=== PATIENT | female | born 1935 | race Caucasian/White ===

== ENCOUNTER 2019-11-26 18:01 | Inpatient (IN) | payer MEDICARE, SELFPAY ==
--- NOTE | ~2019-11-26 | XR_ITS ---
EXAMINATION: XR hip LT 2V w AP pelvis INDICATION: Left hip pain, initial encounter TECHNIQUE: AP view the pelvis and two views of the left hip are obtained. COMPARISON: None available FINDINGS: There is an acute, traumatic, closed, subcapital fracture of the left femoral neck. The fem oral heads are well-seated in their acetabula. No additional acute osseous findings are evident. Ther e is moderate to severe lumbar spondylosis. Phleboliths are noted in the pelvis. A subtle area of scl erosis in the intertrochanteric region of the right femur may reflect an enchondroma or bone infarct. IMPRESSION: 1. Acute subcapital fracture of the left femoral neck. Reviewed, dictated and finalized at location A.
--- NOTE | ~2019-11-26 | XR_ITS ---
EXAMINATION: XR hip LT min 2V DATE: 11/27/2019 15:22 INDICATION: Left hip arthroplasty TECHNIQUE: 2 views left hip FINDINGS: There is a left bipolar hip arthroplasty in expected position. Subcutaneous gas with soft tissue swelling are consistent with recent surgery. IMPRESSION: 1. Recent left bipolar hip arthroplasty. Reviewed, dictated and finalized at location A.
--- NOTE | ~2019-11-26 | XR_ITS ---
EXAMINATION: XR surgery orthopedic DATE: 11/27/2019 14:22 INDICATION: Intraoperative evaluation during left hip arthroplasty TECHNIQUE: Frontal view of the left hip was obtained. COMPARISON: 11/26/2019 FINDINGS: Intraoperative image during resection of the recently fractured left femoral head and neck and placem ent of a left hip arthroplasty, reportedly planned bipolar type. A femoral broach is in place with th e proximal tip centered over the acetabular component. Portions of the cephalad pelvis are excluded f rom the [id number]. No fractures in the visualized bones. Right hip joint space appears normal. He mostat projects over the proximal left thigh. IMPRESSION: 1. Expected appearance during left hip arthroplasty. Reviewed, dictated and finalized at location A.
--- NOTE | ~2019-11-26 | XR_ITS ---
EXAMINATION: XR chest 1V INDICATION: Pain after fall TECHNIQUE: Frontal view of the chest is obtained. COMPARISON: None available FINDINGS: There is a small left pleural effusion. No pneumothorax is identified. There are minimal le ft basilar airspace opacities. The cardiomediastinal silhouette is normal. Surgical clips are noted i n the right upper quadrant. IMPRESSION: 1. Small left pleural effusion. 2. Minimal left basilar airspace opacities, likely atelectasis. Reviewed, dictated and finalized at location A.
--- NOTE | ~2019-11-26 | XR_ITS ---
EXAMINATION: XR hip RT 1V DATE: 11/27/2019 12:50 INDICATION: Planned left hip surgery. Right hip radiograph obtained for comparison. TECHNIQUE: Anteroposterior view of the right hip were obtained. COMPARISON: 11/26/2019 FINDINGS: Alignment is normal. No fracture. Right hip joint space appears relatively preserved. Again seen is a stippled pattern of calcification at the intertrochanteric right femur. Severe lumbar spondylosis. IMPRESSION: 1. Sclerotic lesion with stippled pattern of calcification at the intertrochanteric right femur. Diff erential would include enchondroma, bone infarct or labral sclerosing myxofibrous tumor. Otherwise un remarkable right hip. Reviewed, dictated and finalized at location A. IMPRESSION: 1. Sclerotic lesion with stippled pattern of calcification at the intertrochant gaurang right femur. Differential would include enchondroma, bone infarct or ruth l sclerosing myxofibrous tumor. Otherwise unremarkable right hip.
[2019-11-26 18:00] VITALS: BP 136/81; PULSE 82; RESP 22; TEMP 36.7; O2SAT 91
--- NOTE | 2019-11-26 18:29 | PC.NURSE ---
Pt to XRAY via stretcher.
--- NOTE | 2019-11-26 18:31 | ED.FALL ---
HPI - Fall General Chief Complaint: Fall Stated Complaint: FALL/L HIP PAIN History of Present Illness HPI Narrative: Patient is an 84-year-old female who presents ER with left hip pain. Patient got up off her couch and was walking around it to get to her walker when she just lost her balance and fell to the ground. She did not strike her head or lose consciousness. She cannot get up due to pain in her hip. No numbness or tingling in that lower extremity. She takes Plavix but has never had any cardiac stenting. Pain in the hip is worse with movement and better with rest. Related Data Home Medications Medication Instructions Recorded Confirmed aspirin [Aspir-81] 11/26/19 clopidogrel 75 mg PO DAILY 11/26/19 duloxetine 30 mg PO TID 11/26/19 isosorbide mononitrate 120 mg PO DAILY 11/26/19 loratadine [Claritin] 10 mg PO DAILY 11/26/19 losartan 100 mg PO DAILY 11/26/19 metoprolol tartrate 11/26/19 pantoprazole 40 mg PO QAM 11/26/19 zolpidem mg 11/26/19 Allergies Allergy/AdvReac Type Severity Reaction Status Date / Time No Known Allergies Allergy Verified 11/26/19 18:11 Review of Systems Review of Systems: All systems reviewed & are unremarkable except as noted in HPI and below Constitutional: Constitutional: Denies fatigue, Denies fever(s) and Denies weakness ENT: Denies nasal congestion and Denies sore throat Musculoskeletal: Musculoskeletal: Reports arthralgias and Denies muscle cramps Neurologic: Denies dizziness, Denies headache(s), Denies focal weakness and Denies numbness PMFSH Past Medical History Medical History (Updated 11/26/19 @ 18:59 by Loyd Orellana MD) Hyperlipidemia Myocardial infarction Surgical History Surgical History (Updated 11/26/19 @ 18:33 by Loyd Orellana MD) History of bilateral knee replacement History of cholecystectomy History of hysterectomy Social History Social History (Updated 11/26/19 @ 18:33 by Loyd Orellana MD) Smoking status: Never smoker Exam Narrative: Exam Narrative: GENERAL: Well-appearing, well-nourished, and in no acute distress. HEAD: Normocephalic, atraumatic. ENT: Mucous membranes moist. CHEST: Clear to auscultation. No respiratory distress. HEART: Regular rate and rhythm. Normal peripheral pulses. EXTREMITIES: Tender to palpation over the left hip and patient unable to raise the leg due to pain. Normal range of motion right lower extremity with good strength. SKIN: Warm, dry, no rash. NEURO: No focal deficits. Alert and oriented x3. PSYCH: Normal mood and affect. Course Course Emergency Course: Patient informed of results. Admit to hospitalist service. Dr. Bojorquez consulted. Request that cardiology be consulted as well. Vital Signs Vital signs: Vital Signs Temperature 98.0 F 11/26/19 18:00 Pulse Rate 82 11/26/19 18:00 Respiratory Rate 22 H 11/26/19 18:00 Blood Pressure 136/81 11/26/19 18:00 Pulse Oximetry 91 11/26/19 18:00 Temperature 98.0 F 11/26/19 18:00 Pulse Rate 82 11/26/19 18:00 Respiratory Rate 22 H 11/26/19 18:00 Blood Pressure 136/81 11/26/19 18:00 Pulse Oximetry 91 11/26/19 18:00 MDM - Fall Lab Data Result diagrams: 11/26/19 18:25 11/26/19 18:25 Labs: Lab Results 11/26/19 11/26/19 11/26/19 Range/Units 18:25 18:25 18:25 WBC 10.5 H (4.5-10.0) K/mm3 RBC 4.50 (4.2-5.4) M/mm3 Hgb 15.4 H (12.0-15.0) g/dL Hct 45.8 (37.0-47.0) % MCV 101.8 H (80-100) fl MCH 34.2 H (26-34) pg MCHC 33.6 (32-36) g/dl RDW 13.1 (11.5-14.5) % Plt Count 229 (150-375) k/mm3 MPV 8.9 (7.4-10.4) fl Immature Gran % (Auto) 0.7 H (0-0.5) % Neut % (Auto) 78.2 H (45.5-73.1) % Lymph % (Auto) 16.2 L (18.3-44.2) % [place] % (Auto) 4.1 (2.6-8.5) % Eos % (Auto) 0.5 (0-4.4) % Baso % (Auto) 0.3 (0.2-1.2) % Lymph # (Auto) 1.70 (0.9-3.2) K/mm3 [place] # (Auto) 0.4 (0.1-0.6) K/mm3 Eos
[2019-11-26 18:32] LABS: Basophils Percent Auto 0.3 % (0.2-1.2); Eosinophils Absolute Auto 0.1 K/mm3 (0-0.3); Eosinophils Percent Auto 0.5 % (0-4.4); Hematocrit 45.8 % (37.0-47.0); Hemoglobin 15.4 g/dL (12.0-15.0); Immature Granulocyte Absolute 0.07 K/mm3 (0.00-0.031); Immature Granulocyte Percent A 0.7 % (0-0.5); Lymphocytes Percent Auto 16.2 % (18.3-44.2); Mean Corpuscular HGB Conc 33.6 g/dl (32-36); Mean Corpuscular Hemoglobin 34.2 pg (26-34); Mean Corpuscular Volume 101.8 fl (80-100); Mean Platelet Volume 8.9 fl (7.4-10.4); Monocytes Absolute Auto 0.4 K/mm3 (0.1-0.6); Monocytes Percent Auto 4.1 % (2.6-8.5); Neutrophils Absolute Auto 8.2 K/mm3 (1.3-6.7); Neutrophils Percent Auto 78.2 % (45.5-73.1); Platelet Count Result 229 k/mm3 (150-375); Red Cell Distribution Width 13.1 % (11.5-14.5); White Blood Count 10.5 K/mm3 (4.5-10.0)
[2019-11-26] MEDS: MORPHINE SULFATE 2 MG/ML INJ IV PUSH (18:37)
[2019-11-26 18:41] LABS: Prothrombin Time 12.8 Seconds (11.1-14.7)
[2019-11-26 18:42] LABS: Partial Thromboplastin Time 23.7 SECONDS (22.3-36.8)
--- NOTE | 2019-11-26 18:45 | ECG_ITS ---
Measurements Intervals Nora Rate: 82 P: 9 RI: 155 QRS: -20 QRSD: 92 T: 82 QT: 359 QTc: 421 Interpretive Statements SINUS RHYTHM VOLTAGE CRITERIA FOR LVH RSR' IN V1 OR V2, CONSIDER RIGHT VENTRICULAR HYPERTROPHY OR RIGHT VCD INFERIOR INFARCT, AGE INDETERMINATE BORDERLINE ST-T WAVE ABNORMALITY- HIGH LATERAL LEADS ABNORMAL ECG Electronically Signed On 11-26-2019 20:09:47 CDT by Jason Cleveland D.O.
[2019-11-26 19:00] LABS: Blood Urea Nitrogen 20 mg/dL (7-17); Calcium 9.1 mg/dL (8.4-10.2); Carbon Dioxide 24 mmol/L (22-30); Chloride 104 mmol/L (98-107); Estimated Glomerular Filt Rate 53; Glucose 143 mg/dL (65-105); Potassium 4.4 mmol/L (3.4-5.0); Sodium 135 mmol/L (137-145)
[2019-11-26 19:31] LABS: Add Urine Microscopic? NO; Appearance Urine Clear (Clear); Bilirubin Urine Negative (Negative); Blood Urine Negative (Negative); Color Urine Yellow (Yellow); Glucose Urine UA Negative (Negative); Ketones Urine Negative (Negative); Leukocyte Esterase Ur Negative LEU/UL (Negative); Nitrate Urine Negative (Negative); Protein Urine Negative (Negative); Specific Grav Ur 1.016 (1.001-1.035); Urobilinogen Urine Negative mg/dL (<2.0)
[2019-11-26 19:45] VITALS: BP 127/82; PULSE 82; RESP 20; TEMP 36.7; O2SAT 94
[2019-11-26 19:48] VITALS: BP 140/67; PULSE 84; RESP 18; TEMP 36.5; O2SAT 91; BMI 35.2
[2019-11-26] MEDS: MORPHINE SULFATE 4 MG/ML INJ 2 MG IV PUSH ×2 (20:47→22:58)
--- NOTE | 2019-11-26 22:43 | PM.IMHP ---
H&P: HPI History of Present Illness Chief complaint: Left hip pain after falling Narrative: Date and time of patient contact: 11/26/2019 at 11:00 p.m. Mary Rose is a 84 year old female of hypertension, recent CVA, and coronary artery disease who presented to the ER via EMS after ground level fall with left hip pain. Source of information is ER records, patient report and family report over the phone. The patient's daughter Karina, had just left the patient's home about an hour prior to the patient falling. The patient reports that she had gotten up and was walking into the kitchen when she fell. The patient thinks that she may have been dizzy prior to her fall. But she cannot remember if the room was spinning or if she felt lightheaded. Her daughter reports that the area where she fell is where the floor transitions from carpeting to tile. Patient thinks that she was using her walker to ambulate. When she fell she developed left groin pain and was unable to get up. She is unsure if she hit her head but has no evidence of head trauma. The patient's other daughter then stop by the house and found her down. She reports that the pain in her groin is a 10/10 in intensity without movement and is unbearable with movement. The patient seems to have fairly good recall of her distant medical history but has some difficulty with recall of recent events. Her daughter has noticed that the patient seems to be having more difficulty with recall since her stroke in August. The patient was evidently taken to [facility] that time due to generalized weakness and confusion. It was thought at that time that she had a urinary tract infection. However, when the patient's cognition did not improve an MRI was performed which demonstrated a small stroke. Per her daughter's report, the patient has no localizing deficits from her event. Patient was recently diagnosed with a urinary tract infection diagnosed due to dysuria (no urine culture performed) and has been taking Bactrim since the . She always has urinary frequency and is on Myrbetriq. She has frequent his urinary leakage at baseline. She is on day 5 of 7 of antibiotics. She denies any nausea or vomiting. She does have a history of coronary artery disease but denies any recent chest pain or shortness of breath. She evidently had a non STEMI and 2016. She needed a left total knee arthroplasty in [address] Bojorquez felt the patient would benefit from having the procedure done at higher level of care due to the patient's increased cardiac risk. The family is concerned about whether not the patient should have orthopedic surgery at our facility. They would like to speak to the boiler washer and the orthopedic surgeon. Review of Systems Review of Systems: Narrative: 12 systems were reviewed with pertinent positives and negatives per HPI. Except as documented in the HPI, all other systems were reviewed and are negative. [facility] Past Medical History Medical History (Updated 11/27/19 @ 01:13 by Sally Stern DO) CVA (cerebral vascular accident) August 2019 Essential hypertension GERD (gastroesophageal reflux disease) Hyperlipidemia Insomnia Myocardial infarction 2015 with cardiac catheterization at [facility] Urinary incontinence, mixed Surgical History Surgical History (Updated 11/27/19 @ 01:02 by Sally Stern DO) History of bilateral knee replacement Right knee greater than 10 years ago, left knee 2017 History of cardiac catheterization Without stent placement History of cholecystectomy History of hysterectomy Family History Family History Son Malignant neoplasm of prostate Social History Social History (Updated 11/27/19 @ 01:09 by Sally Stern DO) Social History: Primary care physician: Dr. Bolanos Code status: Full code Smoking status: Never smoker Alcohol intake: cu
--- NOTE | 2019-11-26 23:43 | ADMGEN ---
This patient, Mary Rose, was admitted to 3 Med Surg Room 316-01. Patient/family oriented to hospital policies and general routines including ID bracelet, bed and alarms, visiting hours, pain management, procedures, bathroom and other care routines, personal items, smoking policy, room service/diet, and visiting hours. Valuables list has been completed. Information on how to activate the Rapid Response Team has been discussed. Patient/Family are encouraged to report perceived risks to care and to ask questions if they do not understand what they are told or what they should do.
[2019-11-27] VITALS (17 sets, daily range): BP systolic 124–159; BP diastolic 46–101; PULSE 78–120; RESP 14–20; TEMP 36.1–36.9; O2SAT 87–100
[2019-11-27] MEDS: MORPHINE SULFATE 4 MG/ML INJ IV PUSH (00:23)
[2019-11-27] MEDS: MIRABEGRON 25 MG ER TABLET 50 MG PO ×2 (02:20→21:15)
[2019-11-27] MEDS: METOPROLOL TARTRATE 50 MG TAB PO ×3 (02:20→19:56)
[2019-11-27 06:33] LABS: Blood Urea Nitrogen 27 mg/dL (7-17); Calcium 8.8 mg/dL (8.4-10.2); Carbon Dioxide 24 mmol/L (22-30); Chloride 105 mmol/L (98-107); Estimated CRCL calculation 36 ml/min; Estimated Glomerular Filt Rate 43; Glucose 143 mg/dL (65-105); Potassium 4.8 mmol/L (3.4-5.0); Sodium 136 mmol/L (137-145)
--- NOTE | 2019-11-27 07:37 | PM.CNOR ---
Assessment and Plan Additional Plan This patient is a 84-year-old female who was admitted through the emergency room last evening with a displaced subcapital left femoral neck fracture. She fell at her home yesterday from ground height causing injury and she denies any other symptoms except for pain in left hip. She lives alone at home. She uses a walker chronically for stability she states. She has undergone bilateral knee replacements on 1 side with by her many years ago and about 3 years ago she had her other knee replaced at [facility]. She states she was advised to go to a tertiary care facility because of being at increased risk of cardiac complications due to heart attack and stent 1 year prior. Her past medical history is also significant for a cerebrovascular accident in August of 2019 according to the hospitalist note. Her medications include isosorbide Plavix aspirin Rachelle 10 losartan and metoprolol pantoprazole zolpidem and myrbetriq. She has no known drug allergies. On examination today she is alert and oriented she is a pleasant female in no acute distress at this time. Her pain appears to be well controlled. We will change the p.r.n. order of Tylenol 2 scheduled Tylenol and she has p.r.n. morphine ordered. Her left leg is shortened and externally rotated. There are no abnormalities in the skin she has a knee replacement incision there is no swelling or tenderness at the knee there is no ecchymosis at the hip. She has 2+ dorsalis pedis and posterior tibial artery pulses palpable. She has intact sensation wiggles her toes without difficulty. I have discussed with her that with her past medical history she has had increased risk for severe medical complications such as heart attack stroke and she is at increased risk for mortality compared to an 84-year-old with a hip fracture like this that does not have a recent history of CVA and a prior history of [place] and stent placement. For DVT prophylaxis I would recommend Lovenox 40 mg daily for a more gentle approach since with her recent stroke it will be important to to resume her Plavix quickly as the baby aspirins probably inadequate to prevent further strokes. She will have a greater degree of blood loss than the average patient and may need transfusion this was discussed. Risk of surgical complications such as infection leg length discrepancy fracture centrum discussed. She is currently finishing a 1 week course of Bactrim for urinary tract infection. She states that she has no urinary symptoms now. Her urinalysis showed a negative leukocyte esterase yesterday and was clear. She is at higher risk for wound infection and higher likelihood of being colonized with MRSA or Bactrim resistant organisms. We will plan to use vancomycin in addition to Ancef for perioperative antibiotic prophylaxis. Her son doctor Terrence Stack is a physician in [place] and I will be calling him this morning to discuss this with him. We have Cardiology consult and for a cardiac risk assessment and they have been notified again this morning and I have maintained the plans to proceed with the bipolar hemiarthroplasty of her left hip at 1:00 a.m. this afternoon. I think that avoidance of use of cement in her case would be preferable and we will therefore utilized the Actis this stem which has a collar and his most suitable for her anatomy. History of Present Illness HPI Consult date: 11/27/19 Chief complaint: Left hip pain after falling PMFSH Past Medical History Medical History (Updated 11/27/19 @ 01:13 by Sally Stern DO) CVA (cerebral vascular accident) August 2019 Essential hypertension GERD (gastroesophageal reflux disease) Hyperlipidemia Insomnia Myocardial infarction 2015 with cardiac catheterization at [facility] Urinary incontinence, mixed Surgical History Surgical History (Updated 11/27/19 @ 01:02 by Sally Stern DO) History of bilateral knee replacement Right knee greater than 10
[2019-11-27 08:37] LABS: Hemoglobin 15.4 g/dL (12.0-15.0); Mean Corpuscular HGB Conc 32.8 g/dl (32-36); Mean Corpuscular Hemoglobin 34.1 pg (26-34); Mean Platelet Volume 8.8 fl (7.4-10.4); Platelet Count Result 177 k/mm3 (150-375); Red Blood Count 4.52 M/mm3 (4.2-5.4); Red Cell Distribution Width 13.2 % (11.5-14.5); White Blood Count 12.2 K/mm3 (4.5-10.0)
[2019-11-27 08:53] LABS: Alanine Aminotransferase 25 U/L (4-35); Albumin Level 3.9 g/dL (3.5-5.1); Alkaline Phosphatase 75 U/L (38-126); Aspartate Amino Transferase 29 U/L (14-36); Bilirubin,Total 0.9 mg/dL (0.2-1.3); Blood Urea Nitrogen 28 mg/dL (7-17); Calcium 8.9 mg/dL (8.4-10.2); Carbon Dioxide 25 mmol/L (22-30); Chloride 103 mmol/L (98-107); Estimated CRCL calculation 31 ml/min; Estimated Glomerular Filt Rate 36; Glucose 152 mg/dL (65-105); Sodium 135 mmol/L (137-145)
--- NOTE | 2019-11-27 08:59 | P.PNIM_ITS ---
Progress Note: A&P Assessment and Plan (1) Fracture of femoral neck, left, closed: Code(s): S72.002A - Fracture of unspecified part of neck of left femur, initial encounter for closed fracture Status: Acute Assessment and Plan: After sustaining a ground level fall at home. Both Orthopedic surgery and Cardiology have been consulted; appreciate recommendations. Ortho has planned for surgery this afternoon pending Cardiology input in risk assessment. Pain appears to be more controlled this morning * Continue morphine to 4 mg q.2 hours., consider tapering if tolerable * IV tylenol ordered per Dr. Bojorquez * Will await further input from Ortho and Cardiology * Monitor (2) Poor short-term memory: Code(s): R41.3 - Other amnesia Status: Acute Assessment and Plan: Patient may have mild cognitive impairment/dementia. Anticipate patient becoming more confused with pain medication administration and hospitalization. * Use narcotics cautiously, consider tapering morphine if tolerable * Monitor closely (3) Coronary artery disease: Code(s): I25.10 - Atherosclerotic heart disease of [place] coronary artery without angina pectoris Status: Acute Assessment and Plan: She denies any active cardiac symptoms. * Will hold her home aspirin and Plavix. Agree with resuming as soon as possible post op * Will continue home Imdur, metoprolol and losartan. * Await cardiac risk stratification from Cardiology. (4) UTI (urinary tract infection): Code(s): N39.0 - Urinary tract infection, site not specified Status: Acute Assessment and Plan: Reported UTI in the outpatient setting. UA unremarkable likely given to current abx treatment * Will continue the patient's last 2 days of Bactrim * Vanc and Ancef have been added perioperatively per Dr. Bojorquez * Monitor for symptoms (5) CVA (cerebral vascular accident): Code(s): I63.9 - Cerebral infarction, unspecified Status: Acute Assessment and Plan: Reported CVA in 08/2019. ASA and Plavix held at this time. No obvious focal deficits on exam * Defer to Ortho/Cardiology on timing of resumption of these medications * Monitor (6) Essential hypertension: Code(s): I10 - Essential (primary) hypertension Status: Acute Assessment and Plan: BP is well controlled. BP 120s sys * Continue home medications at this time * Monitor (7) GERD (gastroesophageal reflux disease): Code(s): K21.9 - Gastro-esophageal reflux disease without esophagitis Status: Acute Assessment and Plan: No acute issues at this time * Continue Pantoprazole * Monitor Subjective Date/time seen: 11/27/19 08:59 Interval history: Patient is a 84 yo F with history of hypertension, recent CVA, and coronary artery disease ([place] in 2016) who is here for evaluation/treatment of acute subcapital fracture of the left femoral neck after sustaining a ground level fall at home. Patient has little complaints for me today. She notes her left hip pain is better this morning. She states her sensation is intact in her left leg. She confirms that she slipped on her floor at home as the cause for her fall. Denied dysuria prior to Virk placement. No other complaints for me today. Denies f/c/s, cp/palpitations, sob/cough, n/v/d/c, abd pain, changes in
--- NOTE | 2019-11-27 08:59 | PM.IMPN ---
Progress Note: A&P Assessment and Plan (1) Fracture of femoral neck, left, closed: Code(s): S72.002A - Fracture of unspecified part of neck of left femur, initial encounter for closed fracture Status: Acute Assessment and Plan: After sustaining a ground level fall at home. Both Orthopedic surgery and Cardiology have been consulted; appreciate recommendations. Ortho has planned for surgery this afternoon pending Cardiology input in risk assessment. Pain appears to be more controlled this morning Continue morphine to 4 mg q.2 hours., consider tapering if tolerable IV tylenol ordered per Dr. Bojorquez Will await further input from Ortho and Cardiology Monitor (2) Poor short-term memory: Code(s): R41.3 - Other amnesia Status: Acute Assessment and Plan: Patient may have mild cognitive impairment/dementia. Anticipate patient becoming more confused with pain medication administration and hospitalization. Use narcotics cautiously, consider tapering morphine if tolerable Monitor closely (3) Coronary artery disease: Code(s): I25.10 - Atherosclerotic heart disease of [place] coronary artery without angina pectoris Status: Acute Assessment and Plan: She denies any active cardiac symptoms. Will hold her home aspirin and Plavix. Agree with resuming as soon as possible post op Will continue home Imdur, metoprolol and losartan. Await cardiac risk stratification from Cardiology. (4) UTI (urinary tract infection): Code(s): N39.0 - Urinary tract infection, site not specified Status: Acute Assessment and Plan: Reported UTI in the outpatient setting. UA unremarkable likely given to current abx treatment Will continue the patient's last 2 days of Bactrim Vanc and Ancef have been added perioperatively per Dr. Bojorquez Monitor for symptoms (5) CVA (cerebral vascular accident): Code(s): I63.9 - Cerebral infarction, unspecified Status: Acute Assessment and Plan: Reported CVA in 08/2019. ASA and Plavix held at this time. No obvious focal deficits on exam Defer to Ortho/Cardiology on timing of resumption of these medications Monitor (6) Essential hypertension: Code(s): I10 - Essential (primary) hypertension Status: Acute Assessment and Plan: BP is well controlled. BP 120s sys Continue home medications at this time Monitor (7) GERD (gastroesophageal reflux disease): Code(s): K21.9 - Gastro-esophageal reflux disease without esophagitis Status: Acute Assessment and Plan: No acute issues at this time Continue Pantoprazole Monitor Subjective Date/time seen: 11/27/19 08:59 Interval history: Patient is a 84 yo F with history of hypertension, recent CVA, and coronary artery disease ([place] in 2016) who is here for evaluation/treatment of acute subcapital fracture of the left femoral neck after sustaining a ground level fall at home. Patient has little complaints for me today. She notes her left hip pain is better this morning. She states her sensation is intact in her left leg. She confirms that she slipped on her floor at home as the cause for her fall. Denied dysuria prior to Virk placement. No other complaints for me today. Denies f/c/s, cp/palpitations, sob/cough, n/v/d/c, abd pain, changes in BMs, dysuria, calf pain/swelling. Review of Systems Review of Systems: All systems reviewed & are unremarkable except as noted in HPI and below Exam Narrative: Exam Narrative: Patient lying supine in bed a time of visit Const: General: cooperative, comfortable, no acute distress, well developed, alert and awake Nutritional Appearance: well nourished and ove
[2019-11-27] MEDS: LOSARTAN POTASSIUM 100 MG TABLET PO (09:25)
--- NOTE | 2019-11-27 10:16 | PM.CNCAR ---
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 Patient denies any history of coronary stents. She denies chest pain, shortness of breath. May proceed for the planned surgery for the left hip today. Recommend to resume aspirin and Plavix as soon as safe from surgical standpoint. Recommend gentle IV hydration given acute rise in creatinine. Recommend telemetry to identify whether or not there was any arrhythmia or heart blocks that caused the falling down (2) CVA (cerebral vascular accident): Code(s): I63.9 - Cerebral infarction, unspecified Status: Acute (3) Coronary artery disease: Code(s): I25.10 - Atherosclerotic heart disease of [place] coronary artery without angina pectoris Status: Acute History of Present Illness History of Present Illness Consult date/time: Date of service: 11/27/19 10:16 Mary Rose is a 84 year old female of hypertension, recent CVA, and coronary artery disease (patient states that she does not have coronary stents. She follows up with land resource specialist at [place].) Who presented to the ER via EMS after ground level fall with left hip pain. Apparently was walking and then fell down. Patient is not sure if she was dizzy. Patient is not sure if she passed out. She is also not sure if she tripped on something. Denies chest pain, shortness of breath, lower limb edema, orthopnea,, fever, chills. Serum creatinine on admission was 1, today 1.4, white cell count today 14 K, chest x-ray reveals myself shows possible small left pleural effusion. EKG interpreted myself shows sinus rhythm, LVH, old inferior VA, inversions in lead 1 and aVL. Requesting physician: Loyd Orellana MD Consult reason: Other (Preoperative cardiovascular exam) Reason For Visit: Left hip pain after falling Review of Systems Constitutional: Constitutional: Denies chills, Denies fever(s) and Denies poor appetite Eyes: Eyes: Denies eye discharge, Denies loss of vision, Denies eye pain and Denies photophobia ENT: Denies dizziness, Denies epistaxis, Denies nasal congestion and Denies sore throat Cardiovascular: Cardiovascular: Denies chest pain, Denies syncope, Denies pedal edema, Denies leg edema, Denies palpitations, Denies dyspnea, Denies dyspnea on exertion and Denies orthopnea Respiratory: Respiratory: Denies cough, Denies dyspnea, Denies dyspnea on exertion and Denies wheezing Gastrointestinal: Gastrointestinal: Denies abdominal pain, Denies diarrhea, Denies nausea and Denies vomiting Genitourinary: Genitourinary: Denies hematuria, Denies genital lesions and Denies dysuria Musculoskeletal: Musculoskeletal: Reports abnormal gait, Reports arthralgias, Reports joint swelling and Denies numbness Integumentary/Breasts: Skin/Breast: Denies pruritus and Denies rash Neurologic: Reports lack of coordination, Denies loss of vision, Denies numbness and Reports other (Memory loss.) Psychiatric: Psychiatric: Denies anxiety and Denies depression Endocrine: Endocrine: Denies cold intolerance, Denies heat intolerance and Denies palpitations Hematologic/Lymphatic: Hematologic/Lymphatic: Denies easy bleeding and Denies easy bruising Allergic/Immunologic: Allergic/Immunologic: Denies urticaria and Denies wheezing PMFSH Past Medical History Medical History CVA (cerebral vascular accident) August 2019 Essential hypertension GERD (gastroesophageal reflux disease) Hyperlipidemia Insomnia Myocardial infarction 2016 with cardiac catheterization at Urinary incontinence, mixed Surgical History Surgical History History of bilate
--- NOTE | 2019-11-27 11:41 | PC.NURSE ---
To OR per bed.
[2019-11-27] MEDS: LACTATED RINGERS 1,000 ML 30 ML IV CONT ×3 (11:50→15:39)
--- NOTE | 2019-11-27 12:03 | WPDANESEPPF ---
Anes - Initial Pre Proc Eval Procedure: Operation Date: 11/27/19 13:00 Proposed Procedures p Left Bipolar Hip Replacement - Abel Bojorquez MD Date/Time: 11/27/19 12:03 Surgeon: Fabiano Carbajal PA-C Pre Op Diagnosis: Left hip pain after falling Patient Data Age: 84 Gender: F Height: 5 ft 5 in Weight: 96 kg Last Vital Signs Temp 36.9 C 11/27/19 06:00 Pulse 100 11/27/19 09:26 Resp 16 11/27/19 06:00 BP 129/65 11/27/19 06:00 Pulse Ox 90 11/27/19 06:00 Allergies Allergy/AdvReac Type Severity Reaction Status Date / Time No Known Allergies Allergy Verified 11/26/19 18:11 Home Medications Medication Instructions Recorded Confirmed Type aspirin [Aspir-81] 81 mg PO DAILY 11/26/19 11/26/19 History clopidogrel 75 mg PO 4XW 11/26/19 11/26/19 History duloxetine 90 mg PO DAILY 11/26/19 11/26/19 History isosorbide mononitrate 120 mg PO DAILY 11/26/19 11/26/19 History loratadine [Claritin] 10 mg PO DAILY 11/26/19 11/26/19 History losartan 100 mg PO DAILY 11/26/19 11/26/19 History metoprolol tartrate [Lopressor] 50 mg PO BID 11/26/19 11/26/19 History mirabegron [Myrbetriq] 50 mg PO HS 11/26/19 11/26/19 History pantoprazole 40 mg PO QAM 11/26/19 11/26/19 History zolpidem 10 mg PO HS 11/26/19 11/26/19 History Laboratory Tests 11/26/19 11/26/19 11/26/19 18:25 18:25 18:44 WBC 10.5 K/mm3 H K/mm3 (4.5-10.0) RBC 4.50 M/mm3 M/mm3 (4.2-5.4) Hgb 15.4 g/dL H g/dL (12.0-15.0) Hct 45.8 % % (37.0-47.0) MCV 101.8 fl H fl (80-100) MCH 34.2 pg H pg (26-34) MCHC 33.6 g/dl g/dl (32-36) RDW 13.1 % % (11.5-14.5) Plt Count 229 k/mm3 k/mm3 (150-375) MPV 8.9 fl fl (7.4-10.4) Immature Gran % (Auto) 0.7 % H % (0-0.5) Neut % (Auto) 78.2 % H % (45.5-73.1) Lymph % (Auto) 16.2 % L % (18.3-44.2) Bailey % (Auto) 4.1 % % (2.6-8.5) Eos % (Auto) 0.5 % % (0-4.4) Baso % (Auto) 0.3 % % (0.2-1.2) Lymph # (Auto) 1.70 K/mm3 K/mm3 (0.9-3.2) Bailey # (Auto) 0.4 K/mm3 K/mm3 (0.1-0.6) Eos # (Auto) 0.1 K/mm3 K/mm3 (0-0.3) Baso # (Auto) 0.0 K/mm3 K/mm3 (0.0-0.1) Abs Immat Gran (auto) 0.07 K/mm3 H K/mm3 (0.00-0.031) Absolute Neuts (auto) 8.2 K/mm3 H K/mm3 (1.3-6.7) Absolute Nucleated RBC 0.0 K/mm3 K/mm3 (0.0-0.012) Nucleated RBC % 0.0 % % (0.0-0.2) PT 12.8 Seconds Seconds (11.1-14.7) INR 1.0 APTT 23.7 SECONDS SECONDS (22.3-36.8) Sodium 135 mmol/L L mmol/L (137-145) Potassium 4.4 mmol/L mmol/L (3.4-5.0) Chloride 104 mmol/L mmol/L (98-107) Carbon Dioxide 24 mmol/L mmol/L (22-30) BUN 20 mg/dL H mg/dL (7-17) Creatinine 1.00 mg/dL mg/dL (0.7-1.0) Estim Creat Clear Calc Not Reportable Estimated GFR 53 L (59 - ) Glucose 143 mg/dL H mg/dL (65-105) Calcium 9.1 mg/dL mg/dL (8.4-10.2) Total Bilirubin AST ALT Alkaline Phosphatase Total Protein Albumin Urine Color Urine Appearance Urine pH Ur Specific [place] Urine Protein Urine Glucose (UA) Urine Ketones Ur Blood (Man) Urine Nitrate Urine Bilirubin Urine Urobilinogen Leukocyte Esterase Rfl Blood Type Antibody Screen 11/26/19 11/27/19 11/27/19 19:20 05:43 08:13 WBC 12.2 K/mm3 H K/mm3 (4.5-10.0) RBC 4.52 M/mm3 M/mm3 (4.2-5.4) Hgb 15.4 g/dL H g/dL (12.0-15.0) Hct 47.0 % % (37.0-47.0) MCV 104.0 fl H fl (80-100) MCH 34.1 pg H pg (26-34) MCHC 32.8 g/
--- NOTE | 2019-11-27 12:54 | PM.PNORT ---
Progress Note: A&P Additional Plan I spoke with Dr. Melecio Stack from [facility], patient's son, about plan of bipolar hip replacement. He advised me of the fact that her mini stroke left no known neurologic deficit fortunately. He understands that she is at increased risk for cardiac complications especially [place] and congestive heart failure, cerebrovascular accident and higher risk of mortality. I reviewed the records from [facility]. She had a CT angiogram of the chest on 10/16 that showed no pulmonary embolism. She had carotid ultrasounds on 10/17/2019 which showed no obvious significant lesion. She had a CT of the head on the same date which showed no acute abnormality. Recent echocardiogram showed ejection fraction estimated at 45% and mild systolic dysfunction of the left ventricle no high-grade valvular disease. When she had her heart attack in 2015 the catheterization showed small-vessel disease and at that time she had a small area of reversible ischemia. I note that her creatinine is up to 1.4 at 8:30 a.m.. I was not aware that they had checked a creatinine in the interim but it was 1.0 last night 1.2 at 5:00 a.m. 1.4 at 8:00 a.m. so it is rising likely associated with dehydration and we will try to avoid medications it might have adverse effects on the kidneys with the 1 exception of using 1 dose of vancomycin as a loading dose. As per the cream buyer's recommendation we will plan to have her on the intermediate care unit postoperatively for close monitoring. I did discuss with patient and son that I will be leaving town this evening and Dr. Aguilar see the patient in my absence. I will be returning Sunday. Subjective Subjective Date/Time Seen: 11/27/19 12:54 Objective Data Vital Signs Vital Signs: Vital Signs - 24 hr 11/26/19 18:00 11/26/19 19:45 11/26/19 19:48 Temperature 36.7 C 36.7 C 36.5 C Pulse Rate 82 82 84 Respiratory Rate 22 H 20 18 Blood Pressure 136/81 127/82 140/67 Pulse Oximetry 91 94 91 11/27/19 02:20 11/27/19 06:00 11/27/19 09:26 Temperature 36.9 C Pulse Rate 84 81 100 Respiratory Rate 16 Blood Pressure 129/65 Pulse Oximetry 90 11/27/19 11:45 Temperature 36.1 C L Pulse Rate 120 H Respiratory Rate 20 Blood Pressure 130/46 L Pulse Oximetry 87 L Intake/Output Intake/Output: Intake & Output 11/24/19 11/25/19 11/26/19 11/27/19 23:59 23:59 23:59 23:59 Intake Total 220 Output Total 100 200 Balance -100 20 Meds/Results Medications: Active Medications Generic Name Dose Route Start Last Admin Trade Name Freq PRN Reason Stop Dose Admin Duloxetine HCl 90 mg 11/27/19 09:00 Cymbalta PO DAILY MURRAY Fentanyl Citrate 25 mcg 11/27/19 12:10 Sublimaze IV PUSH Q2M PRN Pain Acetaminophen 1,000 mg in 100 mls @ 400 mls/hr 11/27/19 08:00 11/27/19 09:40 Ofirmev 1,000 Mg Ivpb IVPB 11/28/19 08:01 Infused Q6H MURRAY Infusion Vancomycin HCl 1,500 mg in 500 mls @ 333.333 mls/hr 11/27/19 12:00 11/27/19 12:06 Vancomycin 1,500 Mg/D5w 500 Ml IVPB 11/27/19 13:29 333.3 mls/hr ONCE ONE Administration Lactated Ringer's 1,000 mls @ 30 mls/hr 11/27/19 08:45 11/27/19 11:50 Lr - Lactated Ringers Iv IV CONT 30 mls/hr .Q24H MURRAY Administration Lactated Ringer's 1,000 mls @ 30 mls/hr 11/27/19 12:10 Lr - Lactated Ringers Iv IV CONT .Q24H MURRAY Isosorbide Mononitrate 120 mg 11/27/19 09:00 Imdur PO DAILY MURRAY Loratadine 10 mg 11/27/19 09:00 Claritin PO DAILY MURRAY Losartan Potassium 100 mg 11/27/19 09:00 11/27/19 09:25 Cozaar PO 100 mg DAILY MURRAY Administration Metoprolol Tartrate 50 mg 11/27/19 01:10 11/27/19 09:26 Lopressor PO 50 mg BID MURRAY Administration Mirabegron 50 mg 11/27/19 01:10 11/27/19 02:20 Myrbetriq PO 50 mg HS MURRAY Administration Morphine Sulfate 4 mg 11/26/19 23:56 11/27/19 00:23 Morphine Sulfate Inj IV PUSH 4 mg Q2H OH
[2019-11-27] MEDS: ceFAZolin 2 GM/D5W 50 ML 2 GM/50 ML BAG IVPB (13:20)
[2019-11-27] MEDS: TRANEXAMIC ACID 1,000 MG/10 ML AMPUL 1000 MG IV PUSH (13:23)
[2019-11-27] MEDS: ceFAZolin SODIUM 1 GM VIAL 3 GM IRRIGATION (13:42)
[2019-11-27] MEDS: ceFAZolin SODIUM 1 GM VIAL IV PUSH (14:35)
--- NOTE | 2019-11-27 14:59 | PM.PROC ---
Procedure Note - Detailed Date of procedure: 11/27/19 Pre-op diagnosis: Left hip pain after falling Displaced subcapital left femoral neck fracture Post-op diagnosis: same Procedure performed: Press-Fit bipolar hemiarthroplasty left hip with Actis collared stem. Description of procedure: Patient was brought to the operating room and general anesthesia was administered. She was placed in the lateral decubitus position in the left hip area scrubbed with chlorhexidine cloths. Hip rests were applied left hip prepped draped usual fashion. She received 2 g of Ancef weight based vancomycin and 1 g of tranexamic acid preoperatively. A 6 in longitudinal incision was made over the lateral aspect of the hip curving posteriorly proximally. Dissection was carried down to the fascia and the fascia incised in line with the incision. The anterior 40% of the gluteus medius and gluteus minimus were elevated off the greater trochanter. 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 Capsule was incised and femoral neck osteotomy performed according to preoperative templating. Femoral head was removed and measured 48.8 mm diameter and the 49 trial fit well about a mm proud the 50 was too big 6 mm proud. The femur was broached up to a size 5 and we trialed and took an intraoperative x-ray that showed we had appropriate leg lengths and the appropriate height of the broach. The femoral neck was calcar planed and the 5 was still loose and we broached up to a size 7 and with trialing with the +1 we found appropriate soft tissue tension and stability in all positions. We chose the size 7 Actis standard offset stem. This was impacted without difficulty until full seating was achieved and the stem had excellent stability as well. On trialing the 1.5 neck was still appropriate. We assembled the 1.5 mm neck head 28 mm diameter to the 49 bipolar head on the back table after changing gloves and impacted this onto the cleaned and dried trunnion the hip was reduced range of motion and stability reconfirmed. Capsule was reapproximated with 2. Ethibond. The abductors were reattached to greater trochanter with 5. Ethibond and 2. Ethibond on the split. Local anesthetic cocktail without the Toradol and without epinephrine was utilized the fascia was closed with interrupted 2. Vicryl Zeffren 1. You directional maria elena strata fix running suture. Drain placed deep in the subcutaneous layer skin closed with 2 subcutaneous Vicryl and skin glue. EBL was I 100 cc during the procedure. Wound was quite dry at time of from closures well. 1/3 g of Ancef was given at time wound closure. No known complications. She did have rather markedly osteoporosis in the canal and we will keep her at 50% weight-bearing for the 1st 4 weeks. Anesthesia: [facility] Surgeon: Abel Bojorquez MD Fuel Dock Attendant: Jae Renee Estimated blood loss (mL): 100 IV fluids (mL): 1,700 Urine output (mL): 75 Drains: Yes Packing: No Pathology: yes Complications: No immediate complications Condition: stable Disposition: PACU
--- NOTE | 2019-11-27 16:44 | PC.NURSE ---
Patient received from PACU via bed on 11/27/2019 at 1644. Report received from ANA MARÍA Kaplan.
[2019-11-27] MEDS: SODIUM CHLORIDE 0.9% IV 1,000 ML 125 ML IV CONT (17:07)
[2019-11-27] MEDS: DOCUSATE SODIUM 100 MG CAPSULE PO (21:16)
[2019-11-27] MEDS: ONDANSETRON INJ 4 MG/2 ML VIAL IV PUSH (23:20)
[2019-11-28] VITALS (13 sets, daily range): BP systolic 97–144; BP diastolic 47–92; PULSE 74–99; RESP 16–18; TEMP 35.5–37.1; O2SAT 92–98
[2019-11-28] MEDS: SODIUM CHLORIDE 0.9% IV 1,000 ML 125 ML IV CONT (01:56)
[2019-11-28 04:55] LABS: Basophils Absolute Auto 0.1 K/mm3 (0.0-0.1); Basophils Percent Auto 0.5 % (0.2-1.2); Eosinophils Absolute Auto 0.1 K/mm3 (0-0.3); Eosinophils Percent Auto 1.2 % (0-4.4); Hematocrit 36.3 % (37.0-47.0); Hemoglobin 11.9 g/dL (12.0-15.0); Immature Granulocyte Absolute 0.05 K/mm3 (0.00-0.031); Immature Granulocyte Percent A 0.5 % (0-0.5); Lymphocytes Absolute Auto 1.07 K/mm3 (0.9-3.2); Lymphocytes Percent Auto 10.9 % (18.3-44.2); Mean Corpuscular HGB Conc 32.8 g/dl (32-36); Mean Corpuscular Volume 103.7 fl (80-100); Mean Platelet Volume 8.5 fl (7.4-10.4); Monocytes Absolute Auto 0.6 K/mm3 (0.1-0.6); Monocytes Percent Auto 6.3 % (2.6-8.5); Neutrophils Absolute Auto 7.9 K/mm3 (1.3-6.7); Neutrophils Percent Auto 80.6 % (45.5-73.1); Platelet Count Result 119 k/mm3 (150-375); Red Cell Distribution Width 12.9 % (11.5-14.5); White Blood Count 9.9 K/mm3 (4.5-10.0)
[2019-11-28 05:04] LABS: Blood Urea Nitrogen 27 mg/dL (7-17); Calcium 7.8 mg/dL (8.4-10.2); Carbon Dioxide 26 mmol/L (22-30); Chloride 104 mmol/L (98-107); Estimated CRCL calculation 42 ml/min; Estimated Glomerular Filt Rate 53; Glucose 111 mg/dL (65-105); Magnesium 1.9 mg/dL (1.6-2.3); Potassium 4.5 mmol/L (3.4-5.0); Sodium 134 mmol/L (137-145)
[2019-11-28] MEDS: ONDANSETRON INJ 4 MG/2 ML VIAL IV PUSH ×2 (05:27→13:09)
[2019-11-28 05:34] LABS: Vitamin D 25 Hydroxy 24.8 ng/mL
--- NOTE | 2019-11-28 07:03 | PC.NURSE ---
hourly rounding done and pt found to have pulled out IV access, pulled off rayo catheter strap and disconnected hemovac tubing. Dressing applied to Rt hand, rayo cath strap reapplied and hemovac tubing reattached. Pt reoriented and re-educated on importance of medical devices. Multiple IV attempts x10 by this RN, Sally Rajput, and bathhouse keeper without success. paged with no return call at this time.
[2019-11-28] MEDS: CLOPIDOGREL BISULFATE 75 MG TABLET PO (09:50)
[2019-11-28] MEDS: ENOXAPARIN 40 MG/0.4 ML SYRINGE SUB-Q (09:50)
[2019-11-28] MEDS: DOCUSATE SODIUM 100 MG CAPSULE PO (09:50)
[2019-11-28] MEDS: METOPROLOL TARTRATE 50 MG TAB PO ×2 (09:51→16:32)
[2019-11-28] MEDS: ISOSORBIDE MONONITRATE 60 MG TAB.ER.24H 120 MG PO (09:51)
[2019-11-28] MEDS: DULoxetine HCL 30 MG CAPSULE.DR 90 MG PO (09:51)
[2019-11-28] MEDS: PANTOPRAZOLE 40 MG TABLET PO (09:51)
[2019-11-28] MEDS: ASPIRIN 81 MG ENTERIC TABLET PO (09:52)
[2019-11-28] MEDS: LORATADINE 10 MG TABLET PO (09:52)
[2019-11-28] MEDS: LOSARTAN POTASSIUM 100 MG TABLET PO (09:52)
--- NOTE | 2019-11-28 11:29 | PM.PNCARD ---
Progress Note: A&P Assessment and Plan (1) Preoperative cardiovascular examination: Code(s): Z01.810 - Encounter for preprocedural cardiovascular examination Status: Acute Assessment and Plan: Doing well postoperatively. No bradyarrhythmias or ischemic symptoms. Continue current medical therapy. Follow up with her take away worker Dr. Polanco as outpatient in 2-4 weeks for any further workup. Will sign off at this time. Please do not hesitate to contact us with any additional questions or concerns. (2) CVA (cerebral vascular accident): Code(s): I63.9 - Cerebral infarction, unspecified Status: Acute Assessment and Plan: Continue antiplatelet therapy as previously set forth as outpatient. (3) Coronary artery disease: Code(s): I25.10 - Atherosclerotic heart disease of [place] coronary artery without angina pectoris Status: Acute Assessment and Plan: No anginal symptoms. Stable, continue aggressive medical therapy. Follow up with take away worker as outpatient. Subjective Date/time seen: Date of service: 11/28/19 11:29 Follow-up CAD, fall Interval history: No new complaints. Denies chest pain or shortness of breath. Notes edema in lower extremities. Pain controlled. No issues on telemetry overnight. No Jeronimo/tachy arrhythmias. Occasional isolated PVCs. Review of Systems Constitutional: Constitutional: Denies chills, Denies fever(s) and Denies poor appetite Eyes: Eyes: Denies eye discharge, Denies loss of vision, Denies eye pain and Denies photophobia ENT: Denies epistaxis, Denies nasal congestion and Denies sore throat Cardiovascular: Cardiovascular: Denies chest pain, Denies pedal edema, Denies leg edema, Denies palpitations, Denies dyspnea, Denies dyspnea on exertion and Denies orthopnea Respiratory: Respiratory: Denies cough, Denies dyspnea, Denies dyspnea on exertion and Denies wheezing Gastrointestinal: Gastrointestinal: Denies abdominal pain, Denies diarrhea, Denies nausea and Denies vomiting Genitourinary: Genitourinary: Denies hematuria, Denies genital lesions and Denies dysuria Musculoskeletal: Musculoskeletal: Reports abnormal gait, Reports arthralgias, Reports joint swelling and Denies numbness Integumentary/Breasts: Skin/Breast: Denies pruritus and Denies rash Neurologic: Reports abnormal gait, Reports lack of coordination, Denies loss of vision, Denies numbness and Reports other (Memory loss.) Psychiatric: Psychiatric: Denies anxiety and Denies depression Endocrine: Endocrine: Denies cold intolerance, Denies heat intolerance and Denies palpitations Hematologic/Lymphatic: Hematologic/Lymphatic: Denies easy bleeding and Denies easy bruising Allergic/Immunologic: Allergic/Immunologic: Denies urticaria and Denies wheezing Exam Const: General: cooperative, comfortable, no acute distress, alert and awake Nutritional Appearance: well nourished Orientation/consciousness: patient oriented x3 HENMT: Head: normal to inspection, normocephalic and atraumatic Ears: hearing grossly normal bilaterally General nose exam: Normal external nose present, Normal nares present and no nasal discharge noted Face and sinus: normal facial exam and no erythema Mouth: No drooling and No restricted motion Throat: uvula midline Eyes: General: appearance normal, both eyes and all related structures Alignment and Position: position normal Conjunctivae: conjunctivae normal Sclera: sclerae normal Direct Ophthalmoscopy: No photophobia Neck: Neck: normal visual inspection and no JVD Thyroid: thyroid normal Carotids: no bruits Lymphatic: lymphedema not noted Chest: Chest palpation & inspection: normal inspection of the chest and no tenderness Resp: Effort & Inspection: normal respiratory effort and no nasal flaring Auscultation: clear to auscultation bilaterally, no crackles, no rales and no wheezes Cardio: Jugular venous distension: no JVD Rate: regular rate Rhythm: regul
--- NOTE | 2019-11-28 12:23 | PM.PNORT ---
Progress Note: A&P Additional Plan Comforable dressing c/d/i dnvi OOB w PT today Subjective Subjective Date/Time Seen: 11/28/19 12:23 Objective Data Vital Signs Vital Signs: Vital Signs - 24 hr 11/27/19 15:23 11/27/19 15:35 11/27/19 15:50 Temperature 36.4 C Pulse Rate 88 88 87 Respiratory Rate 14 16 16 Blood Pressure 142/101 H 124/66 133/58 L Pulse Oximetry 94 97 96 11/27/19 16:05 11/27/19 16:20 11/27/19 16:35 Temperature 36.7 C Pulse Rate 84 85 85 Respiratory Rate 16 14 14 Blood Pressure 145/75 H 132/63 141/61 H Pulse Oximetry 95 95 94 11/27/19 16:45 11/27/19 17:00 11/27/19 17:30 Temperature 36.3 C L 36.3 C L 36.3 C L Pulse Rate 83 80 80 Respiratory Rate 18 18 18 Blood Pressure 139/53 L 129/63 129/63 Pulse Oximetry 100 97 97 11/27/19 18:00 11/27/19 19:56 11/27/19 20:00 Temperature 36.4 C 36.6 C Pulse Rate 80 83 85 Respiratory Rate 16 20 Blood Pressure 140/84 159/99 H Pulse Oximetry 99 99 11/27/19 22:00 11/28/19 00:00 11/28/19 02:00 Temperature 37.1 C Pulse Rate 88 84 74 Respiratory Rate 16 Blood Pressure 136/88 Pulse Oximetry 98 11/28/19 04:00 11/28/19 05:48 11/28/19 08:00 Temperature 36.6 C 36.1 C L Pulse Rate 80 87 99 Respiratory Rate 18 16 Blood Pressure 144/47 H 133/75 Pulse Oximetry 96 93 11/28/19 08:32 11/28/19 09:51 Temperature Pulse Rate 96 Respiratory Rate Blood Pressure Pulse Oximetry 95 Intake/Output Intake/Output: Intake & Output 11/25/19 11/26/19 11/27/19 11/28/19 23:59 23:59 23:59 23:59 Intake Total 1940 2495 Output Total 100 485 900 Balance -100 1455 1595 Meds/Results Medications: Active Medications Generic Name Dose Route Start Last Admin Trade Name Freq PRN Reason Stop Dose Admin Acetaminophen 1,000 mg 11/28/19 18:00 Tylenol Tablet PO Q6HR MURRAY Aspirin 81 mg 11/28/19 09:00 11/28/19 09:52 Aspirin Ec PO 81 mg DAILY MURRAY Administration Clopidogrel Bisulfate 75 mg 11/28/19 08:00 11/28/19 09:50 Plavix PO 75 mg MoWeFrSa MURRAY Administration Docusate Sodium 100 mg 11/27/19 21:00 11/28/19 09:50 Colace Capsule PO 100 mg Q12HR MURRAY Administration Duloxetine HCl 90 mg 11/27/19 09:00 11/28/19 09:51 Cymbalta PO 90 mg DAILY MURRAY Administration Enoxaparin Sodium 40 mg 11/28/19 09:00 11/28/19 09:50 Lovenox SUB-Q 01/01/20 09:01 40 mg DAILY MURRAY Administration Cefazolin Sodium 1 gm in 50 mls @ 100 mls/hr 11/27/19 22:00 11/28/19 07:31 Ancef 1 Gm/D5w 50 Ml Pm IVPB 11/28/19 14:29 100 mls/hr Q8H MURRAY Infusion Vancomycin HCl 1,000 mg in 250 mls @ 250 mls/hr 11/28/19 11:25 Vancomycin 1,000 Mg/D5w 250 Ml IVPB 11/28/19 12:24 ONCE ONE Isosorbide Mononitrate 120 mg 11/27/19 09:00 11/28/19 09:51 Imdur PO 120 mg DAILY MURRAY Administration Loratadine 10 mg 11/27/19 09:00 11/28/19 09:52 Claritin PO 10 mg DAILY MURRAY Administration Losartan Potassium 100 mg 11/27/19 09:00 11/28/19 09:52 Cozaar PO 100 mg DAILY MURRAY Administration Magnesium Hydroxide 30 ml 11/27/19 16:37 Milk Of Magnesia PO BID PRN Constipation Metoprolol Tartrate 50 mg 11/27/19 01:10 11/28/19 09:51 Lopressor PO 50 mg BID MURRAY Administration Mirabegron 50 mg 11/27/19 01:10 11/27/19 21:15 Myrbetriq PO 50 mg HS MURRAY Administration Naloxone HCl 0.1 mg 11/27/19 16:37 Narcan IV PUSH Q2M PRN Opiate Reversal Ondansetron HCl 4 mg 11/27/19 23:13 11/28/19 05:27 Zofran Inj IV PUSH 4 mg Q4H PRN Administration Nausea And Vomiting Oxycodone HCl 2.5 mg 11/28/19 11:21 Roxicodone Ir Tablet PO Q4H PRN Pain Rated 7-10 Pantoprazole Sodium 40 mg 11/27/19 09:00 11/28/19 09:51 Protonix PO 40 mg QAM UMRRAY Administration Trimethoprim/Sulfamethoxazole 1 tab 11/27/19 09:00 11/28/19 09:52 Septra Ds PO 11/28/19 21:00 1 tab Q12HR MURRAY Administration Radiolog
--- NOTE | 2019-11-28 13:11 | P.PNIM_ITS ---
Progress Note: A&P Assessment and Plan (1) Fracture of femoral neck, left, closed: Code(s): S72.002A - Fracture of unspecified part of neck of left femur, initial encounter for closed fracture Status: Acute Assessment and Plan: After sustaining a ground level fall at home. Both Orthopedic surgery and Cardiology have been consulted; appreciate recommendations. POD1 bipolar hemiarthroplasty left hip per Dr. Bojorquez. Pain appears to be more controlled this morning. * Post op care, pain management, PT/OT, DVT ppx per Ortho * Okay to move onto med/surg floor w/o tele per other services * SNF placement pending; CC following * Await until patient okay for discharge from Ortho standpoint * Monitor (2) Poor short-term memory: Code(s): R41.3 - Other amnesia Status: Acute Assessment and Plan: Patient may have mild cognitive impairment/dementia. Patient confused overnight per Nursing and sitter in room * Rec using narcotics cautiously * Monitor closely (3) Coronary artery disease: Code(s): I25.10 - Atherosclerotic heart disease of [place] coronary artery without angina pectoris Status: Acute Assessment and Plan: She denies any active cardiac symptoms. * Home aspirin and Plavix resumed per Dr. Bojorquez. * Will continue home Imdur, metoprolol and losartan. (4) UTI (urinary tract infection): Code(s): N39.0 - Urinary tract infection, site not specified Status: Acute Assessment and Plan: Reported UTI in the outpatient setting. UA unremarkable likely given to current abx treatment * Will continue the patient's last 2 days of Bactrim; ending tonight * Vanc and Ancef have been added perioperatively per Dr. Bojorquez * Monitor for symptoms (5) CVA (cerebral vascular accident): Code(s): I63.9 - Cerebral infarction, unspecified Status: Acute Assessment and Plan: Reported CVA in 08/2019. ASA and Plavix resumed per Ortho. No obvious focal deficits on exam * ASA and plavix resumed * Monitor (6) Essential hypertension: Code(s): I10 - Essential (primary) hypertension Status: Acute Assessment and Plan: BP is well controlled. BP resonable today, although a bit soft this afternoon; * Continue home medications at this time * Monitor closely; consider holding med if continues to run soft (7) GERD (gastroesophageal reflux disease): Code(s): K21.9 - Gastro-esophageal reflux disease without esophagitis Status: Acute Assessment and Plan: No acute issues at this time * Continue Pantoprazole * Monitor Subjective Date/time seen: 11/28/19 13:11 Interval history: Patient is a 84 yo F with history of hypertension, recent CVA, and coronary artery disease ([place] in 2016) who is here for evaluation/treatment of acute subcapital fracture of the left femoral neck after sustaining a ground level fall at home. Patient has little complaints for me today. In some pain, but is tolerable. Had a mild nonproductive cough yesterday that has resolved. No other complaints for me today. Denies f/c/s, cp/palpitations, sob/ current cough, n/v/d/c, abd pain, calf pain/swelling. Review of Systems Review of Systems: All systems reviewed & are unremarkable except as noted in HPI and below Exam Narrative:
--- NOTE | 2019-11-28 13:11 | PM.IMPN ---
Progress Note: A&P Assessment and Plan (1) Fracture of femoral neck, left, closed: Code(s): S72.002A - Fracture of unspecified part of neck of left femur, initial encounter for closed fracture Status: Acute Assessment and Plan: After sustaining a ground level fall at home. Both Orthopedic surgery and Cardiology have been consulted; appreciate recommendations. POD1 bipolar hemiarthroplasty left hip per Dr. Bojorquez. Pain appears to be more controlled this morning. Post op care, pain management, PT/OT, DVT ppx per Ortho Okay to move onto med/surg floor w/o tele per other services SNF placement pending; CC following Await until patient okay for discharge from Ortho standpoint Monitor (2) Poor short-term memory: Code(s): R41.3 - Other amnesia Status: Acute Assessment and Plan: Patient may have mild cognitive impairment/dementia. Patient confused overnight per Nursing and sitter in room Rec using narcotics cautiously Monitor closely (3) Coronary artery disease: Code(s): I25.10 - Atherosclerotic heart disease of [place] coronary artery without angina pectoris Status: Acute Assessment and Plan: She denies any active cardiac symptoms. Home aspirin and Plavix resumed per Dr. Bojorquez. Will continue home Imdur, metoprolol and losartan. (4) UTI (urinary tract infection): Code(s): N39.0 - Urinary tract infection, site not specified Status: Acute Assessment and Plan: Reported UTI in the outpatient setting. UA unremarkable likely given to current abx treatment Will continue the patient's last 2 days of Bactrim; ending tonight Vanc and Ancef have been added perioperatively per Dr. Bojorquez Monitor for symptoms (5) CVA (cerebral vascular accident): Code(s): I63.9 - Cerebral infarction, unspecified Status: Acute Assessment and Plan: Reported CVA in 08/2019. ASA and Plavix resumed per Ortho. No obvious focal deficits on exam ASA and plavix resumed Monitor (6) Essential hypertension: Code(s): I10 - Essential (primary) hypertension Status: Acute Assessment and Plan: BP is well controlled. BP resonable today, although a bit soft this afternoon; Continue home medications at this time Monitor closely; consider holding med if continues to run soft (7) GERD (gastroesophageal reflux disease): Code(s): K21.9 - Gastro-esophageal reflux disease without esophagitis Status: Acute Assessment and Plan: No acute issues at this time Continue Pantoprazole Monitor Subjective Date/time seen: 11/28/19 13:11 Interval history: Patient is a 84 yo F with history of hypertension, recent CVA, and coronary artery disease ([place] in 2016) who is here for evaluation/treatment of acute subcapital fracture of the left femoral neck after sustaining a ground level fall at home. Patient has little complaints for me today. In some pain, but is tolerable. Had a mild nonproductive cough yesterday that has resolved. No other complaints for me today. Denies f/c/s, cp/palpitations, sob/ current cough, n/v/d/c, abd pain, calf pain/swelling. Review of Systems Review of Systems: All systems reviewed & are unremarkable except as noted in HPI and below Exam Narrative: Exam Narrative: Patient sitting upright in chair at time of visit. Daughter in room visiting; sitter also in room Const: General: cooperative, comfortable, no acute distress, well developed, alert and awake Nutritional Appearance: well nourished and overweight Orientation/consciousness: patient oriented x3 HENMT: Head: normocephalic and atraumatic General nose exam: Normal nares present Face and sinus: face sy
[2019-11-28] MEDS: ACETAMINOPHEN 500 MG TABLET 1000 MG PO (17:07)
[2019-11-28] MEDS: MIRABEGRON 25 MG ER TABLET 50 MG PO (20:20)
[2019-11-29] VITALS (7 sets, daily range): BP systolic 111–144; BP diastolic 53–80; PULSE 80–91; RESP 18–22; TEMP 35.7–36.6; O2SAT 92–97
[2019-11-29] MEDS: ACETAMINOPHEN 500 MG TABLET 1000 MG PO ×4 (00:16→20:19)
[2019-11-29] MEDS: ONDANSETRON INJ 4 MG/2 ML VIAL IV PUSH ×2 (04:16→12:29)
[2019-11-29 05:15] LABS: Basophils Percent Auto 0.4 % (0.2-1.2); Eosinophils Absolute Auto 0.4 K/mm3 (0-0.3); Eosinophils Percent Auto 4.4 % (0-4.4); Hematocrit 32.8 % (37.0-47.0); Immature Granulocyte Absolute 0.06 K/mm3 (0.00-0.031); Immature Granulocyte Percent A 0.7 % (0-0.5); Lymphocytes Absolute Auto 1.85 K/mm3 (0.9-3.2); Lymphocytes Percent Auto 20.2 % (18.3-44.2); Mean Corpuscular HGB Conc 33.5 g/dl (32-36); Mean Corpuscular Hemoglobin 34.2 pg (26-34); Mean Corpuscular Volume 101.9 fl (80-100); Mean Platelet Volume 9.2 fl (7.4-10.4); Monocytes Absolute Auto 0.7 K/mm3 (0.1-0.6); Monocytes Percent Auto 8.1 % (2.6-8.5); Neutrophils Absolute Auto 6.1 K/mm3 (1.3-6.7); Neutrophils Percent Auto 66.2 % (45.5-73.1); Platelet Count Result 121 k/mm3 (150-375); Red Blood Count 3.22 M/mm3 (4.2-5.4); Red Cell Distribution Width 13.1 % (11.5-14.5); White Blood Count 9.2 K/mm3 (4.5-10.0)
[2019-11-29 05:27] LABS: Blood Urea Nitrogen 20 mg/dL (7-17); Carbon Dioxide 26 mmol/L (22-30); Chloride 105 mmol/L (98-107); Estimated CRCL calculation 52 ml/min; Estimated Glomerular Filt Rate > 60; Glucose 105 mg/dL (65-105); Potassium 4.2 mmol/L (3.4-5.0); Sodium 135 mmol/L (137-145)
[2019-11-29] MEDS: DULoxetine HCL 30 MG CAPSULE.DR 90 MG PO (08:26)
[2019-11-29] MEDS: LOSARTAN POTASSIUM 100 MG TABLET PO (08:27)
[2019-11-29] MEDS: ENOXAPARIN 40 MG/0.4 ML SYRINGE SUB-Q (08:27)
[2019-11-29] MEDS: ASPIRIN 81 MG ENTERIC TABLET PO (08:28)
[2019-11-29] MEDS: METOPROLOL TARTRATE 50 MG TAB PO (08:28)
[2019-11-29] MEDS: PANTOPRAZOLE 40 MG TABLET PO (08:29)
[2019-11-29] MEDS: ISOSORBIDE MONONITRATE 60 MG TAB.ER.24H 120 MG PO (08:29)
[2019-11-29] MEDS: LORATADINE 10 MG TABLET PO (08:29)
--- NOTE | 2019-11-29 13:16 | PM.PNORT ---
Subjective Subjective Date/Time Seen: 11/29/19 13:16 Comfortable Dressing c/d/i DNVI Cont PT Objective Data Vital Signs Vital Signs: Vital Signs - 24 hr 11/28/19 16:00 11/28/19 16:32 11/28/19 20:00 Temperature 36.1 C L 36.9 C Pulse Rate 77 77 87 Respiratory Rate 16 18 Blood Pressure 104/69 115/92 H Pulse Oximetry 97 92 11/28/19 21:13 11/29/19 00:00 11/29/19 04:00 Temperature 36.5 C 36.6 C Pulse Rate 89 80 Respiratory Rate 18 20 Blood Pressure 124/53 L 133/54 L Pulse Oximetry 93 92 95 11/29/19 07:54 11/29/19 08:00 11/29/19 08:28 Temperature 35.7 C L Pulse Rate 89 82 Respiratory Rate 20 Blood Pressure 127/80 Pulse Oximetry 93 97 Intake/Output Intake/Output: Intake & Output 11/26/19 11/27/19 11/28/19 11/29/19 23:59 23:59 23:59 23:59 Intake Total 1940 3390 530 Output Total 572 622 8967 400 Balance -100 1455 290 130 Meds/Results Medications: Active Medications Generic Name Dose Route Start Last Admin Trade Name Freq PRN Reason Stop Dose Admin Acetaminophen 1,000 mg 11/28/19 18:00 11/29/19 12:28 Tylenol Tablet PO 1,000 mg Q6HR MURRAY Administration Aspirin 81 mg 11/28/19 09:00 11/29/19 08:28 Aspirin Ec PO 81 mg DAILY MURRAY Administration Clopidogrel Bisulfate 75 mg 11/28/19 08:00 11/29/19 08:29 Plavix PO Not Given MoWeFrSa MURRAY Docusate Sodium 100 mg 11/27/19 21:00 11/29/19 08:27 Colace Capsule PO Not Given Q12HR MURRAY Duloxetine HCl 90 mg 11/27/19 09:00 11/29/19 08:26 Cymbalta PO 90 mg DAILY MURRAY Administration Enoxaparin Sodium 40 mg 11/28/19 09:00 11/29/19 08:27 Lovenox SUB-Q 01/01/20 09:01 40 mg DAILY MURRAY Administration Isosorbide Mononitrate 120 mg 11/27/19 09:00 11/29/19 08:29 Imdur PO 120 mg DAILY MURRAY Administration Loratadine 10 mg 11/27/19 09:00 11/29/19 08:29 Claritin PO 10 mg DAILY MURRAY Administration Losartan Potassium 100 mg 11/27/19 09:00 11/29/19 08:27 Cozaar PO 100 mg DAILY MURRAY Administration Magnesium Hydroxide 30 ml 11/27/19 16:37 Milk Of Magnesia PO BID PRN Constipation Metoprolol Tartrate 50 mg 11/27/19 01:10 11/29/19 08:28 Lopressor PO 50 mg BID MURRAY Administration Mirabegron 50 mg 11/27/19 01:10 11/28/19 20:20 Myrbetriq PO 50 mg HS MURRAY Administration Naloxone HCl 0.1 mg 11/27/19 16:37 Narcan IV PUSH Q2M PRN Opiate Reversal Ondansetron HCl 4 mg 11/27/19 23:13 11/29/19 12:29 Zofran Inj IV PUSH 4 mg Q4H PRN Administration Nausea And Vomiting Oxycodone HCl 2.5 mg 11/28/19 11:21 11/29/19 12:29 Roxicodone Ir Tablet PO 2.5 mg Q4H PRN Administration Pain Rated 7-10 Pantoprazole Sodium 40 mg 11/27/19 09:00 11/29/19 08:29 Protonix PO 40 mg QAM MURRAY Administration Radiology Results: ITS Impressions Chest X-Ray 11/26/19 18:43 IMPRESSION: 1. Small left pleural effusion. 2. Minimal left basilar airspace opacities, likely atelectasis. Hip/Pelvis X-Ray 11/26/19 18:44 IMPRESSION: 1. Acute subcapital fracture of the left femoral neck. Hip X-Ray 11/27/19 15:33 IMPRESSION: 1. Recent left bipolar hip arthroplasty. Intraoperative X-Ray 11/27/19 15:43 IMPRESSION: 1. Expected appearance during left hip arthroplasty. Labs Labs: Laboratory Results - last 24 hr 11/29/19 11/29/19 04:55 04:56 WBC 9.2 RBC 3.22 L Hgb 11.0 L Hct 32.8 L MCV 101.9 H MCH 34.2 H MCHC 33.5 RDW 13.1 Plt Count 121 L MPV 9.2 Immature Gran % (Auto) 0.7 H Neut % (Auto) 66.2 Lymph % (Auto) 20.2 [place] % (Auto) 8.1 Eos % (Auto) 4.4 Baso % (Auto) 0.4 Lymph # (Auto) 1.85 [place] # (Auto) 0.7 H Eos # (Auto) 0.4 H Baso # (Auto) 0.0 Abs Immat Gran (auto) 0.06 H Absolute Neuts (auto) 6.1 Absolute Nucleated RBC 0.0 Nucleated RBC % 0.0 Sodium 135 L Potassium 4.2 Chloride 105 Carbon Diox
--- NOTE | 2019-11-29 14:28 | PC.NURSE ---
This patient, Mary Rose, was transferred to [facility] on 11/29/19 at 1426. Personal belongings sent with patient. Report given to Reid. Appropriate documentation sent with patient.
--- NOTE | 2019-11-29 15:30 | PC.NURSE ---
This patient, Mary Rose, was received from IMU on 11/29/19 at 1430. Personal belongings list checked and signed. Patient/family oriented to unit policies and routines.
--- NOTE | 2019-11-29 15:49 | PM.IMPN ---
Progress Note: A&P Assessment and Plan (1) Fracture of femoral neck, left, closed: Code(s): S72.002A - Fracture of unspecified part of neck of left femur, initial encounter for closed fracture Status: Acute Assessment and Plan: After sustaining a ground level fall at home. Both Orthopedic surgery and Cardiology have been consulted; appreciate recommendations. POD 2 bipolar hemiarthroplasty left hip per Dr. Bojorquez. Pain appears to be more controlled this morning. Post op care, pain management, PT/OT, DVT ppx per Ortho Okay to move onto med/surg floor w/o tele per other services SNF placement pending; CC following Await until patient okay for discharge from Ortho standpoint Monitor (2) Poor short-term memory: Code(s): R41.3 - Other amnesia Status: Acute Assessment and Plan: Patient may have mild cognitive impairment/dementia. Patient has improved in her mental status today Rec using narcotics cautiously Monitor closely (3) Coronary artery disease: Code(s): I25.10 - Atherosclerotic heart disease of [place] coronary artery without angina pectoris Status: Acute Assessment and Plan: She denies any active cardiac symptoms. Home aspirin and Plavix resumed per Dr. Bojorquez. Will continue home Imdur, metoprolol and losartan. (4) UTI (urinary tract infection): Code(s): N39.0 - Urinary tract infection, site not specified Status: Acute Assessment and Plan: Reported UTI in the outpatient setting. UA unremarkable likely given to current abx treatment. Bactrim has been completed Monitor for symptoms (5) CVA (cerebral vascular accident): Code(s): I63.9 - Cerebral infarction, unspecified Status: Acute Assessment and Plan: Reported CVA in 08/2019. ASA and Plavix resumed per Ortho. No obvious focal deficits on exam ASA and plavix resumed Monitor (6) Essential hypertension: Code(s): I10 - Essential (primary) hypertension Status: Acute Assessment and Plan: BP is well controlled. BP 120s sys; more reasonable today Continue home medications at this time Monitor closely; consider holding med if continues to run soft (7) GERD (gastroesophageal reflux disease): Code(s): K21.9 - Gastro-esophageal reflux disease without esophagitis Status: Acute Assessment and Plan: No acute issues at this time Continue Pantoprazole Monitor Subjective Date/time seen: 11/29/19 15:49 Interval history: Patient is a 84 yo F with history of hypertension, recent CVA, and coronary artery disease ([place] in 2016) who is here for evaluation/treatment of acute subcapital fracture of the left femoral neck after sustaining a ground level fall at home. Patient is POD2 bipolar hemiarthroplasty left hip per Dr. Bojorquez. Patient has little complaints for me today. In some pain, but is tolerable. Main complaint today is needing to use the restroom; nursing notified. No other complaints for me today. No BM yet, but passing gas. Denies f/c/s, cp/palpitations, sob/ current cough, n/v/d/c, abd pain, dysuria, hematuria, calf pain/swelling. Review of Systems Review of Systems: All systems reviewed & are unremarkable except as noted in HPI and below Exam Narrative: Exam Narrative: Patient sitting upright in bed at time of visit Const: General: cooperative, comfortable, no acute distress, well developed, alert and awake Nutritional Appearance: well nourished and overweight Orientation/consciousness: patient oriented x3 HENMT: Head: normocephalic and atraumatic General nose exam: Normal nares present Face and sinus: face symmetric Mouth: Yes tongue normal Throat: posterior oropharynx
[2019-11-29] MEDS: MIRABEGRON 25 MG ER TABLET 50 MG PO (20:18)
[2019-11-29] MEDS: DOCUSATE SODIUM 100 MG CAPSULE PO (20:20)
[2019-11-30] VITALS (7 sets, daily range): BP systolic 98–126; BP diastolic 54–79; PULSE 78–126; RESP 16–20; TEMP 36.4–37.1; O2SAT 95–97
[2019-11-30] MEDS: ONDANSETRON INJ 4 MG/2 ML VIAL IV PUSH ×3 (01:07→18:41)
[2019-11-30] MEDS: traMADol HCL 50 MG TABLET PO (01:07)
[2019-11-30 04:47] LABS: Hematocrit 33.7 % (37.0-47.0); Hemoglobin 11.2 g/dL (12.0-15.0); Mean Corpuscular HGB Conc 33.2 g/dl (32-36); Mean Corpuscular Hemoglobin 34.4 pg (26-34); Mean Corpuscular Volume 103.4 fl (80-100); Platelet Count Result 134 k/mm3 (150-375); Red Blood Count 3.26 M/mm3 (4.2-5.4); Red Cell Distribution Width 13.2 % (11.5-14.5); White Blood Count 8.1 K/mm3 (4.5-10.0)
[2019-11-30] MEDS: ACETAMINOPHEN 500 MG TABLET 1000 MG PO ×3 (04:50→17:04)
[2019-11-30 04:58] LABS: Blood Urea Nitrogen 17 mg/dL (7-17); Calcium 8.1 mg/dL (8.4-10.2); Carbon Dioxide 26 mmol/L (22-30); Chloride 105 mmol/L (98-107); Estimated CRCL calculation 52 ml/min; Estimated Glomerular Filt Rate > 60; Glucose 112 mg/dL (65-105); Magnesium 1.9 mg/dL (1.6-2.3); Potassium 4.1 mmol/L (3.4-5.0); Sodium 136 mmol/L (137-145)
[2019-11-30] MEDS: ENOXAPARIN 40 MG/0.4 ML SYRINGE SUB-Q (08:19)
[2019-11-30] MEDS: DULoxetine HCL 30 MG CAPSULE.DR 90 MG PO (08:20)
[2019-11-30] MEDS: ISOSORBIDE MONONITRATE 60 MG TAB.ER.24H 120 MG PO (08:20)
[2019-11-30] MEDS: LORATADINE 10 MG TABLET PO (08:20)
[2019-11-30] MEDS: ASPIRIN 81 MG ENTERIC TABLET PO (08:20)
[2019-11-30] MEDS: PANTOPRAZOLE 40 MG TABLET PO (08:21)
[2019-11-30] MEDS: METOPROLOL TARTRATE 50 MG TAB PO ×2 (08:21→17:04)
[2019-11-30] MEDS: LOSARTAN POTASSIUM 100 MG TABLET PO (08:22)
--- NOTE | 2019-11-30 08:34 | ECG_ITS ---
Measurements Intervals [place] Rate: 136 P: 44 MI: 146 QRS: -18 QRSD: 93 T: 69 QT: 284 QTc: 429 Interpretive Statements SINUS TACHYCARDIA ATRIAL PREMATURE COMPLEXES LEFT VENTRICULAR HYPERTROPHY AND ST-T CHANGE BORDERLINE R WAVE PROGRESSION, ANTERIOR LEADS INFERIOR INFARCT, AGE INDETERMINATE BORDERLINE ST-T WAVE ABNORMALITY- HIGH LATERAL LEADS BASELINE WANDER- I, III, AVL, AVF ABNORMAL ECG Electronically Signed On 11-30-2019 12:55:13 CDT by Jason Cleveland D.O.
--- NOTE | 2019-11-30 13:52 | PM.IMPN ---
Progress Note: A&P Assessment and Plan (1) Fracture of femoral neck, left, closed: Code(s): S72.002A - Fracture of unspecified part of neck of left femur, initial encounter for closed fracture Status: Acute Assessment and Plan: After sustaining a ground level fall at home. Both Orthopedic surgery and Cardiology have been consulted; appreciate recommendations. POD 3 bipolar hemiarthroplasty left hip per Dr. Bojorquez. Pain appears to controlled. Slow progress with PT/OT Post op care, pain management, PT/OT, DVT ppx per Ortho SNF placement pending; CC following Await until patient okay for discharge from Ortho standpoint and awaiting placement. Monitor (2) Poor short-term memory: Code(s): R41.3 - Other amnesia Status: Acute Assessment and Plan: Patient may have mild cognitive impairment/dementia. Patient has improved in her mental status today Rec using narcotics cautiously Monitor closely (3) Coronary artery disease: Code(s): I25.10 - Atherosclerotic heart disease of [place] coronary artery without angina pectoris Status: Acute Assessment and Plan: She denies any active cardiac symptoms. Home aspirin and Plavix resumed per Dr. Bojorquez. Will continue home Imdur, metoprolol and losartan. (4) UTI (urinary tract infection): Code(s): N39.0 - Urinary tract infection, site not specified Status: Acute Assessment and Plan: Reported UTI in the outpatient setting. UA on arrival unremarkable likely given to current abx treatment. Bactrim has been completed Monitor for symptoms (5) CVA (cerebral vascular accident): Code(s): I63.9 - Cerebral infarction, unspecified Status: Acute Assessment and Plan: Reported CVA in 08/2019. ASA and Plavix resumed per Ortho. No obvious focal deficits on exam ASA and plavix resumed Monitor (6) Essential hypertension: Code(s): I10 - Essential (primary) hypertension Status: Acute Assessment and Plan: BP is well controlled. BP 110s sys this morning Continue home medications at this time Monitor closely; consider holding med if BP soft (7) GERD (gastroesophageal reflux disease): Code(s): K21.9 - Gastro-esophageal reflux disease without esophagitis Status: Acute Assessment and Plan: No acute issues at this time Continue Pantoprazole Monitor Subjective Date/time seen: 11/30/19 13:52 Interval history: Patient is a 84 yo F with history of hypertension, recent CVA, and coronary artery disease ([place] in 2016) who is here for evaluation/treatment of acute subcapital fracture of the left femoral neck after sustaining a ground level fall at home. Patient is POD 3 bipolar hemiarthroplasty left hip per Dr. Bojorquez. Patient has some pain today, but tolerable and asked nursing for an ice pack. No other complaints for me today. BMs yesterday and today. Tolerating diet. She and her daughter think she has some slow progress with PT/OT. She also thinks patient has been occasionally confused. Denies f/c/s, cp/palpitations, sob/current cough, n/v/d/c, abd pain, dysuria, hematuria, calf pain/swelling. Review of Systems Review of Systems: All systems reviewed & are unremarkable except as noted in HPI and below Exam Narrative: Exam Narrative: Patient sitting upright in bed at time of visit Const: General: cooperative, comfortable, no acute distress, well developed, alert and awake Nutritional Appearance: well nourished and overweight Orientation/consciousness: patient oriented x3 HENMT: Head: normocephalic and atraumatic General nose exam: Normal nares present Face and sinus: face symmetric Mouth: Yes tongue normal Throat:
[2019-12-01] MEDS: ACETAMINOPHEN 500 MG TABLET 1000 MG PO ×4 (01:18→17:04)
[2019-12-01] MEDS: MIRABEGRON 25 MG ER TABLET 50 MG PO (01:18)
[2019-12-01 05:37] LABS: Hematocrit 31.9 % (37.0-47.0); Hemoglobin 10.4 g/dL (12.0-15.0); Mean Corpuscular HGB Conc 32.6 g/dl (32-36); Mean Corpuscular Hemoglobin 33.9 pg (26-34); Mean Corpuscular Volume 103.9 fl (80-100); Mean Platelet Volume 9.4 fl (7.4-10.4); Platelet Count Result 152 k/mm3 (150-375); Red Blood Count 3.07 M/mm3 (4.2-5.4); Red Cell Distribution Width 13.5 % (11.5-14.5); White Blood Count 7.8 K/mm3 (4.5-10.0)
[2019-12-01 05:44] LABS: Blood Urea Nitrogen 21 mg/dL (7-17); Carbon Dioxide 27 mmol/L (22-30); Chloride 103 mmol/L (98-107); Estimated CRCL calculation 52 ml/min; Estimated Glomerular Filt Rate > 60; Glucose 110 mg/dL (65-105); Magnesium 1.9 mg/dL (1.6-2.3); Sodium 135 mmol/L (137-145)
[2019-12-01 06:00] VITALS: BP 148/70; PULSE 88; RESP 12; TEMP 36.5; O2SAT 96
[2019-12-01] MEDS: ENOXAPARIN 40 MG/0.4 ML SYRINGE SUB-Q (09:13)
[2019-12-01] MEDS: DULoxetine HCL 30 MG CAPSULE.DR 90 MG PO (09:13)
[2019-12-01] MEDS: CLOPIDOGREL BISULFATE 75 MG TABLET PO (09:14)
[2019-12-01] MEDS: METOPROLOL TARTRATE 50 MG TAB PO ×2 (09:14→17:04)
[2019-12-01] MEDS: ASPIRIN 81 MG ENTERIC TABLET PO (09:15)
[2019-12-01] MEDS: PANTOPRAZOLE 40 MG TABLET PO (09:15)
[2019-12-01] MEDS: LOSARTAN POTASSIUM 100 MG TABLET PO (09:15)
[2019-12-01] MEDS: ERGOCALCIFEROL 50,000 UNIT CAPSULE 50000 UNITS PO (09:15)
[2019-12-01] MEDS: ISOSORBIDE MONONITRATE 60 MG TAB.ER.24H 120 MG PO (09:15)
[2019-12-01] MEDS: LORATADINE 10 MG TABLET PO (09:15)
--- NOTE | 2019-12-01 10:08 | PM.PNORT ---
Progress Note: A&P Additional Plan Patient is now postop day 4 after Press-Fit bipolar hemiarthroplasty left hip. She is in good spirits this morning. She communicates very appropriately. She did not remember why she was here and thought she was in rehab but reoriented very quickly. She denies any pain at the left hip or elsewhere at this time. She has a lot of ecchymosis in the lateral aspect of the hip but only mild swelling. The wound is dry there is no bleeding on the Mepilex. She wiggles her toes denies numbness. Her hemoglobin today is 10.4 down from 11.1 yesterday. Associated with this her heart rate is now in the 80s compared to the 101 tends yesterday and her blood pressure is 140 systolic compared to 90 and 100 yesterday so I think she is euvolemic at this time. Her creatinine was 0.8 yesterday and today is stable. It would appear that her increasing creatinine to 1.4 prior to surgery was due to dehydration alone as it went back down to 1 the morning immediately after surgery. Her pain seems to be well-controlled with schedule p.o. Tylenol. We are planning to have her transferred to the nursing and rehab today we will continue with 50% weight-bearing continue with scheduled Tylenol and only use the small dose of oxycodone 2.5 mg p.r.n. for severe pain if needed. She had a mini-stroke 2 months ago and for this reason we are continuing the Plavix and baby aspirin but that will be inadequate for DVT prophylaxis so we are also using the lower recommended dose of Lovenox 40 mg Q 24 hours. Her platelets have been stable at 152,000 hundred and fifty two thousand. Her white count is normal at 7.8 today. Her 25 hydroxy vitamin-D level was low at 24.8 and we have ordered ergoCalciferol 37448 units weekly for 6 weeks and have started her on calcium plus vitamin D 1 tablet twice daily which she should stay on indefinitely. Our plan is to advance her to weight-bearing as tolerated at 4 weeks postoperatively. Because of her obesity and osteoporosis I felt it would be best to keep her at 50% weight-bearing for the 1st 4 weeks. We will ask for another CBC in 2 days the drawn and another CBC in 7 days. Subjective Subjective Date/Time Seen: 12/01/19 10:08 Objective Data Vital Signs Vital Signs: Vital Signs - 24 hr 11/30/19 12:00 11/30/19 14:00 11/30/19 17:00 Temperature 36.8 C 36.6 C Pulse Rate 100 111 H Respiratory Rate 18 18 Blood Pressure 98/54 L 109/58 L Pulse Oximetry 97 97 11/30/19 18:00 11/30/19 22:00 12/01/19 06:00 Temperature 36.4 C 37.1 C 36.5 C Pulse Rate 106 H 78 88 Respiratory Rate 18 16 12 Blood Pressure 119/65 125/70 148/70 H Pulse Oximetry 97 95 96 Intake/Output Intake/Output: Intake & Output 11/28/19 11/29/19 11/30/19 12/01/19 23:59 23:59 23:59 23:59 Intake Total 3390 650 1960 590 Output Total 3100 500 Balance 270 722 9537 590 Meds/Results Medications: Active Medications Generic Name Dose Route Start Last Admin Trade Name Freq PRN Reason Stop Dose Admin Acetaminophen 1,000 mg 11/28/19 18:00 12/01/19 06:36 Tylenol Tablet PO 1,000 mg Q6HR MURRAY Administration Aspirin 81 mg 11/28/19 09:00 12/01/19 09:15 Aspirin Ec PO 81 mg DAILY MURRAY Administration Calcium Citrate 1 tablet 12/01/19 09:00 12/01/19 09:15 Calcitrate + Vit D Caplet PO 1 tablet BID MURRAY Administration Clopidogrel Bisulfate 75 mg 11/28/19 08:00 12/01/19 09:14 Plavix PO 75 mg MoWeFrSa MURRAY Administration Docusate Sodium 100 mg 11/27/19 21:00 12/01/19 09:14 Colace Capsule PO Not Given Q12HR MURRAY Duloxetine HCl 90 mg 11/27/19 09:00 12/01/19 09:13 Cymbalta PO 90 mg DAILY MURRAY Administration Enoxaparin Sodium 40 mg 11/28/19 09:00 12/01/19 09:13 Lovenox SUB-Q 01/01/20 09:01 40 mg DAILY MURRAY Administration Ergocalciferol 50,000 unit 12/01/19 09:00 12/01/19 09:15 Drisdol PO 01/05/20 09:01 50,000 unit WEEKLY MURRAY Administration Isosorbide Mononitr
--- NOTE | 2019-12-01 12:51 | PM.IMPN ---
Progress Note: A&P Assessment and Plan (1) Fracture of femoral neck, left, closed: Code(s): S72.002A - Fracture of unspecified part of neck of left femur, initial encounter for closed fracture Status: Acute Assessment and Plan: After sustaining a ground level fall at home. Both Orthopedic surgery and Cardiology have been consulted; appreciate recommendations. POD 4 bipolar hemiarthroplasty left hip per Dr. Bojorquez. Pain appears to controlled. Slow progress with PT/OT; improved today tho Post op care, pain management, PT/OT, DVT ppx per Ortho SNF placement pending; CC following Okay for discharge from Ortho standpoint and awaiting COVID testing; pending test, should be able to be discharged today to [facility] for SNF Monitor (2) Poor short-term memory: Code(s): R41.3 - Other amnesia Status: Acute Assessment and Plan: Patient may have mild cognitive impairment/dementia. Patient has been stable in her mental status Rec using narcotics cautiously Monitor closely (3) Coronary artery disease: Code(s): I25.10 - Atherosclerotic heart disease of [place] coronary artery without angina pectoris Status: Acute Assessment and Plan: She denies any active cardiac symptoms. Home aspirin and Plavix resumed per Dr. Bojorquez. Will continue home Imdur, metoprolol and losartan. (4) UTI (urinary tract infection): Code(s): N39.0 - Urinary tract infection, site not specified Status: Acute Assessment and Plan: Reported UTI in the outpatient setting. UA on arrival unremarkable likely given to current abx treatment. Bactrim has been completed Monitor for symptoms (5) CVA (cerebral vascular accident): Code(s): I63.9 - Cerebral infarction, unspecified Status: Acute Assessment and Plan: Reported CVA in 08/2019. ASA and Plavix resumed per Ortho. No obvious focal deficits on exam ASA and plavix resumed Monitor (6) Essential hypertension: Code(s): I10 - Essential (primary) hypertension Status: Acute Assessment and Plan: BP is well controlled. BP 140s sys this morning Continue home medications at this time Monitor closely; consider holding med if BP soft (7) GERD (gastroesophageal reflux disease): Code(s): K21.9 - Gastro-esophageal reflux disease without esophagitis Status: Acute Assessment and Plan: No acute issues at this time Continue Pantoprazole Monitor Subjective Date/time seen: 12/01/19 12:51 Interval history: Patient is a 84 yo F with history of hypertension, recent CVA, and coronary artery disease ([place] in 2016) who is here for evaluation/treatment of acute subcapital fracture of the left femoral neck after sustaining a ground level fall at home. Patient is POD 4 bipolar hemiarthroplasty left hip per Dr. Bojorquez. Patient has some pain today, mainly in her lower back. No other complaints for me today. Having BMs. Tolerating diet. She states she made big improvements with therapy today. Denies f/c/s, cp/palpitations, sob/current cough, n/v/d/c, abd pain, dysuria, hematuria, calf pain/swelling. Review of Systems Review of Systems: All systems reviewed & are unremarkable except as noted in HPI and below Exam Narrative: Exam Narrative: Patient sitting upright in chair at time of visit; daughter is in room visiting Const: General: cooperative, comfortable, no acute distress, well developed, alert and awake Nutritional Appearance: well nourished and overweight Orientation/consciousness: patient oriented x3 HENMT: Head: normocephalic and atraumatic General nose exam: Normal nares present Face and sinus: face symmetric Mouth: Yes tongue n
[2019-12-01 14:00] VITALS: BP 118/48; PULSE 85; RESP 20; TEMP 36.8; O2SAT 94
--- NOTE | 2019-12-01 16:10 | PM.DS ---
DS: Admitting Diagnosis Admitting Diagnosis Admitting Diagnosis: Fracture of unspecified part of neck of left femur, initial encounter for closed fracture DS: Discharge Diagnosis Discharge Diagnosis (1) Fracture of femoral neck, left, closed: Code(s): S72.002A - Fracture of unspecified part of neck of left femur, initial encounter for closed fracture Status: Acute Assessment and Plan: After sustaining a ground level fall at home. Both Orthopedic surgery and Cardiology have been consulted; appreciate recommendations. POD 4 bipolar hemiarthroplasty left hip per Dr. Bojorquez. Pain appears to controlled. Slow progress with PT/OT; improved today tho Post op care, pain management, PT/OT, DVT ppx per Ortho SNF placement pending; CC following Okay for discharge from Ortho standpoint and awaiting COVID testing; pending test, should be able to be discharged today to [facility] for SNF Monitor (2) Poor short-term memory: Code(s): R41.3 - Other amnesia Status: Acute Assessment and Plan: Patient may have mild cognitive impairment/dementia. Patient has been stable in her mental status Rec using narcotics cautiously Monitor closely (3) Coronary artery disease: Code(s): I25.10 - Atherosclerotic heart disease of [place] coronary artery without angina pectoris Status: Acute Assessment and Plan: She denies any active cardiac symptoms. Home aspirin and Plavix resumed per Dr. Bojorquez. Will continue home Imdur, metoprolol and losartan. (4) UTI (urinary tract infection): Code(s): N39.0 - Urinary tract infection, site not specified Status: Acute Assessment and Plan: Reported UTI in the outpatient setting. UA on arrival unremarkable likely given to current abx treatment. Bactrim has been completed Monitor for symptoms (5) CVA (cerebral vascular accident): Code(s): I63.9 - Cerebral infarction, unspecified Status: Acute Assessment and Plan: Reported CVA in 08/2019. ASA and Plavix resumed per Ortho. No obvious focal deficits on exam ASA and plavix resumed Monitor (6) Essential hypertension: Code(s): I10 - Essential (primary) hypertension Status: Acute Assessment and Plan: BP is well controlled. BP 140s sys this morning Continue home medications at this time Monitor closely; consider holding med if BP soft (7) GERD (gastroesophageal reflux disease): Code(s): K21.9 - Gastro-esophageal reflux disease without esophagitis Status: Acute Assessment and Plan: No acute issues at this time Continue Pantoprazole Monitor DS: Summary Time Spent with Patient Time attestation: Total time spent providing and/or coordinating discharge services: Exam Narrative: Exam Narrative: Patient sitting upright in chair at time of visit; daughter is in room visiting Const: General: cooperative, comfortable, no acute distress, well developed, alert and awake Nutritional Appearance: well nourished and overweight Orientation/consciousness: patient oriented x3 HENMT: Head: normocephalic and atraumatic General nose exam: Normal nares present Face and sinus: face symmetric Mouth: Yes tongue normal Throat: posterior oropharynx normal and uvula midline Eyes: General: appearance normal, both eyes and all related structures EOM: EOMs intact bilaterally Neck: Neck: trachea midline and supple Resp: Effort & Inspection: normal respiratory effort Auscultation: clear to auscultation bilaterally Cardio: Rate: regular rate Rhythm: regular rhythm Heart sounds: no murmurs GI: Inspection: non-distended and obesity Auscultation: normal bowel sounds Urinary Catheter
[2019-12-01 17:02] VITALS: BP 147/93; PULSE 101
[2019-12-01 20:02] LABS: SARS-CoV-2 RNA PCR Negative
[2019-12-01] MEDS: DOCUSATE SODIUM 100 MG CAPSULE PO (20:32)
[2019-12-01] MEDS: MIRABEGRON 50 MG ER TABLET PO (20:32)
[2019-12-01 22:00] VITALS: BP 106/65; PULSE 78; RESP 18; TEMP 36.8; O2SAT 96
[2019-12-02] MEDS: ACETAMINOPHEN 500 MG TABLET 1000 MG PO ×3 (00:15→13:20)
[2019-12-02 05:53] LABS: Hematocrit 30.6 % (37.0-47.0); Hemoglobin 10.3 g/dL (12.0-15.0); Mean Corpuscular HGB Conc 33.7 g/dl (32-36); Mean Corpuscular Hemoglobin 34.3 pg (26-34); Mean Platelet Volume 9.1 fl (7.4-10.4); Platelet Count Result 171 k/mm3 (150-375); Red Cell Distribution Width 13.2 % (11.5-14.5); White Blood Count 7.2 K/mm3 (4.5-10.0)
[2019-12-02 06:00] VITALS: BP 140/67; PULSE 86; RESP 20; TEMP 36.7; O2SAT 98
[2019-12-02 06:05] LABS: Blood Urea Nitrogen 18 mg/dL (7-17); Calcium 8.1 mg/dL (8.4-10.2); Carbon Dioxide 27 mmol/L (22-30); Chloride 105 mmol/L (98-107); Estimated CRCL calculation 59 ml/min; Estimated Glomerular Filt Rate > 60; Glucose 104 mg/dL (65-105); Magnesium 1.8 mg/dL (1.6-2.3); Potassium 3.8 mmol/L (3.4-5.0); Sodium 135 mmol/L (137-145)
[2019-12-02 08:43] VITALS: PULSE 86
[2019-12-02] MEDS: LOSARTAN POTASSIUM 100 MG TABLET PO (08:43)
[2019-12-02] MEDS: LORATADINE 10 MG TABLET PO (08:43)
[2019-12-02] MEDS: METOPROLOL TARTRATE 50 MG TAB PO (08:43)
[2019-12-02] MEDS: ISOSORBIDE MONONITRATE 60 MG TAB.ER.24H 120 MG PO (08:43)
[2019-12-02] MEDS: PANTOPRAZOLE 40 MG TABLET PO (08:43)
[2019-12-02] MEDS: DULoxetine HCL 30 MG CAPSULE.DR 90 MG PO (08:43)
[2019-12-02] MEDS: ENOXAPARIN 40 MG/0.4 ML SYRINGE SUB-Q (08:43)
[2019-12-02] MEDS: ASPIRIN 81 MG ENTERIC TABLET PO (08:44)
--- NOTE | 2019-12-02 13:53 | PM.DS ---
DS: Admitting Diagnosis Admitting Diagnosis Admitting Diagnosis: Fracture of unspecified part of neck of left femur, initial encounter for closed fracture DS: Discharge Diagnosis Discharge Diagnosis (1) Fracture of femoral neck, left, closed: Code(s): S72.002A - Fracture of unspecified part of neck of left femur, initial encounter for closed fracture Status: Acute Assessment and Plan: Patient suffered a left femoral neck fracture following a ground level fall at home. She underwent bipolar hemiarthroplasty of left hip by Dr. Bojorquez on 11/27/2019, following clearance per cardiology. She tolerated the procedure well and her pain was well controlled. She worked with PT/OT and demonstrated slow progress. She will continue therapy at [facility] for SNF. She will follow-up with Dr. Bojorquez as an outpatient. (2) Poor short-term memory: Code(s): R41.3 - Other amnesia Status: Acute Assessment and Plan: She was noted to have poor short-term memory and is suspected that she has mild cognitive impairment/dementia. Her mental status remained stable and she was alert and oriented x4 during my encounter. Recommended cautious use with continued narcotics. She will be monitored by nursing staff and should follow-up with her PCP as appropriate. (3) Coronary artery disease: Code(s): I25.10 - Atherosclerotic heart disease of [place] coronary artery without angina pectoris Status: Acute Assessment and Plan: She has established with a hot header operator. She was seen in consultation by cardiology here for cardiac clearance prior to surgery. She did not have any active cardiac symptoms during her stay. Aspirin and Plavix were held prior to surgery but were resumed. She will continue aspirin, Plavix, Imdur, metoprolol, and losartan. She should follow-up with her hot header operator as scheduled. (4) UTI (urinary tract infection): Code(s): N39.0 - Urinary tract infection, site not specified Status: Acute Assessment and Plan: Prior to arrival at this facility, she had been diagnosed and treated for a UTI as an outpatient. She started a course of Bactrim on 11/22/2019. Her urinalysis was unremarkable on arrival to this facility, likely secondary to improvement from current antibiotic treatment. She completed her course of Bactrim on 11/28/2019 and did not have any urinary symptoms during her stay. (5) CVA (cerebral vascular accident): Code(s): I63.9 - Cerebral infarction, unspecified Status: Acute Assessment and Plan: Reported CVA in 08/2019. ASA and Plavix initially held but or resumed per Ortho. She had no neurological deficits noted on exam. (6) Essential hypertension: Code(s): I10 - Essential (primary) hypertension Status: Acute Assessment and Plan: Her blood pressure remained well controlled during her stay. She will continue her antihypertensives as an outpatient. (7) GERD (gastroesophageal reflux disease): Code(s): K21.9 - Gastro-esophageal reflux disease without esophagitis Status: Acute Assessment and Plan: Continue pantoprazole. DS: Summary Hospital Course Reason for hospitalization: Fall/hip pain Hospital Course: Date of admission: 11/26/2019 Date of discharge: 12/02/2019 Mary Rose is an 84-year-old female with a past medical history significant for hypertension, recent CVA and CAD who presented to the emergency department on 11/26/2019 with complaints of hip pain following a ground level fall at home where she lives alone. She typically ambulates with a walker and states that she was using the walker at the time of her fall, however her daughter noted that the fall occurred at a transition point on the floor from carpet to tile. At presentation, her vitals were stable, WBC 10.5, H&H 15.4 and 45.8, and hip/pelvis x-ray showed acute subcapital fracture of the left femoral neck. S
[2019-12-02 14:00] VITALS: BP 110/48; PULSE 89; RESP 18; TEMP 36.6; O2SAT 93
--- NOTE | 2019-12-02 14:47 | PCCCNOTE ---
On 12/02/19, the student, Kirsten Ornelas, provided care and completed [facility] documentation on this patient. I have reviewed the student's documentation and agree with the findings.
--- NOTE | 2019-12-02 15:09 | PCPTNOTE ---
Patient preparing to discharge, declined therapy this afternoon.
== END 2019-12-02 16:55 | DRG 470 ==
LOC: ANHED 19:05 → ANH3MEDSUR 19:21 → ANHIMU 11-28 14:18 → ANH2MED 11-29 19:23 → ANH3MEDSUR 12-04 15:43 → ANHIMU 12-04 15:43
PROVIDERS: Internal Medicine; Orthopaedic Surgery; Physician Assistant; Admitting Provider Internal Medicine; Emergency Provider Emergency Medicine; PCP Internal Medicine; Visit Provider Physician Assistant
PROC: 0SRS01A Replacement of Left Hip Joint, Femoral Surface with Metal Synthetic Substitute, Uncemented, Open Approach (ICD-10-PCS; CPT 27125; principal; 2019-11-27 13:00)
DX: S72.002A Fracture of unspecified part of neck of left femur, initial encounter for closed fracture (principal); N39.0 Urinary tract infection, site not specified; Z11.59 Encounter for screening for other viral diseases; R41.3 Other amnesia; I25.10 Atherosclerotic heart disease of native coronary artery without angina pectoris; K21.9 Gastro-esophageal reflux disease without esophagitis; I10 Essential (primary) hypertension; N39.46 Mixed incontinence; E78.5 Hyperlipidemia, unspecified; W18.39XA Other fall on same level, initial encounter; Z96.653 Presence of artificial knee joint, bilateral; Z86.73 Personal history of transient ischemic attack (TIA), and cerebral infarction without residual deficits; I25.2 Old myocardial infarction; Z90.49 Acquired absence of other specified parts of digestive tract; Z90.710 Acquired absence of both cervix and uterus; Z79.02 Long term (current) use of antithrombotics/antiplatelets; Z79.82 Long term (current) use of aspirin; E66.9 Obesity, unspecified; Z68.35 Body mass index [BMI] 35.0-35.9, adult
CPT/HCPCS: 36415; 51701; 71045; 73501; 73502; 80048; 80053; 81003; 82306; 83735; 85025; 85027; 85610; 85730; 86850; 86900; 86901; 87635; 88307; 88311; 93005; 96374; 96376; 97110; 97116; 97161; 97165; 97530; 97535; 99285; A9270; C9803; G0378; J0131; J0330; J0690; J1100; J1650; J2270; J2370; J2405; J2704; J2795; J3010; J3370; J7030; J7120; U0003

== ENCOUNTER 2021-10-25 13:08 | Outpatient (CLI) | payer MEDICARE, SELFPAY ==
--- NOTE | ~2021-10-25 | XR_ITS ---
EXAMINATION: XR ribs RT 2V DATE: 10/25/2021 13:49 INDICATION: Right rib pain post recent falls TECHNIQUE: 3 views of the right ribs were obtained. COMPARISON: Chest radiograph dated 11/26/2019 FINDINGS: Nondisplaced anterior right sixth and seventh and minimally displaced right eighth rib fractures. Vis ualized portion of the lungs are clear with no focal airspace opacities, or pulmonary edema, pleural effusion or pneumothorax. 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 Mild S-shaped thorac olumbar scoliosis with severe lumbar and lower thoracic spondylosis. Cholecystectomy clips in right u pper quadrant. IMPRESSION: 1. Fractures of the anterior right sixth-eighth ribs. Reviewed, dictated and finalized at location B.
--- NOTE | ~2021-10-25 | XR_ITS ---
EXAMINATION: XR elbow LT min 3V DATE: 10/25/2021 13:49 INDICATION: Left elbow pain. TECHNIQUE: 4 views of left elbow were obtained. COMPARISON: None. FINDINGS: Bone alignment is normal. No fracture. Joint spaces are well maintained. There is an enthes ophyte at lateral humeral epicondyle. There is no elbow joint effusion. IMPRESSION: 1. No fracture. Reviewed, dictated and finalized at location A. IMPRESSION: 1. No fracture.
== END 2021-10-25 13:09 | disposition home or self-care (01) ==
PROVIDERS: PCP Internal Medicine
DX: M25.562 Pain in left knee (principal); R07.81 Pleurodynia; S22.41XA Multiple fractures of ribs, right side, initial encounter for closed fracture; X58.XXXA Exposure to other specified factors, initial encounter
CPT/HCPCS: 71100; 73080

== ENCOUNTER 2022-06-30 10:46 | Outpatient (CLI) | payer MEDICARE, SELFPAY ==
--- NOTE | ~2022-06-30 | CT_ITS ---
Noncontrast CT scan of the left shoulder CLINICAL HISTORY: Pain TECHNIQUE: Axial noncontrast imaging of the left shoulder was performed. Sagittal oblique and coronal oblique reformatted images were constructed. Dose reduction technique was used on this scan by Thuuzpatrice haskins automated exposure control and iterative reconstruction technique. FINDINGS: No fracture or dislocation is identified. The AC joint demonstrate minimal degenerative licha nge. There is severe osteoarthritis of the glenohumeral joint, with joint space narrowing, reactive s clerosis, and large osteophyte at the inferomedial humeral head. There are multiple intra-articular l oose bodies in the axillary pouch of the joint, largest measuring up to 2.2 cm in diameter. Probable small to moderate glenohumeral joint effusion. Visualized musculature is grossly unremarkable. Visualized lungs are clear. IMPRESSION: Severe osteoarthritis of the glenohumeral joint with intra-articular loose bodies, as detailed above. Mild AC joint degenerative change. No fracture or dislocation seen. Reviewed, dictated and finalized at location . AGE MIXER IMPRESSION: Severe osteoarthritis of the glenohumeral joint with intra-articular loose bodi es, as detailed above. Mild AC joint degenerative change. No fracture or dislocation seen.
--- NOTE | ~2022-06-30 | CT_ITS ---
CT Pelvis with contrast. History: Pelvic pain. Spiral CT of the pelvis was performed after the administration of intravenous contrast. 100 cc of Omn ipaque 350 was administered intravenously without complication. Dose reduction technique was used on this scan by utilizing automated exposure control and iterative reconstruction technique. The dose-le ngth product (DLP) was 857.78 mGy-cm. Findings: Questionable mild diffuse urinary bladder wall thickening. Patient is status post hysterect melia. No pelvic/adnexal mass seen. No ascites. There is sigmoid diverticulosis. No bowel wall thickeni ng or obstruction identified. There is left hip arthroplasty with associated streak artifact. No hardware complication identified. No acute fracture seen. Impression: Questionable mild urinary bladder wall thickening. Correlate for cystitis. Left hip arthroplasty. Reviewed, dictated and finalized at [facility]. R TOBACCO REHANDLER Impression: Questionable mild urinary bladder wall thickening. Correlate for cystitis. Left hip arthroplasty.
[2022-06-30 11:29] LABS: Estimated Glomerular Filt Rate 42
== END 2022-06-30 10:47 | disposition home or self-care (01) ==
PROVIDERS: PCP Internal Medicine; Visit Provider Internal Medicine
DX: R10.2 Pelvic and perineal pain (principal); Z96.642 Presence of left artificial hip joint; M25.512 Pain in left shoulder; M19.012 Primary osteoarthritis, left shoulder; M24.012 Loose body in left shoulder
CPT/HCPCS: 72193; 73200; Q9967

== ENCOUNTER 2022-07-26 12:44 | Outpatient (CLI) | payer MEDICARE, SELFPAY ==
--- NOTE | ~2022-07-26 | US_ITS ---
US retroperitoneal comp 07/26/2022 13:27 Procedure: Realtime transabdominal ultrasound of the kidneys and bladder. Indication: Chronic UTI. Comparison: CT pelvis dated 06/30/2022 Findings: Renal echotexture is normal bilaterally without hydronephrosis, contour deforming mass or r enal calculus. The right kidney measures 10.1 cm and left kidney measures 11.1 cm. Bladder within no rmal limits. Impression: 1: Unremarkable renal ultrasound. No stones, masses or hydronephrosis. Reviewed, dictated and finalized at location B. TURE WINDER REPAIR HELPER Impression: 1: Unremarkable renal ultrasound. No stones, masses or hydronephrosis.
== END 2022-07-26 12:45 | disposition home or self-care (01) ==
PROVIDERS: Visit Provider Nurse Practitioner Adult Health
DX: N39.0 Urinary tract infection, site not specified (principal)
CPT/HCPCS: 76770

== ENCOUNTER 2022-08-10 09:16 | Outpatient (CLI) | payer MEDICARE, SELFPAY ==
--- NOTE | ~2022-08-10 | XR_ITS ---
Clinical Indication: Pleural effusion PA and lateral views of the chest: Comparison: 10/25/2021 Findings: There is blunting of the left costophrenic angle. Right lung clear. Cardiomediastinal silh ouette is within normal limits. Bones and soft tissues are unremarkable. Impression: Probable chronic scarring or other blunting of the left costophrenic angle versus small left pleural effusion. Appearance is essentially stable since 11/26/2019. Reviewed, dictated and finalized at location M. Impression: Probable chronic scarring or other blunting of the left costophrenic angle vers us small left pleural effusion. Appearance is essentially stable since 11/26/2019 .
== END 2022-08-10 09:17 | disposition home or self-care (01) ==
PROVIDERS: PCP Internal Medicine; Visit Provider Internal Medicine
DX: J90 Pleural effusion, not elsewhere classified (principal)
CPT/HCPCS: 71046

== ENCOUNTER 2023-02-22 17:45 | Emergency (ER) | payer MEDICARE, SELFPAY ==
[2023-02-22 18:02] VITALS: BP 116/74; PULSE 83; RESP 16; TEMP 36.1; O2SAT 97
--- NOTE | 2023-02-22 18:26 | ED.SKABFB ---
HPI - Skin/Abscess/Foreign Bdy General Chief complaint: Skin/Abscess/Foreign Body Stated complaint: FALL/L ARM LACERATION Source: patient Mode of arrival: ambulatory Limitations: no limitations History of Present Illness HPI narrative: 88-year-old female with hx CVA, CAD presented with daughter for complaint of lacerations to the left arm after fall in her apartment today. Reports laceration to left upper arm and elbow. Patient states she lives in a assisted living facility, and the workers applied a bordered foam dressings. Patient has short term memory difficulty. She does not know why/how she fell or if she hit her head. Denies headache, dizziness, neck pain or increase in pain from baseline. Denies numbness, tingling or weakness to the left arm. Patient takes ASA and Plavix. Related Data Home Medications Medication Instructions Recorded Confirmed aspirin 81 mg tablet,delayed 81 mg PO DAILY 11/26/19 02/22/23 release (Aspir-) clopidogrel 75 mg tablet 75 mg PO 4XW 11/26/19 02/22/23 duloxetine 30 mg capsule,delayed 90 mg PO DAILY 11/26/19 02/22/23 release sprinkle isosorbide mononitrate 120 mg 120 mg PO DAILY 11/26/19 02/22/23 tablet,extended release 24 hr loratadine 10 mg tablet (Claritin) 10 mg PO DAILY 11/26/19 02/22/23 losartan 100 mg tablet 100 mg PO DAILY 11/26/19 02/22/23 metoprolol tartrate 50 mg tablet 50 mg PO BID 11/26/19 02/22/23 (Lopressor) mirabegron 50 mg tablet,extended 50 mg PO HS 11/26/19 02/22/23 release 24 hr (Myrbetriq) pantoprazole 40 mg tablet,delayed 40 mg PO QAM 11/26/19 02/22/23 release zolpidem 10 mg tablet 10 mg PO HS 11/26/19 02/22/23 Allergies Allergy/AdvReac Type Severity Reaction Status Date / Time No Known Allergies Allergy Verified 02/22/23 17:56 Review of Systems Review of Systems: CONSTITUTIONAL: Denies body aches, fever, chills, or sweats. EYES: Denies visual changes, redness, or discharge. ENT: Denies rhinorrhea, congestion CARDIOVASCULAR: Denies chest pain, palpitations, or edema. RESPIRATORY: Denies cough or dyspnea. GASTROINTESTINAL: Denies abdominal pain, nausea, vomiting, or diarrhea. SKIN: Reports left arm lacerations MUSCULOSKELETAL: Denies back pain, joint pain, or myalgia. NEUROLOGIC: Denies headache, numbness, tingling, or weakness. [facility] Past Medical History Medical History (Updated 02/22/23 @ 21:05 by Aster Muhammad APRN) CVA (cerebral vascular accident) August 2019 Essential hypertension GERD (gastroesophageal reflux disease) Hyperlipidemia Insomnia Myocardial infarction 2016 with cardiac catheterization at [facility] Urinary incontinence, mixed Surgical History Surgical History History of bilateral knee replacement Right knee greater than 10 years ago, left knee 2017 History of cardiac catheterization Without stent placement History of cholecystectomy History of hysterectomy Family History Family History Son Malignant neoplasm of prostate Social History Social History Social History: Primary care physician: Dr. Bolanos Code status: Full code Smoking status: Never smoker Alcohol intake: current Alcohol use details: She rarely drinks alcohol and only in moderation. Substance use: never Living arrangements: alone Additional living arrangements comments: She has been for 8 years. She lives alone and ambulates with a walker. 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 Three of her children in [place] a her son who is a physician lives in [place], [place] Gender identity (if verbalized by the patient): Female Spiritual care concerns: No Comments At time of signature, I have reviewed and agree with nursing past medical, surgical, social and family history unless otherwi
== END 2023-02-22 19:36 | disposition home or self-care (01) ==
PROVIDERS: Emergency Provider Nurse Practitioner Family
DX: S41.112A Laceration without foreign body of left upper arm, initial encounter (principal); I25.10 Atherosclerotic heart disease of native coronary artery without angina pectoris; I10 Essential (primary) hypertension; E78.5 Hyperlipidemia, unspecified; I25.2 Old myocardial infarction; Z86.73 Personal history of transient ischemic attack (TIA), and cerebral infarction without residual deficits; Z79.82 Long term (current) use of aspirin; Z79.899 Other long term (current) drug therapy; W19.XXXA Unspecified fall, initial encounter; Y92.099 Unspecified place in other non-institutional residence as the place of occurrence of the external cause
CPT/HCPCS: 12002; 99213; G0463

== ENCOUNTER 2023-03-17 12:56 | Emergency (ER) | payer MEDICARE, SELFPAY ==
[2023-03-17 13:33] VITALS: BP 134/82; PULSE 82; RESP 16; TEMP 36.4; O2SAT 96
--- NOTE | 2023-03-17 14:12 | ED.GENADULT ---
HPI - General Adult General Chief complaint: Abdominal Pain Stated complaint: Abdominal Pain Source: patient and family Mode of arrival: wheelchair Limitations: other (poor historian) History of Present Illness HPI narrative: Patient presents for patient presents for evaluation of right-sided chest wall/ abdominal pain. Both patient and her daughter are fairly poor historians. Patient lives at a nursing facility and was seen here on 02/22/23 following a a fall. She is unable to tell me the manner in which she fell. She sustained some wounds during that fall, and had sutures placed to LUE when evaluated here. Her daughter states she has been complaining of right sided pain following her visit here. Both patient and her daughter give me varying accounts of where her pain is located, stating pain is localized to right chest wall, abdomen and posterior ribs. She rates her pain 9/10 severity. She denies any nausea, vomiting, change in bowel pattern, or shortness of breath. At baseline she mobilizes with a walker and there has been no change in her mobility status following her visit here. Related Data Home Medications Medication Instructions Recorded Confirmed aspirin 81 mg tablet,delayed 81 mg PO DAILY 11/26/19 03/17/23 release (Aspir-) clopidogrel 75 mg tablet 75 mg PO 4XW 11/26/19 03/17/23 duloxetine 30 mg capsule,delayed 90 mg PO DAILY 11/26/19 03/17/23 release sprinkle isosorbide mononitrate 120 mg 120 mg PO DAILY 11/26/19 03/17/23 tablet,extended release 24 hr loratadine 10 mg tablet (Claritin) 10 mg PO DAILY 11/26/19 03/17/23 losartan 100 mg tablet 100 mg PO DAILY 11/26/19 03/17/23 metoprolol tartrate 50 mg tablet 50 mg PO BID 11/26/19 03/17/23 (Lopressor) pantoprazole 40 mg tablet,delayed 40 mg PO QAM 11/26/19 03/17/23 release zolpidem 10 mg tablet 10 mg PO HS 11/26/19 03/17/23 docusate sodium 100 mg capsule 100 mg PO DAILY PRN Constipation 03/17/23 03/17/23 ibuprofen 200 mg tablet 400 mg PO DAILY PRN discomfort 03/17/23 03/17/23 loperamide 2 mg capsule 2 mg PO DAILY PRN Diarrhea 03/17/23 03/17/23 prochlorperazine maleate 10 mg 10 mg PO DAILY PRN Nausea 03/17/23 03/17/23 tablet tolterodine 2 mg capsule,extended 2 mg PO DAILY 03/17/23 03/17/23 release 24 hr tramadol 50 mg tablet 50 mg PO TID 03/17/23 03/17/23 Allergies Allergy/AdvReac Type Severity Reaction Status Date / Time erythromycin base Allergy Unknown Verified 03/17/23 13:33 Review of Systems Review of Systems: CONSTITUTIONAL: Denies fever, chills, or sweats. EYES: Denies visual changes, redness, or discharge. ENT: Denies rhinorrhea, congestion, sore throat, or otalgia. CARDIOVASCULAR: Denies chest pain, palpitations, or edema. RESPIRATORY: Denies cough or dyspnea. GASTROINTESTINAL: Reports abdominal pain. Denies nausea, vomiting, or diarrhea. GENITOURINARY: Denies dysuria or hematuria. SKIN: Denies rash or itching. MUSCULOSKELETAL: Reports right chest wall pain and right posterior rib pain. Denies joint pain, or myalgia. NEUROLOGIC: Denies headache, numbness, dizziness, or weakness. PSYCHIATRIC: Denies anxiety or depression. [facility] Past Medical History Medical History (Updated 03/17/23 @ 14:12 by PATRICA Sumner, BC) CVA (cerebral vascular accident) August 2019 Essential hypertension GERD (gastroesophageal reflux disease) Hyperlipidemia Insomnia Myocardial infarction 2016 with cardiac catheterization at [facility] Urinary incontinence, mixed Surgical History Surgical History History of bilateral knee replacement Right knee greater than 10 years ago, left knee 2017 History of cardiac catheterization Without stent placement History of cholecystectomy History of hysterectomy Family History Family History Son Malignant neoplasm of prostate Social History Social History (Reviewe
== END 2023-03-17 14:15 | disposition short-term general hospital (02) ==
PROVIDERS: Emergency Provider Nurse Practitioner; PCP Internal Medicine
DX: R07.89 Other chest pain (principal); R10.9 Unspecified abdominal pain; W19.XXXA Unspecified fall, initial encounter; I10 Essential (primary) hypertension; K21.9 Gastro-esophageal reflux disease without esophagitis; E78.5 Hyperlipidemia, unspecified; I25.2 Old myocardial infarction; Z86.73 Personal history of transient ischemic attack (TIA), and cerebral infarction without residual deficits; Z96.653 Presence of artificial knee joint, bilateral
CPT/HCPCS: 99212; G0463

== ENCOUNTER 2023-03-17 14:40 | Emergency (ER) | payer MEDICARE, SELFPAY ==
--- NOTE | ~2023-03-17 | CT_ITS ---
EXAMINATION: CT abdomen pelvis w con DATE: 03/17/2023 16:27 INDICATION: RLQ pain TECHNIQUE: Computed tomography (CT) of the abdomen and pelvis was performed with 100 mL Omnipaque-350 intravenous contrast. Automated exposure control and iterative reconstruction technique were employe d. The dose-length product was 1362.60 mGy-cm. COMPARISON: 06/30/2022. FINDINGS: Lower thorax: Senescent change. Bibasilar scar/atelectasis. Coronary artery calcification. Liver: Normal. Biliary/Gallbladder: Gallbladder is absent. No bile duct dilation. Pancreas: No mass or duct dilation. Spleen: Normal. Adrenals:No mass. Kidneys: No suspicious mass, obstructing stone, or hydronephrosis. Bilateral cortical thinning and at rophy. GI tract: No small or large bowel dilation. Appendix not visualized Mesentery/Peritoneum: No ascites, mass, or free air. Retroperitoneum: No mass. Pelvis: Streak artifact. Urinary bladder wall thickening. Absent uterus. Soft Tissues: Soft tissues and body wall unremarkable. Bones: No acute osseous finding. Uncomplicated appearing but incompletely visualized left hip arthro plasty. IMPRESSION: Possible cystitis. Otherwise, no acute abdominopelvic process detected. Reviewed, dictated and finalized at location K.
[2023-03-17 14:50] VITALS: BP 152/105; PULSE 84; RESP 16; TEMP 36.3; O2SAT 99
[2023-03-17 15:33] LABS: Basophils Absolute Auto 0.1 K/mm3 (0.0-0.1); Basophils Percent Auto 0.7 % (0.2-1.2); Eosinophils Absolute Auto 0.2 K/mm3 (0-0.3); Eosinophils Percent Auto 2.2 % (0-4.4); Hematocrit 40.1 % (37.0-47.0); Immature Granulocyte Absolute 0.03 K/mm3 (0.00-0.031); Immature Granulocyte Percent A 0.3 % (0-0.5); Lymphocytes Absolute Auto 2.95 K/mm3 (0.9-3.2); Mean Corpuscular HGB Conc 32.4 g/dl (32-36); Mean Platelet Volume 8.9 fl (7.4-10.4); Monocytes Absolute Auto 0.8 K/mm3 (0.1-0.6); Neutrophils Absolute Auto 5.1 K/mm3 (1.3-6.7); Neutrophils Percent Auto 55.8 % (45.5-73.1); Platelet Count Result 251 k/mm3 (150-375); Red Blood Count 3.82 M/mm3 (4.2-5.4); Red Cell Distribution Width 12.6 % (11.5-14.5); White Blood Count 9.2 K/mm3 (4.5-10.0)
[2023-03-17 15:40] LABS: Alanine Aminotransferase 12 U/L (6-35); Albumin Level 3.9 g/dL (3.5-5.1); Alkaline Phosphatase 71 U/L (38-126); Anion Gap 6 mmol/L (8-16); Aspartate Amino Transferase 23 U/L (14-36); Bilirubin,Total 0.7 mg/dL (0.2-1.3); Blood Urea Nitrogen 22 mg/dL (7-17); Calcium 8.6 mg/dL (8.4-10.2); Carbon Dioxide 29 mmol/L (22-30); Chloride 103 mmol/L (98-107); Estimated CRCL calculation 34 ml/min; Estimated Glomerular Filt Rate 47; Glucose 110 mg/dL (65-110); Potassium 4.5 mmol/L (3.4-5.0); Sodium 138 mmol/L (137-145)
--- NOTE | 2023-03-17 16:08 | ED.ABDPAIN ---
HPI - Abdominal Pain General Chief Complaint: Abdominal Pain Stated Complaint: abdominal pain Time Seen by Provider: 03/17/23 14:57 History of Present Illness HPI narrative: Patient is an 88-year-old female who presents ER with right-sided abdominal pain. Patient had a fall from standing on 02/22/2023. She fell down with her arm under her. She has had abdominal wall pain with physical movements since then. She did not strike her head or lose consciousness. No bruising to her abdomen. No pain to her hip or pelvis. She is ambulatory without history of she was seen in urgent care and sent here for further imaging. Related Data Home Medications Medication Instructions Recorded Confirmed aspirin 81 mg tablet,delayed 81 mg PO DAILY 11/26/19 03/17/23 release (Aspir-) clopidogrel 75 mg tablet 75 mg PO 4XW 11/26/19 03/17/23 duloxetine 30 mg capsule,delayed 90 mg PO DAILY 11/26/19 03/17/23 release sprinkle isosorbide mononitrate 120 mg 120 mg PO DAILY 11/26/19 03/17/23 tablet,extended release 24 hr loratadine 10 mg tablet (Claritin) 10 mg PO DAILY 11/26/19 03/17/23 losartan 100 mg tablet 100 mg PO DAILY 11/26/19 03/17/23 metoprolol tartrate 50 mg tablet 50 mg PO BID 11/26/19 03/17/23 (Lopressor) pantoprazole 40 mg tablet,delayed 40 mg PO QAM 11/26/19 03/17/23 release zolpidem 10 mg tablet 10 mg PO HS 11/26/19 03/17/23 docusate sodium 100 mg capsule 100 mg PO DAILY PRN Constipation 03/17/23 03/17/23 ibuprofen 200 mg tablet 400 mg PO DAILY PRN discomfort 03/17/23 03/17/23 loperamide 2 mg capsule 2 mg PO DAILY PRN Diarrhea 03/17/23 03/17/23 prochlorperazine maleate 10 mg 10 mg PO DAILY PRN Nausea 03/17/23 03/17/23 tablet tolterodine 2 mg capsule,extended 2 mg PO DAILY 03/17/23 03/17/23 release 24 hr tramadol 50 mg tablet 50 mg PO TID 03/17/23 03/17/23 Allergies Allergy/AdvReac Type Severity Reaction Status Date / Time erythromycin base Allergy Unknown Verified 03/17/23 13:33 Review of Systems Review of Systems: All systems reviewed & are unremarkable except as noted in HPI and below Constitutional: Constitutional: Denies chills, Denies fatigue and Denies fever(s) ENT: Denies nasal congestion and Denies sore throat Cardiovascular: Cardiovascular: Denies chest pain, Denies rapid heart rate and Denies radiating jaw, neck or arm pain Respiratory: Respiratory: Denies cough and Denies dyspnea Gastrointestinal: Gastrointestinal: Reports abdominal pain, Denies diarrhea, Denies nausea and Denies vomiting Musculoskeletal: Musculoskeletal: Denies arthralgias and Denies joint swelling [facility] Past Medical History Medical History (Updated 03/17/23 @ 18:04 by Loyd Orellana MD) CVA (cerebral vascular accident) August 2019 Essential hypertension GERD (gastroesophageal reflux disease) Hyperlipidemia Insomnia Myocardial infarction 2016 with cardiac catheterization at [facility] Urinary incontinence, mixed Surgical History Surgical History History of bilateral knee replacement Right knee greater than 10 years ago, left knee 2017 History of cardiac catheterization Without stent placement History of cholecystectomy History of hysterectomy Family History Family History Son Malignant neoplasm of prostate Social History Social History Social History: Primary care physician: Dr. Bolanos Code status: Full code Smoking status: Never smoker Alcohol intake: current Alcohol use details: She rarely drinks alcohol and only in moderation. Substance use: never Living arrangements: alone Additional living arrangements comments: She has been for 8 years. She lives alone and ambulates with a walker. 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 Three of her chi
[2023-03-17 16:44] VITALS: BP 159/95; PULSE 78; RESP 20; O2SAT 98
[2023-03-17 17:30] LABS: Appearance Urine Clear (Clear); Bacteria Urine 1+ /hpf; Bilirubin Urine Negative (Negative); Blood Urine Negative (Negative); Color Urine Yellow (Yellow); Glucose Urine UA Negative (Negative); Ketones Urine Negative (Negative); Leukocyte Esterase Ur 1+ LEU/UL (Negative); Nitrate Urine Negative (Negative); Non Pathogenic Casts 0-2; Protein Urine Negative (Negative); RBC Urine 0-2 /hpf (0-2); Squamous Epithelial Cell Urine Few /hpf (Few); Urobilinogen Urine 0.2 mg/dL (<2.0); WBC Urine 21-50 /hpf; pH Urine 6.5 (5.0-9.0)
[2023-03-17 17:53] LABS: Add Urine Microscopic? YES
[2023-03-17] MEDS: CEPHALEXIN 500 MG CAPSULE PO (18:12)
[2023-03-17 18:18] VITALS: BP 165/90; PULSE 74; RESP 20; O2SAT 98
== END 2023-03-17 18:19 | disposition home or self-care (01) ==
PROVIDERS: Emergency Provider Emergency Medicine; PCP Internal Medicine
DX: N39.0 Urinary tract infection, site not specified (principal); I10 Essential (primary) hypertension; I25.2 Old myocardial infarction; E78.5 Hyperlipidemia, unspecified; N39.46 Mixed incontinence; K21.9 Gastro-esophageal reflux disease without esophagitis; Z86.73 Personal history of transient ischemic attack (TIA), and cerebral infarction without residual deficits; Z96.653 Presence of artificial knee joint, bilateral; Z90.49 Acquired absence of other specified parts of digestive tract; Z90.710 Acquired absence of both cervix and uterus; Z79.82 Long term (current) use of aspirin
CPT/HCPCS: 36415; 74177; 80053; 81001; 85025; 87077; 87086; 87186; 99212; 99284; A9270; G0463; Q9967

== ENCOUNTER 2023-04-06 15:01 | Emergency (ER) | payer MEDICARE, SELFPAY ==
[2023-04-06] VITALS (8 sets, daily range): BP systolic 86–116; BP diastolic 47–85; PULSE 75–87; RESP 12–22; TEMP 36.4; O2SAT 95–98
--- NOTE | ~2023-04-06 | CT_ITS ---
EXAMINATION: CTA brain carotid DATE: 04/06/2023 18:52 INDICATION: Altered mental status. TECHNIQUE: Computed tomographic angiography (CTA) of the head was performed with 100 mL Omnipaque-350 intravenous contrast. CTA of the neck was performed with intravenous contrast. Automated exposure co ntrol and iterative reconstruction technique were employed. The dose-length product was 1139.03 mGy-c m. Maximum intensity projection and volume rendered 3D-reconstructions were created by the [employer] on a separate workstation. COMPARISON: Head CT 04/06/2023 FINDINGS: HEAD CTA: There are scattered areas of low attenuation in the cerebral white matter. There is an old infarct in the left basal ganglia. There is no intracranial hemorrhage, acute infarction, or abnormal intracranial mass lesion. The ventricles are normal in size. There are likely changes of ocular lens replacement surgeries. There is a small left mastoid effusion. There is mucosal thickening in the pa ranasal sinuses. Left vertebral artery is dominant. There is no significant stenosis of basilar arter y or the posterior cerebral arteries. There is no significant stenosis of the intracranial internal c arotid arteries or anterior or middle cerebral arteries. Anterior communicating artery is normal. The posterior communicating arteries are normal. There is no aneurysm. NECK CTA: There are no pathologically enlarged lymph nodes. There is no significant stenosis of the v ertebral arteries. There is mild plaque in the proximal internal carotid arteries. There is 0% stenos is of the proximal right internal carotid artery relative to normal distal artery lumen diameter (JENNA CET criteria). There is 0% stenosis of the proximal left internal carotid artery relative to normal d istal artery lumen diameter. There is moderate cervical spondylosis. IMPRESSION: 1. 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 2. Moderate nonspecific cerebral white matter disease, which likely represents chronic small vessel i schemic disease. 3. No aneurysm or significant intracranial arterial stenosis. 4. 0% stenosis of the proximal internal carotid arteries relative to normal distal artery lumen diame ters (NASCET criteria). Reviewed, dictated and finalized at location E. S OR MIRROR INSPECTOR IMPRESSION: 1. 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 2. Moderate nonspecific cerebral white matter disease, which likely represents chronic small vessel ischemic disease. 3. No aneurysm or significant intracranial arterial stenosis. 4. 0% stenosis of the proximal internal carotid arteries relative to normal dis cam artery lumen diameters (NASCET criteria).
--- NOTE | ~2023-04-06 | CT_ITS ---
EXAMINATION: CT brain wo con DATE: 04/06/2023 17:07 INDICATION: Altered mental status. TECHNIQUE: Computed tomography (CT) of the head was performed without intravenous contrast. The mA wa s adjusted according to patient size. Iterative reconstruction technique was employed. The dose-lengt h product was 605.33 mGy-cm. COMPARISON: None FINDINGS: There is an old infarct in the left basal ganglia. There are scattered areas of low attenua tion in the cerebral white matter. There is no intracranial hemorrhage, acute infarction, or abnormal intracranial mass lesion. The ventricles are normal in size. There are likely changes of ocular lens replacement surgeries. There is mild mucosal thickening in the paranasal sinuses. The mastoid air ce lls are normal. IMPRESSION: 1. 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 2. Moderate nonspecific cerebral white matter disease, which likely represents chronic small vessel i schemic disease. Reviewed, dictated and finalized at location E. NDAR CONTROL CLERK BLOOD BANK IMPRESSION: 1. 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 2. Moderate nonspecific cerebral white matter disease, which likely represents chronic small vessel ischemic disease.
--- NOTE | 2023-04-06 15:45 | ECG_ITS ---
Measurements Intervals [place] Rate: 80 P: 35 NV: 161 QRS: -16 QRSD: 93 T: 68 QT: 365 QTc: 421 Interpretive Statements SINUS RHYTHM DELAYED PRECORDIAL R/S TRANSITION CONSIDER INFERIOR INFARCT, AGE INDETERMINATE BORDERLINE ST-T WAVE ABNORMALITY- HIGH LATERAL LEADS BASELINE ARTIFACT- I, III, AVR, AVL, V6 ABNORMAL ECG COMPARED TO ECG 11/30/2019 09:07:29 SINUS RHYTHM NOW PRESENT Electronically Signed On 04-06-2023 16:23:26 BAIL ATTACHER by Jason Cleveland D.O.
[2023-04-06 16:09] LABS: Glucose Point of Care 114 mg/dl (65-105)
[2023-04-06 16:13] LABS: Basophils Absolute Auto 0.1 K/mm3 (0.0-0.1); Basophils Percent Auto 0.9 % (0.2-1.2); Eosinophils Absolute Auto 0.1 K/mm3 (0-0.3); Eosinophils Percent Auto 1.7 % (0-4.4); Hematocrit 39.4 % (37.0-47.0); Hemoglobin 12.6 g/dL (12.0-15.0); Immature Granulocyte Absolute 0.04 K/mm3 (0.00-0.031); Immature Granulocyte Percent A 0.5 % (0-0.5); Lymphocytes Absolute Auto 2.34 K/mm3 (0.9-3.2); Lymphocytes Percent Auto 28.5 % (18.3-44.2); Mean Corpuscular Volume 106.2 fl (80-100); Mean Platelet Volume 8.5 fl (7.4-10.4); Neutrophils Absolute Auto 4.6 K/mm3 (1.3-6.7); Neutrophils Percent Auto 56.4 % (45.5-73.1); Platelet Count Result 203 k/mm3 (150-375); Red Blood Count 3.71 M/mm3 (4.2-5.4); White Blood Count 8.2 K/mm3 (4.5-10.0)
[2023-04-06 16:30] LABS: Anion Gap 12 mmol/L (8-16); Blood Urea Nitrogen 23 mg/dL (7-17); Calcium 8.5 mg/dL (8.4-10.2); Carbon Dioxide 23 mmol/L (22-30); Chloride 105 mmol/L (98-107); Estimated CRCL calculation 32 ml/min; Estimated Glomerular Filt Rate 42; Glucose 102 mg/dL (65-110); Potassium 4.3 mmol/L (3.4-5.0); Sodium 140 mmol/L (137-145)
[2023-04-06 16:41] LABS: Troponin I < 0.012 ng/mL (0.000-0.034)
[2023-04-06] MEDS: LACTATED RINGERS 1,000 ML 999 ML IV CONT ×2 (17:32→18:58)
--- NOTE | 2023-04-06 18:22 | ED.GENADULT ---
HPI - General Adult General Chief complaint: Unspecified Stated complaint: AMS Time Seen by Provider: 04/06/23 15:45 History of Present Illness HPI narrative: Patient with history of hypertension, TIA, presents here after an episode of altered mental status that lasted about 10 minutes, she had just gotten her COVID-vaccine about 30 minutes prior to onset of the symptoms, per daughter at bedside she had seemed confused, did not talk as much as usual, could not [id number] birthday or Social Security, and seemed very slow. After about 5 to 10 minutes she started talking more normally, but still seemed tired, and at this time is still more tired than her usual baseline Related Data Home Medications Medication Instructions Recorded Confirmed aspirin 81 mg tablet,delayed 81 mg PO DAILY 11/26/19 03/17/23 release (Aspir-) clopidogrel 75 mg tablet 75 mg PO 4XW 11/26/19 03/17/23 duloxetine 30 mg capsule,delayed 90 mg PO DAILY 11/26/19 03/17/23 release sprinkle isosorbide mononitrate 120 mg 120 mg PO DAILY 11/26/19 03/17/23 tablet,extended release 24 hr loratadine 10 mg tablet (Claritin) 10 mg PO DAILY 11/26/19 03/17/23 losartan 100 mg tablet 100 mg PO DAILY 11/26/19 03/17/23 metoprolol tartrate 50 mg tablet 50 mg PO BID 11/26/19 03/17/23 (Lopressor) pantoprazole 40 mg tablet,delayed 40 mg PO QAM 11/26/19 03/17/23 release zolpidem 10 mg tablet 10 mg PO HS 11/26/19 03/17/23 docusate sodium 100 mg capsule 100 mg PO DAILY PRN Constipation 03/17/23 03/17/23 ibuprofen 200 mg tablet 400 mg PO DAILY PRN discomfort 03/17/23 03/17/23 loperamide 2 mg capsule 2 mg PO DAILY PRN Diarrhea 03/17/23 03/17/23 prochlorperazine maleate 10 mg 10 mg PO DAILY PRN Nausea 03/17/23 03/17/23 tablet tolterodine 2 mg capsule,extended 2 mg PO DAILY 03/17/23 03/17/23 release 24 hr tramadol 50 mg tablet 50 mg PO TID 03/17/23 03/17/23 Allergies Allergy/AdvReac Type Severity Reaction Status Date / Time erythromycin base Allergy Unknown Verified 04/06/23 19:22 Review of Systems Review of Systems: CONST: No fever. HEENT: No sore throat C/V: No chest pain RESP: No cough GI: No abdominal pain : No dysuria. M/S: No joint pain. SKIN: No rash. NEURO: Altered mental status now resolved PSYCH: [No depression] [facility] Past Medical History Medical History (Updated 04/07/23 @ 00:00 by Background Daemon) CVA (cerebral vascular accident) August 2019 Essential hypertension GERD (gastroesophageal reflux disease) Hyperlipidemia Insomnia Myocardial infarction 2015 with cardiac catheterization at [facility] Urinary incontinence, mixed Surgical History Surgical History History of bilateral knee replacement Right knee greater than 10 years ago, left knee 2017 History of cardiac catheterization Without stent placement History of cholecystectomy History of hysterectomy Family History Family History Son Malignant neoplasm of prostate Social History Social History Social History: Primary care physician: Dr. Bolanos Code status: Full code Smoking status: Never smoker Alcohol intake: current Alcohol use details: She rarely drinks alcohol and only in moderation. Substance use: never Living arrangements: alone Additional living arrangements comments: She has been for 8 years. She lives alone and ambulates with a walker. 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
== END 2023-04-06 21:02 ==
PROVIDERS: Emergency Medicine; Emergency Provider Emergency Medicine; PCP Internal Medicine
DX: R41.82 Altered mental status, unspecified (principal); I95.9 Hypotension, unspecified; I25.10 Atherosclerotic heart disease of native coronary artery without angina pectoris; I10 Essential (primary) hypertension; E78.5 Hyperlipidemia, unspecified; I25.2 Old myocardial infarction; Z86.73 Personal history of transient ischemic attack (TIA), and cerebral infarction without residual deficits
CPT/HCPCS: 36415; 70450; 70496; 70498; 80048; 82948; 84484; 85025; 93005; 96360; 96361; 99284; J7120; Q9967

== ENCOUNTER 2023-04-29 20:14 | Inpatient (IN) | payer MEDICARE, SELFPAY ==
--- NOTE | ~2023-04-29 | XR_ITS ---
EXAMINATION: XR hip RT 1V DATE: 05/01/2023 16:45 INDICATION: Right bipolar hemiarthroplasty TECHNIQUE: AP view of the right hip FINDINGS: There is a right bipolar hip arthroplasty in expected position. Subcutaneous gas with soft tissue swelling are consistent with recent surgery. IMPRESSION: 1. Recent right bipolar hip arthroplasty. Reviewed, dictated and finalized at location L. R TECHNICIAN
--- NOTE | ~2023-04-29 | CT_ITS ---
Clinical Indication: Hypoxia CT Scan of the Chest with Contrast: Technique: Contiguous sections were acquired throughout the chest after intravenous administration of 75 cc of Omnipaque 350. Dose reduction technique was used on this scan by utilizing automated exposu re control and iterative reconstruction technique. The dose-length product (DLP) was 617.75 mGy-cm. Findings: There is no evidence of any significant mediastinal, hilar or axillary lymphadenopathy. There is no f illing defect in the pulmonary arterial tree to suggest pulmonary embolus. There is no evidence of ao rtic dissection or aneurysm. There is no evidence of pleural or pericardial effusion. The lungs are clear. No pulmonary nodules or infiltrates are noted. Images through the upper abdomen reveal no abnormalities. Impression: No evidence of pulmonary embolus, aortic dissection, or aortic aneurysm. Clear lungs. Reviewed, dictated and finalized at [facility]. SION HUMAN RESOURCES MANAGER Impression: No evidence of pulmonary embolus, aortic dissection, or aortic aneurysm. Clear lungs.
--- NOTE | ~2023-04-29 | XR_ITS ---
XR chest 1V portable 05/04/2023 12:36 Indication: Fever Procedure: AP portable chest Comparison: Comparison to multiple prior studies sequentially, with oldest reviewed study dated 05/2019. Findings: Small left pleural effusion. Left basilar atelectasis. No focal pneumonia, edema, or pneumo thorax. There is atherosclerosis. There is dextroscoliosis of the thoracic spine, possibly positional . 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 Impression: 1: Small left pleural effusion. 2: Left basilar atelectasis. Reviewed, dictated and finalized at location B. TRAPPER Impression: 1: Small left pleural effusion. 2: Left basilar atelectasis.
--- NOTE | ~2023-04-29 | XR_ITS ---
XR chest 1V 04/29/2023 20:43 Indication: Hypoxic Procedure: AP view of the chest Comparison: 08/10/2022 Findings: Bibasilar airspace disease. Small left pleural effusion. No edema or pneumothorax. There is moderate osteoarthritis of the shoulders. No acute osseous abnormality. Impression: 1: Bibasilar airspace disease may represent pneumonia and/or atelectasis. 2: Small left pleural effusion. Reviewed, dictated and finalized at location A. END ARCHITECT Impression: 1: Bibasilar airspace disease may represent pneumonia and/or atelectasis. 2: Small left pleural effusion.
--- NOTE | ~2023-04-29 | XR_ITS ---
XR hip RT 2V w AP pelvis 04/29/2023 20:43 Indication: Right hip pain Procedure: 3 views right hip Comparison: 11/27/2019 Findings: Displaced right femoral neck fracture with varus angulation. There is a left femoral bipola r hemiarthroplasty. Impression: 1: Displaced right femoral neck fracture. Reviewed, dictated and finalized at location A. EL SHADER Impression: 1: Displaced right femoral neck fracture.
--- NOTE | ~2023-04-29 | XR_ITS ---
EXAMINATION: XR elbow RT 2V DATE: 04/30/2023 14:46 INDICATION: Right elbow pain. TECHNIQUE: 2 views of right elbow were obtained. COMPARISON: None. FINDINGS: Bone alignment is normal. No fracture. Joint spaces are normal. No elbow joint effusion. IMPRESSION: 1. No fracture. Reviewed, dictated and finalized at location E. KER OFF IMPRESSION: 1. No fracture.
[2023-04-29 20:15] VITALS: BP 164/87; PULSE 84; RESP 20; TEMP 36.7; O2SAT 88
[2023-04-29 20:23] VITALS: BP 164/87; PULSE 82; RESP 21; O2SAT 99
[2023-04-29 20:28] VITALS: O2SAT 91
--- NOTE | 2023-04-29 20:28 | ED.GENADULT ---
HPI - General Adult General Chief complaint: Extremity Injury, Lower Stated complaint: R HIP PAIN S/P FALL Source: patient Mode of arrival: ambulatory Limitations: no limitations History of Present Illness HPI narrative: This is an 80-year-old female with PMH of MS, CVA, GERD who presents to the ED via EMS from a [facility] with chief complaint of a fall. She states that she was walking across the room when she lost her footing.. She reports she normally uses walker for ambulation but was not using her walker this evening. Reports pain only to the right hip. Denies numbness, weakness, or any further sites of pain or injury. Of note patient was seen to dip down into the upper 80s on room air so she was placed on 2 L nasal cannula. She denies any chest pain, shortness of breath, recent illness or cough. Denies fevers, chills, nausea, vomiting. Family arrives and says she has been on antibiotics for recent UTI. Triage note mentions history of COPD but family and patient deny this. Related Data Home Medications Medication Instructions Recorded Confirmed aspirin 81 mg tablet,delayed 81 mg PO DAILY 11/26/19 03/17/23 release (Aspir-) clopidogrel 75 mg tablet 75 mg PO 4XW 11/26/19 03/17/23 duloxetine 30 mg capsule,delayed 90 mg PO DAILY 11/26/19 03/17/23 release sprinkle isosorbide mononitrate 120 mg 120 mg PO DAILY 11/26/19 03/17/23 tablet,extended release 24 hr loratadine 10 mg tablet (Claritin) 10 mg PO DAILY 11/26/19 03/17/23 losartan 100 mg tablet 100 mg PO DAILY 11/26/19 03/17/23 metoprolol tartrate 50 mg tablet 50 mg PO BID 11/26/19 03/17/23 (Lopressor) pantoprazole 40 mg tablet,delayed 40 mg PO QAM 11/26/19 03/17/23 release zolpidem 10 mg tablet 10 mg PO HS 11/26/19 03/17/23 docusate sodium 100 mg capsule 100 mg PO DAILY PRN Constipation 03/17/23 03/17/23 ibuprofen 200 mg tablet 400 mg PO DAILY PRN discomfort 03/17/23 03/17/23 loperamide 2 mg capsule 2 mg PO DAILY PRN Diarrhea 03/17/23 03/17/23 prochlorperazine maleate 10 mg 10 mg PO DAILY PRN Nausea 03/17/23 03/17/23 tablet tolterodine 2 mg capsule,extended 2 mg PO DAILY 03/17/23 03/17/23 release 24 hr tramadol 50 mg tablet 50 mg PO TID 03/17/23 03/17/23 Allergies Allergy/AdvReac Type Severity Reaction Status Date / Time erythromycin base Allergy Unknown Verified 04/06/23 19:22 Review of Systems Review of Systems: All systems as dictated in [facility] Past Medical History Medical History (Updated 04/30/23 @ 00:07 by Miguel Joel PA-C) CVA (cerebral vascular accident) August 2019 Essential hypertension GERD (gastroesophageal reflux disease) Hyperlipidemia Insomnia Myocardial infarction 2016 with cardiac catheterization at [facility] Urinary incontinence, mixed Surgical History Surgical History History of bilateral knee replacement Right knee greater than 10 years ago, left knee 2017 History of cardiac catheterization Without stent placement History of cholecystectomy History of hysterectomy Family History Family History Son Malignant neoplasm of prostate Social History Social History Social History: Primary care physician: Dr. Bolanos Code status: Full code Smoking status: Never smoker Alcohol intake: current Alcohol use details: She rarely drinks alcohol and only in moderation. Substance use: never Lack of Transportation: No Lack of Food: Never True Current Housing: I Have Housing Concerned About Future Housing: No Difficulty Paying Gas/Electric Bills: No Difficulty Paying for Meds: No Currently Unemployed: No Education: Grade School Difficulty w/ Childcare or Family Care: No Living arrangements: alone Additional living arrangements comments: She has been for 8 years. She
[2023-04-29 20:30] VITALS: BP 157/83; PULSE 80; RESP 21; O2SAT 99
--- NOTE | 2023-04-29 20:34 | ECG_ITS ---
Measurements Intervals [place] Rate: 78 P: 60 WI: 173 QRS: -11 QRSD: 95 T: 58 QT: 361 QTc: 413 Interpretive Statements SINUS RHYTHM PREVIOUS INFERIOR WALL CA ABNORMAL ECG COMPARED TO ECG 04/06/2023 16:02:37 NO SIGNIFICANT CHANGES Electronically Signed On 04-30-2023 15:03:48 SALES SERVICE EXECUTIVE by Melecio Coyle M.D.
[2023-04-29 20:57] LABS: Basophils Percent Auto 0.3 % (0.2-1.2); Eosinophils Absolute Auto 0.1 K/mm3 (0-0.3); Eosinophils Percent Auto 1.5 % (0-4.4); Hematocrit 41.1 % (37.0-47.0); Hemoglobin 13.3 g/dL (12.0-15.0); Immature Granulocyte Absolute 0.04 K/mm3 (0.00-0.031); Immature Granulocyte Percent A 0.5 % (0-0.5); Lymphocytes Absolute Auto 1.86 K/mm3 (0.9-3.2); Lymphocytes Percent Auto 24.8 % (18.3-44.2); Mean Corpuscular HGB Conc 32.4 g/dl (32-36); Mean Corpuscular Hemoglobin 33.7 pg (26-34); Mean Corpuscular Volume 104.1 fl (80-100); Mean Platelet Volume 8.4 fl (7.4-10.4); Monocytes Absolute Auto 0.7 K/mm3 (0.1-0.6); Monocytes Percent Auto 9.1 % (2.6-8.5); Neutrophils Absolute Auto 4.8 K/mm3 (1.3-6.7); Neutrophils Percent Auto 63.8 % (45.5-73.1); Platelet Count Result 221 k/mm3 (150-375); Red Blood Count 3.95 M/mm3 (4.2-5.4); Red Cell Distribution Width 12.7 % (11.5-14.5); White Blood Count 7.5 K/mm3 (4.5-10.0)
[2023-04-29 21:08] LABS: Alanine Aminotransferase 14 U/L (6-35); Albumin Level 3.9 g/dL (3.5-5.1); Alkaline Phosphatase 86 U/L (38-126); Anion Gap 11 mmol/L (8-16); Aspartate Amino Transferase 27 U/L (14-36); Bilirubin,Total 0.4 mg/dL (0.2-1.3); Blood Urea Nitrogen 23 mg/dL (7-17); Calcium 8.8 mg/dL (8.4-10.2); Carbon Dioxide 22 mmol/L (22-30); Chloride 103 mmol/L (98-107); Estimated CRCL calculation 38 ml/min; Estimated Glomerular Filt Rate 52; Glucose 106 mg/dL (65-110); Potassium 4.7 mmol/L (3.4-5.0); Prothrombin Time 13.7 Seconds (11.1-14.7); Sodium 136 mmol/L (137-145)
[2023-04-29 21:09] LABS: Partial Thromboplastin Time 27.5 SECONDS (22.3-36.8)
--- NOTE | 2023-04-29 21:35 | PC.NURSE ---
pt family member states that pt is currently being treated for UTI and is taking cipro.
[2023-04-29 21:38] LABS: Appearance Urine Clear (Clear); Bilirubin Urine Negative (Negative); Blood Urine Negative (Negative); Color Urine Yellow (Yellow); Glucose Urine UA Negative (Negative); Ketones Urine Negative (Negative); Leukocyte Esterase Ur Negative LEU/UL (Negative); Nitrate Urine Negative (Negative); Protein Urine Negative (Negative); Specific Grav Ur 1.011 (1.001-1.035); Urobilinogen Urine 0.2 mg/dL (<2.0); pH Urine 5.5 (5.0-9.0)
[2023-04-29 21:43] LABS: NT Pro B Type Natriuretic Pept 246 pg/mL (19.9-100)
[2023-04-29 21:43] LABS: Add Urine Microscopic? NO
[2023-04-29 22:19] VITALS: O2SAT 88
[2023-04-29 22:20] VITALS: O2SAT 92
[2023-04-29] MEDS: MORPHINE SULFATE (*CRX) 2 MG/ML INJ IV PUSH ×2 (22:21→23:13)
[2023-04-30] VITALS (11 sets, daily range): BP systolic 131–163; BP diastolic 70–90; PULSE 78–105; RESP 16–22; TEMP 36.6–36.8; O2SAT 92–97; BMI 33.5
[2023-04-30] MEDS: fentaNYL CITRATE INJ (*CRX) 100 MCG/2 ML VIAL 50 MCG IV PUSH (00:18)
--- NOTE | 2023-04-30 00:38 | PC.NURSE ---
This RN contacted Karina, pt daughter per request to notify her of pt room assignment.
[2023-04-30] MEDS: SODIUM CHLORIDE 0.9% IV 1,000 ML 125 ML IV CONT ×3 (00:58→16:37)
--- NOTE | 2023-04-30 01:04 | ADMGEN ---
This patient, Mary Rose, was admitted to 3 Med Surg Room 317-02 at 0050. Patient/family oriented to hospital policies and general routines including ID bracelet, bed and alarms, visiting hours, pain management, procedures, bathroom and other care routines, personal items, smoking policy, room service/diet, and visiting hours. Information on how to activate the Rapid Response Team has been discussed. Patient/Family are encouraged to report perceived risks to care and to ask questions if they do not understand what they are told or what they should do.
[2023-04-30] MEDS: HYDROmorphone HCL INJ (*CRX) 1 MG/ML SYR 0.5 MG IV PUSH ×2 (07:36→20:04)
--- NOTE | 2023-04-30 09:32 | PM.IMHP ---
H&P: HPI History of Present Illness Date/Time: 04/30/23 09:32 Chief Complaint: Right hip pain/fracture Narrative: This is an 88-year-old female patient resides at [facility] who is admitted to the hospital for a fall with a displaced right femoral neck fracture. Patient has history of frequent UTIs, CVA, hypertension, an IA 5 years ago, osteoarthritis in the back and left arm, hyperlipidemia, and GERD. Patient has a surgical history left bipolar hemiarthroplasty, hysterectomy, cholecystectomy, bladder repair and bilateral knee replacements. Patient is a nonsmoker very rare EtOH use and no drug use. Patient received IV pain medication prior to my examination and this limited the HPI and ROS. Chart review and conversation with daughter were the main sources of information. Daughter reports the patient started on ciprofloxacin on 04/27 for Klebsiella in the urine. X-ray of the pelvis and right hip shows displaced femoral neck fracture on the right and prior bipolar hip arthroplasty on the left. Labs in the ER showed normal white blood cell normal H&H platelets mildly decreased sodium 36 BUN 23 creatinine 1 with AE estimated GFR 50 an estimated creatinine clearance 38. Urinalysis appears clear anxious likely due to to Cipro. Review of Systems Review of Systems: ROS unobtainable: Yes unobtainable due to mental status (Status post IV narcotics) [facility] Past Medical History Medical History (Updated 04/30/23 @ 13:39 by Jae Corcoran APRN) CVA (cerebral vascular accident) August 2019 Essential hypertension GERD (gastroesophageal reflux disease) Hyperlipidemia Insomnia Myocardial infarction 2016 with cardiac catheterization at [facility] Urinary incontinence, mixed Surgical History Surgical History History of bilateral knee replacement Right knee greater than 10 years ago, left knee 2017 History of cardiac catheterization Without stent placement History of cholecystectomy History of hysterectomy Family History Family History Son Malignant neoplasm of prostate Social History Social History Social History: Primary care physician: Dr. Bolanos Code status: Full code Smoking status: Never smoker Alcohol intake: current Alcohol use details: She rarely drinks alcohol and only in moderation. Substance use: never Lack of Transportation: No Lack of Food: Never True Current Housing: I Have Housing Concerned About Future Housing: No Difficulty Paying Gas/Electric Bills: No Difficulty Paying for Meds: No Currently Unemployed: No Education: Grade School Difficulty w/ Childcare or Family Care: No Living arrangements: alone Additional living arrangements comments: She has been for 8 years. She lives alone and ambulates with a walker. 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 Three of her children in [place] a her son who is a physician lives in [place], [place] Gender identity (if verbalized by the patient): Female Spiritual care concerns: No Meds Home Medications and Allergies Home Medications Medication Instructions Recorded Confirmed Type aspirin 81 mg tablet,delayed 81 mg PO DIRECTED 11/26/19 04/30/23 History release (Aspir-) clopidogrel 75 mg tablet 75 mg PO 4XW 11/26/19 04/30/23 History duloxetine 30 mg capsule,delayed 90 mg PO DAILY 11/26/19 04/30/23 History release sprinkle isosorbide mononitrate 120 mg 120 mg PO DAILY 11/26/19 04/30/23 History tablet,extended release 24 hr loratadine 10 mg tablet (Claritin) 10 mg PO DAILY 11/26/19 04/30/23 History losartan 100 mg tablet 100 mg PO DAILY 11/26/19 04/30/23 History metoprolol tartrate 50 mg tablet 50 mg PO BID 11/26/19 04/30/23 History (Lopressor) pantopr
[2023-04-30] MEDS: LOSARTAN POTASSIUM 100 MG TABLET PO (11:55)
[2023-04-30] MEDS: ISOSORBIDE MONONITRATE 60 MG TAB.ER.24H 120 MG PO (11:55)
[2023-04-30] MEDS: METOPROLOL TARTRATE 50 MG TAB PO ×2 (11:56→20:06)
[2023-04-30] MEDS: traMADol HCL (*CRX) 50 MG TABLET PO ×2 (11:56→16:37)
[2023-04-30] MEDS: PANTOPRAZOLE 40 MG TABLET PO (11:56)
[2023-04-30] MEDS: DULoxetine HCL 30 MG CAPSULE.DR 90 MG PO (11:57)
--- NOTE | 2023-04-30 12:37 | PHAR ---
Home med verified: Cipro 500mg tablets take 1 tablet PO BID
--- NOTE | 2023-04-30 13:15 | PM.CNOR ---
Assessment and Plan Assessment and plan (1) Fracture of femoral neck, right, closed: Qualifiers: Encounter type: initial encounter Qualified Code(s): S72.001A - Fracture of unspecified part of neck of right femur, initial encounter for closed fracture Code(s): S72.001A - Fracture of unspecified part of neck of right femur, initial encounter for closed fracture Status: Acute Assessment and Plan: History, exam and radiographs reviewed with the patient. Radiographs of the right hip in the ED reveal a displaced right femoral neck fracture. The fracture type and injury the patient and family. Operative and nonoperative treatment options reviewed. The patient/POA elects for operative treatment. Risk of nonunion, malunion or late displacement discussed. Stiffness, pain and possible dysfunction of the joint discussed. Risks of surgery including but not limited to neurovascular damage, wound complications, blood clot, pulmonary embolus, stroke, myocardial infarction, anesthetic risks up to and including were reviewed. Continued pain and possible dysfunction were explained. No guarantees were offered. The patient/POA understands and wishes to proceed. Plan: Right Hip Bipolar by Dr. Chowdary NPO at midnight Obtain Consent SCDs. Incentive spirometry HOLD anticoagulation Pain control Bedrest Dispo: Patient will likely require d/c to SNF vs. [facility]. Care coordination consult recommended to begin discharge planning. Plan Reviewed history, exam, radiographs and surgical planning with attending physician, Dr. Chowdary who agrees with current plan as indicated above. No further recommendations at this time. History of Present Illness HPI Consult date: 04/30/23 Chief complaint: R hip fracture Narrative: 88-year-old female admitted from her assisted living facility after a fall. Patient is somewhat confused at the bedside today. Majority of her history was obtained from the daughter who is at the bedside. Radiographs of the right hip in the emergency room reveal a displaced right femoral neck fracture. Patient was admitted for further orthopedic evaluation. [facility] Past Medical History Medical History (Updated 04/30/23 @ 15:45 by PATRICA Parrish) CVA (cerebral vascular accident) August 2019 Essential hypertension GERD (gastroesophageal reflux disease) History of partial replacement of left hip joint using bipolar prosthesis Hyperlipidemia Insomnia Myocardial infarction 2016 with cardiac catheterization at [facility] Urinary incontinence, mixed Surgical History Surgical History History of bilateral knee replacement Right knee greater than 10 years ago, left knee 2017 History of cardiac catheterization Without stent placement History of cholecystectomy History of hysterectomy Family History Family History Son Malignant neoplasm of prostate Social History Social History Social History: Primary care physician: Dr. Bolanos Code status: Full code Smoking status: Never smoker Alcohol intake: current Alcohol use details: She rarely drinks alcohol and only in moderation. Substance use: never Lack of Transportation: No Lack of Food: Never True Current Housing: I Have Housing Concerned About Future Housing: No Difficulty Paying Gas/Electric Bills: No Difficulty Paying for Meds: No Currently Unemployed: No Education: Grade School Difficulty w/ Childcare or Family Care: No Living arrangements: alone Additional living arrangements comments: She has been for 8 years. She lives alone and ambulates with a walker. 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 Three of her children in [place] a her son who is a physician lives in [facility]
[2023-04-30] MEDS: ACETAMINOPHEN 500 MG TABLET 1000 MG PO (20:05)
[2023-05-01] VITALS (13 sets, daily range): BP systolic 112–165; BP diastolic 49–91; PULSE 82–108; RESP 15–22; TEMP 36.3–37.6; O2SAT 92–100
[2023-05-01] MEDS: SODIUM CHLORIDE 0.9% IV 1,000 ML 125 ML IV CONT ×3 (00:51→17:50)
[2023-05-01 06:57] LABS: Basophils Absolute Auto 0.1 K/mm3 (0.0-0.1); Basophils Percent Auto 0.5 % (0.2-1.2); Eosinophils Absolute Auto 0.4 K/mm3 (0-0.3); Eosinophils Percent Auto 3.3 % (0-4.4); Hematocrit 40.8 % (37.0-47.0); Hemoglobin 12.7 g/dL (12.0-15.0); Immature Granulocyte Absolute 0.05 K/mm3 (0.00-0.031); Immature Granulocyte Percent A 0.5 % (0-0.5); Lymphocytes Absolute Auto 1.29 K/mm3 (0.9-3.2); Mean Corpuscular HGB Conc 31.1 g/dl (32-36); Mean Corpuscular Hemoglobin 33.8 pg (26-34); Mean Corpuscular Volume 108.5 fl (80-100); Mean Platelet Volume 8.9 fl (7.4-10.4); Monocytes Absolute Auto 0.7 K/mm3 (0.1-0.6); Monocytes Percent Auto 6.8 % (2.6-8.5); Neutrophils Absolute Auto 8.3 K/mm3 (1.3-6.7); Neutrophils Percent Auto 76.9 % (45.5-73.1); Platelet Count Result 147 k/mm3 (150-375); Red Blood Count 3.76 M/mm3 (4.2-5.4); Red Cell Distribution Width 12.8 % (11.5-14.5); White Blood Count 10.8 K/mm3 (4.5-10.0)
[2023-05-01 07:17] LABS: Alanine Aminotransferase 15 U/L (6-35); Albumin Level 3.4 g/dL (3.5-5.1); Alkaline Phosphatase 71 U/L (38-126); Anion Gap 9 mmol/L (8-16); Aspartate Amino Transferase 38 U/L (14-36); Bilirubin,Total 1.1 mg/dL (0.2-1.3); Blood Urea Nitrogen 16 mg/dL (7-17); Carbon Dioxide 21 mmol/L (22-30); Chloride 104 mmol/L (98-107); Estimated CRCL calculation 53 ml/min; Estimated Glomerular Filt Rate > 60; Glucose 115 mg/dL (65-110); Magnesium 1.9 mg/dL (1.6-2.3); Potassium 4.1 mmol/L (3.4-5.0); Sodium 134 mmol/L (137-145)
--- NOTE | 2023-05-01 09:37 | WPDHPUPDATE1 ---
History and Physical Update Update Date/Time: 05/01/23 09:37 History and Physical has been reviewed, including an updated exam of the patient. There are NO changes in the patient's condition. Risks, benefits, and alternatives have been discussed and questions answered. Patient agrees to proceed with procedure.
[2023-05-01] MEDS: PANTOPRAZOLE 40 MG TABLET PO (10:31)
[2023-05-01] MEDS: METOPROLOL TARTRATE 50 MG TAB PO (10:31)
[2023-05-01] MEDS: traMADol HCL (*CRX) 50 MG TABLET PO (10:31)
[2023-05-01] MEDS: DULoxetine HCL 30 MG CAPSULE.DR 90 MG PO (10:32)
[2023-05-01] MEDS: LOSARTAN POTASSIUM 100 MG TABLET PO (10:32)
--- NOTE | 2023-05-01 10:51 | PM.IMPN ---
Progress Note: A&P Assessment and Plan (1) Fracture of femoral neck, right, closed: Qualifiers: Encounter type: initial encounter Qualified Code(s): S72.001A - Fracture of unspecified part of neck of right femur, initial encounter for closed fracture Code(s): S72.001A - Fracture of unspecified part of neck of right femur, initial encounter for closed fracture Status: Acute Assessment and Plan: Fall with right hip fracture, patient to go to OR on 05/01. Pain control. (2) Hypoxia: Code(s): R09.02 - Hypoxemia Status: Acute Assessment and Plan: 88% on room air in ER, CXR showed concern for pleural effusion and atelectasis vs pneumonia, CT Chest negative for such or PE. Clear lungs on CT. (3) Essential hypertension: Code(s): I10 - Essential (primary) hypertension Status: Acute Assessment and Plan: Continue home medications, blood pressure reviewed on 05/01, mildly elevated but no acute intervention needed. (4) UTI (urinary tract infection): Code(s): N39.0 - Urinary tract infection, site not specified Status: Acute Assessment and Plan: Frequent history UTI. Started on Cipro 500 mg BID on 04/27 by PCP for Klebsiella in urine. Continue this medication and dose. Virk in place due to hip fracture, plan to go to OR on 05/01. (5) Poor short-term memory: Code(s): R41.3 - Other amnesia Status: Acute Assessment and Plan: Patient resides at assisted living facility for memory care, no formal dementia diagnosis. Plan Admit to Med/Surg Pain control Resume home medications except aspirin/Plavix/ibuprofen due to bleeding risks and Ambien due to risk of altered LOC at night. Diet: Regular then NPO at [place] for procedure on 05/01. Resume regular diet postop VTE prophylaxis: SCDs GI prophylaxis: n/a Code status: DNR (except during surgery and immediate post op) Disposition: anticipate acute rehab vs SNF Time Spent With Patient Time with patient: 25 - 35 minutes Subjective Date/time seen: 05/01/23 10:51 Interval history: 04/30: This is an 88-year-old female patient resides at [facility] who is admitted to the hospital for a fall with a displaced right femoral neck fracture.? Patient has history of frequent UTIs, CVA, hypertension, an PR 5 years ago, osteoarthritis in the back and left arm, hyperlipidemia, and GERD.? Patient has a surgical history left bipolar hemiarthroplasty, hysterectomy, cholecystectomy, bladder repair and bilateral knee replacements.? Patient is a nonsmoker very rare EtOH use and no drug use.? Patient received IV pain medication prior to my examination and this limited the HPI and ROS.? Chart review and conversation with daughter were the main sources of information.? Daughter reports the patient started on ciprofloxacin on 04/27 for Klebsiella in the urine. X-ray of the pelvis and right hip shows displaced femoral neck fracture on the right and prior bipolar hip arthroplasty on the left.? Labs in the ER showed normal white blood cell normal H&H platelets mildly decreased sodium 36 BUN 23 creatinine 1 with AE estimated GFR 50 an estimated creatinine clearance 38.? Urinalysis appears clear anxious likely due to to Cipro. 05/01: Patient seen this morning before surgery. Virk catheter in place. Patient remains on supplemental oxygenation 1-2 liters/minute. Patient denies any difficulty breathing chest pain nausea vomiting abdominal discomfort. She does state right hip pain which is the location of her known displaced femoral neck fracture. Patient appears withdrawn, somewhat confused and gruff. Review of Systems Review of Systems: All systems reviewed & are unremarkable except as noted in HPI and below Exam Narrative: GENERAL: Well-appearing, well-nourished, and in no acute distress. HEAD: Normocephalic, atraumatic. EYES: PERRLA and EOMI. ENT: Nares clear, no rhinorrhea or epistaxis. Mucous membranes moist.
--- NOTE | 2023-05-01 13:55 | PC.NURSE ---
To OR per bed, IV saline locked. Report given to Jaime GOTTI.
[2023-05-01] MEDS: LACTATED RINGERS 1,000 ML 30 ML IV CONT ×2 (14:05→16:34)
--- NOTE | 2023-05-01 14:10 | WPDANESEPPF ---
Anes - Initial Pre Proc Eval Procedure: Operation Date: 05/01/23 15:00 Proposed Procedures p Right Bipolar Hip Replacement - Eric Chowdary MD Date/Time: 05/01/23 14:10 Surgeon: Sally Stern DO Pre Op Diagnosis: R hip fracture Patient Data Age: 88 Gender: F Height: 1.65 m Weight: 91.5 kg Last Vital Signs Temp 36.4 C L 05/01/23 05:58 Pulse 100 05/01/23 10:31 Resp 22 H 05/01/23 05:58 BP 165/91 H 05/01/23 05:58 Pulse Ox 93 05/01/23 05:58 O2 Del Method Nasal Cannula 04/30/23 20:00 O2 Flow Rate 1 04/30/23 20:00 Allergies Allergy/AdvReac Type Severity Reaction Status Date / Time erythromycin base Allergy Unknown Verified 04/06/23 19:22 Home Medications Medication Instructions Recorded Confirmed Type aspirin 81 mg tablet,delayed 81 mg PO DIRECTED 11/26/19 04/30/23 History release (Aspir-) clopidogrel 75 mg tablet 75 mg PO 4XW 11/26/19 04/30/23 History duloxetine 30 mg capsule,delayed 90 mg PO DAILY 11/26/19 04/30/23 History release sprinkle isosorbide mononitrate 120 mg 120 mg PO DAILY 11/26/19 04/30/23 History tablet,extended release 24 hr loratadine 10 mg tablet (Claritin) 10 mg PO DAILY 11/26/19 04/30/23 History losartan 100 mg tablet 100 mg PO DAILY 11/26/19 04/30/23 History metoprolol tartrate 50 mg tablet 50 mg PO BID 11/26/19 04/30/23 History (Lopressor) pantoprazole 40 mg tablet,delayed 40 mg PO QAM 11/26/19 04/30/23 History release zolpidem 10 mg tablet 10 mg PO HS 11/26/19 04/30/23 History acetaminophen 500 mg tablet 1,000 mg PO Q6HR 30 days #240 tabs 12/01/19 04/30/23 Rx calcium citrate 200 mg 1 tablet PO BID #60 tabs 12/01/19 04/30/23 Rx calcium-vitamin D3 6.25 mcg (250 unit) tablet docusate sodium 100 mg capsule 100 mg PO DAILY PRN Constipation 03/17/23 04/30/23 History ibuprofen 200 mg tablet 400 mg PO DAILY PRN discomfort 03/17/23 04/30/23 History loperamide 2 mg capsule 2 mg PO DAILY PRN Diarrhea 03/17/23 04/30/23 History prochlorperazine maleate 10 mg 10 mg PO DAILY PRN Nausea 03/17/23 04/30/23 History tablet tolterodine 2 mg capsule,extended 2 mg PO DAILY 03/17/23 04/30/23 History release 24 hr tramadol 50 mg tablet 50 mg PO TID 03/17/23 04/30/23 History ciprofloxacin HCl 500 mg tablet 500 mg PO BID 04/30/23 04/30/23 History Laboratory Tests 05/01/23 06:30 WBC 10.8 H K/mm3 (4.5-10.0) RBC 3.76 L M/mm3 (4.2-5.4) Hgb 12.7 g/dL (12.0-15.0) Hct 40.8 % (37.0-47.0) MCV 108.5 H fl (80-100) MCH 33.8 pg (26-34) MCHC 31.1 L g/dl (32-36) RDW 12.8 % (11.5-14.5) Plt Count 147 L k/mm3 (150-375) MPV 8.9 fl (7.4-10.4) Immature Gran % (Auto) 0.5 % (0-0.5) Neut % (Auto) 76.9 H % (45.5-73.1) Lymph % (Auto) 12.0 L % (18.3-44.2) [place] % (Auto) 6.8 % (2.6-8.5) Eos % (Auto) 3.3 % (0-4.4) Baso % (Auto) 0.5 % (0.2-1.2) Lymph # (Auto) 1.29 K/mm3 (0.9-3.2) [place] # (Auto) 0.7 H K/mm3 (0.1-0.6) Eos # (Auto) 0.4 H K/mm3 (0-0.3) Baso # (Auto) 0.1 K/mm3 (0.0-0.1) Abs Immat Gran (auto) 0.05 H K/mm3 (0.00-0.031) Absolute Neuts (auto) 8.3 H K/mm3 (1.3-6.7) Absolute Nucleated RBC 0.0 K/mm3 (0.0-0.012) Nucleated RBC % 0.0 % (0.0-0.2) Sodium 134 L mmol/L (137-145) Potassium 4.1 mmol/L (3.4-5.0) Chloride 104 mmol/L (98-107) Carbon Dioxide 21 L mmol/L (22-30) Anion Gap 9 mmol/L (8-16) BUN 16 mg/dL (7-17) Creatinine 0.70 mg/dL (0.7-1.0) Estim Creat Clear Calc 53 ml/min Estimated GFR > 60 (59 - ) Glucose 115 H mg/dL (65-110) Calcium 8.0 L mg/dL (8.4-10.2) Magnesium 1.9 mg/dL (1.6-2.3) Total Bilirubin 1.1 mg/dL (0.2-1.3) AST 38 H U/L (14-36) ALT 15 U/L (6-35) Alkaline Phosphatase 71 U/L (38-126) Total Protein 7.0 g/dL (6.3-8.2) Albumin 3.4 L g/dL (3.5-5.1) Patient hx anesthesia problems: none Family h
[2023-05-01] MEDS: TRANEXAMIC ACID 1,000MG/ISO100 1,000 MG/100 ML BAG 200 MG IVPB (14:51)
[2023-05-01] MEDS: ceFAZolin 2 GM/D5W 50 ML 2 GM/50 ML BAG IVPB ×2 (14:51→20:44)
--- NOTE | 2023-05-01 16:43 | W.PM.PROC2 ---
Procedure Note - Detailed Date of Procedure 05/01/23 Pre-op Diagnosis R femoral neck fracture Post-op Diagnosis Same Procedure Performed RIGHT HIP HEMIARTHROPLASTY WITH BIPOLAR PROSTHESIS Surgeon Eric Chowdary MD Anesthesia General Description of Procedure THE PATIENT WAS TAKEN TO THE OPERATING ROOM IN STABLE CONDITION. HE WAS PLACED IN THE LATERAL DECUBITUS AND THE RIGHT LOWER EXTREMITY WAS PREPPED AND DRAPED IN THE STERILE FASHION. INCISION WAS MADE IN THE POSTERIOR LATERAL SIDE OF THE HIP, DOWN TO THE FASCIA LAYER. THE FASCIA WAS INCISED. THE HIP WAS EXPOSED. THE SHORT EXTERNAL ROTATORS WERE EXPOSED AND THERE WAS A LARGE HEMATOMA. THE CAPSULE WAS INCISED EXPOSING THE FRACTURE. THE FEMORAL HEAD WAS REMOVED. IT MEASURED 49 MM. AN OSTEOTOMY WAS MADE TO THE FEMORAL NECK ABOUT 1 CM PROXIMAL TO THE LESSER TROCHANTER. NEXT THE FEMUR WAS PREPARED WITH INITIAL CANAL FINDER THEN SEQUENTIAL REAMING UNTIL A #13 REAMER AND BROACHING TILL A #13 BROACH FIT WELL IN 15 OF ANTE VERSION. A +0 STANDARD OFFSET NECK BIPOLAR TRIAL IN A 49 MM SHELL WAS PLACED. THE SHUCK TEST WAS EXCELLENT AND THE STABILITY IN FLEXION AND ROTATION WAS EXCELLENT. LEG LENGTHS WERE GROSSLY EQUAL. TRIALS WERE REMOVED. AN ECHO FRACTURE STEM #13 PRESS FIT STEM WAS PLACED WITH A STANDARD OFFSET IN 15 DEG OF ANTEVERSION. A +0 BIPOLAR HEAD NECK TRIAL WAS PLACED AGAIN. THE HIP WAS TRIALED AND THE STABILITY WAS EXCELLENT WERE THE LEG LENGTHS AND THE SHUCK TEST. NEXT A BIPOLAR HEAD NECK +0 IMPLANT WITH A 49 MM COBALT CHROME SHELL WAS PLACED AND TRIALED ONCE AGAIN SHOWING EXCELLENT STABILITY AND GROSSLY EQUAL LEG LENGTHS. THE WOUND WAS IRRIGATED WITH STERILE BETADINE AND WATER FOR 3 MIN. THEN WASHED AGAIN. THE CAPSULE AND THE EXTERNAL ROTATORS WERE APPROXIMATED WITH NUMBER 1 VICRYL. THE FASCIA WITH No 2 QUIL AND THE SUB CUTANEOUS LAYER WITH 2-0 ABSORBABLE SUTURE WITH A RUNNING 3-0 SUBCUTICULAR LAYER WITH STRATAFIX WELL. DERMABOND WAS PLACED AND STERILE DRESSING WAS APPLIED. PATIENT WAS PLACED BACK ON TO THE SUPINE POSITION AND WAS EXTUBATED. Estimated Blood Loss -100.0 Urine Output -25.0 Drains No Pathology None sent Complications No immediate complications Condition Stable Disposition PACU
--- NOTE | 2023-05-01 16:59 | PC.NURSE ---
I have reviewed Alma Rosa Jacob LPN's chart and agree with her assessment and findings.
--- NOTE | 2023-05-01 17:50 | PC.NURSE ---
Returned from OR per bed. Report received from Ariadna GOTTI.
[2023-05-01] MEDS: SENNA/DOCUSATE SODIUM TABLET 2 TAB PO (18:46)
[2023-05-02] VITALS (11 sets, daily range): BP systolic 94–142; BP diastolic 40–57; PULSE 85–113; RESP 18–24; TEMP 36.4–37.1; O2SAT 89–98; BMI 10.0
[2023-05-02] MEDS: SODIUM CHLORIDE 0.9% IV 1,000 ML 125 ML IV CONT (01:50)
[2023-05-02] MEDS: ceFAZolin 2 GM/D5W 50 ML 2 GM/50 ML BAG IVPB ×2 (04:24→12:04)
[2023-05-02 06:43] LABS: Basophils Absolute Auto 0.1 K/mm3 (0.0-0.1); Basophils Percent Auto 0.6 % (0.2-1.2); Eosinophils Absolute Auto 0.3 K/mm3 (0-0.3); Eosinophils Percent Auto 3.4 % (0-4.4); Hemoglobin 10.9 g/dL (12.0-15.0); Immature Granulocyte Absolute 0.05 K/mm3 (0.00-0.031); Immature Granulocyte Percent A 0.5 % (0-0.5); Lymphocytes Absolute Auto 1.16 K/mm3 (0.9-3.2); Lymphocytes Percent Auto 12.1 % (18.3-44.2); Mean Corpuscular HGB Conc 32.1 g/dl (32-36); Mean Corpuscular Hemoglobin 33.9 pg (26-34); Mean Corpuscular Volume 105.6 fl (80-100); Mean Platelet Volume 8.9 fl (7.4-10.4); Monocytes Absolute Auto 0.9 K/mm3 (0.1-0.6); Monocytes Percent Auto 9.5 % (2.6-8.5); Neutrophils Absolute Auto 7.1 K/mm3 (1.3-6.7); Neutrophils Percent Auto 73.9 % (45.5-73.1); Platelet Count Result 122 k/mm3 (150-375); Red Blood Count 3.22 M/mm3 (4.2-5.4); Red Cell Distribution Width 12.7 % (11.5-14.5); White Blood Count 9.6 K/mm3 (4.5-10.0)
[2023-05-02 07:00] LABS: Alanine Aminotransferase 15 U/L (6-35); Albumin Level 2.8 g/dL (3.5-5.1); Alkaline Phosphatase 64 U/L (38-126); Anion Gap 8 mmol/L (8-16); Aspartate Amino Transferase 41 U/L (14-36); Bilirubin,Total 0.6 mg/dL (0.2-1.3); Blood Urea Nitrogen 16 mg/dL (7-17); Calcium 7.7 mg/dL (8.4-10.2); Carbon Dioxide 22 mmol/L (22-30); Chloride 103 mmol/L (98-107); Estimated CRCL calculation 47 ml/min; Estimated Glomerular Filt Rate > 60; Glucose 112 mg/dL (65-110); Magnesium 1.7 mg/dL (1.6-2.3); Potassium 3.9 mmol/L (3.4-5.0); Sodium 133 mmol/L (137-145)
[2023-05-02] MEDS: HYDROcodone/acetaminophen (*CRX) 7.5-325 MG TABLET 1 TAB PO ×2 (08:46→21:47)
[2023-05-02] MEDS: polyethylene glycoL 3350 17 GM POWD.PACK PO (08:47)
[2023-05-02] MEDS: DULoxetine HCL 30 MG CAPSULE.DR 90 MG PO (08:49)
[2023-05-02] MEDS: METOPROLOL TARTRATE 50 MG TAB PO ×2 (08:49→21:47)
[2023-05-02] MEDS: LORATADINE 10 MG TABLET PO (08:51)
[2023-05-02] MEDS: PANTOPRAZOLE 40 MG TABLET PO (08:51)
[2023-05-02] MEDS: CLOPIDOGREL BISULFATE 75 MG TABLET PO (08:51)
[2023-05-02] MEDS: SENNA/DOCUSATE SODIUM TABLET 2 TAB PO (08:52)
[2023-05-02] MEDS: ENOXAPARIN 40 MG/0.4 ML SYRINGE SUB-Q (08:52)
--- NOTE | 2023-05-02 11:10 | PC.NURSE ---
Dc Corcoran RUCHING MACHINE OPERATOR notified of holding cozzar and imAdnexusr.
--- NOTE | 2023-05-02 11:57 | PM.IMPN ---
Progress Note: A&P Assessment and Plan (1) Fracture of femoral neck, right, closed: Qualifiers: Encounter type: initial encounter Qualified Code(s): S72.001A - Fracture of unspecified part of neck of right femur, initial encounter for closed fracture Code(s): S72.001A - Fracture of unspecified part of neck of right femur, initial encounter for closed fracture Status: Acute Assessment and Plan: Fall with right hip fracture, patient to go to OR on 05/01. Pain control. 05/02: Postop day 1, dressing clean dry intact, up to chair with max assist. Will need SNF on discharge for therapy and recovery. (2) Hypoxia: Code(s): R09.02 - Hypoxemia Status: Acute Assessment and Plan: 88% on room air in ER, CXR showed concern for pleural effusion and atelectasis vs pneumonia, CT Chest negative for such or PE. Clear lungs on CT. 05/02: Nursing working on weaning oxygen patient does not wear supplemental at baseline (3) Essential hypertension: Code(s): I10 - Essential (primary) hypertension Status: Acute Assessment and Plan: Continue home medications, blood pressure reviewed on 05/02, blood pressure has been low. Imdur and losartan held by nursing this morning, metoprolol placed on hold as well. (4) UTI (urinary tract infection): Code(s): N39.0 - Urinary tract infection, site not specified Status: Acute Assessment and Plan: Frequent history UTI. Started on Cipro 500 mg BID on 04/27 by PCP for Klebsiella in urine. Continue this medication and dose. Virk in place due to hip fracture, plan to go to OR on 05/01. 05/02: Virk discontinued this morning, patient urinating. (5) Poor short-term memory: Code(s): R41.3 - Other amnesia Status: Acute Assessment and Plan: Patient resides at assisted living facility for memory care, no formal dementia diagnosis. Plan Blood pressure medications on hold for now. Diet: Regular then NPO at [place] for procedure on 05/01. Resume regular diet postop VTE prophylaxis: SCDs GI prophylaxis: n/a Code status: DNR Disposition: SNF once medically stable Time Spent With Patient Time with patient: 25 - 35 minutes Subjective Date/time seen: 05/02/23 11:57 Interval history: 04/30: This is an 88-year-old female patient resides at [facility] who is admitted to the hospital for a fall with a displaced right femoral neck fracture.? Patient has history of frequent UTIs, CVA, hypertension, an CO 5 years ago, osteoarthritis in the back and left arm, hyperlipidemia, and GERD.? Patient has a surgical history left bipolar hemiarthroplasty, hysterectomy, cholecystectomy, bladder repair and bilateral knee replacements.? Patient is a nonsmoker very rare EtOH use and no drug use.? Patient received IV pain medication prior to my examination and this limited the HPI and ROS.? Chart review and conversation with daughter were the main sources of information.? Daughter reports the patient started on ciprofloxacin on 04/27 for Klebsiella in the urine. X-ray of the pelvis and right hip shows displaced femoral neck fracture on the right and prior bipolar hip arthroplasty on the left.? Labs in the ER showed normal white blood cell normal H&H platelets mildly decreased sodium 36 BUN 23 creatinine 1 with AE estimated GFR 50 an estimated creatinine clearance 38.? Urinalysis appears clear anxious likely due to to Cipro. 05/01: Patient seen this morning before surgery. Virk catheter in place. Patient remains on supplemental oxygenation 1-2 liters/minute. Patient denies any difficulty breathing chest pain nausea vomiting abdominal discomfort. She does state right hip pain which is the location of her known displaced femoral neck fracture. Patient appears withdrawn, somewhat confused and gruff. 05/02: Patient was up to chair today with use of Nazanin Steady and max assist. She is hesitant to participate with therapy at this point. Patient was re
--- NOTE | 2023-05-02 13:53 | WPDANESPN ---
Anes - Prog Note Post-Op Date/Time: 05/02/23 13:53 Cardiovascular status: normal Respiratory status: normal Airway patency: baseline Mental status: baseline Post-Op hydration status: normal Vital Signs: Last Vital Signs Temp 98 F 05/02/23 13:53 Pulse 85 05/02/23 13:53 Resp 20 05/02/23 13:53 BP 106/56 L 05/02/23 13:53 Pulse Ox 95 05/02/23 13:53 O2 Del Method Room Air 05/02/23 08:13 O2 Flow Rate 1 05/02/23 08:00 Pain Score (VAS): 0 I/O: Intake & Output 05/01/23 05/02/23 05/02/23 23:59 07:59 15:59 Intake Total 50 1050 322 Output Total 250 300 Balance -200 750 322 Laboratory Tests 05/02/23 06:23 05/02/23 06:23 05/02/23 06:23 WBC 9.6 RBC 3.22 L Hgb 10.9 L Hct 34.0 L MCV 105.6 H MCH 33.9 MCHC 32.1 RDW 12.7 Plt Count 122 L MPV 8.9 Immature Gran % (Auto) 0.5 Neut % (Auto) 73.9 H Lymph % (Auto) 12.1 L [place] % (Auto) 9.5 H Eos % (Auto) 3.4 Baso % (Auto) 0.6 Lymph # (Auto) 1.16 [place] # (Auto) 0.9 H Eos # (Auto) 0.3 Baso # (Auto) 0.1 Abs Immat Gran (auto) 0.05 H Absolute Neuts (auto) 7.1 H Absolute Nucleated RBC 0.0 Nucleated RBC % 0.0 Sodium 133 L Potassium 3.9 Chloride 103 Carbon Dioxide 22 Anion Gap 8 BUN 16 Creatinine 0.80 Estim Creat Clear Calc 47 Estimated GFR > 60 Glucose 112 H Calcium 7.7 L Magnesium 1.7 Total Bilirubin 0.6 AST 41 H ALT 15 Alkaline Phosphatase 64 Total Protein 6.0 L Albumin 2.8 L Post-procedural complaints: none Patient Feedback: Patient satisfied with anesthetic care.
--- NOTE | 2023-05-02 18:45 | PC.NURSE ---
1600 LIZ FISH NOTIFIED THAT PATIENT HAS NOT VOIDED SINCE HUYNH CATH D/C, BLADDER SCAN 185 WILL MONITOR
[2023-05-02] MEDS: ZOLPIDEM TARTRATE (*CRX) 5 MG TABLET PO (21:47)
[2023-05-02] MEDS: FUROSEMIDE INJ 40 MG/4 ML VIAL 10 MG IV PUSH (22:27)
[2023-05-02 23:18] LABS: Appearance Urine Cloudy (Clear); Bacteria Urine None Seen /hpf; Bilirubin Urine Negative (Negative); Blood Urine Trace (Negative); Color Urine Yellow (Yellow); Glucose Urine UA Negative (Negative); Hyaline Casts Urine Present /lpf; Ketones Urine Trace mg/dL (Negative); Leukocyte Esterase Ur Trace LEU/UL (Negative); Mucus Urine Present /lpf; Nitrate Urine Negative (Negative); Protein Urine 1+ mg/dL (Negative); RBC Urine 0-2 /hpf (0-2); Specific Grav Ur 1.023 (1.001-1.035); Squamous Epithelial Cell Urine Occasional /hpf (Few); Urobilinogen Urine 0.2 mg/dL (<2.0); WBC Urine 21-50 /hpf; pH Urine 5.5 (5.0-9.0)
[2023-05-02 23:23] LABS: Add Urine Microscopic? YES
[2023-05-03] VITALS: PULSE 91; O2SAT 95
[2023-05-03 03:00] VITALS: PULSE 89; O2SAT 96
[2023-05-03 06:00] VITALS: BP 115/59; PULSE 94; RESP 22; TEMP 36.1; O2SAT 94
[2023-05-03 07:17] LABS: Basophils Percent Auto 0.4 % (0.2-1.2); Eosinophils Absolute Auto 0.3 K/mm3 (0-0.3); Eosinophils Percent Auto 3.4 % (0-4.4); Hematocrit 32.1 % (37.0-47.0); Hemoglobin 10.1 g/dL (12.0-15.0); Immature Granulocyte Absolute 0.06 K/mm3 (0.00-0.031); Immature Granulocyte Percent A 0.6 % (0-0.5); Lymphocytes Absolute Auto 1.59 K/mm3 (0.9-3.2); Lymphocytes Percent Auto 16.3 % (18.3-44.2); Mean Corpuscular HGB Conc 31.5 g/dl (32-36); Mean Corpuscular Hemoglobin 33.2 pg (26-34); Mean Corpuscular Volume 105.6 fl (80-100); Mean Platelet Volume 9.4 fl (7.4-10.4); Monocytes Absolute Auto 1.5 K/mm3 (0.1-0.6); Monocytes Percent Auto 15.5 % (2.6-8.5); Neutrophils Absolute Auto 6.2 K/mm3 (1.3-6.7); Neutrophils Percent Auto 63.8 % (45.5-73.1); Platelet Count Result 140 k/mm3 (150-375); Red Blood Count 3.04 M/mm3 (4.2-5.4); Red Cell Distribution Width 12.7 % (11.5-14.5); White Blood Count 9.8 K/mm3 (4.5-10.0)
[2023-05-03 07:28] LABS: Alanine Aminotransferase 14 U/L (6-35); Albumin Level 2.8 g/dL (3.5-5.1); Alkaline Phosphatase 60 U/L (38-126); Anion Gap 6 mmol/L (8-16); Aspartate Amino Transferase 58 U/L (14-36); Bilirubin,Total 0.7 mg/dL (0.2-1.3); Blood Urea Nitrogen 21 mg/dL (7-17); Calcium 7.9 mg/dL (8.4-10.2); Carbon Dioxide 26 mmol/L (22-30); Chloride 102 mmol/L (98-107); Estimated CRCL calculation 47 ml/min; Estimated Glomerular Filt Rate > 60; Glucose 113 mg/dL (65-110); Sodium 134 mmol/L (137-145)
--- NOTE | 2023-05-03 08:50 | PM.IMPN ---
Progress Note: A&P Assessment and Plan (1) Fracture of femoral neck, right, closed: Qualifiers: Encounter type: initial encounter Qualified Code(s): S72.001A - Fracture of unspecified part of neck of right femur, initial encounter for closed fracture Code(s): S72.001A - Fracture of unspecified part of neck of right femur, initial encounter for closed fracture Status: Acute Assessment and Plan: Fall with right hip fracture, patient to go to OR on 05/01. Pain control. 05/02: Postop day 1, dressing clean dry intact, up to chair with max assist. Will need SNF on discharge for therapy and recovery. (2) Hypoxia: Code(s): R09.02 - Hypoxemia Status: Acute Assessment and Plan: 88% on room air in ER, CXR showed concern for pleural effusion and atelectasis vs pneumonia, CT Chest negative for such or PE. Clear lungs on CT. 05/02: Nursing working on weaning oxygen patient does not wear supplemental at baseline 05/03: Nursing had to increase oxygen overnight, weaned to 2 liters/minute this morning. (3) Essential hypertension: Code(s): I10 - Essential (primary) hypertension Status: Acute Assessment and Plan: Continue home medications, blood pressure reviewed on 05/02, blood pressure has been low. Imdur and losartan held by nursing this morning, metoprolol placed on hold as well. 05/03: Blood pressures reviewed and improving on metoprolol alone. Imdur and losartan still on hold today. (4) UTI (urinary tract infection): Code(s): N39.0 - Urinary tract infection, site not specified Status: Acute Assessment and Plan: Frequent history UTI. Started on Cipro 500 mg BID on 04/27 by PCP for Klebsiella in urine. Continue this medication and dose. Virk in place due to hip fracture, plan to go to OR on 05/01. 05/02: Virk discontinued this morning 05/03: No not urinating yesterday, had over 400 mL retained on bladder scan, Virk replaced overnight. (5) Poor short-term memory: Code(s): R41.3 - Other amnesia Status: Acute Assessment and Plan: Patient resides at assisted living facility for memory care, no formal dementia diagnosis. Plan Some Blood pressure medications on hold for now. Diet: Regular diet VTE prophylaxis: SCDs and Lovenox (per orthopedics) GI prophylaxis: n/a Code status: DNR Disposition: SNF once medically stable Time Spent With Patient Time with patient: 25 - 35 minutes Subjective Date/time seen: 05/03/23 08:50 Interval history: 04/30: This is an 88-year-old female patient resides at [facility] who is admitted to the hospital for a fall with a displaced right femoral neck fracture.? Patient has history of frequent UTIs, CVA, hypertension, an [place] 5 years ago, osteoarthritis in the back and left arm, hyperlipidemia, and GERD.? Patient has a surgical history left bipolar hemiarthroplasty, hysterectomy, cholecystectomy, bladder repair and bilateral knee replacements.? Patient is a nonsmoker very rare EtOH use and no drug use.? Patient received IV pain medication prior to my examination and this limited the HPI and ROS.? Chart review and conversation with daughter were the main sources of information.? Daughter reports the patient started on ciprofloxacin on 04/27 for Klebsiella in the urine. X-ray of the pelvis and right hip shows displaced femoral neck fracture on the right and prior bipolar hip arthroplasty on the left.? Labs in the ER showed normal white blood cell normal H&H platelets mildly decreased sodium 36 BUN 23 creatinine 1 with AE estimated GFR 50 an estimated creatinine clearance 38.? Urinalysis appears clear anxious likely due to to Cipro. 05/01: Patient seen this morning before surgery. Virk catheter in place. Patient remains on supplemental oxygenation 1-2 liters/minute. Patient denies any difficulty breathing chest pain nausea vomiting abdominal discomfort. She does state right hip pain which is the location o
--- NOTE | 2023-05-03 09:41 | PM.PNORT ---
Progress Note: A&P Assessment and Plan (1) Fracture of femoral neck, right, closed: Qualifiers: Encounter type: initial encounter Qualified Code(s): S72.001A - Fracture of unspecified part of neck of right femur, initial encounter for closed fracture Code(s): S72.001A - Fracture of unspecified part of neck of right femur, initial encounter for closed fracture Status: Acute Assessment and Plan: POD #2 : Right Hip Bipolar Continue PT/OT. WBAT. Walker. HIGH FALL RISK. Continue pain control. Ice Hip. Protect skin. DVT prophylaxis with Lovenox. SCDs. Incentive Spirometry Use reviewed. Monitor Dressing. Change prior to discharge. Bowel Regimen. Dispo: SNF pending progress with PT/OT (2) Hypoxia: Code(s): R09.02 - Hypoxemia Status: Acute Assessment and Plan: Increased O2 requirement overnight. Weaned to 2L today. (3) Essential hypertension: Code(s): I10 - Essential (primary) hypertension Status: Acute (4) UTI (urinary tract infection): Code(s): N39.0 - Urinary tract infection, site not specified Status: Acute Assessment and Plan: Postoperative urinary retention vs. due to UTI. 400 mL retained on bladder scan, Virk replaced overnight. (5) Poor short-term memory: Code(s): R41.3 - Other amnesia Status: Acute Subjective Subjective Date/Time Seen: 05/03/23 09:41 Post Op day: 2 Interval history: POD #2: R femoral neck fracture Patient sleeping comfortably. Awakes to voice. Unhappy that I am waking her for an exam. Wants to sleep. Reports no concerns. Review of Systems Review of Systems: All systems reviewed & are unremarkable except as noted in HPI and below Constitutional: Constitutional: Denies chills, Denies fever(s), Denies headache(s), Denies lethargy and Reports weakness ENT: Denies headache(s) Cardiovascular: Cardiovascular: Denies chest pain, Denies diaphoresis, Denies lightheadedness, Denies palpitations, Denies dyspnea and Denies dyspnea on exertion Respiratory: Respiratory: Denies cough, Denies dyspnea and Denies dyspnea on exertion Gastrointestinal: Gastrointestinal: Denies constipation, Denies diarrhea, Denies nausea and Denies vomiting Genitourinary: Genitourinary: Reports urinary frequency, Denies dysuria and Denies urinary hesitancy Musculoskeletal: Musculoskeletal: Reports joint swelling (Right Hip ) and Reports limited range of motion (Right Hip due to recent surgery ) Neurologic: Denies headache(s) and Reports weakness Endocrine: Endocrine: Denies palpitations Exam Const: General: comfortable and no acute distress Resp: Effort & Inspection: normal respiratory effort Cardio: Rate: regular rate Rhythm: regular rhythm GI: Inspection: non-distended Skin: General skin exam: normal color Other: Incision right hip c/d/i. Surrounding tissue without redness/warmth. Mild swelling consistent with recent surgery. No drainage. Neuro: Cognition (Neuro): normal cognition Speech: normal speech Extrem: Right lower extremity: normal to inspection, normal capillary refill, hip/thigh Details: tenderness Location: of the hip (Thigh soft ) Location: laterally and anteriorly, swelling Location: at the hip, abnormal ROM (limited consistent with recent surgery ) Details: pain with active ROM during and pain with passive ROM during and other (Incision c/d/i. ); no deformity and no unusual warmth, knee Details: normal to inspection; no tenderness and no swelling, lower leg (Negative Sabrina's Sign ) Details: normal to inspection and no edema; no tenderness, ankle (+ankle dorsiflexion/plantarflexion) Details: normal to inspection and no edema; no tenderness, no swelling and no ecchymosis and foot Details: normal capillary refill, toes with normal ROM, vascular exam Details: dorsalis pedis pulse present and motor-sensory exam Details: light-touch normal; no tenderness Objective Data Vital Signs Vital Signs:
[2023-05-03] MEDS: METOPROLOL TARTRATE 50 MG TAB PO ×2 (10:26→21:27)
[2023-05-03] MEDS: DULoxetine HCL 30 MG CAPSULE.DR 90 MG PO (10:26)
[2023-05-03] MEDS: ENOXAPARIN 40 MG/0.4 ML SYRINGE SUB-Q (10:26)
[2023-05-03] MEDS: polyethylene glycoL 3350 17 GM POWD.PACK PO (10:27)
[2023-05-03] MEDS: PANTOPRAZOLE 40 MG TABLET PO (10:27)
[2023-05-03] MEDS: SENNA/DOCUSATE SODIUM TABLET 2 TAB PO (10:27)
[2023-05-03] MEDS: LORATADINE 10 MG TABLET PO (10:27)
[2023-05-03] MEDS: ACETAMINOPHEN 325 MG TABLET 650 MG PO (11:45)
[2023-05-03 12:45] VITALS: BMI 10.0
[2023-05-03 14:00] VITALS: BP 102/50; PULSE 61; RESP 20; TEMP 37.2; O2SAT 92
[2023-05-03] MEDS: SODIUM CHLORIDE 0.9% IV 1,000 ML 75 ML IV CONT (18:18)
[2023-05-03 21:27] VITALS: PULSE 82
[2023-05-03] MEDS: ZOLPIDEM TARTRATE (*CRX) 5 MG TABLET PO (21:27)
[2023-05-03 22:00] VITALS: BP 126/49; PULSE 60; RESP 20; TEMP 37.1; O2SAT 97
[2023-05-04] VITALS (7 sets, daily range): BP systolic 99–150; BP diastolic 42–64; PULSE 96–125; RESP 14–20; TEMP 36.3–37.9; O2SAT 90–98
[2023-05-04] MEDS: ACETAMINOPHEN 650 MG SUPPOSITORY RECTAL (05:47)
[2023-05-04] MEDS: SODIUM CHLORIDE 0.9% IV 1,000 ML 75 ML IV CONT (05:48)
[2023-05-04 07:37] LABS: Alanine Aminotransferase 17 U/L (6-35); Albumin Level 2.9 g/dL (3.5-5.1); Alkaline Phosphatase 54 U/L (38-126); Anion Gap 3 mmol/L (8-16); Aspartate Amino Transferase 66 U/L (14-36); Bilirubin,Total 0.7 mg/dL (0.2-1.3); Blood Urea Nitrogen 22 mg/dL (7-17); Calcium 7.9 mg/dL (8.4-10.2); Carbon Dioxide 23 mmol/L (22-30); Chloride 105 mmol/L (98-107); Estimated CRCL calculation 53 ml/min; Estimated Glomerular Filt Rate > 60; Glucose 121 mg/dL (65-110); Magnesium 2.1 mg/dL (1.6-2.3); Potassium 4.2 mmol/L (3.4-5.0); Sodium 131 mmol/L (137-145)
[2023-05-04 07:38] LABS: Basophils Percent Auto 0.6 % (0.2-1.2); Eosinophils Absolute Auto 0.1 K/mm3 (0-0.3); Eosinophils Percent Auto 1.8 % (0-4.4); Hematocrit 31.2 % (37.0-47.0); Hemoglobin 10.1 g/dL (12.0-15.0); Immature Granulocyte Absolute 0.08 K/mm3 (0.00-0.031); Immature Granulocyte Percent A 1.1 % (0-0.5); Lymphocytes Absolute Auto 0.81 K/mm3 (0.9-3.2); Lymphocytes Percent Auto 11.2 % (18.3-44.2); Mean Corpuscular HGB Conc 32.4 g/dl (32-36); Mean Corpuscular Hemoglobin 33.8 pg (26-34); Mean Corpuscular Volume 104.3 fl (80-100); Mean Platelet Volume 9.3 fl (7.4-10.4); Monocytes Absolute Auto 1.5 K/mm3 (0.1-0.6); Monocytes Percent Auto 20.4 % (2.6-8.5); Neutrophils Absolute Auto 4.7 K/mm3 (1.3-6.7); Neutrophils Percent Auto 64.9 % (45.5-73.1); Platelet Count Result 164 k/mm3 (150-375); Red Blood Count 2.99 M/mm3 (4.2-5.4); Red Cell Distribution Width 12.8 % (11.5-14.5); White Blood Count 7.2 K/mm3 (4.5-10.0)
[2023-05-04] MEDS: polyethylene glycoL 3350 17 GM POWD.PACK PO (10:17)
[2023-05-04] MEDS: DULoxetine HCL 30 MG CAPSULE.DR 90 MG PO (10:18)
[2023-05-04] MEDS: METOPROLOL TARTRATE 50 MG TAB PO ×2 (10:19→20:52)
[2023-05-04] MEDS: LORATADINE 10 MG TABLET PO (10:19)
[2023-05-04] MEDS: PANTOPRAZOLE 40 MG TABLET PO (10:19)
[2023-05-04] MEDS: SENNA/DOCUSATE SODIUM TABLET 2 TAB PO ×2 (10:19→17:38)
[2023-05-04] MEDS: ACETAMINOPHEN 325 MG TABLET 650 MG PO (10:20)
[2023-05-04] MEDS: CLOPIDOGREL BISULFATE 75 MG TABLET PO (10:27)
--- NOTE | 2023-05-04 10:58 | PM.PNORT ---
Progress Note: A&P Assessment and Plan (1) Fracture of femoral neck, right, closed: Qualifiers: Encounter type: initial encounter Qualified Code(s): S72.001A - Fracture of unspecified part of neck of right femur, initial encounter for closed fracture Code(s): S72.001A - Fracture of unspecified part of neck of right femur, initial encounter for closed fracture Status: Acute Assessment and Plan: POD #3: Right Hip Bipolar Continue PT/OT. WBAT. Walker. HIGH FALL RISK. Continue pain control. Ice Hip. Protect skin. DVT prophylaxis with Lovenox. Patient also on Plavix SCDs. Incentive Spirometry Use reviewed. Monitor Dressing. Change prior to discharge. Bowel Regimen. Dispo: SNF pending progress with PT/OT (2) Hypoxia: Code(s): R09.02 - Hypoxemia Status: Acute (3) Essential hypertension: Code(s): I10 - Essential (primary) hypertension Status: Acute (4) UTI (urinary tract infection): Code(s): N39.0 - Urinary tract infection, site not specified Status: Acute Assessment and Plan: Postoperative urinary retention vs. due to UTI. 400 mL retained on bladder scan, Virk. (5) Poor short-term memory: Code(s): R41.3 - Other amnesia Status: Acute Subjective Subjective Date/Time Seen: 05/04/23 10:58 Post Op day: 3 Interval history: POD #3: R femoral neck fracture Patient sitting up in bed. Drifting off to sleep but awakens to voice. A&Ox1-2. Daughter at bedside. Concerned about patient's decreased mental status since time of surgery. On 2L NC O2. Review of Systems Review of Systems: All systems reviewed & are unremarkable except as noted in HPI and below Constitutional: Constitutional: Denies chills, Denies fever(s), Denies headache(s), Denies lethargy and Reports weakness ENT: Denies headache(s) Cardiovascular: Cardiovascular: Denies chest pain, Denies diaphoresis, Denies lightheadedness, Denies palpitations, Denies dyspnea and Denies dyspnea on exertion Respiratory: Respiratory: Denies cough, Denies dyspnea and Denies dyspnea on exertion Gastrointestinal: Gastrointestinal: Denies constipation, Denies diarrhea, Denies nausea and Denies vomiting Genitourinary: Genitourinary: Reports urinary frequency, Denies dysuria and Denies urinary hesitancy Musculoskeletal: Musculoskeletal: Reports joint swelling (Right Hip ) and Reports limited range of motion (Right Hip due to recent surgery ) Neurologic: Denies headache(s) and Reports weakness Endocrine: Endocrine: Denies palpitations Objective Data Vital Signs Vital Signs: Vital Signs - 24 hr 05/03/23 14:00 05/03/23 21:27 05/03/23 22:00 Temperature 37.2 C 37.1 C Pulse Rate 61 82 60 Respiratory Rate 20 20 Blood Pressure 102/50 L 126/49 L Pulse Oximetry 92 97 Oxygen Delivery Oxygen Flow Rate 05/03/23 20:00 05/04/23 05:47 05/04/23 06:00 Temperature 37.9 C H Pulse Rate 125 H Respiratory Rate 20 Blood Pressure 150/64 H Pulse Oximetry 90 Oxygen Delivery Room Air Oxygen Flow Rate 05/04/23 06:00 05/04/23 06:47 Temperature 37.9 C H Pulse Rate Respiratory Rate Blood Pressure Pulse Oximetry 90 Oxygen Delivery Nasal Cannula Oxygen Flow Rate 2 Intake/Output Intake/Output: Intake & Output 05/01/23 05/02/23 05/03/23 05/04/23 23:59 23:59 23:59 23:59 Intake Total 2200 1372 1030 1000 Output Total 2050 007 210 3287 Balance 150 1072 105 0 Meds/Results Medications: Active Medications Generic Name Dose Route Start Last Admin Trade Name Freq PRN Reason Stop Dose Admin Acetaminophen 650 mg 05/01/23 17:37 05/04/23 10:20 Acetaminophen 325 Mg Tablet PO 650 mg Q6H PRN Administration Mild Pain (1-3) or Fever Hydrocodone Bitart/Acetaminophen 1 tab 05/01/23 17:37 05/02/23 21:47 Hydrocodone/Acetaminophen (*Crx) 7.5-325 Mg Tablet PO 1 tab Q3H PRN Administration Pain Rated 4-6 Hydrocodone Bitart/Ac
--- NOTE | 2023-05-04 12:00 | PM.IMPN ---
Progress Note: A&P Assessment and Plan (1) Fracture of femoral neck, right, closed: Qualifiers: Encounter type: initial encounter Qualified Code(s): S72.001A - Fracture of unspecified part of neck of right femur, initial encounter for closed fracture Code(s): S72.001A - Fracture of unspecified part of neck of right femur, initial encounter for closed fracture Status: Acute Assessment and Plan: Fall with right hip fracture, patient to go to OR on 05/01. Pain control. 05/02: Postop day 1, dressing clean dry intact, up to chair with max assist. Will need SNF on discharge for therapy and recovery. (2) Hypoxia: Code(s): R09.02 - Hypoxemia Status: Acute Assessment and Plan: 88% on room air in ER, CXR showed concern for pleural effusion and atelectasis vs pneumonia, CT Chest negative for such or PE. Clear lungs on CT. 05/02: Nursing working on weaning oxygen patient does not wear supplemental at baseline 05/03: Nursing had to increase oxygen overnight, weaned to 2 liters/minute this morning. 05/04: Patient with fever today. Repeat CXR not significantly changed. (3) Essential hypertension: Code(s): I10 - Essential (primary) hypertension Status: Acute Assessment and Plan: Continue home medications, blood pressure reviewed on 05/02, blood pressure has been low. Imdur and losartan held by nursing this morning, metoprolol placed on hold as well. 05/03: Blood pressures reviewed and improving on metoprolol alone. Imdur and losartan still on hold today. 05/04: Blood pressures higher today, stop IV fluids and restart Imdur (4) UTI (urinary tract infection): Code(s): N39.0 - Urinary tract infection, site not specified Status: Acute Assessment and Plan: Frequent history UTI. Started on Cipro 500 mg BID on 04/27 by PCP for Klebsiella in urine. Continue this medication and dose. Virk in place due to hip fracture, plan to go to OR on 05/01. 05/02: Virk discontinued this morning 05/03: No not urinating yesterday, had over 400 mL retained on bladder scan, Virk replaced overnight. 05/04: Urine culture negative. Continue Cipro. Consider voiding trial again tomorrow. (5) Poor short-term memory: Code(s): R41.3 - Other amnesia Status: Acute Assessment and Plan: Patient resides at assisted living facility for memory care, no formal dementia diagnosis. Plan Reintroducing home BP meds Consider voiding trial tomorrow. Diet: Regular diet VTE prophylaxis: SCDs and Lovenox (per orthopedics) GI prophylaxis: n/a Code status: DNR Disposition: SNF once medically stable Time Spent With Patient Time with patient: 25 - 35 minutes Subjective Date/time seen: 05/04/23 12:00 Interval history: 04/30: This is an 88-year-old female patient resides at [facility] who is admitted to the hospital for a fall with a displaced right femoral neck fracture.? Patient has history of frequent UTIs, CVA, hypertension, an VT 5 years ago, osteoarthritis in the back and left arm, hyperlipidemia, and GERD.? Patient has a surgical history left bipolar hemiarthroplasty, hysterectomy, cholecystectomy, bladder repair and bilateral knee replacements.? Patient is a nonsmoker very rare EtOH use and no drug use.? Patient received IV pain medication prior to my examination and this limited the HPI and ROS.? Chart review and conversation with daughter were the main sources of information.? Daughter reports the patient started on ciprofloxacin on 04/27 for Klebsiella in the urine. X-ray of the pelvis and right hip shows displaced femoral neck fracture on the right and prior bipolar hip arthroplasty on the left.? Labs in the ER showed normal white blood cell normal H&H platelets mildly decreased sodium 36 BUN 23 creatinine 1 with AE estimated GFR 50 an estimated creatinine clearance 38.? Urinalysis appears clear anxious likely due to to Cipro. 05/01: Patient seen this morning befor
[2023-05-04] MEDS: ENOXAPARIN 40 MG/0.4 ML SYRINGE SUB-Q (12:40)
[2023-05-04] MEDS: HYDROcodone/acetaminophen (*CRX) 5-325 MG TABLET 1 TAB PO (14:42)
[2023-05-04] MEDS: ZOLPIDEM TARTRATE (*CRX) 5 MG TABLET PO (20:52)
[2023-05-04] MEDS: HYDROcodone/acetaminophen (*CRX) 7.5-325 MG TABLET 1 TAB PO (20:58)
[2023-05-05] VITALS (9 sets, daily range): BP systolic 113–132; BP diastolic 48–68; PULSE 74–108; RESP 14–18; TEMP 36.4–36.8; O2SAT 90–95; BMI 10.0
--- NOTE | 2023-05-05 07:02 | PM.PNORT ---
Progress Note: A&P Assessment and Plan (1) Fracture of femoral neck, right, closed: Qualifiers: Encounter type: initial encounter Qualified Code(s): S72.001A - Fracture of unspecified part of neck of right femur, initial encounter for closed fracture Code(s): S72.001A - Fracture of unspecified part of neck of right femur, initial encounter for closed fracture Status: Acute Assessment and Plan: POD #4: Right Hip Bipolar Continue PT/OT. WBAT. Walker. HIGH FALL RISK. Continue pain control. Ice Hip. Protect skin. DVT prophylaxis with Lovenox. Patient also on Plavix SCDs. Incentive Spirometry Use reviewed. Monitor Dressing. Change prior to discharge. Bowel Regimen. Dispo: SNF pending progress with PT/OT Subjective Subjective Date/Time Seen: 05/05/23 07:02 Post Op day: 4 Principal diagnosis: RT hip fx Interval history: POD #4: R femoral neck fracture Patient in bed. Appears comfortable. Exam Extrem: Right lower extremity: normal to inspection, normal capillary refill, hip/thigh Details: tenderness Location: of the hip (Thigh soft ) Location: laterally and anteriorly, swelling Location: at the hip, abnormal ROM (limited consistent with recent surgery ) Details: pain with active ROM during and pain with passive ROM during and other (Incision c/d/i. ); no deformity and no unusual warmth, knee Details: normal to inspection; no tenderness and no swelling, lower leg (Negative Sabrina's Sign ) Details: normal to inspection and no edema; no tenderness, ankle (+ankle dorsiflexion/plantarflexion) Details: normal to inspection and no edema; no tenderness, no swelling and no ecchymosis and foot Details: normal capillary refill, toes with normal ROM, vascular exam Details: dorsalis pedis pulse present and motor-sensory exam Details: light-touch normal; no tenderness Objective Data Vital Signs Vital Signs: Vital Signs - 24 hr 05/04/23 14:00 05/04/23 20:52 05/04/23 20:20 Temperature 98.1 F 97.4 F L Pulse Rate 99 96 96 Respiratory Rate 14 16 Blood Pressure 99/42 L 119/52 L Pulse Oximetry 98 97 Oxygen Delivery Oxygen Flow Rate 05/04/23 20:00 05/05/23 04:08 Temperature 97.5 F L Pulse Rate 93 Respiratory Rate 18 Blood Pressure 123/67 Pulse Oximetry 97 94 Oxygen Delivery Nasal Cannula Oxygen Flow Rate 2 Intake/Output Intake/Output: Intake & Output 05/02/23 05/03/23 05/04/23 05/05/23 23:59 23:59 23:59 23:59 Intake Total 1372 1030 1700 550 Output Total 703 846 4908 1050 Balance 1072 105 700 -500 Meds/Results Medications: Active Medications Generic Name Dose Route Start Last Admin Trade Name Freq PRN Reason Stop Dose Admin Acetaminophen 650 mg 05/01/23 17:37 05/04/23 10:20 Acetaminophen 325 Mg Tablet PO 650 mg Q6H PRN Administration Mild Pain (1-3) or Fever Hydrocodone Bitart/Acetaminophen 1 tab 05/01/23 17:37 05/04/23 20:58 Hydrocodone/Acetaminophen (*Crx) 7.5-325 Mg Tablet PO 1 tab Q3H PRN Administration Pain Rated 4-6 Hydrocodone Bitart/Acetaminophen 2 tab 05/01/23 17:37 Hydrocodone/Acetaminophen (*Crx) 5-325 Mg Tablet PO Q6H PRN Pain Rated 7-10 Calcium Citrate 1 tablet 04/30/23 09:00 05/04/23 17:38 Calcium Citrate 315 Mg/Vitamin D 250 Units Tab PO 1 tablet BID MURRAY Administration Clopidogrel Bisulfate 75 mg 05/02/23 09:00 05/04/23 10:27 Clopidogrel Bisulfate 75 Mg Tablet PO 75 mg [id number] MURRAY Administration Diazepam 5 mg 05/01/23 17:37 Diazepam (*Crx) 5 Mg Tablet PO Q8H PRN Muscle Spasm Docusate Sodium 100 mg 04/30/23 08:14 Docusate Sodium 100 Mg Capsule PO DAILY PRN Constipation Duloxetine HCl 90 mg 04/30/23 09:00 05/04/23 10:18 Duloxetine Hcl 30 Mg Capsule.Dr PO 90 mg DAILY MURRAY Administration Enoxaparin Sodium 40 mg 05/02/23 09:00 05/04/23 12:40 Enoxaparin 40 Mg/0.4 Ml Syringe SUB-Q 40 mg DAILY MURRAY Administration Home
[2023-05-05 07:39] LABS: Basophils Percent Auto 0.5 % (0.2-1.2); Eosinophils Absolute Auto 0.2 K/mm3 (0-0.3); Eosinophils Percent Auto 2.5 % (0-4.4); Hematocrit 28.8 % (37.0-47.0); Hemoglobin 9.3 g/dL (12.0-15.0); Immature Granulocyte Absolute 0.05 K/mm3 (0.00-0.031); Immature Granulocyte Percent A 0.8 % (0-0.5); Lymphocytes Absolute Auto 1.48 K/mm3 (0.9-3.2); Lymphocytes Percent Auto 22.7 % (18.3-44.2); Mean Corpuscular HGB Conc 32.3 g/dl (32-36); Mean Corpuscular Hemoglobin 34.2 pg (26-34); Mean Corpuscular Volume 105.9 fl (80-100); Mean Platelet Volume 9.1 fl (7.4-10.4); Monocytes Absolute Auto 1.2 K/mm3 (0.1-0.6); Monocytes Percent Auto 18.6 % (2.6-8.5); Neutrophils Absolute Auto 3.6 K/mm3 (1.3-6.7); Neutrophils Percent Auto 54.9 % (45.5-73.1); Platelet Count Result 171 k/mm3 (150-375); Red Blood Count 2.72 M/mm3 (4.2-5.4); Red Cell Distribution Width 12.8 % (11.5-14.5); White Blood Count 6.5 K/mm3 (4.5-10.0)
[2023-05-05 08:02] LABS: Alanine Aminotransferase 17 U/L (6-35); Albumin Level 2.7 g/dL (3.5-5.1); Alkaline Phosphatase 54 U/L (38-126); Anion Gap 5 mmol/L (8-16); Aspartate Amino Transferase 54 U/L (14-36); Bilirubin,Total 0.5 mg/dL (0.2-1.3); Blood Urea Nitrogen 20 mg/dL (7-17); Calcium 7.7 mg/dL (8.4-10.2); Carbon Dioxide 25 mmol/L (22-30); Chloride 103 mmol/L (98-107); Estimated CRCL calculation 53 ml/min; Estimated Glomerular Filt Rate > 60; Glucose 96 mg/dL (65-110); Magnesium 2.1 mg/dL (1.6-2.3); Sodium 133 mmol/L (137-145)
--- NOTE | 2023-05-05 09:01 | PCOTNOTE ---
Attempted to see pt for Occupational Therapy treatment. Pt states Not right now. when offered to get up into the chair and/or sit up EOB. Pt also declined to get clean up right now stating, It's only 9am . Will attempt at a later time for therapy treatment.
[2023-05-05] MEDS: ENOXAPARIN 40 MG/0.4 ML SYRINGE SUB-Q (09:38)
[2023-05-05] MEDS: METOPROLOL TARTRATE 50 MG TAB PO ×2 (09:44→20:24)
[2023-05-05] MEDS: PANTOPRAZOLE 40 MG TABLET PO (09:45)
[2023-05-05] MEDS: LORATADINE 10 MG TABLET PO (09:45)
[2023-05-05] MEDS: SENNA/DOCUSATE SODIUM TABLET 2 TAB PO ×2 (09:45→17:30)
[2023-05-05] MEDS: DULoxetine HCL 30 MG CAPSULE.DR 90 MG PO (09:45)
[2023-05-05] MEDS: ISOSORBIDE MONONITRATE 60 MG TAB.ER.24H 120 MG PO (09:46)
[2023-05-05] MEDS: polyethylene glycoL 3350 17 GM POWD.PACK PO (09:49)
[2023-05-05] MEDS: CLOPIDOGREL BISULFATE 75 MG TABLET PO (09:57)
--- NOTE | 2023-05-05 10:31 | PM.IMPN ---
Progress Note: A&P Assessment and Plan (1) Fracture of femoral neck, right, closed: Qualifiers: Encounter type: initial encounter Qualified Code(s): S72.001A - Fracture of unspecified part of neck of right femur, initial encounter for closed fracture Code(s): S72.001A - Fracture of unspecified part of neck of right femur, initial encounter for closed fracture Status: Acute Assessment and Plan: Fall with right hip fracture, patient to go to OR on 05/01. Pain control. 05/02: Postop day 1, dressing clean dry intact, up to chair with max assist. Will need SNF on discharge for therapy and recovery. (2) Hypoxia: Code(s): R09.02 - Hypoxemia Status: Acute Assessment and Plan: 88% on room air in ER, CXR showed concern for pleural effusion and atelectasis vs pneumonia, CT Chest negative for such or PE. Clear lungs on CT. 05/02: Nursing working on weaning oxygen patient does not wear supplemental at baseline 05/03: Nursing had to increase oxygen overnight, weaned to 2 liters/minute this morning. 05/04: Patient with fever today. Repeat CXR not significantly changed. 05/05: Scattered crackles, ordered IV Lasix x1. Patient remains on 2 liters/minute, 90-94% (3) Essential hypertension: Code(s): I10 - Essential (primary) hypertension Status: Acute Assessment and Plan: Continue home medications, blood pressure reviewed on 05/02, blood pressure has been low. Imdur and losartan held by nursing this morning, metoprolol placed on hold as well. 05/03: Blood pressures reviewed and improving on metoprolol alone. Imdur and losartan still on hold today. 05/04: Blood pressures higher today, stop IV fluids and restart Imdur 05/05: Will try to add losartan back on tomorrow morning. (4) UTI (urinary tract infection): Code(s): N39.0 - Urinary tract infection, site not specified Status: Acute Assessment and Plan: Frequent history UTI. Started on Cipro 500 mg BID on 04/27 by PCP for Klebsiella in urine. Continue this medication and dose. Virk in place due to hip fracture, plan to go to OR on 05/01. 05/02: Virk discontinued this morning 05/03: No not urinating yesterday, had over 400 mL retained on bladder scan, Virk replaced overnight. 05/04: Urine culture negative. Continue Cipro. Consider voiding trial again tomorrow. 05/05: Final dose of Cipro tonight. (5) Poor short-term memory: Code(s): R41.3 - Other amnesia Status: Acute Assessment and Plan: Patient resides at assisted living facility for memory care, no formal dementia diagnosis. (6) Hyponatremia: Code(s): E87.1 - Hypo-osmolality and hyponatremia Status: Acute Assessment and Plan: Mild persistent hyponatremia without need for intervention at this time. 136 on admit-->134-->133-->134-->131-->133 Plan IV Lasix today for crackles and continued oxygen needs Stop sedating medications at family request, tramadol 50 mg TID PRN DC [place], hydroxyzine, Valium and Ambien Diet: Regular diet VTE prophylaxis: SCDs and Lovenox (per orthopedics) GI prophylaxis: n/a Code status: DNR Disposition: SNF once medically stable Time Spent With Patient Time with patient: Greater than 35 minutes Subjective Date/time seen: 05/05/23 10:31 Interval history: 04/30: This is an 88-year-old female patient resides at [facility] who is admitted to the hospital for a fall with a displaced right femoral neck fracture.? Patient has history of frequent UTIs, CVA, hypertension, an [place] 5 years ago, osteoarthritis in the back and left arm, hyperlipidemia, and GERD.? Patient has a surgical history left bipolar hemiarthroplasty, hysterectomy, cholecystectomy, bladder repair and bilateral knee replacements.? Patient is a nonsmoker very rare EtOH use and no drug use.? Patient received IV pain medication prior to my examination and this limited the HPI and ROS.? Chart review and conversation with daughter
[2023-05-05] MEDS: traMADol HCL (*CRX) 50 MG TABLET PO ×2 (10:48→20:25)
[2023-05-05] MEDS: ACETAMINOPHEN 325 MG TABLET 650 MG PO (12:48)
[2023-05-05] MEDS: FUROSEMIDE INJ 40 MG/4 ML VIAL IV PUSH (13:44)
[2023-05-06] VITALS (8 sets, daily range): BP systolic 114–147; BP diastolic 45–66; PULSE 94–104; RESP 14–18; TEMP 36.2–38.2; O2SAT 90–94
[2023-05-06 06:56] LABS: Basophils Percent Auto 0.6 % (0.2-1.2); Eosinophils Absolute Auto 0.1 K/mm3 (0-0.3); Eosinophils Percent Auto 1.5 % (0-4.4); Hematocrit 28.4 % (37.0-47.0); Hemoglobin 9.3 g/dL (12.0-15.0); Immature Granulocyte Absolute 0.05 K/mm3 (0.00-0.031); Immature Granulocyte Percent A 0.8 % (0-0.5); Lymphocytes Absolute Auto 1.44 K/mm3 (0.9-3.2); Mean Corpuscular HGB Conc 32.7 g/dl (32-36); Mean Corpuscular Hemoglobin 33.5 pg (26-34); Mean Corpuscular Volume 102.2 fl (80-100); Mean Platelet Volume 8.9 fl (7.4-10.4); Monocytes Absolute Auto 0.8 K/mm3 (0.1-0.6); Monocytes Percent Auto 12.7 % (2.6-8.5); Neutrophils Absolute Auto 4.1 K/mm3 (1.3-6.7); Neutrophils Percent Auto 62.4 % (45.5-73.1); Platelet Count Result 177 k/mm3 (150-375); Red Blood Count 2.78 M/mm3 (4.2-5.4); Red Cell Distribution Width 12.4 % (11.5-14.5); White Blood Count 6.5 K/mm3 (4.5-10.0)
[2023-05-06 07:06] LABS: Alanine Aminotransferase 24 U/L (6-35); Albumin Level 2.8 g/dL (3.5-5.1); Alkaline Phosphatase 54 U/L (38-126); Anion Gap 5 mmol/L (8-16); Aspartate Amino Transferase 75 U/L (14-36); Bilirubin,Total 0.7 mg/dL (0.2-1.3); Blood Urea Nitrogen 20 mg/dL (7-17); Calcium 7.9 mg/dL (8.4-10.2); Carbon Dioxide 27 mmol/L (22-30); Chloride 100 mmol/L (98-107); Estimated CRCL calculation 53 ml/min; Estimated Glomerular Filt Rate > 60; Glucose 104 mg/dL (65-110); Potassium 3.8 mmol/L (3.4-5.0); Sodium 132 mmol/L (137-145)
[2023-05-06] MEDS: PANTOPRAZOLE 40 MG TABLET PO (08:45)
[2023-05-06] MEDS: METOPROLOL TARTRATE 50 MG TAB PO ×2 (08:45→21:00)
[2023-05-06] MEDS: SENNA/DOCUSATE SODIUM TABLET 2 TAB PO ×2 (08:46→16:20)
[2023-05-06] MEDS: ISOSORBIDE MONONITRATE 60 MG TAB.ER.24H 120 MG PO (08:47)
[2023-05-06] MEDS: DULoxetine HCL 30 MG CAPSULE.DR 90 MG PO (08:48)
[2023-05-06] MEDS: LORATADINE 10 MG TABLET PO (08:49)
[2023-05-06] MEDS: ENOXAPARIN 40 MG/0.4 ML SYRINGE SUB-Q (08:49)
[2023-05-06] MEDS: LOSARTAN POTASSIUM 50 MG TABLET PO (08:52)
[2023-05-06] MEDS: traMADol HCL (*CRX) 50 MG TABLET PO (09:06)
--- NOTE | 2023-05-06 10:52 | PM.IMPN ---
Progress Note: A&P Assessment and Plan (1) Fracture of femoral neck, right, closed: Qualifiers: Encounter type: initial encounter Qualified Code(s): S72.001A - Fracture of unspecified part of neck of right femur, initial encounter for closed fracture Code(s): S72.001A - Fracture of unspecified part of neck of right femur, initial encounter for closed fracture Status: Acute Assessment and Plan: Fall with right hip fracture, patient to go to OR on 05/01. Pain control. 05/02: Postop day 1, dressing clean dry intact, up to chair with max assist. Will need SNF on discharge for therapy and recovery. 05/06: Postop day 5, dressing changed today. SNF at [facility] planned, target DC tomorrow. (2) Hypoxia: Code(s): R09.02 - Hypoxemia Status: Acute Assessment and Plan: 88% on room air in ER, CXR showed concern for pleural effusion and atelectasis vs pneumonia, CT Chest negative for such or PE. Clear lungs on CT. 05/02: Nursing working on weaning oxygen patient does not wear supplemental at baseline 05/03: Nursing had to increase oxygen overnight, weaned to 2 liters/minute this morning. 05/04: Patient with fever today. Repeat CXR not significantly changed. 05/05: Scattered crackles, ordered IV Lasix x1. Patient remains on 2 liters/minute, 90-94% 05/06: ApneaLink ordered. On room air at this moment, breathing better. (3) Essential hypertension: Code(s): I10 - Essential (primary) hypertension Status: Acute Assessment and Plan: Continue home medications, blood pressure reviewed on 05/02, blood pressure has been low. Imdur and losartan held by nursing this morning, metoprolol placed on hold as well. 05/03: Blood pressures reviewed and improving on metoprolol alone. Imdur and losartan still on hold today. 05/04: Blood pressures higher today, stop IV fluids and restart Imdur 05/05: Will try to add losartan back on tomorrow morning. 05/06: Losartan 50 mg added this morning. (4) UTI (urinary tract infection): Code(s): N39.0 - Urinary tract infection, site not specified Status: Acute Assessment and Plan: Frequent history UTI. Started on Cipro 500 mg BID on 04/27 by PCP for Klebsiella in urine. Continue this medication and dose. Virk in place due to hip fracture, plan to go to OR on 05/01. 05/02: Virk discontinued this morning 05/03: No not urinating yesterday, had over 400 mL retained on bladder scan, Virk replaced overnight. 05/04: Urine culture negative. Continue Cipro. Consider voiding trial again tomorrow. 05/05: Final dose of Cipro tonight. 05/06: Voiding trial today (5) Poor short-term memory: Code(s): R41.3 - Other amnesia Status: Acute Assessment and Plan: Patient resides at assisted living [facility] for memory care, no formal dementia diagnosis. (6) Hyponatremia: Code(s): E87.1 - Hypo-osmolality and hyponatremia Status: Acute Assessment and Plan: Mild persistent hyponatremia without need for intervention at this time. 136 on admit-->134-->133-->134-->131-->133-->132 Plan Stop sedating medications at family request, tramadol 50 mg TID PRN Patient more awake after DC sedating medications. ApneaLink tonight. Diet: Regular diet VTE prophylaxis: SCDs and Lovenox (per orthopedics) GI prophylaxis: n/a Code status: DNR Disposition: SNF at [facility], anticipate DC tomorrow. Time Spent With Patient Time with patient: 25 - 35 minutes Subjective Date/time seen: 05/06/23 10:52 Interval history: 04/30: This is an 88-year-old female patient resides at [facility] who is admitted to the hospital for a fall with a displaced right femoral neck fracture.? Patient has history of frequent UTIs, CVA, hypertension, an GA 5 years ago, osteoarthritis in the back and left arm, hyperlipidemia, and GERD.? Patient has a surgical history left bipolar hemiarthroplasty, hysterectomy, cholecystectomy, bladder r
--- NOTE | 2023-05-06 18:06 | PC.NURSE ---
Addendum entered by Sujata Renteria RN 05/06/23 18:15: This nurse talked to Dc FRAZIER again and he stated he does not want greater than 500 at this time. Straight cath if greater than 500ml. Addendum entered by Sujata Renteria RN 05/06/23 18:09: Dc alexander NP aware of findings. Original Note: This nurse bladder scanned pt at 6pm. Pt had not voided after catheter removal at 1pm. The bladder scan showed 180 at max in the bladder. does not want greater than 400 ml. Straight cath if needed.
[2023-05-07] VITALS (7 sets, daily range): BP systolic 103–119; BP diastolic 45–61; PULSE 60–98; RESP 16–18; TEMP 35.6–37.2; O2SAT 90–100
[2023-05-07 06:55] LABS: Basophils Percent Auto 0.5 % (0.2-1.2); Eosinophils Percent Auto 0.5 % (0-4.4); Hematocrit 30.8 % (37.0-47.0); Hemoglobin 9.9 g/dL (12.0-15.0); Immature Granulocyte Absolute 0.05 K/mm3 (0.00-0.031); Immature Granulocyte Percent A 0.9 % (0-0.5); Lymphocytes Absolute Auto 1.55 K/mm3 (0.9-3.2); Lymphocytes Percent Auto 26.7 % (18.3-44.2); Mean Corpuscular HGB Conc 32.1 g/dl (32-36); Mean Corpuscular Hemoglobin 33.2 pg (26-34); Mean Corpuscular Volume 103.4 fl (80-100); Mean Platelet Volume 9.2 fl (7.4-10.4); Monocytes Absolute Auto 0.6 K/mm3 (0.1-0.6); Monocytes Percent Auto 10.8 % (2.6-8.5); Neutrophils Absolute Auto 3.5 K/mm3 (1.3-6.7); Neutrophils Percent Auto 60.6 % (45.5-73.1); Platelet Count Result 220 k/mm3 (150-375); Red Blood Count 2.98 M/mm3 (4.2-5.4); Red Cell Distribution Width 12.6 % (11.5-14.5); White Blood Count 5.8 K/mm3 (4.5-10.0)
[2023-05-07 07:12] LABS: Alanine Aminotransferase 25 U/L (6-35); Albumin Level 2.9 g/dL (3.5-5.1); Alkaline Phosphatase 58 U/L (38-126); Anion Gap 3 mmol/L (8-16); Aspartate Amino Transferase 65 U/L (14-36); Bilirubin,Total 0.6 mg/dL (0.2-1.3); Blood Urea Nitrogen 21 mg/dL (7-17); Calcium 7.9 mg/dL (8.4-10.2); Carbon Dioxide 29 mmol/L (22-30); Chloride 100 mmol/L (98-107); Estimated CRCL calculation 47 ml/min; Estimated Glomerular Filt Rate > 60; Glucose 106 mg/dL (65-110); Magnesium 2.1 mg/dL (1.6-2.3); Potassium 3.8 mmol/L (3.4-5.0); Sodium 132 mmol/L (137-145)
[2023-05-07] MEDS: ENOXAPARIN 40 MG/0.4 ML SYRINGE SUB-Q (08:23)
[2023-05-07] MEDS: SENNA/DOCUSATE SODIUM TABLET 2 TAB PO (08:24)
[2023-05-07] MEDS: DULoxetine HCL 30 MG CAPSULE.DR 90 MG PO (08:24)
[2023-05-07] MEDS: ISOSORBIDE MONONITRATE 60 MG TAB.ER.24H 120 MG PO (08:25)
[2023-05-07] MEDS: LORATADINE 10 MG TABLET PO (08:25)
[2023-05-07] MEDS: PANTOPRAZOLE 40 MG TABLET PO (08:26)
[2023-05-07] MEDS: METOPROLOL TARTRATE 50 MG TAB PO ×2 (08:26→21:09)
[2023-05-07] MEDS: LOSARTAN POTASSIUM 50 MG TABLET PO (08:26)
[2023-05-07] MEDS: polyethylene glycoL 3350 17 GM POWD.PACK PO (08:26)
[2023-05-07] MEDS: CLOPIDOGREL BISULFATE 75 MG TABLET PO (09:39)
[2023-05-07 11:14] LABS: Influenza A QL RT-PCR Positive (Negative); Influenza B QL RT-PCR Negative (Negative); RSV RNA, RT-PCR Negative (Negative); SARS-CoV-2 RNA PCR Negative (Negative)
--- NOTE | 2023-05-07 11:32 | PCRCNOTE ---
Mary will be D/C to SNF at [facility]. Home O2 eval not needed as pt will have nursing staff available at D/C to titrate O2 as needed.
--- NOTE | 2023-05-07 12:19 | PM.IMPN ---
Progress Note: A&P Assessment and Plan (1) Influenza A: Code(s): J10.1 - Influenza due to other identified influenza virus with other respiratory manifestations Status: Acute Assessment and Plan: Influenza positive on SNF discharge screening which is likely cause of patient's intermittent fevers and continued hypoxia. Unable to determine length of illness but it is suspected in hind site to be at least the past 4 days. Discuss starting Tamiflu with patient's POA/sister and she declined the offer of such. The risk of side effects vs expected benefit supports this family decision. (2) Fracture of femoral neck, right, closed: Qualifiers: Encounter type: initial encounter Qualified Code(s): S72.001A - Fracture of unspecified part of neck of right femur, initial encounter for closed fracture Code(s): S72.001A - Fracture of unspecified part of neck of right femur, initial encounter for closed fracture Status: Acute Assessment and Plan: Fall with right hip fracture, patient to go to OR on 05/01. Pain control. 05/02: Postop day 1, dressing clean dry intact, up to chair with max assist. Will need SNF on discharge for therapy and recovery. 05/06: Postop day 5, dressing changed today. SNF at [facility] planned, target DC tomorrow. (3) Hypoxia: Code(s): R09.02 - Hypoxemia Status: Acute Assessment and Plan: 88% on room air in ER, CXR showed concern for pleural effusion and atelectasis vs pneumonia, CT Chest negative for such or PE. Clear lungs on CT. 05/02: Nursing working on weaning oxygen patient does not wear supplemental at baseline 05/03: Nursing had to increase oxygen overnight, weaned to 2 liters/minute this morning. 05/04: Patient with fever today. Repeat CXR not significantly changed. 05/05: Scattered crackles, ordered IV Lasix x1. Patient remains on 2 liters/minute, 90-94% 05/06: ApneaLink ordered. On room air at this moment, breathing better. 05/07: ApneaLink on 2 liters/minute appears stable, will plan DC on 2 liters at night. Home oxygen eval also ordered. (4) Essential hypertension: Code(s): I10 - Essential (primary) hypertension Status: Acute Assessment and Plan: Continue home medications, blood pressure reviewed on 05/02, blood pressure has been low. Imdur and losartan held by nursing this morning, metoprolol placed on hold as well. 05/03: Blood pressures reviewed and improving on metoprolol alone. Imdur and losartan still on hold today. 05/04: Blood pressures higher today, stop IV fluids and restart Imdur 05/05: Will try to add losartan back on tomorrow morning. 05/06: Losartan 50 mg added this morning. (5) UTI (urinary tract infection): Code(s): N39.0 - Urinary tract infection, site not specified Status: Acute Assessment and Plan: Frequent history UTI. Started on Cipro 500 mg BID on 04/27 by PCP for Klebsiella in urine. Continue this medication and dose. Virk in place due to hip fracture, plan to go to OR on 05/01. 05/02: Virk discontinued this morning 05/03: No not urinating yesterday, had over 400 mL retained on bladder scan, Virk replaced overnight. 05/04: Urine culture negative. Continue Cipro. Consider voiding trial again tomorrow. 05/05: Final dose of Cipro tonight. 05/06: Voiding trial today 05/07: Patient voiding without catheter, incontinent to urine (6) Poor short-term memory: Code(s): R41.3 - Other amnesia Status: Acute Assessment and Plan: Patient resides at assisted living facility for memory care, no formal dementia diagnosis. (7) Hyponatremia: Code(s): E87.1 - Hypo-osmolality and hyponatremia Status: Acute Assessment and Plan: Mild persistent hyponatremia without need for intervention at this time. 136 on admit-->134-->133-->134-->131-->133-->132-->132 Plan Influenza A positive which explains fevers and possibly explains hypoxia. DC to SNF at [facility]
--- NOTE | 2023-05-07 12:32 | PCNWS ---
Weekly nutritional screen. Patient is tolerating current regular diet with Ensure compact TID. No weight loss reported. Pt being discharged to SNF facility
[2023-05-08 06:00] VITALS: BP 129/60; PULSE 89; RESP 18; TEMP 36.9; O2SAT 96
[2023-05-08 07:37] LABS: Basophils Percent Auto 0.4 % (0.2-1.2); Eosinophils Percent Auto 0.4 % (0-4.4); Hematocrit 27.9 % (37.0-47.0); Hemoglobin 9.2 g/dL (12.0-15.0); Immature Granulocyte Absolute 0.05 K/mm3 (0.00-0.031); Immature Granulocyte Percent A 0.7 % (0-0.5); Lymphocytes Absolute Auto 1.63 K/mm3 (0.9-3.2); Lymphocytes Percent Auto 24.1 % (18.3-44.2); Mean Corpuscular Hemoglobin 33.5 pg (26-34); Mean Corpuscular Volume 101.5 fl (80-100); Mean Platelet Volume 9.2 fl (7.4-10.4); Monocytes Absolute Auto 0.7 K/mm3 (0.1-0.6); Monocytes Percent Auto 10.6 % (2.6-8.5); Neutrophils Absolute Auto 4.3 K/mm3 (1.3-6.7); Neutrophils Percent Auto 63.8 % (45.5-73.1); Platelet Count Result 228 k/mm3 (150-375); Red Blood Count 2.75 M/mm3 (4.2-5.4); Red Cell Distribution Width 12.8 % (11.5-14.5); White Blood Count 6.8 K/mm3 (4.5-10.0)
[2023-05-08 08:00] VITALS: O2SAT 96
[2023-05-08 08:16] LABS: Alanine Aminotransferase 28 U/L (6-35); Albumin Level 2.8 g/dL (3.5-5.1); Alkaline Phosphatase 50 U/L (38-126); Anion Gap 5 mmol/L (8-16); Aspartate Amino Transferase 63 U/L (14-36); Bilirubin,Total 0.8 mg/dL (0.2-1.3); Blood Urea Nitrogen 32 mg/dL (7-17); Calcium 7.6 mg/dL (8.4-10.2); Carbon Dioxide 26 mmol/L (22-30); Chloride 99 mmol/L (98-107); Estimated CRCL calculation 38 ml/min; Estimated Glomerular Filt Rate 52; Glucose 102 mg/dL (65-110); Potassium 4.2 mmol/L (3.4-5.0); Sodium 130 mmol/L (137-145)
--- NOTE | 2023-05-08 09:45 | PC.NURSE ---
Daughter at bedside and requested to hold off on morning medications until patients son arrived. Daughter stated, My brother's a doctor, I want him to review her current medications.
[2023-05-08] MEDS: ENOXAPARIN 40 MG/0.4 ML SYRINGE SUB-Q (10:09)
--- NOTE | 2023-05-08 10:30 | PM.DS ---
DS: Admitting Diagnosis Discharge Date 05/08/2023 Admitting Diagnosis fracture of femoral neck right, hypoxia, essential hypertension, UTI, poor short-term memory DS: Discharge Diagnosis Discharge Diagnosis (1) Influenza A: Code(s): J10.1 - Influenza due to other identified influenza virus with other respiratory manifestations Status: Acute (2) Fracture of femoral neck, right, closed: Qualifiers: Encounter type: initial encounter Qualified Code(s): S72.001A - Fracture of unspecified part of neck of right femur, initial encounter for closed fracture Code(s): S72.001A - Fracture of unspecified part of neck of right femur, initial encounter for closed fracture Status: Acute (3) Hypoxia: Code(s): R09.02 - Hypoxemia Status: Acute (4) Essential hypertension: Code(s): I10 - Essential (primary) hypertension Status: Acute (5) UTI (urinary tract infection): Code(s): N39.0 - Urinary tract infection, site not specified Status: Acute (6) Poor short-term memory: Code(s): R41.3 - Other amnesia Status: Acute (7) Hyponatremia: Code(s): E87.1 - Hypo-osmolality and hyponatremia Status: Acute DS: Summary Hospital Course Hospital Course: 04/30:? This is an 88-year-old female patient resides at [facility] who is admitted to the hospital for a fall with a displaced right femoral neck fracture.? Patient has history of frequent UTIs, CVA, hypertension, an HI 5 years ago, osteoarthritis in the back and left arm, hyperlipidemia, and GERD.? Patient has a surgical history left bipolar hemiarthroplasty, hysterectomy, cholecystectomy, bladder repair and bilateral knee replacements.? Patient is a nonsmoker very rare EtOH use and no drug use.? Patient received IV pain medication prior to my examination and this limited the HPI and ROS.? Chart review and conversation with daughter were the main sources of information.? Daughter reports the patient started on ciprofloxacin on 04/27 for Klebsiella in the urine. X-ray of the pelvis and right hip shows displaced femoral neck fracture on the right and prior bipolar hip arthroplasty on the left.? Labs in the ER showed normal white blood cell normal H&H platelets mildly decreased sodium 36 BUN 23 creatinine 1 with AE estimated GFR 50 an estimated creatinine clearance 38.? Urinalysis appears clear anxious likely due to to Cipro. 05/01:? Patient seen this morning before surgery.? Virk catheter in place.? Patient remains on supplemental oxygenation 1-2 liters/minute.? Patient denies any difficulty breathing chest pain nausea vomiting abdominal discomfort.? She does state right hip pain which is the location of her known displaced femoral neck fracture.? Patient appears withdrawn, somewhat confused and gruff. 05/02:? Patient was up to chair today with use of Nazanin Steady and max assist.? She is hesitant to participate with therapy at this point.? Patient was resting when I went to see her she awakened easily and was more cooperative with assessment today.? Hip dressing clean dry and intact.? Noted lower blood pressures last night and this morning.? Nursing staff held losartan and Imdur.? Patient did receive metoprolol.? Anticipate the patient will remain hospitalized for a few more days until blood pressure returns to normal and antihypertensives can be restarted.? She will need SNF at discharge for therapy and recovery. 05/03:? Patient resting in bed only complaint is right hip pain.? Nursing staff has noted low urine output with urinary retention so Virk catheter was replaced.? Yesterday blood pressure was on the low side so antihypertensives were held.? Blood pressure is improving today.? Patient remains on supplemental oxygen 1-2 liters/minute.? Might need to consider IV fluids again if oral intake/urine output do not improve today.? Anticipate weekend discharge to SNF.? Need to push patient to participate with therapy/mobiliz
[2023-05-08 12:02] VITALS: PULSE 88
[2023-05-08] MEDS: METOPROLOL TARTRATE 50 MG TAB PO (12:02)
[2023-05-08] MEDS: LOSARTAN POTASSIUM 50 MG TABLET PO (12:03)
[2023-05-08] MEDS: ISOSORBIDE MONONITRATE 60 MG TAB.ER.24H 120 MG PO (12:03)
[2023-05-08] MEDS: DULoxetine HCL 30 MG CAPSULE.DR 90 MG PO (12:03)
[2023-05-08] MEDS: PANTOPRAZOLE 40 MG TABLET PO (12:03)
[2023-05-08] MEDS: LORATADINE 10 MG TABLET PO (12:04)
[2023-05-08] MEDS: ACETAMINOPHEN 325 MG TABLET 650 MG PO (12:07)
[2023-05-08 14:09] VITALS: BP 141/76; PULSE 89; RESP 20; TEMP 36.3
== END 2023-05-08 14:30 | DRG 522 ==
LOC: ANHED 04-30 00:07 → ANH3MEDSUR 04-30 00:37
PROVIDERS: Orthopaedic Surgery; Admitting Provider Internal Medicine; Emergency Provider Physician Assistant; PCP Internal Medicine; Visit Provider Nurse Practitioner
PROC: 0SRR01A Replacement of Right Hip Joint, Femoral Surface with Metal Synthetic Substitute, Uncemented, Open Approach (ICD-10-PCS; CPT 27125; principal; 2023-05-01 15:00)
DX: S72.001A Fracture of unspecified part of neck of right femur, initial encounter for closed fracture (principal); N39.0 Urinary tract infection, site not specified; E87.1 Hypo-osmolality and hyponatremia; J10.1 Influenza due to other identified influenza virus with other respiratory manifestations; W19.XXXA Unspecified fall, initial encounter; E78.5 Hyperlipidemia, unspecified; I10 Essential (primary) hypertension; I25.2 Old myocardial infarction; K21.9 Gastro-esophageal reflux disease without esophagitis; M47.819 Spondylosis without myelopathy or radiculopathy, site unspecified; M19.022 Primary osteoarthritis, left elbow; R09.02 Hypoxemia; R41.3 Other amnesia; R33.9 Retention of urine, unspecified; Z90.710 Acquired absence of both cervix and uterus; Z20.822 Contact with and (suspected) exposure to COVID-19; Z86.73 Personal history of transient ischemic attack (TIA), and cerebral infarction without residual deficits; Z90.49 Acquired absence of other specified parts of digestive tract; Z96.653 Presence of artificial knee joint, bilateral; Z96.642 Presence of left artificial hip joint; Z66 Do not resuscitate; Z79.82 Long term (current) use of aspirin; Z79.02 Long term (current) use of antithrombotics/antiplatelets
CPT/HCPCS: 36415; 71045; 71260; 73070; 73501; 73502; 80053; 81001; 81003; 83735; 83880; 85025; 85610; 85730; 87040; 87086; 87637; 93005; 96374; 96376; 97110; 97161; 97166; 97530; 97535; 99285; A9270; C1776; J0171; J0690; J1100; J1170; J1650; J1885; J1940; J2270; J2405; J2704; J2795; J3010; J7030; J7120; Q9967

== ENCOUNTER 2023-05-25 16:28 | Inpatient (IN) | payer MEDICARE, SELFPAY ==
[2023-05-25] VITALS (74 sets, daily range): BP systolic 48–161; BP diastolic 8–127; PULSE 91–111; RESP 12–26; TEMP 37.4–39.3; O2SAT 88–100
--- NOTE | ~2023-05-25 | XR_ITS ---
Right foot Technique: AP, oblique, and lateral views were obtained. Clinical History: Pain and swelling Findings: No acute fracture or dislocation is seen. There is probable hallux valgus with mild degener ative change at the first MTP joint. There are mild degenerative changes at the TMT joints. Soft tiss ues are unremarkable. Impression: Probable hallux valgus with mild degenerative change at the first MTP joint and TMT joints. Reviewed, dictated and finalized at location . OMES SPECIALIST Impression: Probable hallux valgus with mild degenerative change at the first MTP joint and TMT joints.
--- NOTE | ~2023-05-25 | XR_ITS ---
EXAMINATION: XR chest 1V portable DATE: 05/25/2023 18:14 INDICATION: Shortness of breath TECHNIQUE: frontal view of the chest was obtained. COMPARISON: Chest radiograph dated 05/04/2023 FINDINGS: Airspace opacity left lower lung zone and at the right lung base projecting over the right hemidiaphr agm. No pneumothorax or right pleural effusion. Small left pleural effusion cannot be excluded. Heart size is normal with left paracardial fat pad extending between the apex of the heart and the lateral left hemithorax. Severe thoracolumbar spondylosis. Severe left glenohumeral osteoarthritis. IMPRESSION: 1. Opacities in bilateral lower lung zones, left greater than right which could represent pneumonia, atelectasis, pulmonary edema or some combination thereof. 2. Small left pleural effusion not excludable. Reviewed, dictated and finalized at location A. PHORE OPERATOR
--- NOTE | ~2023-05-25 | XR_ITS ---
EXAMINATION: XR chest 1V portable DATE: 05/30/2023 19:18 INDICATION: Low oxygen saturation. TECHNIQUE: A single frontal view of the chest was obtained. COMPARISON: Chest single view 05/28/2023, chest CT 04/29/2023 FINDINGS: The patient is rotated to her left. There are airspace opacities in left mid and lower lung zones. There is a small left pleural effusion. No pneumothorax. The heart size is normal. IMPRESSION: 1. Worsened airspace opacities in left mid and lower lung zones, consistent with pneumonia. 2. Worsened small left pleural effusion. Reviewed, dictated and finalized at location E. ARD/STEWARDESS ECONOMY CLASS IMPRESSION: 1. Worsened airspace opacities in left mid and lower lung zones, consistent wit h pneumonia. 2. Worsened small left pleural effusion.
--- NOTE | ~2023-05-25 | CT_ITS ---
CT head without contrast Indication: Altered mental status COMPARISON: 1223 Technique: Serial scans were obtained through the brain without the administration of contrast. Dose reduction technique was used on this scan by utilizing automated exposure control and iterative recon struction technique. The dose-length product (DLP) was 681.00 mGy-cm. Findings: There is no evidence of intracranial hemorrhage, mass lesion, or acute infarct. The ventri cles and subarachnoid spaces are dilated, consistent with mild atrophy. Low attenuation regions are seen within the periventricular white matter bilaterally, likely representing changes from chronic mi crovascular ischemic disease. There is no evidence of edema, mass effect or midline shift. The visu alized paranasal sinuses and mastoid air cells are clear. Impression: No intracranial hemorrhage, mass, or acute infarct. Atrophy and chronic white matter changes, as above. Reviewed, dictated and finalized at location . ICAL SALES CONSULTANT Impression: No intracranial hemorrhage, mass, or acute infarct. Atrophy and chronic white matter changes, as above.
--- NOTE | ~2023-05-25 | CT_ITS ---
EXAMINATION: CT brain wo con DATE: 05/25/2023 20:11 INDICATION: Altered mental status TECHNIQUE: Computed tomography (CT) of the head was performed without intravenous contrast. Sagittal and coronal reconstructions were performed. The mA was adjusted according to patient size. Iterative reconstruction technique was employed. The dose-length product was 681.00 mGy-cm. COMPARISON: head CT and CT angiogram dated 04/06/2023 FINDINGS: Again seen is an old lacunar infarct at the left basal ganglia. No acute intracranial hemorrhage, acu te infarction or abnormal extra axial fluid collection. No significant change in moderate scattered p eriventricular predominant white matter hypoattenuation. Symmetric prominence of the sulci and ventri cles consistent with moderate age-appropriate diffuse cerebral volume loss. No mass/mass effect. Helton ges of bilateral intraocular lens replacement. The orbits, paranasal sinuses and mastoid air cells ar e normal. IMPRESSION: 1. 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 No acute intracranial process. 2. Age-related changes including moderate diffuse volume loss and moderate scattered white matter hyp oattenuation consistent with chronic small vessel ischemic disease. Reviewed, dictated and finalized at location A. EAD MAINTENANCE SPECIALIST IMPRESSION: 1. 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 No acute intracranial process. 2. Age-related changes including moderate diffuse volume loss and moderate scat tered white matter hypoattenuation consistent with chronic small vessel ischemi c disease.
--- NOTE | ~2023-05-25 | US_ITS ---
EXAMINATION: US venous doppler UE DATE: 05/31/2023 15:18 INDICATION: Left pleural effusion and hypoxia TECHNIQUE: Grayscale images without and with compression and Doppler images of the bilateral upper ex tremity veins were obtained. COMPARISON: None. FINDINGS: The right internal jugular vein, subclavian vein, axillary vein, brachial vein, basilic vein, cephali c vein radial vein are patent. The right ulnar vein was unable to be identified. The left internal jugular vein, subclavian vein, axillary vein, brachial vein, basilic vein, cephalic vein and radial vein are patent. The left ulnar vein was unable to be identified. IMPRESSION: 1. Patent bilateral upper extremity veins. No evidence of venous thrombosis. Reviewed, dictated and finalized at location A. ITY ASSURANCE INTERN
--- NOTE | ~2023-05-25 | XR_ITS ---
Portable chest x-ray Comparison: 05/31/2023 Clinical History: Pneumonia Findings: Ivtoj-fk-hirdiwhi left pleural effusion is unchanged, with left basilar consolidation. Pos sible minimal right pleural effusion. Cardiomediastinal silhouette is stable. Bones and soft tissues are unremarkable. Impression: Pamtc-bp-dayyraqu left pleural effusion with left lower lobe atelectasis versus pneumonia. Minimal right pleural effusion. Reviewed, dictated and finalized at location . R DIAMETER GRINDER TOOL Impression: Xdsqa-yb-vgwjrsnb left pleural effusion with left lower lobe atelectasis versus pneumonia. Minimal right pleural effusion.
--- NOTE | ~2023-05-25 | XR_ITS ---
EXAMINATION: XR hip RT 2V w AP pelvis DATE: 05/29/2023 10:02 INDICATION: Right hip pain and instability TECHNIQUE: Anteroposterior view of the pelvis and anteroposterior and crosstable lateral views of the right hip were obtained. COMPARISON: None. FINDINGS: There are bilateral bipolar type hip hemiarthroplasties which is in near-anatomic alignment on the le ft and with superolateral dislocation on the right. No fractures identified. Lumbar levoscoliosis wit h severe spondylosis. IMPRESSION: 1. Superolateral dislocation of a bipolar type right hip hemiarthroplasty. 2. Left hip hemiarthroplasty in near-anatomic alignment. Reviewed, dictated and finalized at location A. STRIAL TECHNOLOGIST
--- NOTE | ~2023-05-25 | XR_ITS ---
EXAMINATION: XR hip RT 1V DATE: 05/30/2023 18:39 INDICATION: Right hip arthroplasty. TECHNIQUE: A single view of right hip was obtained. COMPARISON: Pelvis and right hip radiographs 05/29/2023 FINDINGS: There is a bipolar right hip hemiarthroplasty in near-anatomic alignment. No fracture. No p eriprosthetic lucency to suggest loosening or infection. There is gas in the soft tissues, consistent with recent surgery. Skin rachelle are noted. IMPRESSION: 1. Bipolar right hip hemiarthroplasty in near-anatomic alignment. Reviewed, dictated and finalized at location E. RAMP AGENT
--- NOTE | ~2023-05-25 | XR_ITS ---
Portable chest x-ray Comparison: 05/30/2023 Clinical History: CHF Findings: Ocsbu-qo-hybvptsw left pleural effusion is present, decreased from prior exam. Minimal haz iness right lung base present. Cardiomediastinal silhouette is stable. Bones and soft tissues are un remarkable. Impression: Tllyw-qc-ujdyetfv left pleural effusion, decreased, with probable left basilar atelectasis. Minimal haziness right lung base, probably minimal pulmonary edema. Reviewed, dictated and finalized at location . ENT DEVELOPMENT COORDINATOR Impression: Upacr-cv-rarpcuqd left pleural effusion, decreased, with probable left basilar atelectasis. Minimal haziness right lung base, probably minimal pulmonary edema.
--- NOTE | ~2023-05-25 | US_ITS ---
EXAMINATION: US venous doppler [facility] DATE: 05/31/2023 15:17 INDICATION: Congestive heart failure with left pleural effusion and hypoxia TECHNIQUE: Grayscale ultrasound images without and with compression and Doppler ultrasound images of the bilateral lower extremity veins were obtained. COMPARISON: None. FINDINGS: The visualized portions of right common femoral vein, profunda (deep) femoral vein, femoral vein and greater saphenous vein outflow are patent. The visualized portions of left common femoral vein, profunda femoral vein, femoral vein and greater saphenous vein outflow are patent. IMPRESSION: 1. No umogi-uux-kkou deep venous thrombosis in either lower limb. Per request the patient's nurse, t he veins at and below the level of the knees were not assessed. Reviewed, dictated and finalized at location A. HEAD IMPRESSION: 1. No ebnmf-qfv-effq deep venous thrombosis in either lower limb. Per request the patient's nurse, the veins at and below the level of the knees were not ass essed.
--- NOTE | ~2023-05-25 | XR_ITS ---
Clinical Indication: Pneumonia PA and lateral views of the chest: Comparison: 06/01/2023 Findings: Yayti-sz-hubhslkw left pleural effusion is present with left basilar consolidation. Right l sharon clear.. Cardiomediastinal silhouette is within normal limits. Advanced degenerative change of th e left glenohumeral joint noted. Impression: Gcpwz-ua-tgbhwldt left pleural effusion with left basilar atelectasis versus pneumonia. Correlate cli nically. Reviewed, dictated and finalized at location M. DOCUMENT IMPROVEMENT SPECIALIST Impression: Nparo-yc-lwslzwce left pleural effusion with left basilar atelectasis versus pn eumonia. Correlate clinically.
--- NOTE | ~2023-05-25 | CT_ITS ---
EXAMINATION:CT diagnostic chest wo con DATE: 05/31/2023 14:24 INDICATION: Pneumonia. Left pleural effusion. TECHNIQUE: Computed tomography (CT) of the chest was performed without intravenous contrast. Automate d exposure control and iterative reconstruction technique were employed. The dose-length product (DLP ) was 493.30 mGy-cm. COMPARISON: Chest CT 04/29/2023 FINDINGS: There are scattered groundglass opacities in the lungs. There are airspace opacities in lef t lower lobe with volume loss. There are small pleural effusions. The heart size is normal. There are coronary artery calcifications. No pericardial effusion. The central pulmonary arteries are enlarged , consistent with pulmonary arterial hypertension. There are changes of cholecystectomy. There is sev ere thoracic spondylosis. IMPRESSION: 1. Airspace opacities in left lower lobe, likely a combination of pneumonia and atelectasis. 2. Scattered groundglass opacities in the lungs, consistent with pulmonary edema versus pneumonia. 3. Small pleural effusions. Reviewed, dictated and finalized at location E. IC HEALTH PHYSICIAN IMPRESSION: 1. Airspace opacities in left lower lobe, likely a combination of pneumonia and atelectasis. 2. Scattered groundglass opacities in the lungs, consistent with pulmonary sandra a versus pneumonia. 3. Small pleural effusions.
--- NOTE | ~2023-05-25 | XR_ITS ---
EXAMINATION: XR hip RT min 2V DATE: 06/08/2023 10:23 INDICATION: Right hip pain TECHNIQUE: Anteroposterior and cross-table lateral views of the right hip were obtained. COMPARISON: 05/30/2023 and 05/29/2023 FINDINGS: Again seen is a cemented bipolar type right hip hemiarthroplasty which remains in near-anatomic align ment. No fracture. Severe lower lumbar spondylosis. Again seen are skin rachelle lateral to the right hip. Several phleboliths in the pelvis. IMPRESSION: 1. Bipolar type right hip hemiarthroplasty near-anatomic alignment with no acute osseous abnormality. Reviewed, dictated and finalized at location A. FRAZER IMPRESSION: 1. Bipolar type right hip hemiarthroplasty near-anatomic alignment with no acut e osseous abnormality.
--- NOTE | ~2023-05-25 | XR_ITS ---
EXAMINATION: XR chest 1V portable Exam Date/Time: 05/28/2023 15:30 COMMUNITY HEALTH NAVIGATOR HISTORY: Cough Comparison: 05/25/2023. RESULT: Lines, tubes, and devices: None. Lungs and pleura: Increasing moderate diffuse reticular opacities. Increasing airspace disease in th e left lung base. Increasing diffuse patchy groundglass opacities and subsegmental right basilar opac ity. Cardiomediastinal silhouette: Stable. Other: No acute osseous or upper abdominal finding. IMPRESSION: Moderate interstitial edema. Increasing diffuse groundglass opacities may represent edema or infectio n. Increasing bibasilar opacities may represent atelectasis or infection, possibly with a component o f aspiration. Moderate left and small right pleural effusions. Reviewed, dictated and finalized at location K. UNITY HEALTH NAVIGATOR IMPRESSION: Moderate interstitial edema. Increasing diffuse groundglass opacities may repre sent edema or infection. Increasing bibasilar opacities may represent atelectas is or infection, possibly with a component of aspiration. Moderate left and sma ll right pleural effusions.
--- NOTE | 2023-05-25 16:34 | ECG_ITS ---
Measurements Intervals [place] Rate: 108 P: 63 HI: 164 QRS: -23 QRSD: 101 T: 70 QT: 306 QTc: 411 Interpretive Statements SINUS TACHYCARDIA BORDERLINE LEFT AXIS DEVIATION [QRS AXIS < -20] MINIMAL VOLTAGE CRITERIA FOR LVH, CONSIDER NORMAL VARIANT [MEETS CRITERIA IN ONE OF: R(aVL), S(V1), R(V5), R(V5/V6)+S(V1)] NONSPECIFIC ST & T-WAVE ABNORMALITY ABNORMAL RHYTHM ECG COMPARED TO ECG 04/29/2023 20:50:41 SINUS TACHYCARDIA NOW PRESENT Electronically Signed On 05-27-2023 14:19:46 DBAS by Lanie Dahl M.D.
--- NOTE | 2023-05-25 16:42 | ED.SOB ---
HPI - SOB/Dyspnea General Chief Complaint: Shortness of Breath/Dyspnea Stated Complaint: AMS Time Seen by Provider: 05/25/23 16:32 History of Present Illness HPI Narrative: Patient is an 80-year-old female with recent hospitalization for pneumonia, hip fracture here from a facility with shortness of breath. Per EMS patient had an episode of vomiting earlier today and then seemed more short of breath this evening and EMS was called. Patient provides no history. I was able to speak with family who notes that patient has had an increased cough intermittently over the last few days. Yesterday she coughed up some increased sputum. Daughter was with her earlier today she seemed to be awake and could answer some questions but she has been having some more confusion and worsening mental status since her recent hospitalization. She was working with physical therapy and refused to walk today or perform any exercises. Family notes that at this time she does open her eyes and look around the room and got contact with them but has not spoke with them since she arrived to the emergency department. And they note that this mental status is worse than usual. They are unsure if she has any sick contacts. They do advise that she is DNR/DNI per her request. They would like to peruse treatments at this time that are non invasive like but would not like aggressive treatments like procedures or resuscitation. Related Data Home Medications Medication Instructions Recorded Confirmed aspirin 81 mg tablet,delayed 81 mg PO DIRECTED 11/26/19 05/17/23 release (Aspir-) clopidogrel 75 mg tablet 75 mg PO 4XW 11/26/19 05/17/23 isosorbide mononitrate 120 mg 120 mg PO DAILY 11/26/19 05/17/23 tablet,extended release 24 hr loratadine 10 mg tablet (Claritin) 10 mg PO DAILY 11/26/19 05/17/23 metoprolol tartrate 50 mg tablet 50 mg PO BID 11/26/19 05/17/23 (Lopressor) pantoprazole 40 mg tablet,delayed 40 mg PO QAM 11/26/19 05/17/23 release docusate sodium 100 mg capsule 100 mg PO DAILY PRN Constipation 03/17/23 05/17/23 loperamide 2 mg capsule 2 mg PO DAILY PRN Diarrhea 03/17/23 05/17/23 prochlorperazine maleate 10 mg 10 mg PO DAILY PRN Nausea 03/17/23 05/17/23 tablet tolterodine 2 mg capsule,extended 2 mg PO DAILY 03/17/23 05/17/23 release 24 hr Allergies Allergy/AdvReac Type Severity Reaction Status Date / Time erythromycin base Allergy Unknown Verified 04/06/23 19:22 Review of Systems Review of Systems: ROS unobtainable: Yes unobtainable due to mental status PMFSH Past Medical History Medical History CVA (cerebral vascular accident) August 2019 Essential hypertension GERD (gastroesophageal reflux disease) History of partial replacement of left hip joint using bipolar prosthesis Hyperlipidemia Insomnia Myocardial infarction 2015 with cardiac catheterization at [facility] Urinary incontinence, mixed Surgical History Surgical History History of bilateral knee replacement Right knee greater than 10 years ago, left knee 2017 History of cardiac catheterization Without stent placement History of cholecystectomy History of hysterectomy Family History Family History Son Malignant neoplasm of prostate Social History Social History Social History: Primary care physician: Dr. Bolanos Code status: Full code Smoking status: Never smoker Alcohol intake: current Alcohol use details: She rarely drinks alcohol and only in moderation. Substance use: never Lack of Transportation: No Lack of Food: Never True Current Housing: I Have Housing Concerned About Future Housing: No Difficulty Paying Gas/Electric Bills: No Difficulty Paying for Meds: No Currently Unemployed: No Education: Grade S
[2023-05-25 17:06] LABS: Fractional Inspired Oxygen 36 %; HCO3 VBG 24.3 mEq/l (24.0-30.0); PCO2 VBG 32.9 mmHg (42.0-48.0); PO2 VBG 56.2 mmHg (35.0-45.0)
[2023-05-25 17:10] LABS: Basophils Absolute Auto 0.1 K/mm3 (0.0-0.1); Basophils Percent Auto 0.4 % (0.2-1.2); Eosinophils Percent Auto 0.1 % (0-4.4); Hematocrit 35.7 % (37.0-47.0); Hemoglobin 11.1 g/dL (12.0-15.0); Immature Granulocyte Absolute 0.09 K/mm3 (0.00-0.031); Immature Granulocyte Percent A 0.6 % (0-0.5); Lymphocytes Absolute Auto 0.77 K/mm3 (0.9-3.2); Lymphocytes Percent Auto 5.5 % (18.3-44.2); Mean Corpuscular HGB Conc 31.1 g/dl (32-36); Mean Corpuscular Hemoglobin 32.9 pg (26-34); Mean Corpuscular Volume 105.9 fl (80-100); Mean Platelet Volume 8.7 fl (7.4-10.4); Monocytes Absolute Auto 0.9 K/mm3 (0.1-0.6); Monocytes Percent Auto 6.1 % (2.6-8.5); Neutrophils Absolute Auto 12.3 K/mm3 (1.3-6.7); Neutrophils Percent Auto 87.3 % (45.5-73.1); Platelet Count Result 278 k/mm3 (150-375); Red Blood Count 3.37 M/mm3 (4.2-5.4); Red Cell Distribution Width 13.9 % (11.5-14.5); White Blood Count 14.1 K/mm3 (4.5-10.0)
[2023-05-25 17:11] LABS: Device NASAL CANNULA
[2023-05-25 17:19] LABS: Alanine Aminotransferase 18 U/L (6-35); Albumin Level 3.4 g/dL (3.5-5.1); Alkaline Phosphatase 121 U/L (38-126); Anion Gap 12 mmol/L (8-16); Aspartate Amino Transferase 26 U/L (14-36); Bilirubin,Total 0.9 mg/dL (0.2-1.3); Blood Urea Nitrogen 13 mg/dL (7-17); Calcium 8.1 mg/dL (8.4-10.2); Carbon Dioxide 22 mmol/L (22-30); Chloride 101 mmol/L (98-107); Estimated CRCL calculation 58 ml/min; Estimated Glomerular Filt Rate > 60; Glucose 168 mg/dL (65-110); Lipase 81 U/L (23-300); Potassium 3.6 mmol/L (3.4-5.0); Sodium 135 mmol/L (137-145)
[2023-05-25 17:20] LABS: Lactic Acid Reflex 1.7 mmol/L (0.7-2.0)
[2023-05-25 17:22] LABS: Appearance Urine Cloudy (Clear); Bacteria Urine None Seen /hpf; Bilirubin Urine Negative (Negative); Blood Urine Trace (Negative); Color Urine Yellow (Yellow); Glucose Urine UA Negative (Negative); Ketones Urine 1+ mg/dL (Negative); Leukocyte Esterase Ur 2+ LEU/UL (Negative); Nitrate Urine Negative (Negative); Non Pathogenic Casts 0-2; Protein Urine 1+ mg/dL (Negative); RBC Urine 0-2 /hpf (0-2); Specific Grav Ur 1.012 (1.001-1.035); Squamous Epithelial Cell Urine None seen /hpf (Few); Urobilinogen Urine 0.2 mg/dL (<2.0); WBC Urine >100 /hpf; pH Urine 6.5 (5.0-9.0)
[2023-05-25] MEDS: ACETAMINOPHEN 650 MG SUPPOSITORY RECTAL (17:22)
[2023-05-25 17:25] LABS: INR 1.1; Partial Thromboplastin Time 29.8 SECONDS (22.3-36.8); Prothrombin Time 15.1 Seconds (11.1-14.7)
[2023-05-25 17:28] LABS: CRP 4.5 mg/dL (<1.0)
[2023-05-25 17:32] LABS: NT Pro B Type Natriuretic Pept 4360 pg/mL (19.9-100); Troponin I 0.047 ng/mL (0.000-0.034)
[2023-05-25 17:44] LABS: Add Urine Microscopic? YES
[2023-05-25 17:47] LABS: Influenza A QL RT-PCR Negative (Negative); Influenza B QL RT-PCR Negative (Negative); RSV RNA, RT-PCR Negative (Negative); SARS-CoV-2 RNA PCR Negative (Negative)
[2023-05-25 18:30] LABS: pH VBG 7.487 (7.300-7.400)
[2023-05-25] MEDS: DOXYCYCLINE 100 MG/NS 100 ML 100 MG/100 ML BAG IVPB (19:06)
--- NOTE | 2023-05-25 19:26 | PC.NURSE ---
Daughters updated on pt POC. No change in pt condition. Report given to Serene GOTTI
--- NOTE | 2023-05-25 19:36 | PC.NURSE ---
THIS RN ASSUMED CARE OF PATIENT. THIS RN TOOK PATIENT REPORT FROM ANA MARÍA GERONIMO.
[2023-05-25] MEDS: CEFEPIME 2 GM/NS 50 ML 2 GM/50 ML BAG IVPB (20:30)
[2023-05-25 20:31] LABS: MRSA (PCR) NOT DETECTED (NOT DETECTE)
[2023-05-25] MEDS: SODIUM CHLORIDE 0.9% IV 500 ML 999 ML IV CONT (21:02)
[2023-05-25] MEDS: VANCOMYCIN 1,250 MG/NS 250 ML 1,250 MG/250 ML BAG 166.67 MG IVPB (21:04)
[2023-05-25] MEDS: SODIUM CHLORIDE 0.9% IV 1,000 ML 999 ML IV CONT (21:16)
[2023-05-25] MEDS: ASPIRIN 300 MG SUPPOSITORY RECTAL (22:33)
--- NOTE | 2023-05-25 22:39 | PC.NURSE ---
THIS RN WENT TO DISCONTINUE FLUID BOLUS, UPON ENTERING ROOM PT FAMILY MEMBER STATED I SLOWED THE RATE OF THE BOLUS . THIS RN EDUCATED PT FAMILY MEMBER ON THE IMPORTANCE OF NOT TOUCHING MEDICATIONS THAT ARE INFUSING THROUGH PATIENT PERIPHERAL ACCESS. 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 THIS RN EDUCATED PT FAMILY MEMBER THE IMPORTANCE AGAIN OF NOT CHANGING INFUSION RATES OF MEDICATIONS THAT ARE INFUSING. PT FAMILY MEMBER VERBALIZED UNDERSTANDING AND APOLOGIZED.
--- NOTE | 2023-05-25 22:49 | PC.NURSE ---
THIS RN SPOKE WITH ANA MARÍA SINGH ABOUT PT FAMILY MEMBERS. PT FAMILY MEMBER STATED THEY WERE GOING TO GO UPSTAIRS AND STAY WITH PATIENT. THIS RN SPOKE WITH PT FAMILY MEMBERS AND STATED HOSPITAL POLICY. PT FAMILY MEMBER RAISED VOICE AT THIS RN ALONG WITH SUPERVISOR MAINTENANCE IF MY MOTHER DIES UP THERE WITH NO FAMILY MEMBERS THAT IS JUST NOT RIGHT . THIS RN APOLOGIZED TO PT FAMILY MEMBER THAT THEY WERE UPSET AND EDUCATED PT FAMILY MEMBER ABOUT HOSPITAL POLICY. THIS RN SPOKE WITH ED INTERNAL COMMUNICATIONS SPECIALIST, PERSONAL LINES UNDERWRITER, ICU CHARGE NURSE, AND ANA MARÍA SINGH.
--- NOTE | 2023-05-25 23:11 | PC.NURSE ---
PER HOUSE SUPERVISIOR, PT IS GOING TO STAY IN THE ED. PT FAMILY MEMBERS WERE EDUCATED BY ED CHARGE NURSE ABOUT VISITOR POLICY BEING 2 VISITORS AT A TIME AND THAT VISITORS COULD INTERCHANGE. PT FAMILY MEMBER VERBALIZED UNDERSTANDING AND HAD NO FURTHER QUESTIONS AT THIS TIME. THIS RN SPOKE WITH ANA MARÍA SINGH THAT PT WAS NOT COMING TO THAT ROOM.
--- NOTE | 2023-05-25 23:56 | PM.IMHP ---
H&P: HPI History of Present Illness Date/Time: 05/25/23 23:56 Chief Complaint: altered mental status/SOB Narrative: 88F w/ PMH frequent UTIs, recurrent falls, CVA, HTN, CAD, OA, HLD, GERD, recent displaced right femoral neck fx s/p hemiarthroplasty with bipolar prosthesis presents with shortness of breath and confusion. The patient is currently nonverbal, history is taken from 3 daughters present in ER. Prior to her hip fracture with admission 05/01/23, the patient was full functional living at [facility]. Since her orthopedic surgery the daughters felt she was not herself, more confused than usual. She was dc'ed to [facility] for rehab and family noticed over the last few days she has had shortness of breath, cough, sputum production and much more confused. ER course revealed pneumonia and septic shock. Review of Systems Review of Systems: ROS unobtainable: Yes unobtainable due to mental status PMFSH Past Medical History Medical History CVA (cerebral vascular accident) August 2019 Essential hypertension GERD (gastroesophageal reflux disease) History of partial replacement of left hip joint using bipolar prosthesis Hyperlipidemia Insomnia Myocardial infarction 2016 with cardiac catheterization at [facility] Urinary incontinence, mixed Surgical History Surgical History History of bilateral knee replacement Right knee greater than 10 years ago, left knee 2017 History of cardiac catheterization Without stent placement History of cholecystectomy History of hysterectomy Family History Family History Son Malignant neoplasm of prostate Social History Social History Social History: Primary care physician: Dr. Bolanos Code status: Full code Smoking status: Never smoker Alcohol intake: current Alcohol use details: She rarely drinks alcohol and only in moderation. Substance use: never Lack of Transportation: No Lack of Food: Never True Current Housing: I Have Housing Concerned About Future Housing: No Difficulty Paying Gas/Electric Bills: No Difficulty Paying for Meds: No Currently Unemployed: No Education: Grade School Difficulty w/ Childcare or Family Care: No Living arrangements: alone Additional living arrangements comments: She has been for 8 years. She lives alone and ambulates with a walker. 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 Three of her children in [place] a her son who is a physician lives in [place], [place] Gender identity (if verbalized by the patient): Female Spiritual care concerns: No Meds Home Medications and Allergies Home Medications Medication Instructions Recorded Confirmed Type aspirin 81 mg tablet,delayed 81 mg PO DIRECTED 11/26/19 05/17/23 History release (Aspir-) clopidogrel 75 mg tablet 75 mg PO 4XW 11/26/19 05/17/23 History isosorbide mononitrate 120 mg 120 mg PO DAILY 11/26/19 05/17/23 History tablet,extended release 24 hr loratadine 10 mg tablet (Claritin) 10 mg PO DAILY 11/26/19 05/17/23 History metoprolol tartrate 50 mg tablet 50 mg PO BID 11/26/19 05/17/23 History (Lopressor) pantoprazole 40 mg tablet,delayed 40 mg PO QAM 11/26/19 05/17/23 History release acetaminophen 500 mg tablet 1,000 mg PO Q6HR 30 days #240 tabs 12/01/19 05/17/23 Rx calcium citrate 200 mg 1 tablet PO BID #60 tabs 12/01/19 05/17/23 Rx calcium-vitamin D3 6.25 mcg (250 unit) tablet docusate sodium 100 mg capsule 100 mg PO DAILY PRN Constipation 03/17/23 05/17/23 History loperamide 2 mg capsule 2 mg PO DAILY PRN Diarrhea 03/17/23 05/17/23 History prochlorperazine maleate 10 mg 10 mg PO DAILY PRN Nausea 03/17/23 05/17/23 History tablet toltero
[2023-05-26] VITALS (69 sets, daily range): BP systolic 91–144; BP diastolic 48–99; PULSE 80–119; RESP 16–28; TEMP 36.2–36.8; O2SAT 85–100; BMI 34.0
[2023-05-26] MEDS: VANCOMYCIN 1,250 MG/NS 250 ML 1,250 MG/250 ML BAG 166.67 MG IVPB (00:12)
[2023-05-26] MEDS: SODIUM CHLORIDE 0.9% IV 1,000 ML 100 ML IV CONT (01:52)
[2023-05-26 01:59] LABS: Basophils Absolute Auto 0.1 K/mm3 (0.0-0.1); Basophils Percent Auto 0.4 % (0.2-1.2); Eosinophils Percent Auto 0.1 % (0-4.4); Hematocrit 30.8 % (37.0-47.0); Hemoglobin 9.3 g/dL (12.0-15.0); Immature Granulocyte Absolute 0.05 K/mm3 (0.00-0.031); Immature Granulocyte Percent A 0.3 % (0-0.5); Lymphocytes Absolute Auto 1.66 K/mm3 (0.9-3.2); Lymphocytes Percent Auto 10.6 % (18.3-44.2); Mean Corpuscular HGB Conc 30.2 g/dl (32-36); Mean Corpuscular Hemoglobin 33.1 pg (26-34); Mean Corpuscular Volume 109.6 fl (80-100); Mean Platelet Volume 8.8 fl (7.4-10.4); Monocytes Absolute Auto 1.1 K/mm3 (0.1-0.6); Monocytes Percent Auto 6.7 % (2.6-8.5); Neutrophils Absolute Auto 12.8 K/mm3 (1.3-6.7); Neutrophils Percent Auto 81.9 % (45.5-73.1); Platelet Count Result 218 k/mm3 (150-375); Red Blood Count 2.81 M/mm3 (4.2-5.4); Red Cell Distribution Width 14.4 % (11.5-14.5); White Blood Count 15.7 K/mm3 (4.5-10.0)
[2023-05-26 02:01] LABS: Estimated CRCL calculation 58 ml/min; Estimated Glomerular Filt Rate > 60; Lactic Acid Reflex 1.3 mmol/L (0.7-2.0); Magnesium 1.4 mg/dL (1.6-2.3)
[2023-05-26 02:19] LABS: Procalcitonin 0.9 ng/mL
--- NOTE | 2023-05-26 04:15 | PC.NURSE ---
THIS RN CONTACTED HOSPITALIST TO ASSESS IF PT WOULD QUALIFY FOR A HUYNH CATHETER. DR. CIFUENTES VERBALIZED APPROVAL FOR PT TO HAVE URINARY CATHETER PLACED.
--- NOTE | 2023-05-26 05:00 | ECHO_ITS ---
Patient Info Name: Mary Rose Age: 88 years : 1935 Gender: Female Ht: 67 in Wt: 217 lbs BSA: 2.19 m2 HR: 102 bpm BP: 126 / 84 mmHg Heart Rhythm: Sinus Rhythm, Tachycardia Technical Quality: Fair Exam Date: 05/26/2023 1:34 PM Exam Location: Echo Lab Exam Room: [facility] Patient Status: Inpatient Admit Date: 05/25/2023 Staff Ordering Physician: Serena Richter MD Wholesale Account Executive: Janine Rudolph RDCS Attending Provider: Serena Richter MD Exam Type: CA echo dop color flow w con Study Info Indications - sob pulm edema Complete two-dimensional, color flow and Doppler transthoracic echocardiogram is performed with contrast to opacify the left ventricle and to improve the deliniation of the left ventricle endocardial borders. Contrast/Agitated Saline Contrast/Ag. Saline: Definity Amount: 2.00 ml Administered By: Janine Rudolph [facility] Existing IV Access: Yes IV Access Condition: patent with no signs of infiltration Summary 1. Left ventricular chamber dimension is normal. 2. Left ventricular systolic function is mildly reduced, estimated at 40-45%. 3. There is hypokinesis of the anterolateral wall and the inferoseptum. 4. The left ventricular diastolic function is grade I diastolic dysfunction. 5. Right ventricular systolic function is normal. 6. Left atrial chamber dimension is moderately enlarged. 7. There is mild mitral valve regurgitation. 8. There is mild tricuspid valve regurgitation. Left Ventricle There is hypokinesis of the anterolateral wall and the inferoseptum. Left ventricular chamber dimension is normal. Left ventricular systolic function is mildly reduced, estimated at 40-45%. The left ventricular diastolic function is grade I diastolic dysfunction. Right Ventricle Right ventricular chamber dimension is normal. Right ventricular systolic function is normal. Left Atria Left atrial chamber dimension is moderately enlarged. Right Atria Right atrial chamber dimension is normal. Atrial Septum Intact interatrial septum visualized by color flow imaging. Aortic Valve The aortic valve is not well visualized. There is no aortic valve stenosis. There is trace aortic valve regurgitation. Pulmonic Valve The pulmonic valve is not well visualized. Mitral Valve There is mild mitral valve regurgitation. Tricuspid Valve There is mild tricuspid valve regurgitation. Pericardium/Pleural There is no pericardial effusion. Inferior Vena Cava Normal inferior vena cava with <50% collapse upon inspiration consistent with elevated right atrial pressure, 8 mmHg. Aorta The aortic root size at the sinus of Valsalva is normal. Left Ventricular Outflow Tract Name Value Normal LVOT 2D LVOT Diameter 1.97 cm LVOT Doppler LVOT Peak Gradient 3 mmHg LVOT Mean Gradient 2 mmHg LVOT VTI 15.94 cm LVOT VTI/AV VTI Ratio 0.84 LVOT Stroke Volume 48.51 ml LVOT CO 11.95 l/min LVOT CI 5.45 L/min/m2 Pulmonic Valve
[2023-05-26 08:38] LABS: Alanine Aminotransferase 16 U/L (6-35); Albumin Level 2.8 g/dL (3.5-5.1); Alkaline Phosphatase 84 U/L (38-126); Anion Gap 7 mmol/L (8-16); Aspartate Amino Transferase 32 U/L (14-36); Bilirubin,Total 0.7 mg/dL (0.2-1.3); Blood Urea Nitrogen 13 mg/dL (7-17); Calcium 7.5 mg/dL (8.4-10.2); Carbon Dioxide 22 mmol/L (22-30); Chloride 107 mmol/L (98-107); Estimated CRCL calculation 66 ml/min; Estimated Glomerular Filt Rate > 60; Glucose 102 mg/dL (65-110); Potassium 3.5 mmol/L (3.4-5.0); Sodium 136 mmol/L (137-145)
[2023-05-26] MEDS: CEFEPIME 2 GM/NS 50 ML 2 GM/50 ML BAG IVPB ×2 (09:38→22:20)
--- NOTE | 2023-05-26 09:50 | ADMGEN ---
This patient, Mary Rose, was admitted to IMU Room 205-02. Patient/family oriented to hospital policies and general routines including ID bracelet, bed and alarms, visiting hours, pain management, procedures, bathroom and other care routines, personal items, smoking policy, room service/diet, and visiting hours. Information on how to activate the Rapid Response Team has been discussed. Patient/Family are encouraged to report perceived risks to care and to ask questions if they do not understand what they are told or what they should do.
--- NOTE | 2023-05-26 09:57 | PM.IMPN ---
Progress Note: A&P Assessment and Plan (1) HCAP (healthcare-associated pneumonia): Code(s): J18.9 - Pneumonia, unspecified organism Status: Acute (2) Elevated troponin: Code(s): R79.89 - Other specified abnormal findings of blood chemistry Status: Acute (3) Acute hypoxemic respiratory failure: Code(s): J96.01 - Acute respiratory failure with hypoxia Status: Acute (4) Septic shock: Code(s): A41.9 - Sepsis, unspecified organism; R65.21 - Severe sepsis with septic shock Status: Acute Assessment and Plan: 88F presents with shortness of breath and confusion. There is associated cough. eR course revealed pneumonia and with subsequent blood pressure low also with septic shock. Admitted on 05/25/23 CT head neg for acute event. CT chest revealing b/l pneumonia and pulmonary edema. BNP is 4360. Received fluid resuscitation. WBC 14.1 acute hypoxic respiratory failure needing oxygen supplementation via nasal cannula troponin mildly elevated 0.047 BNP of 4360 UA positive for infection influenza RSV COVID negative subsequent troponin level elevated at 1.020. VBG 7.48/32/56/24. To for healthcare related pneumonia. Sputum culture blood culture urine antigens ordered. Started on vancomycin and cefepime. Also add doxycycline for atypical coverage. Non STEMI with troponin elevation from 0 point 047-1.020 -1.730. Likely due to underlying sepsis and hypotension. History of coronary artery disease received rectal aspirin in the ER. No aggressive intervention wanted by family. Continue aspirin Plavix hold beta-aurora in light of hypotension. Trend troponin. No active chest pain. With improved blood pressure this morning was restart beta-aurora Mild chronic anemia History of CVA Recurrent falls Coronary artery disease Osteoarthritis Hyperlipidemia GERD Recent displaced right femur neck fracture status post hemiarthroplasty with bipolar prosthesis 05/01/2023 discharge to [facility] for rehab History of frequent UTI Code status DNR DVT prophylaxis Lovenox Subjective Date/time seen: 05/26/23 09:57 Interval history: She is more awake and conversant today. Family at bedside. Having cough and shortness of breath. She has not been feeling well for past week or so. No leg swelling. Review of Systems Review of Systems: All systems reviewed & are unremarkable except as noted in HPI and below Exam Narrative: GENERAL: Ill appearing statin acute distress HEAD: Normocephalic, atraumatic. EYES: PERRLA and EOMI. ENT: Nares clear.? Mucous membranes moist. NECK: Supple. CHEST: Coarse breath sound with rhonchi, on nasal canula. HEART: Regular rate and rhythm.? Normal peripheral pulses. ABDOMEN: Soft, nontender, nondistended. EXTREMITIES: Normal range of motion.? Clean and dry surgical hip wound present on the right, no signs of infection. SKIN: Warm, dry, no rash. Bruising over abdomen consistent with SubQ injections. NEURO: Alert and conversant no focal deficits PSYCH: Normal mood and affect. Objective Data Vital Signs Vital Signs: Vital Signs - 24 hr 05/25/23 16:35 05/25/23 16:58 05/25/23 17:00 Temperature 102.7 F H Pulse Rate 108 H 107 H Respiratory Rate 24 H Blood Pressure 161/100 H Pulse Oximetry 93 98 Oxygen Delivery Nasal Cannula Nasal Cannula Oxygen Flow Rate 2 4 05/25/23 17:00 05/25/23 18:40 05/25/23 18:25 Temperature 101.1 F H Pulse Rate 104 H 110 H Respiratory Rate 24 H 24 H Blood Pressure 130/8 L 113/81 Pulse Oximetry 95 96 Oxygen Delivery Oxygen Flow Rate 05/25/23 19:42 05/25/23 19:45 05/25/23 21:01 Temperature 99.3 F Pulse Rate 99 99 97 Respiratory Rate 18 24 H 26 H Blood Pressure 114/67 Pulse Oximetry 98 96 96 Oxygen Delivery Oxygen Flow Rate 05/25/23 21:10 05/25/23 20:24 05/25/23 20:30 Temperature Pulse Rate 96 104 H Respiratory Rate 25 H 22 H Blood Pressure Pulse Oximetry 94 95 97 Ox
[2023-05-26] MEDS: CLOPIDOGREL BISULFATE 75 MG TABLET PO (11:33)
[2023-05-26] MEDS: ASPIRIN 81 MG ENTERIC TABLET PO (11:33)
[2023-05-26] MEDS: METOPROLOL TARTRATE 25 MG TABLET PO (11:33)
[2023-05-26] MEDS: DOXYCYCLINE 100 MG/NS 100 ML 100 MG/100 ML BAG IVPB ×2 (11:34→20:21)
[2023-05-26] MEDS: ENOXAPARIN 40 MG/0.4 ML SYRINGE SUB-Q (11:34)
--- NOTE | 2023-05-26 12:28 | PM.CNCAR ---
Assessment and Plan Assessment and plan (1) HCAP (healthcare-associated pneumonia): Code(s): J18.9 - Pneumonia, unspecified organism Status: Acute Assessment and Plan: Treatment as per primary team (2) Septic shock: Code(s): A41.9 - Sepsis, unspecified organism; R65.21 - Severe sepsis with septic shock Status: Acute Assessment and Plan: Had low blood pressures in the ER, currently normotensive. Management as per primary team. (3) Elevated troponin: Code(s): R79.89 - Other specified abnormal findings of blood chemistry Status: Acute Assessment and Plan: Troponins were found to be elevated at 0.047, 1.020, 1.730. EKG without ischemic changes. Patient denies any chest pain. She does see Dr. Polanco. Has known history of coronary artery disease. Per daughter, had blockages that were not amenable to stenting, therefore, has been medically managed. Suspect that the troponin elevation is due to demand ischemia in the setting of sepsis, hypotension on presentation, however, cannot rule out underlying acute coronary syndrome. Doesn't have chest pain and EKGs without ischemic changes which is reassuring. Family does not want any invasive procedures done for the patient, which is reasonable given her advanced age and DNR status. Therefore, recommend to pursue medical management only. Recommend to continue ASA, Plavix, statin. Can continue beta aurora if blood pressures tolerate. Can do therapeutic Lovenox for 48 hours if no concern for bleeding. Echocardiogram ordered and pending. (4) Coronary artery disease: Code(s): I25.10 - Atherosclerotic heart disease of [place] coronary artery without angina pectoris Status: Acute Assessment and Plan: As above Plan Recommendations and plan discussed with Hospitalist. History of Present Illness History of Present Illness Consult date/time: 05/26/23 12:28 Requesting physician: Cruz Harding MD Consult reason: Other (Elevated troponin) Reason For Visit: hcap, hypoxia, elevated troponin Narrative: We are consulted for elevated troponin. This is an 88 year old female with recent hospitalization for pneumonia, hip fracture who presented from her facility with shortness of breath, increased cough over past few days, confusion. ER workup concerning for sepsis likely from pneumonia. Troponins were found to be elevated at 0.047, 1.020, 1.730. EKG without ischemic changes. Patient denies any chest pain. She does see Dr. Polanco. Has known history of coronary artery disease. Per daughter, had blockages that were not amenable to stenting, therefore, has been medically managed. Has an upcoming appointment with Dr. Polanco next week. Review of Systems Review of Systems: All systems reviewed & are unremarkable except as noted in HPI and below (HPI) [facility] Past Medical History Medical History CVA (cerebral vascular accident) August 2019 Essential hypertension GERD (gastroesophageal reflux disease) History of partial replacement of left hip joint using bipolar prosthesis Hyperlipidemia Insomnia Myocardial infarction 2016 with cardiac catheterization at [facility] Urinary incontinence, mixed Surgical History Surgical History History of bilateral knee replacement Right knee greater than 10 years ago, left knee 2017 History of cardiac catheterization Without stent placement History of cholecystectomy History of hysterectomy Family History Family History Son Malignant neoplasm of prostate Social History Social History Social History: Primary care physician: Dr. Bolanos Code status: Full code Smoking status: Never smoker Alcohol intake: current Alcohol use details: She rarely drinks alcohol and only in mode
[2023-05-26] MEDS: PERFLUTREN LIPID MICROSPHERES 1.5 ML VIAL DILUTED TO 10 ML TOTAL VOLUME IV PUSH (14:00)
[2023-05-26] MEDS: SACCHAROMYCES BOULARDII 250 MG CAPSULE PO (17:59)
[2023-05-26] MEDS: METOPROLOL TARTRATE 50 MG TAB PO (20:06)
[2023-05-26] MEDS: VANCOMYCIN 1,500 MG/NS 500 ML 1,500 MG/500 ML BAG 250 MG IVPB (22:59)
[2023-05-27] VITALS (14 sets, daily range): BP systolic 119–148; BP diastolic 67–88; PULSE 93–121; RESP 14–24; TEMP 36.4–36.6; O2SAT 93–100
[2023-05-27 04:54] LABS: Basophils Absolute Auto 0.1 K/mm3 (0.0-0.1); Basophils Percent Auto 0.5 % (0.2-1.2); Eosinophils Absolute Auto 0.2 K/mm3 (0-0.3); Eosinophils Percent Auto 1.1 % (0-4.4); Hematocrit 29.8 % (37.0-47.0); Hemoglobin 9.1 g/dL (12.0-15.0); Immature Granulocyte Absolute 0.17 K/mm3 (0.00-0.031); Immature Granulocyte Percent A 1.1 % (0-0.5); Immature Platelet Fraction Pct 1.9 % (0.9-11.2); Lymphocytes Absolute Auto 1.54 K/mm3 (0.9-3.2); Lymphocytes Percent Auto 9.6 % (18.3-44.2); Mean Corpuscular HGB Conc 30.5 g/dl (32-36); Mean Platelet Volume 9.3 fl (7.4-10.4); Monocytes Absolute Auto 1.2 K/mm3 (0.1-0.6); Monocytes Percent Auto 7.7 % (2.6-8.5); Neutrophils Absolute Auto 12.8 K/mm3 (1.3-6.7); Platelet Count Result 222 k/mm3 (150-375); Red Blood Count 2.76 M/mm3 (4.2-5.4); Red Cell Distribution Width 14.3 % (11.5-14.5)
[2023-05-27 05:17] LABS: Anisocytosis 1+ (NORMAL); Giant Platelets Present; Hypochromasia 1+ (NORMAL); Ovalocytes 1+ (NORMAL); Platelet Estimate Adequate (Adequate); Schistocytes None Seen (NORMAL)
[2023-05-27 05:18] LABS: Alanine Aminotransferase 15 U/L (6-35); Albumin Level 2.7 g/dL (3.5-5.1); Alkaline Phosphatase 92 U/L (38-126); Anion Gap 8 mmol/L (8-16); Aspartate Amino Transferase 35 U/L (14-36); Bilirubin,Total 0.7 mg/dL (0.2-1.3); Blood Urea Nitrogen 12 mg/dL (7-17); Calcium 7.7 mg/dL (8.4-10.2); Carbon Dioxide 23 mmol/L (22-30); Chloride 105 mmol/L (98-107); Estimated CRCL calculation 62 ml/min; Estimated Glomerular Filt Rate > 60; Glucose 104 mg/dL (65-110); Magnesium 1.7 mg/dL (1.6-2.3); Potassium 3.2 mmol/L (3.4-5.0); Sodium 136 mmol/L (137-145)
[2023-05-27] MEDS: ENOXAPARIN 40 MG/0.4 ML SYRINGE SUB-Q (08:22)
[2023-05-27] MEDS: CEFEPIME 2 GM/NS 50 ML 2 GM/50 ML BAG IVPB ×2 (08:22→22:09)
[2023-05-27] MEDS: ASPIRIN 81 MG ENTERIC TABLET PO (08:23)
[2023-05-27] MEDS: SACCHAROMYCES BOULARDII 250 MG CAPSULE PO ×2 (08:23→16:37)
[2023-05-27] MEDS: POTASSIUM CHLORIDE 20 MEQ ER TABLET 40 MEQ PO (08:23)
[2023-05-27] MEDS: METOPROLOL TARTRATE 50 MG TAB PO ×2 (08:23→20:23)
[2023-05-27] MEDS: LORATADINE 10 MG TABLET PO (08:23)
[2023-05-27] MEDS: CLOPIDOGREL BISULFATE 75 MG TABLET PO (08:23)
[2023-05-27] MEDS: buPROPion HCL XL (24 HR) 150 MG TABCR PO (08:23)
[2023-05-27] MEDS: PANTOPRAZOLE 40 MG TABLET PO (08:23)
[2023-05-27] MEDS: DOXYCYCLINE 100 MG/NS 100 ML 100 MG/100 ML BAG IVPB ×2 (09:18→20:20)
--- NOTE | 2023-05-27 12:47 | PM.PNCARD ---
Progress Note: A&P Assessment and Plan (1) HCAP (healthcare-associated pneumonia): Code(s): J18.9 - Pneumonia, unspecified organism Status: Acute Assessment and Plan: Treatment as per primary team (2) Septic shock: Code(s): A41.9 - Sepsis, unspecified organism; R65.21 - Severe sepsis with septic shock Status: Acute Assessment and Plan: Had low blood pressures in the ER, currently normotensive. Management as per primary team. (3) Elevated troponin: Code(s): R79.89 - Other specified abnormal findings of blood chemistry Status: Acute Assessment and Plan: Troponins were found to be elevated at 0.047, 1.020, 1.730. EKG without ischemic changes. Patient denies any chest pain. She does see Dr. Polanco. Has known history of coronary artery disease. Per daughter, had blockages that were not amenable to stenting, therefore, has been medically managed. Suspect that the troponin elevation is due to demand ischemia in the setting of sepsis, hypotension on presentation, however, cannot rule out underlying acute coronary syndrome. Doesn't have chest pain and EKGs without ischemic changes which is reassuring. Family does not want any invasive procedures done for the patient, which is reasonable given her advanced age and DNR status. Therefore, recommend to pursue medical management only. Recommend to continue ASA, Plavix, statin. Can continue beta aurora if blood pressures tolerate. Can do therapeutic Lovenox for 48 hours if no concern for bleeding. Echocardiogram shows LVEF 40-45%, hypokinesis of the anterolateral wall and the inferoseptum. Continue with medical management. Resume home Imdur. (4) Cardiomyopathy: Code(s): I42.9 - Cardiomyopathy, unspecified Status: Acute Assessment and Plan: Echocardiogram shows LVEF 40-45%, hypokinesis of the anterolateral wall and the inferoseptum. Continue with medical management. Continue with Metoprolol -- recommend to switch to Metoprolol succinate prior to discharge. Resume home Losartan if blood pressures remain stable and no further concerns for hypotension. Plan Cardiology will sign off at this time. Please call us back if needed. Subjective Date/time seen: 05/27/23 12:47 Interval history: We are consulted for elevated troponin. This is an 88 year old female with recent hospitalization for pneumonia, hip fracture who presented from her facility with shortness of breath, increased cough over past few days, confusion. ER workup concerning for sepsis likely from pneumonia. Troponins were found to be elevated at 0.047, 1.020, 1.730. EKG without ischemic changes. Patient denies any chest pain. She does see Dr. Polanco. Has known history of coronary artery disease. Per daughter, had blockages that were not amenable to stenting, therefore, has been medically managed. Has an upcoming appointment with Dr. Polanco next week. Date of service 05/27: Still coughing. Blood pressures have stayed stable. Echo results discussed with patient and family. Review of Systems Review of Systems: All systems reviewed & are unremarkable except as noted in HPI and below (HPI) Exam Const: Other: Ill appearing elderly female HENMT: Mouth: Yes dry mucous membranes Resp: Effort & Inspection: normal respiratory effort Auscultation: diminished lung sounds Cardio: Rate: regular rate Rhythm: regular rhythm Heart sounds: no murmurs Neuro: Speech: normal speech Psych: Mental Status: mental status grossly normal Affect: normal affect Objective Data Vital Signs Vital Signs: Vital Signs - 24 hr 05/26/23 16:00 05/26/23 16:00 05/26/23 14:00 Temperature 36.2 C L Pulse Rate 116 H 104 H Respiratory Rate 24 H Blood Pressure 144/68 H Pulse Oximetry 97 97 Oxygen Delivery Nasal Cannula Oxygen Flow Rate 4 05/26/23 16:00 05/26/23 18:00 05/26/23 19:59 Temperature 36.3 C L Pulse Rate 115 H 114 H 112 H Respiratory Rate 24 H Blood
--- NOTE | 2023-05-27 13:58 | PM.IMPN ---
Progress Note: A&P Assessment and Plan (1) HCAP (healthcare-associated pneumonia): Code(s): J18.9 - Pneumonia, unspecified organism Status: Acute (2) Elevated troponin: Code(s): R79.89 - Other specified abnormal findings of blood chemistry Status: Acute (3) Acute hypoxemic respiratory failure: Code(s): J96.01 - Acute respiratory failure with hypoxia Status: Acute (4) Septic shock: Code(s): A41.9 - Sepsis, unspecified organism; R65.21 - Severe sepsis with septic shock Status: Acute Assessment and Plan: 88F presents with shortness of breath and confusion. There is associated cough. eR course revealed pneumonia and with subsequent blood pressure low also with septic shock. Admitted on 05/25/23 CT head neg for acute event. CT chest revealing b/l pneumonia and pulmonary edema. BNP is 4360. Received fluid resuscitation. WBC 14.1 acute hypoxic respiratory failure needing oxygen supplementation via nasal cannula troponin mildly elevated 0.047 BNP of 4360 UA positive for infection influenza RSV COVID negative subsequent troponin level elevated at 1.020. VBG 7.48/32/56/24. To for healthcare related pneumonia. Sputum culture blood culture urine antigens ordered. Started on vancomycin and cefepime. Also add doxycycline for atypical coverage. Sputum culture growth to date. Blood culture no growth to date. MRSA nares negative will stop vancomycin Non STEMI with troponin elevation from 0 point 047-1.020 -1.730. Likely due to underlying sepsis and hypotension. History of coronary artery disease received rectal aspirin in the ER. No aggressive intervention wanted by family. Continue aspirin Plavix hold beta-aurora in light of hypotension. Trend troponin. No active chest pain. With improved blood pressure this morning was restart beta-aurora. Echo with mild hypokinesis EF EF 40-45% hypokinesis of the anterior lateral wall and inferior septum. Grade 1 diastolic dysfunction. Medical management Mild chronic anemia History of CVA Recurrent falls Coronary artery disease Osteoarthritis Hyperlipidemia GERD Recent displaced right femur neck fracture status post hemiarthroplasty with bipolar prosthesis 05/01/2023 discharge to [facility] for rehab History of frequent UTI Code status DNR DVT prophylaxis Lovenox Subjective Date/time seen: 05/27/23 13:58 Interval history: 05/27/2023: No overnight events. Still has some cough feeling better. Oxygen requirement has improved Review of Systems Review of Systems: All systems reviewed & are unremarkable except as noted in HPI and below Exam Narrative: GENERAL: Ill appearing stat[place] acute distress HEAD: Normocephalic, atraumatic. EYES: PERRLA and EOMI. ENT: Nares clear.? Mucous membranes moist. NECK: Supple. CHEST: Coarse breath sound with rhonchi, on nasal canula. HEART: Regular rate and rhythm.? Normal peripheral pulses. ABDOMEN: Soft, nontender, nondistended. EXTREMITIES: Normal range of motion.? Clean and dry surgical hip wound present on the right, no signs of infection. SKIN: Warm, dry, no rash. Bruising over abdomen consistent with SubQ injections. NEURO: Alert and conversant no focal deficits PSYCH: Normal mood and affect. Objective Data Vital Signs Vital Signs: Vital Signs - 24 hr 05/26/23 16:00 05/26/23 16:00 05/26/23 14:00 Temperature 97.1 F L Pulse Rate 116 H 104 H Respiratory Rate 24 H Blood Pressure 144/68 H Pulse Oximetry 97 97 Oxygen Delivery Nasal Cannula Oxygen Flow Rate 4 05/26/23 16:00 05/26/23 18:00 05/26/23 19:59 Temperature 97.4 F L Pulse Rate 115 H 114 H 112 H Respiratory Rate 24 H Blood Pressure 124/64 Pulse Oximetry 99 Oxygen Delivery Oxygen Flow Rate 05/26/23 20:06 05/26/23 20:00 05/26/23 20:00 Temperature Pulse Rate 112 H 86 Respiratory Rate Blood Pressure Pulse Oximetry 98 Oxygen Delivery Nasal Cannula Oxygen Flow Rate 4
[2023-05-28] VITALS (13 sets, daily range): BP systolic 119–146; BP diastolic 63–77; PULSE 91–126; RESP 16–24; TEMP 36.2–36.8; O2SAT 93–100
[2023-05-28 05:04] LABS: Basophils Absolute Auto 0.1 K/mm3 (0.0-0.1); Basophils Percent Auto 0.4 % (0.2-1.2); Eosinophils Absolute Auto 0.2 K/mm3 (0-0.3); Eosinophils Percent Auto 1.3 % (0-4.4); Hematocrit 30.2 % (37.0-47.0); Hemoglobin 9.3 g/dL (12.0-15.0); Immature Granulocyte Absolute 0.19 K/mm3 (0.00-0.031); Immature Granulocyte Percent A 1.3 % (0-0.5); Lymphocytes Absolute Auto 1.46 K/mm3 (0.9-3.2); Lymphocytes Percent Auto 9.8 % (18.3-44.2); Mean Corpuscular HGB Conc 30.8 g/dl (32-36); Mean Corpuscular Hemoglobin 32.9 pg (26-34); Mean Corpuscular Volume 106.7 fl (80-100); Mean Platelet Volume 9.1 fl (7.4-10.4); Monocytes Absolute Auto 1.2 K/mm3 (0.1-0.6); Monocytes Percent Auto 7.8 % (2.6-8.5); Neutrophils Absolute Auto 11.9 K/mm3 (1.3-6.7); Neutrophils Percent Auto 79.4 % (45.5-73.1); Platelet Count Result 234 k/mm3 (150-375); Red Blood Count 2.83 M/mm3 (4.2-5.4); Red Cell Distribution Width 13.9 % (11.5-14.5)
[2023-05-28 05:19] LABS: Alanine Aminotransferase 19 U/L (6-35); Albumin Level 2.8 g/dL (3.5-5.1); Alkaline Phosphatase 110 U/L (38-126); Anion Gap 7 mmol/L (8-16); Aspartate Amino Transferase 30 U/L (14-36); Bilirubin,Total 0.7 mg/dL (0.2-1.3); Blood Urea Nitrogen 14 mg/dL (7-17); Calcium 8.4 mg/dL (8.4-10.2); Carbon Dioxide 26 mmol/L (22-30); Chloride 104 mmol/L (98-107); Estimated CRCL calculation 62 ml/min; Estimated Glomerular Filt Rate > 60; Glucose 136 mg/dL (65-110); Magnesium 1.7 mg/dL (1.6-2.3); Potassium 3.5 mmol/L (3.4-5.0); Sodium 137 mmol/L (137-145)
[2023-05-28] MEDS: CEFEPIME 2 GM/NS 50 ML 2 GM/50 ML BAG IVPB ×2 (08:40→20:59)
[2023-05-28] MEDS: ENOXAPARIN 40 MG/0.4 ML SYRINGE SUB-Q (08:40)
[2023-05-28] MEDS: SACCHAROMYCES BOULARDII 250 MG CAPSULE PO ×2 (08:41→16:29)
[2023-05-28] MEDS: METOPROLOL TARTRATE 50 MG TAB PO ×2 (08:41→20:58)
[2023-05-28] MEDS: PANTOPRAZOLE 40 MG TABLET PO (08:41)
[2023-05-28] MEDS: DOXYCYCLINE 100 MG/NS 100 ML 100 MG/100 ML BAG IVPB ×2 (08:42→21:35)
[2023-05-28] MEDS: CLOPIDOGREL BISULFATE 75 MG TABLET PO (08:42)
[2023-05-28] MEDS: LORATADINE 10 MG TABLET PO (08:42)
[2023-05-28] MEDS: buPROPion HCL XL (24 HR) 150 MG TABCR PO (08:42)
--- NOTE | 2023-05-28 14:19 | PM.IMPN ---
Progress Note: A&P Assessment and Plan (1) HCAP (healthcare-associated pneumonia): Code(s): J18.9 - Pneumonia, unspecified organism Status: Acute (2) Elevated troponin: Code(s): R79.89 - Other specified abnormal findings of blood chemistry Status: Acute (3) Acute hypoxemic respiratory failure: Code(s): J96.01 - Acute respiratory failure with hypoxia Status: Acute (4) Septic shock: Code(s): A41.9 - Sepsis, unspecified organism; R65.21 - Severe sepsis with septic shock Status: Acute Assessment and Plan: 88F presents with shortness of breath and confusion. There is associated cough. eR course revealed pneumonia and with subsequent blood pressure low also with septic shock. Admitted on 05/25/23 CT head neg for acute event. CT chest revealing b/l pneumonia and pulmonary edema. BNP is 4360. Received fluid resuscitation. WBC 14.1 acute hypoxic respiratory failure needing oxygen supplementation via nasal cannula troponin mildly elevated 0.047 BNP of 4360 UA positive for infection influenza RSV COVID negative subsequent troponin level elevated at 1.020. VBG 7.48/32/56/24. To for healthcare related pneumonia. Sputum culture blood culture urine antigens ordered. Started on vancomycin and cefepime. Also add doxycycline for atypical coverage. Sputum culture growth to date. Blood culture no growth to date. MRSA nares negative will stop vancomycin. Will recheck chest x-ray. Add bronchodilators. Also give a dose of Lasix Non STEMI with troponin elevation from 0 point 047-1.020 -1.730. Likely due to underlying sepsis and hypotension. History of coronary artery disease received rectal aspirin in the ER. No aggressive intervention wanted by family. Continue aspirin Plavix hold beta-aurora in light of hypotension. Trend troponin. No active chest pain. With improved blood pressure this morning was restart beta-aurora. Echo with mild hypokinesis EF EF 40-45% hypokinesis of the anterior lateral wall and inferior septum. Grade 1 diastolic dysfunction. Medical management Mild chronic anemia History of CVA Recurrent falls Coronary artery disease Osteoarthritis Hyperlipidemia GERD Recent displaced right femur neck fracture status post hemiarthroplasty with bipolar prosthesis 05/01/2023 discharge to [facility] for rehab History of frequent UTI Code status DNR DVT prophylaxis Lovenox Subjective Date/time seen: 05/28/23 14:19 Interval history: 05/27/2023: No overnight events. Still has some cough feeling better. Oxygen requirement has improved 05/28/2023: Feeling better still has some cough with sputum production. Intermittent blood stents to. Oxygen requirement stable. Review of Systems Review of Systems: All systems reviewed & are unremarkable except as noted in HPI and below Exam Narrative: GENERAL: Ill appearing [place] acute distress HEAD: Normocephalic, atraumatic. EYES: PERRLA and EOMI. ENT: Nares clear.? Mucous membranes moist. NECK: Supple. CHEST: Coarse breath sound with rhonchi, on nasal canula. HEART: Regular rate and rhythm.? Normal peripheral pulses. ABDOMEN: Soft, nontender, nondistended. EXTREMITIES: Normal range of motion.? Clean and dry surgical hip wound present on the right, no signs of infection. SKIN: Warm, dry, no rash. Bruising over abdomen consistent with SubQ injections. NEURO: Alert and conversant no focal deficits PSYCH: Normal mood and affect. Objective Data Vital Signs Vital Signs: Vital Signs - 24 hr 05/27/23 16:27 05/27/23 16:00 05/27/23 19:56 Temperature 97.5 F L 97.9 F Pulse Rate 107 H 110 H 120 H Respiratory Rate 14 16 Blood Pressure 142/80 H 148/67 H Pulse Oximetry 95 93 Oxygen Delivery Oxygen Flow Rate 05/27/23 20:23 05/27/23 20:00 05/27/23 20:00 Temperature Pulse Rate 110 H 121 H Respiratory Rate Blood Pressure Pulse Oximetry 96 Oxygen Delivery Nasal Cannula Oxygen Flow Rate
[2023-05-28] MEDS: FUROSEMIDE INJ 40 MG/4 ML VIAL 20 MG IV PUSH ×2 (16:28→18:26)
[2023-05-28] MEDS: ALBUTEROL SULFATE NEB 2.5 MG/3 ML INH INHALATION (18:20)
[2023-05-28] MEDS: IPRATROPIUM BR 0.02% INH SOLN 0.5 MG/2.5 ML VIAL INHALATION (18:20)
[2023-05-28] MEDS: guaiFENesin 12 HR 600 MG TABCR PO (20:58)
[2023-05-29] VITALS (19 sets, daily range): BP systolic 112–150; BP diastolic 69–91; PULSE 81–118; RESP 18–28; TEMP 36.4–37.1; O2SAT 94–100
[2023-05-29 05:12] LABS: Basophils Absolute Auto 0.1 K/mm3 (0.0-0.1); Basophils Percent Auto 0.5 % (0.2-1.2); Eosinophils Absolute Auto 0.3 K/mm3 (0-0.3); Eosinophils Percent Auto 2.3 % (0-4.4); Hematocrit 29.2 % (37.0-47.0); Hemoglobin 9.4 g/dL (12.0-15.0); Immature Granulocyte Absolute 0.19 K/mm3 (0.00-0.031); Immature Granulocyte Percent A 1.6 % (0-0.5); Lymphocytes Absolute Auto 2.17 K/mm3 (0.9-3.2); Lymphocytes Percent Auto 18.3 % (18.3-44.2); Mean Corpuscular HGB Conc 32.2 g/dl (32-36); Mean Corpuscular Volume 102.5 fl (80-100); Mean Platelet Volume 9.2 fl (7.4-10.4); Monocytes Absolute Auto 1.2 K/mm3 (0.1-0.6); Monocytes Percent Auto 10.1 % (2.6-8.5); Neutrophils Absolute Auto 7.9 K/mm3 (1.3-6.7); Neutrophils Percent Auto 67.2 % (45.5-73.1); Nucleated Red Blood Cells Perc 0.3 % (0.0-0.2); Platelet Count Result 253 k/mm3 (150-375); Red Blood Count 2.85 M/mm3 (4.2-5.4); Red Cell Distribution Width 13.7 % (11.5-14.5); White Blood Count 11.8 K/mm3 (4.5-10.0)
[2023-05-29 05:23] LABS: Alanine Aminotransferase 26 U/L (6-35); Albumin Level 2.9 g/dL (3.5-5.1); Alkaline Phosphatase 108 U/L (38-126); Anion Gap 8 mmol/L (8-16); Aspartate Amino Transferase 40 U/L (14-36); Bilirubin,Total 0.9 mg/dL (0.2-1.3); Blood Urea Nitrogen 16 mg/dL (7-17); Calcium 8.1 mg/dL (8.4-10.2); Carbon Dioxide 30 mmol/L (22-30); Chloride 99 mmol/L (98-107); Estimated CRCL calculation 61 ml/min; Estimated Glomerular Filt Rate > 60; Glucose 126 mg/dL (65-110); Magnesium 1.6 mg/dL (1.6-2.3); Potassium 3.2 mmol/L (3.4-5.0); Sodium 137 mmol/L (137-145)
[2023-05-29] MEDS: traMADol HCL (*CRX) 50 MG TABLET PO ×2 (06:00→12:27)
[2023-05-29] MEDS: ALBUTEROL SULFATE NEB 2.5 MG/3 ML INH INHALATION ×3 (08:01→20:30)
[2023-05-29] MEDS: IPRATROPIUM BR 0.02% INH SOLN 0.5 MG/2.5 ML VIAL INHALATION ×3 (08:01→20:30)
[2023-05-29 10:56] LABS: Base Excess ABG 6.7 mEq/l (+/-2.0); Fractional Inspired Oxygen 24 %; HCO3 ABG 28.7 mEq/l (22.0-26.0); Oxygen Content ABG 14.3 %vol (16.0-22.0); Oxygen Saturation ABG 98.3 % (95.0-100.0); Oxyhemoglobin 96.8 % THb (90.0-100.0); PCO2 ABG 31.7 mmHg (35.0-45.0); PO2 ABG 100.4 mmHg (80.0-100.0); PO2 FiO2 Ratio Arterial Blood 4.18 %; Total Hemoglobin 10.4 g/dL (12.0-18.0)
[2023-05-29 10:58] LABS: Device NASAL CANNULA; Modified Allen's Test Pass; Site Drawn RIGHT RADIAL; pH ABG 7.575 (7.350-7.450)
[2023-05-29] MEDS: METOPROLOL TARTRATE 50 MG TAB PO (12:00)
--- NOTE | 2023-05-29 12:10 | PCOTNOTE ---
Per RN, Patient not to be seen for therapy services at this time. RN has contacted Ortho to follow up. Patient not seen this date.
[2023-05-29] MEDS: POTASSIUM CHLORIDE INJ 40 MEQ in SODIUM CHLORIDE 0.9% IV 500 ML 130 MEQ IVPB (12:29)
--- NOTE | 2023-05-29 12:32 | PM.IMPN ---
Progress Note: A&P Assessment and Plan (1) HCAP (healthcare-associated pneumonia): Code(s): J18.9 - Pneumonia, unspecified organism Status: Acute (2) Elevated troponin: Code(s): R79.89 - Other specified abnormal findings of blood chemistry Status: Acute (3) Acute hypoxemic respiratory failure: Code(s): J96.01 - Acute respiratory failure with hypoxia Status: Acute (4) Septic shock: Code(s): A41.9 - Sepsis, unspecified organism; R65.21 - Severe sepsis with septic shock Status: Acute Assessment and Plan: 88F presents with shortness of breath and confusion. There is associated cough. eR course revealed pneumonia and with subsequent blood pressure low also with septic shock. Admitted on 05/25/23 CT head neg for acute event. CT chest revealing b/l pneumonia and pulmonary edema. BNP is 4360. Received fluid resuscitation. WBC 14.1 acute hypoxic respiratory failure needing oxygen supplementation via nasal cannula troponin mildly elevated 0.047 BNP of 4360 UA positive for infection influenza RSV COVID negative subsequent troponin level elevated at 1.020. VBG 7.48/32/56/24. To for healthcare related pneumonia. Sputum culture blood culture urine antigens ordered. Started on vancomycin and cefepime. Also add doxycycline for atypical coverage. Sputum culture growth to date. Blood culture no growth to date. MRSA nares negative will stop vancomycin. Recheck chest x-ray with moderate interstitial edema increasing diffuse ground-glass opacities increasing bibasilar opacities which may represent atelectasis or infection. Moderate left and small right pleural effusion. Added bronchodilators. Dose of Lasix given 05/28/2023. Recheck chest x-ray in a.m. Non STEMI with troponin elevation from 0 point 047-1.020 -1.730. Likely due to underlying sepsis and hypotension. History of coronary artery disease received rectal aspirin in the ER. No aggressive intervention wanted by family. Continue aspirin Plavix hold beta-aurora in light of hypotension. Trend troponin. No active chest pain. With improved blood pressure this morning was restart beta-aurora. Echo with mild hypokinesis EF EF 40-45% hypokinesis of the anterior lateral wall and inferior septum. Grade 1 diastolic dysfunction. Medical management. On aspirin and Plavix UTI: Urine culture growing Proteus. On cefepime Mild chronic anemia History of CVA Recurrent falls Coronary artery disease Osteoarthritis Hyperlipidemia GERD Recent displaced right femur neck fracture status post hemiarthroplasty with bipolar prosthesis 05/01/2023 discharge to [facility] for rehab x-ray hip with dislocation of the prosthesis. Orthopedic consulted History of frequent UTI Code status DNR DVT prophylaxis Lovenox Subjective Date/time seen: 05/29/23 12:32 Interval history: 05/27/2023: No overnight events. Still has some cough feeling better. Oxygen requirement has improved 05/28/2023: Feeling better still has some cough with sputum production. Intermittent blood stents to. Oxygen requirement stable. 05/29/2022: Patient was noted to be more confused and had some speech abnormality. CT head performed was negative for any acute abnormality. ABG was reviewed and she was also unable to move her right hip and was noted to have dislocation of the right hip Review of Systems Review of Systems: All systems reviewed & are unremarkable except as noted in HPI and below Exam Narrative: GENERAL: Ill appearing not in acute distress confused HEAD: Normocephalic, atraumatic. EYES: PERRLA and EOMI. ENT: Nares clear.? Mucous membranes moist. NECK: Supple. CHEST: Coarse breath sound with rhonchi, on nasal canula. HEART: Regular rate and rhythm.? Normal peripheral pulses. ABDOMEN: Soft, nontender, nondistended. EXTREMITIES: Normal range of motion.? Clean and dry surgical hip wound present on the right, no signs of infection. Right hip unable to move
[2023-05-29] MEDS: TOLNAFTATE 1% POWDER 45 GM BTL 1 APPLIC TOPICAL ×2 (12:33→20:09)
[2023-05-29] MEDS: buPROPion HCL XL (24 HR) 150 MG TABCR PO (12:38)
--- NOTE | 2023-05-29 12:55 | PCPTNOTE ---
The patient treatment was not able to be completed on 05/29/2023 due to medical change. Will plan to continue treatment per plan of care.
--- NOTE | 2023-05-29 13:00 | PM.CNOR ---
Assessment and Plan Assessment and plan (1) Hip dislocation, right: Qualifiers: Encounter type: initial encounter Qualified Code(s): S73.004A - Unspecified dislocation of right hip, initial encounter <PATRICA Parrish - Last Filed: 05/29/23 15:52> Code(s): S73.004A - Unspecified dislocation of right hip, initial encounter <PATRICA Parrish - Last Filed: 05/29/23 15:52> Status: Acute <PATRICA Parrish - Last Filed: 05/29/23 15:52> Assessment and Plan: History, exam and radiographs reviewed with the patient and family at bedside. Patient is currently confused and not answering questions appropriately. Family at the bedside understanding of current right hip dislocation. Discussed nonoperative and operative treatment options. All questions were answered. The family/POA desires operative treatment. . Risks of surgery including but not limited to neurovascular damage, wound complications, blood clot, pulmonary embolus, stroke, myocardial infarction, anesthetic risks up to and including were reviewed. Continued pain and possible dysfunction were explained. No guarantees were offered. The family/POA understands and wishes to proceed. Plan: Closed Reduction Right Hip Dislocation vs. Open Reduction Right Hip Dislocation vs. Revision Right Hip Hemiarthroplasty by Dr. Chowdary Patient has already eaten today and is on a blood thinner. NPO at midnight. HOLD anticoagulation. Pain control. Bedrest. HOLD PT. <PATRICA Parrish - Last Filed: 05/29/23 15:52> Assessment and Plan: Reviewed history, exam, radiographs and current labs with attending MD and covering surgeon, Dr. Chowdary, who agrees with current plan as indicated above. No further recommendations from Dr. Chowdary at this time. <PATRICA Parrish - Last Filed: 05/29/23 15:52> History of Present Illness HPI Consult date: 05/29/23 <PATRICA Parrish - Last Filed: 05/29/23 15:52> 05/30/23 <Eric Chowdary MD - Last Filed: 05/30/23 07:18> Chief complaint: hcap, hypoxia, elevated troponin <PATRICA Parrish - Last Filed: 05/29/23 15:52> Narrative: 88-year-old female with a history of a right hip hemiarthroplasty with bipolar prosthesis by Dr. Chowdary on 05/01/2023. The patient was discharged following her hospitalization to liver rehabilitation. She was readmitted on 05/25 due to pneumonia. Sometime over the course of yesterday evening into this morning, the patient was noted to have a right hip dislocation. Radiographs were obtained which reveal a superolateral dislocation of a bipolar type right hip hemiarthroplasty. Dr. Chowdary was consulted for further evaluation an orthopedic standpoint. <PATRICA Parrish - Last Filed: 05/29/23 15:52> Review of Systems Review of Systems: ROS unobtainable: Yes unobtainable due to mental status <PATRICA Parrish - Last Filed: 05/29/23 15:52> [facility] Past Medical History Medical History: Medical History (Updated 05/29/23 @ 15:43 by PATRICA Parrish) CVA (cerebral vascular accident) August 2019 Essential hypertension GERD (gastroesophageal reflux disease) Hip dislocation, right History of partial replacement of left hip joint using bipolar prosthesis Hyperlipidemia Insomnia Myocardial infarction 2016 with cardiac catheterization at [facility] [place] Urinary incontinence, mixed <PATRICA Parrish - Last Filed: 05/29/23 15:52> Surgical History Surgical History: Surgical History History of bilateral knee replacement Right knee greater than 10 years ago, left knee 2017 History of cardiac catheterization Without stent placement History of cholecystectomy History of hysterectomy <PATRICA Parrish - Last Filed: 05/29/23 15:52> Family History Family History: Family History Son Jacob
[2023-05-29] MEDS: DOXYCYCLINE 100 MG/NS 100 ML 100 MG/100 ML BAG IVPB ×2 (14:15→20:09)
[2023-05-29] MEDS: cefTRIAXone 2 GM/NS 100 ML 2 GM/100 ML BAG IVPB (14:33)
[2023-05-29] MEDS: HYDROcodone/acetaminophen (*CRX) 5-325 MG TABLET 1 TAB PO (16:26)
[2023-05-29] MEDS: SACCHAROMYCES BOULARDII 250 MG CAPSULE PO (16:28)
[2023-05-29] MEDS: METOPROLOL TARTRATE INJ 5 MG/5 ML VIAL IV PUSH (22:06)
[2023-05-30] VITALS (26 sets, daily range): BP systolic 85–141; BP diastolic 38–87; PULSE 80–125; RESP 16–22; TEMP 36.3–37.3; O2SAT 82–100
[2023-05-30 00:47] LABS: Pneumococcal Antigen Urine Not Detected (Not Detected)
[2023-05-30] MEDS: ALBUTEROL SULFATE NEB 2.5 MG/3 ML INH INHALATION ×3 (02:10→12:57)
[2023-05-30] MEDS: IPRATROPIUM BR 0.02% INH SOLN 0.5 MG/2.5 ML VIAL INHALATION ×3 (02:10→12:57)
[2023-05-30 04:03] LABS: Legionella pneumophila Ag Ur Not Detected (Not Detected)
[2023-05-30 05:29] LABS: Basophils Absolute Auto 0.1 K/mm3 (0.0-0.1); Basophils Percent Auto 0.8 % (0.2-1.2); Eosinophils Absolute Auto 0.3 K/mm3 (0-0.3); Eosinophils Percent Auto 3.3 % (0-4.4); Hematocrit 30.6 % (37.0-47.0); Hemoglobin 9.3 g/dL (12.0-15.0); Immature Granulocyte Absolute 0.16 K/mm3 (0.00-0.031); Immature Granulocyte Percent A 1.5 % (0-0.5); Lymphocytes Absolute Auto 2.14 K/mm3 (0.9-3.2); Lymphocytes Percent Auto 20.6 % (18.3-44.2); Mean Corpuscular HGB Conc 30.4 g/dl (32-36); Mean Corpuscular Hemoglobin 32.4 pg (26-34); Mean Corpuscular Volume 106.6 fl (80-100); Mean Platelet Volume 9.5 fl (7.4-10.4); Monocytes Absolute Auto 1.1 K/mm3 (0.1-0.6); Monocytes Percent Auto 10.7 % (2.6-8.5); Neutrophils Absolute Auto 6.6 K/mm3 (1.3-6.7); Neutrophils Percent Auto 63.1 % (45.5-73.1); Nucleated Red Blood Cells Absolute Auto 0.1 K/mm3 (0.0-0.012); Nucleated Red Blood Cells Perc 0.5 % (0.0-0.2); Platelet Count Result 278 k/mm3 (150-375); Red Blood Count 2.87 M/mm3 (4.2-5.4); Red Cell Distribution Width 14.1 % (11.5-14.5); White Blood Count 10.4 K/mm3 (4.5-10.0)
[2023-05-30 05:41] LABS: Alanine Aminotransferase 40 U/L (6-35); Albumin Level 2.6 g/dL (3.5-5.1); Alkaline Phosphatase 106 U/L (38-126); Anion Gap 6 mmol/L (8-16); Aspartate Amino Transferase 50 U/L (14-36); Bilirubin,Total 0.5 mg/dL (0.2-1.3); Blood Urea Nitrogen 17 mg/dL (7-17); Calcium 7.8 mg/dL (8.4-10.2); Carbon Dioxide 27 mmol/L (22-30); Chloride 105 mmol/L (98-107); Estimated CRCL calculation 61 ml/min; Estimated Glomerular Filt Rate > 60; Glucose 123 mg/dL (65-110); Magnesium 1.7 mg/dL (1.6-2.3); Potassium 3.7 mmol/L (3.4-5.0); Sodium 138 mmol/L (137-145)
[2023-05-30 05:48] LABS: Anisocytosis 1+ (NORMAL); Hypochromasia 1+ (NORMAL); Ovalocytes 1+ (NORMAL); Platelet Estimate Adequate (Adequate); Schistocytes None Seen (NORMAL)
--- NOTE | 2023-05-30 07:17 | WPDHPUPDATE1 ---
History and Physical Update Update Date/Time: 05/30/23 07:17 History and Physical has been reviewed, including an updated exam of the patient. There are NO changes in the patient's condition. Risks, benefits, and alternatives have been discussed and questions answered. Patient agrees to proceed with procedure.
[2023-05-30] MEDS: cefTRIAXone 2 GM/NS 100 ML 2 GM/100 ML BAG IVPB (09:34)
[2023-05-30] MEDS: DOXYCYCLINE 100 MG/NS 100 ML 100 MG/100 ML BAG IVPB (09:34)
--- NOTE | 2023-05-30 10:44 | PM.IMPN ---
Progress Note: A&P Assessment and Plan (1) HCAP (healthcare-associated pneumonia): Code(s): J18.9 - Pneumonia, unspecified organism Status: Acute (2) Elevated troponin: Code(s): R79.89 - Other specified abnormal findings of blood chemistry Status: Acute (3) Acute hypoxemic respiratory failure: Code(s): J96.01 - Acute respiratory failure with hypoxia Status: Acute (4) Septic shock: Code(s): A41.9 - Sepsis, unspecified organism; R65.21 - Severe sepsis with septic shock Status: Acute Assessment and Plan: 88F presents with shortness of breath and confusion. There is associated cough. eR course revealed pneumonia and with subsequent blood pressure low also with septic shock. Admitted on 05/25/[address] head neg for acute event. Possible due to polypharmacy and and opiate narcotic medications The patient is alert oriented, but patient is lethargic MULTIFOCAL PNEUMONIA CT chest revealing b/l pneumonia and pulmonary edema. BNP is 4360. Received fluid resuscitation. WBC 14.1 acute hypoxic respiratory failure needing oxygen supplementation via nasal cannula troponin mildly elevated 0.047 BNP of 4360 UA positive for infection influenza RSV COVID negative subsequent troponin level elevated at 1.020. VBG 7.48/32/56/24. To for healthcare related pneumonia. Sputum culture blood culture urine antigens ordered. Started on vancomycin and cefepime. Also add doxycycline for atypical coverage. Sputum culture growth to date. Blood culture no growth to date. MRSA nares negative will stop vancomycin. Recheck chest x-ray with moderate interstitial edema increasing diffuse ground-glass opacities increasing bibasilar opacities which may represent atelectasis or infection. Moderate left and small right pleural effusion. Added bronchodilators. Dose of Lasix given 05/28/2023. Recheck chest x-ray in a.m. Speech eval, need to rule out aspiration pneumonia Non STEMI with troponin elevation from 0 point 047-1.020 -1.730. Coronary artery disease hx Likely due to underlying sepsis and hypotension. History of coronary artery disease received rectal aspirin in the ER. No aggressive intervention wanted by family. Continue aspirin Plavix hold beta-aurora in light of hypotension. Trend troponin. No active chest pain. With improved blood pressure this morning was restart beta-aurora. Echo with mild hypokinesis EF EF 40-45% hypokinesis of the anterior lateral wall and inferior septum. Grade 1 diastolic dysfunction. Medical management. On aspirin and Plavix UTI: Urine culture growing Proteus. On cefepime Mild chronic anemia History of CVA Recurrent falls Osteoarthritis Hyperlipidemia GERD dislocation of the prosthesis Recent displaced right femur neck fracture status post hemiarthroplasty with bipolar prosthesis 05/01/2023 discharge to [facility] for rehab x-ray hip with dislocation of the prosthesis. Orthopedic consulted History of frequent UTI Code status DNR DVT prophylaxis Lovenox Subjective Date/time seen: 05/30/23 10:44 Interval history: Patient was noted to be more confused yesterday, alerted x3 today, possible due to polypharmacy CT head performed was negative for any acute abnormality. Patient still has severe right hip pain, patient request the cardiac medication for pain control. Patient is afebrile, on 1 L oxygen. Exam Narrative: GENERAL: Ill appearing not in acute distress, lethargic HEAD: Normocephalic, atraumatic. EYES: PERRLA and EOMI. ENT: Nares clear.? Mucous membranes moist. NECK: Supple. CHEST: Coarse breath sound with rhonchi, on nasal canula. HEART: Regular rate and rhythm.? Normal peripheral pulses. ABDOMEN: Soft, nontender, nondistended. EXTREMITIES: Normal range of motion.? Clean and dry surgical hip wound present on the right, no signs of infection. Right hip unable to move SKIN: Warm, dry, no rash. Bruising over abdomen
[2023-05-30] MEDS: METOPROLOL TARTRATE INJ 5 MG/5 ML VIAL IV PUSH (11:52)
[2023-05-30] MEDS: HYDROcodone/acetaminophen (*CRX) 5-325 MG TABLET 1 TAB PO (11:56)
--- NOTE | 2023-05-30 12:36 | PCSTNOTE ---
Patient on hold for Bedside Swallow Evaluation secondary to NPO for surgery this afternoon. Will attempt in the morning.
--- NOTE | 2023-05-30 13:11 | PCSTNOTE ---
Bedside Swallow Evaluation on hold today due to NPO for surgery this afternoon. Will try in the morning.
[2023-05-30] MEDS: LACTATED RINGERS 1,000 ML 30 ML IV CONT ×2 (13:30→19:00)
--- NOTE | 2023-05-30 14:43 | WPDANESEPPF ---
Anes - Initial Pre Proc Eval Procedure: Operation Date: 05/30/23 16:00 Proposed Procedures p Closed Reduction Right Hip Dislocation, Possible Open Reduction Right Hip Dislocation, Possible Revision Right Bipolar(Right) - Eric Chowdary MD Date/Time: 05/30/23 14:43 Surgeon: Serena Richter MD Pre Op Diagnosis: hcap, hypoxia, elevated troponin Patient Data Age: 88 Gender: F Height: 1.65 m Weight: 91 kg Last Vital Signs Temp 37.3 C 05/30/23 13:36 Pulse 99 05/30/23 13:36 Resp 16 05/30/23 13:36 BP 134/67 05/30/23 13:36 Pulse Ox 97 05/30/23 13:36 O2 Del Method Nasal Cannula 05/30/23 13:36 O2 Flow Rate 2 05/30/23 13:36 Allergies Allergy/AdvReac Type Severity Reaction Status Date / Time erythromycin base Allergy Unknown Verified 04/06/23 19:22 Home Medications Medication Instructions Recorded Confirmed Type aspirin 81 mg tablet,delayed 81 mg PO DIRECTED 11/26/19 05/26/23 History release (Aspir-) clopidogrel 75 mg tablet 75 mg PO 4XW 11/26/19 05/26/23 History isosorbide mononitrate 120 mg 120 mg PO DAILY 11/26/19 05/26/23 History tablet,extended release 24 hr loratadine 10 mg tablet (Claritin) 10 mg PO DAILY 11/26/19 05/26/23 History metoprolol tartrate 50 mg tablet 50 mg PO BID 11/26/19 05/26/23 History (Lopressor) pantoprazole 40 mg tablet,delayed 40 mg PO QAM 11/26/19 05/26/23 History release calcium citrate 200 mg 1 tablet PO BID #60 tabs 12/01/19 05/26/23 Rx calcium-vitamin D3 6.25 mcg (250 unit) tablet docusate sodium 100 mg capsule 100 mg PO DAILY PRN Constipation 03/17/23 05/26/23 History loperamide 2 mg capsule 2 mg PO DAILY PRN Diarrhea 03/17/23 05/26/23 History prochlorperazine maleate 10 mg 10 mg PO DAILY PRN Nausea 03/17/23 05/26/23 History tablet tolterodine 2 mg capsule,extended 2 mg PO DAILY 03/17/23 05/26/23 History release 24 hr bupropion HCl 150 mg 24 hr tablet, 150 mg PO QAM #30 tabs 05/08/23 05/26/23 Rx extended release duloxetine 30 mg capsule,delayed 60 mg PO DAILY #60 caps 05/08/23 05/26/23 Rx release sprinkle enoxaparin 40 mg/0.4 mL 40 mg (0.4 mL) subcut DAILY #0 mL 05/08/23 05/26/23 Rx subcutaneous syringe (Lovenox) losartan 50 mg tablet (Cozaar) 50 mg PO DAILY #0 tabs 05/08/23 05/26/23 Rx polyethylene glycol 3350 17 gram 17 g PO QAM PRN constipation #0 ea 05/08/23 05/26/23 Rx oral powder packet (Miralax) sodium chloride 1,000 mg soluble 1,000 mg PO DAILY #30 tabs 05/08/23 05/26/23 Rx tablet tramadol 50 mg tablet 50 mg PO TID PRN severe pain only 05/08/23 05/26/23 Rx #15 tabs Saccharomyces boulardii 250 mg 250 mg PO BID 05/26/23 05/26/23 History capsule (Florastor) acetaminophen 500 mg tablet 1,000 mg PO Q6HR PRN pain 05/26/23 05/26/23 History Laboratory Tests 05/26/23 05/30/23 19:48 04:33 WBC 10.4 H K/mm3 (4.5-10.0) RBC 2.87 L M/mm3 (4.2-5.4) Hgb 9.3 L g/dL (12.0-15.0) Hct 30.6 L % (37.0-47.0) MCV 106.6 H fl (80-100) MCH 32.4 pg (26-34) MCHC 30.4 L g/dl (32-36) RDW 14.1 % (11.5-14.5) Plt Count 278 k/mm3 (150-375) MPV 9.5 fl (7.4-10.4) Immature Gran % (Auto) 1.5 H % (0-0.5) Neut % (Auto) 63.1 % (45.5-73.1) Lymph % (Auto) 20.6 % (18.3-44.2) [place] % (Auto) 10.7 H % (2.6-8.5) Eos % (Auto) 3.3 % (0-4.4) Baso % (Auto) 0.8 % (0.2-1.2) Lymph # (Auto) 2.14 K/mm3 (0.9-3.2) [place] # (Auto) 1.1 H K/mm3 (0.1-0.6) Eos # (Auto) 0.3 K/mm3 (0-0.3) Baso # (Auto) 0.1 K/mm3 (0.0-0.1) Abs Immat Gran (auto) 0.16 H K/mm3 (0.00-0.031) Absolute Neuts (auto) 6.6 K/mm3 (1.3-6.7) Absolute Nucleated RBC 0.1 H K/mm3 (0.0-0.012) Nucleated RBC % 0.5 H % (0.0-0.2) Platelet Estimate Adequate (Adequate) Hypochromasia 1+ (NORMAL) Anisocytosis 1+ (NORMAL) Ovalocytes 1+ (NO
--- NOTE | 2023-05-30 16:19 | SUR.OPER ---
Patient arrived with an established rayo catheter
[2023-05-30 16:32] LABS: Hematocrit 30.8 % (37.0-47.0); Hemoglobin 9.4 g/dL (12.0-15.0)
[2023-05-30] MEDS: GENTAMICIN BONE CEMENT REFOBACIN 2 EACH TOPICAL (16:43)
--- NOTE | 2023-05-30 18:07 | W.PM.PROC2 ---
Procedure Note - Detailed Date of Procedure 05/30/23 Pre-op Diagnosis RIGHT HIP HEMIARTHROPLASTY DISLOCATION Post-op Diagnosis Same Procedure Performed REVISION OF RIGHT HIP HEMIARTHROPLASTY Surgeon Eric Chowdary MD Anesthesia General Findings EXTENSION OF FEMORAL NECK FRACTURE TO THE MEDIAL CALCAR Description of Procedure THE PATIENT WAS TAKEN TO THE OPERATING ROOM IN STABLE CONDITION. AN ATTEMPTED CLOSED REDUCTION OF THE RIGHT HIP JOINT WAS PREFORMED WITHOUT SUCCESS. NEXT SHE WAS PLACED IN THE LATERAL DECUBITUS AND THE RIGHT LOWER EXTREMITY WAS PREPPED AND DRAPED IN THE STERILE FASHION. THE OLD INCISION WAS WELL HEALED AND THERE WAS NO SIGN OF INFECTION. INCISION WAS MADE OVER THE OLD INCISION OF THE HIP, DOWN TO THE FASCIA LAYER. THE FASCIA WAS INCISED. THERE WAS A LARGE HEMATOMA. THE HIP WAS EXPOSED. THE HIP WAS THEN REDUCED WITHIN THE ACETABULUM. IT WAS NOTICED THERE WAS A FRACTURE TO THE REMAINDER OF THE FEMORAL NECK ON THE POSTERIOR MEDIAL REGION DOWN TO THE CALCAR BUT NOT EXCEEDING THE CALCAR. THE REST OF THE FEMORAL NECK WAS INTACT. THE FEMORAL COMPONENT WAS REMOVED FOR INSPECTION OF THE CALCAR AND FEMORAL CANAL. THERE WAS NO EXTENSION OF THE FRACTURE BEYOND THE CALCAR AND NO FRACTURE TO THE FEMORAL SHAFT. A THOROUGH IRRIGATION AND DEBRIDEMENT WAS THEN PREFORMED. THER WAS NO SIGN OF INFECTION OR GROSS CONTAMINATION. THE ACETABULUM WAS TRIALED TO 48. NEXT THE FEMUR WAS PREPARED WITH INITIAL CANAL FINDER THEN SEQUENTIAL REAMING UNTIL A #14 REAMER AND BROACHING TILL A #13. THE BROACH FIT WELL IN 15 OF ANTE VERSION. A +3 STANDARD OFFSET NECK BIPOLAR TRIAL IN A 48 MM SHELL WAS PLACED. THE SHUCK TEST WAS EXCELLENT AND THE STABILITY IN FLEXION AND ROTATION WAS EXCELLENT. LEG LENGTHS WERE GROSSLY EQUAL. TRIALS WERE REMOVED. A BIOMET FRACTURE STEM #13 STEM WAS CEMENTED IN TO PLACE IN 15 DEG OF ANTEVERSION. THE COLLAR ENGAGED THE FEMORAL NECK WELL AND THE IMPLANT WAS STABLE. ONCE THE CEMENT WAS HARD A +3 BIPOLAR HEAD NECK TRIAL WAS PLACED AGAIN. THE HIP WAS TRIALED AND THE STABILITY WAS EXCELLENT WERE THE LEG LENGTHS AND THE SHUCK TEST. NEXT A BIPOLAR HEAD NECK +3 IMPLANT WITH A 48 MM COBALT CHROME SHELL WAS PLACED AND TRIALED ONCE AGAIN SHOWING EXCELLENT STABILITY AND GROSSLY EQUAL LEG LENGTHS. THE WOUND WAS IRRIGATED WITH STERILE BETADINE AND WATER FOR 3 MIN. THEN WASHED AGAIN. THE CAPSULE AND THE EXTERNAL ROTATORS WERE APPROXIMATED WITH NUMBER 1 VICRYL. THE FASCIA WITH No 1 QUIL AND THE SUB CUTANEOUS LAYER WITH 2-0 ABSORBABLE SUTURE. DHRUV WERE PLACED AND STERILE DRESSING WAS APPLIED. PATIENT WAS PLACED BACK ON TO THE SUPINE POSITION AND WAS EXTUBATED. Estimated Blood Loss 500 Drains No Pathology None sent Complications No immediate complications Condition Stable Disposition PACU
--- NOTE | 2023-05-30 19:16 | SUR.PHASEI ---
1855- B/p mid to upper 80s systolic. Mario Adam CRNA notified. Order received for 500ml LR. 1904-J. SHERIF Adam aware of saturations mid 80's with O@ @4l/nc-order received for stat PCXR.
--- NOTE | 2023-05-30 19:29 | SUR.PHASEI ---
1927-Mario Adam CRNA here to see pt-has reviewed CXR-will contact Dr. Muñoz.
--- NOTE | 2023-05-30 19:38 | SUR.PHASEI ---
193-Per Dr. Muñoz/Kyung Adam, SENIOR HUMAN RESOURCES REPRESENTATIVE transport to [facility].
--- NOTE | 2023-05-30 19:50 | PC.NURSE ---
Patient received from PACU. An updated report given at bedside by ANA MARÍA Denson.
[2023-05-30] MEDS: KCL 20 MEQ/D5/0.45% SOD CHL 1,000 ML 80 ML IV CONT (21:16)
[2023-05-30] MEDS: TOLNAFTATE 1% POWDER 45 GM BTL 1 APPLIC TOPICAL (21:24)
[2023-05-30] MEDS: ceFAZolin 2 GM/D5W 50 ML 2 GM/50 ML BAG IVPB (21:28)
[2023-05-31] VITALS (16 sets, daily range): BP systolic 98–125; BP diastolic 54–74; PULSE 82–128; RESP 17–22; TEMP 36.3–37; O2SAT 90–97
[2023-05-31] MEDS: METOPROLOL TARTRATE INJ 5 MG/5 ML VIAL 2.5 MG IV PUSH (00:56)
[2023-05-31] MEDS: ceFAZolin 2 GM/D5W 50 ML 2 GM/50 ML BAG IVPB ×2 (04:19→11:52)
[2023-05-31 05:29] LABS: Basophils Absolute Auto 0.1 K/mm3 (0.0-0.1); Basophils Percent Auto 0.4 % (0.2-1.2); Hemoglobin 8.4 g/dL (12.0-15.0); Immature Granulocyte Percent A 1.4 % (0-0.5); Lymphocytes Absolute Auto 1.97 K/mm3 (0.9-3.2); Lymphocytes Percent Auto 13.9 % (18.3-44.2); Mean Corpuscular Hemoglobin 32.6 pg (26-34); Mean Corpuscular Volume 108.5 fl (80-100); Mean Platelet Volume 9.9 fl (7.4-10.4); Monocytes Absolute Auto 1.1 K/mm3 (0.1-0.6); Monocytes Percent Auto 7.6 % (2.6-8.5); Neutrophils Absolute Auto 10.9 K/mm3 (1.3-6.7); Neutrophils Percent Auto 76.7 % (45.5-73.1); Nucleated Red Blood Cells Absolute Auto 0.1 K/mm3 (0.0-0.012); Nucleated Red Blood Cells Perc 0.9 % (0.0-0.2); Platelet Count Result 260 k/mm3 (150-375); Red Blood Count 2.58 M/mm3 (4.2-5.4); Red Cell Distribution Width 14.3 % (11.5-14.5); White Blood Count 14.1 K/mm3 (4.5-10.0)
--- NOTE | 2023-05-31 05:50 | PC.NURSE ---
This patient, Mary Rose, was transferred to [facility] on 05/31/23 at 0550. Personal belongings sent with patient. Report given to ANA MARÍA St. Appropriate documentation sent with patient.
[2023-05-31 05:52] LABS: Anion Gap 7 mmol/L (8-16); Blood Urea Nitrogen 20 mg/dL (7-17); Carbon Dioxide 29 mmol/L (22-30); Chloride 104 mmol/L (98-107); Estimated CRCL calculation 47 ml/min; Estimated Glomerular Filt Rate > 60; Glucose 142 mg/dL (65-110); Potassium 4.2 mmol/L (3.4-5.0); Sodium 140 mmol/L (137-145)
[2023-05-31 06:01] LABS: Anisocytosis 1+ (NORMAL); Hypochromasia 1+ (NORMAL); Ovalocytes 1+ (NORMAL); Platelet Estimate Adequate (Adequate); Schistocytes None Seen (NORMAL)
--- NOTE | 2023-05-31 07:41 | PM.IMPN ---
Progress Note: A&P Assessment and Plan (1) HCAP (healthcare-associated pneumonia): Code(s): J18.9 - Pneumonia, unspecified organism Status: Acute (2) Elevated troponin: Code(s): R79.89 - Other specified abnormal findings of blood chemistry Status: Acute (3) Acute hypoxemic respiratory failure: Code(s): J96.01 - Acute respiratory failure with hypoxia Status: Acute (4) Septic shock: Code(s): A41.9 - Sepsis, unspecified organism; R65.21 - Severe sepsis with septic shock Status: Acute Assessment and Plan: 88F presents with shortness of breath and confusion. There is associated cough. eR course revealed pneumonia and with subsequent blood pressure low also with septic shock. Admitted on 05/25/[address] head neg for acute event. Possible due to polypharmacy and and opiate narcotic medications The patient is alert oriented, but patient is lethargic dislocation of the prosthesis Recent displaced right femur neck fracture status post hemiarthroplasty with bipolar prosthesis 05/01/2023 discharge to [facility] for rehab x-ray hip with dislocation of the prosthesis. s/p REVISION OF RIGHT HIP HEMIARTHROPLASTY 05/30/23 Orthopedic consulted MULTIFOCAL PNEUMONIA CT chest revealing b/l pneumonia and pulmonary edema. BNP is 4360. Received fluid resuscitation. WBC 14.1 acute hypoxic respiratory failure needing oxygen supplementation via nasal cannula troponin mildly elevated 0.047 BNP of 4360 UA positive for infection influenza RSV COVID negative subsequent troponin level elevated at 1.020. VBG 7.48/32/56/24. To for healthcare related pneumonia. Sputum culture blood culture urine antigens ordered. Started on vancomycin and cefepime. Received doxycycline for atypical coverage. Sputum culture growth to date. Blood culture no growth to date. MRSA nares negative. Stopped vancomycin. Recheck chest x-ray with moderate interstitial edema increasing diffuse ground-glass opacities increasing bibasilar opacities which may represent atelectasis or infection 05/28/23 Moderate left and small right pleural effusion. Added bronchodilators. Dose of Lasix given 05/28/2023. Recheck chest x-ray in a.m. Speech eval, need to rule out aspiration pneumonia CX05/30/23 radiologist's report Worsened airspace opacities in left mid and lower lung zones, consistent with pneumonia. Worsened small left pleural effusion. 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 Grade 1 diastolic dysfunction. Start Lasix 40 mg b.i.d. IV push Non STEMI with troponin elevation from 0 point 047-1.020 -1.730. Coronary artery disease hx Likely due to underlying sepsis and hypotension. History of coronary artery disease received rectal aspirin in the ER. No aggressive intervention wanted by family. Continue aspirin Plavix No active chest pain. Echo with mild hypokinesis EF EF 40-45% hypokinesis of the anterior lateral wall and inferior septum. Grade 1 diastolic dysfunction. Medical management. On aspirin and Plavix UTI: Urine culture growing Proteus. abx see above Mild chronic anemia History of CVA Recurrent falls Osteoarthritis Hyperlipidemia GERD History of frequent UTI Code status DNR DVT prophylaxis Lovenox (5) Chronic anemia: Code(s): D64.9 - Anemia, unspecified Status: Acute Subjective Date/time seen: 05/31/23 07:41 Interval history: s/p REVISION OF RIGHT HIP HEMIARTHROPLASTY d1, patient has hypothermia overnight, tachycardia tachypnea, labs reviewed, leukocytosis increased
[2023-05-31] MEDS: FUROSEMIDE INJ 40 MG/4 ML VIAL IV PUSH ×2 (08:45→16:51)
[2023-05-31] MEDS: ENOXAPARIN 40 MG/0.4 ML SYRINGE SUB-Q (08:45)
[2023-05-31] MEDS: TOLNAFTATE 1% POWDER 45 GM BTL 1 APPLIC TOPICAL ×2 (08:47→21:15)
[2023-05-31] MEDS: METOPROLOL TARTRATE 50 MG TAB PO ×2 (08:51→20:23)
[2023-05-31] MEDS: ASPIRIN 81 MG ENTERIC TABLET PO (08:52)
[2023-05-31] MEDS: DULoxetine HCL 30 MG CAPSULE.DR 60 MG PO (08:53)
[2023-05-31] MEDS: ISOSORBIDE MONONITRATE 60 MG TAB.ER.24H 120 MG PO (08:53)
[2023-05-31] MEDS: guaiFENesin 12 HR 600 MG TABCR PO ×2 (08:56→20:23)
[2023-05-31] MEDS: SACCHAROMYCES BOULARDII 250 MG CAPSULE PO ×2 (08:56→16:51)
[2023-05-31] MEDS: LOSARTAN POTASSIUM 50 MG TABLET PO (08:56)
[2023-05-31] MEDS: PANTOPRAZOLE 40 MG TABLET PO (09:05)
[2023-05-31] MEDS: HYDROcodone/acetaminophen (*CRX) 5-325 MG TABLET 1 TAB PO (09:07)
--- NOTE | 2023-05-31 09:11 | PCSTNOTE ---
Please refer to the Bedside Swallow Evaluation in the EMR. Please note, silent aspiration cannot be ruled out at bedside.
--- NOTE | 2023-05-31 09:30 | PM.PNORT ---
Progress Note: A&P Assessment and Plan (1) Hip dislocation, right: Qualifiers: Encounter type: initial encounter Qualified Code(s): S73.004A - Unspecified dislocation of right hip, initial encounter Code(s): S73.004A - Unspecified dislocation of right hip, initial encounter Status: Acute (2) Fracture of femoral neck, right, closed: Qualifiers: Encounter type: initial encounter Qualified Code(s): S72.001A - Fracture of unspecified part of neck of right femur, initial encounter for closed fracture Code(s): S72.001A - Fracture of unspecified part of neck of right femur, initial encounter for closed fracture Status: Acute Assessment and Plan: POD #1 : Revision right hip hemiarthroplasty Continue PT/OT. WBAT. Walker. HIGH FALL RISK. Continue pain control. Ice hip. Protect skin. DVT prophylaxis with Aspirin/Plavix. SCDs. Monitor Dressing. Bowel Regimen. Dispo: SNF pending progress with PT/OT and medical stability. Plan Reviewed history, exam, postoperative radiographs and current labs with attending MD and covering surgeon, Dr. Chowdary, who agrees with current plan as indicated above. No further recommendations from Dr. Chowdary at this time. Subjective Subjective Date/Time Seen: 05/31/23 09:30 Post Op day: 1 Interval history: POD #1: Revision Right Hip Hemiarthroplasty Patient awake, resting comfortably in bed. Just received pain medication. Has not yet worked with PT/OT. Family at bedside. Still with confusion, unchanged. Cooperative. Review of Systems Review of Systems: ROS unobtainable: Yes unobtainable due to mental status Exam Const: General: comfortable and no acute distress Skin: General skin exam: normal color Other: Incision right hip c/d/i. Surrounding tissue without redness/warmth. Mild swelling consistent with recent surgery. No drainage. Extrem: Right lower extremity: normal to inspection, normal capillary refill, hip/thigh Details: tenderness Location: of the hip (Thigh soft ) Location: laterally and anteriorly, swelling Location: at the hip, abnormal ROM (limited consistent with recent surgery ) Details: pain with active ROM during and pain with passive ROM during and other (Incision c/d/i. ); no deformity and no unusual warmth, knee Details: normal to inspection; no tenderness and no swelling, lower leg (Negative Sabrina's Sign ) Details: normal to inspection and no edema; no tenderness, ankle (+ankle dorsiflexion/plantarflexion) Details: normal to inspection and no edema; no tenderness, no swelling and no ecchymosis and foot Details: normal capillary refill, toes with normal ROM, vascular exam Details: dorsalis pedis pulse present and motor-sensory exam Details: light-touch normal; no tenderness Objective Data Vital Signs Vital Signs: Vital Signs - 24 hr 05/30/23 09:43 05/30/23 11:52 05/30/23 12:03 Temperature 36.3 C L Pulse Rate 121 H 121 H 125 H Respiratory Rate 22 H Blood Pressure 137/79 Pulse Oximetry 96 Oxygen Delivery Oxygen Flow Rate Fraction of Inspired Oxygen 05/30/23 13:36 05/30/23 13:00 05/30/23 13:10 Temperature 37.3 C Pulse Rate 99 80 81 Respiratory Rate 16 18 18 Blood Pressure 134/67 Pulse Oximetry 97 Oxygen Delivery Nasal Cannula Oxygen Flow Rate 2 Fraction of Inspired Oxygen 05/30/23 18:05 05/30/23 18:20 05/30/23 18:35 Temperature 36.3 C L Pulse Rate 105 H 106 H 110 H Respiratory Rate 21 H 20 18 Blood Pressure 101/60 96/58 L 100/75 Pulse Oximetry 100 99 96 Oxygen Delivery Simple Face Mask Simple Face Mask Nasal Cannula Oxygen Flow Rate 6 6 4 Fraction of Inspired Oxygen 05/30/23 18:55 05/30/23 19:05 05/30/23 19:20 Temperature Pulse Rate 109 H 102 H 103 H Respiratory Rate 18 18 18 Blood Pressure 85/45 L 94/48 L 110/38 L Pulse Oximetry 85 L 82 L 92 Oxygen Delivery Nasal Cannula Simple Face Mask Simple Face Mask Oxygen Flow Rate 4 10 10 Fraction o
--- NOTE | 2023-05-31 09:31 | PCPTNOTE ---
Attempted PT evaluation, pt refused due to pain. Pt's daughter requested therapy gives her a little time for pain pill (that she just took) to take effect. Will follow.
--- NOTE | 2023-05-31 11:03 | WPDANESPN ---
Anes - Prog Note Post-Op Date/Time: 05/31/23 11:03 Cardiovascular status: normal Respiratory status: normal Airway patency: baseline Mental status: baseline Post-Op hydration status: normal Vital Signs: Last Vital Signs Temp 36.3 C L 05/31/23 08:22 Pulse 128 H 05/31/23 08:51 Resp 21 H 05/31/23 08:22 BP 118/58 L 05/31/23 08:22 Pulse Ox 96 05/31/23 08:22 O2 Del Method Nasal Cannula 05/31/23 08:03 O2 Flow Rate 2 05/31/23 08:03 FiO2 28 05/31/23 08:03 Pain Score (VAS): 09/04 I/O: Intake & Output 05/30/23 05/31/23 05/31/23 23:59 07:59 15:59 Intake Total 550 50 Output Total 200 Balance 550 -150 Laboratory Tests 05/31/23 04:42 05/31/23 04:43 05/30/23 05/31/23 05/31/23 16:15 04:42 04:43 WBC 14.1 H RBC 2.58 L Hgb 9.4 L 8.4 L Hct 30.8 L 28.0 L MCV 108.5 H MCH 32.6 MCHC 30.0 L RDW 14.3 Plt Count 260 MPV 9.9 Immature Gran % (Auto) 1.4 H Neut % (Auto) 76.7 H Lymph % (Auto) 13.9 L [place] % (Auto) 7.6 Eos % (Auto) 0.0 Baso % (Auto) 0.4 Lymph # (Auto) 1.97 [place] # (Auto) 1.1 H Eos # (Auto) 0.0 Baso # (Auto) 0.1 Abs Immat Gran (auto) 0.20 H Absolute Neuts (auto) 10.9 H Absolute Nucleated RBC 0.1 H Nucleated RBC % 0.9 H Platelet Estimate Adequate Hypochromasia 1+ Anisocytosis 1+ Ovalocytes 1+ Schistocytes None seen Sodium 140 Potassium 4.2 Chloride 104 Carbon Dioxide 29 Anion Gap 7 L BUN 20 H Creatinine 0.80 Estim Creat Clear Calc 47 Estimated GFR > 60 Glucose 142 H Calcium 8.0 L Microbiology 05/26/23 08:20 Blood Blood Culture - Final 05/26/23 08:17 Blood Blood Culture - Final Post-procedural complaints: none Patient Feedback: Patient satisfied with anesthetic care.
--- NOTE | 2023-05-31 11:42 | PM.CNPUL ---
Assessment and Plan Assessment and plan (1) HCAP (healthcare-associated pneumonia): Code(s): J18.9 - Pneumonia, unspecified organism Status: Acute Assessment and Plan: Patient presented to the hospital on 122 with hypoxemia, fever, leukocytosis and bibasilar infiltrates left greater than the right. She was treated for healthcare associated pneumonia with Cefepime 05/25 to 05/28, Vancomycin 05/25, 05/27 (MRSA nasal swab negative on 05/25), doxycycline 05/25 to 05/30, ceftriaxone 05/29 and 05/30 and Ancef 05/30 - 05/31 (post op Hip). Chest x-ray worsened on 05/30 with what looked like atelectasis and mucus plugging with shift of the mediastinum to the left that has improved on chest x-ray this morning. She still has a left pleural effusion. Plan: I will check a procalcitonin. I will check a CT scan of the chest to assess for pulmonary infiltrates and assess the size of her left pleural effusion. It appeared she initially responded to cefepime and I will restart cefepime and will start Levaquin at this time. Ancef will discontinue today. Agree with Lasix 40 IV b.i.d.. Weight is 90.5 with an admission weight of 98.5, she is +3 point 0 L since admission. I will check a BNP. Will continue albuterol and ipratropium nebulizers Q 6 and guaifenesin 600 q.12. Patient has swelling right upper extremity greater than left and will order upper and lower extremity Dopplers to exclude DVT. Discussed with patient, 1 daughter in the room and 1 daughter on speaker phone. Will follow with you History of Present Illness History of Present Illness Consult date: 05/31/23 Chief complaint: hcap, hypoxia, elevated troponin Narrative: 05/31/2023: This is a new pulmonary consult for pneumonia 88-year-old with a history of hypertension, coronary artery disease status post NM in 2016, hyperlipidemia, GERD, osteoarthritis, recent falls with a displaced right femoral neck fracture status post basil arthroplasty. Patient presented to [place] emergency department on 05/25/2023 with shortness of breath. She had vomited earlier in the day and was more short of breath and EMS was called. Family states over the last few days she had increased cough. She was confused. She was a never smoker. Blood pressure was 161/100, temperature was 102.7?, saturations on 2 L nasal cannula was 93%. White blood cell count was 14.1, eosinophils 0.1%, creatinine was 0.7. BNP was 4360, CRP was 4.5, troponin was 0.047. COVID, RSV and influenza RT PCR studies negative. Troponin was 1.02. Venous blood gas was 7.49/33/[address] of the head was negative. CT of the chest revealed pulmonary edema and bilateral pneumonia. She was treated for healthcare associated pneumonia with cefepime and vancomycin she is DNR. Patient had a non ST elevation NM was treated conservatively with aspirin, Plavix and statin. 05/26/2023: Patient is afebrile. Sputum growth of normal harleen. Procalcitonin 0.9. Legionella urine antigen negative. Pneumococcal urine antigen negative. 05/27/2023 feeling better and oxygenation had improved. White blood cell count peaked at 16.0 05/29/2023: Urine grew Proteus. Patient noted to have right hip dislocation with pain. ABG 7.58/32/100 on 1 L nasal cannula. 05/30/2023. Patient is afebrile. On 1 L oxygen in the morning. General anesthesia and revision of right hip basil arthroplasty. White blood cell count 10.4. Oxygen requirements increased to 10 L. chest x-ray with worsening left lower lobe consolidation and shift to the mediastinum to the left. 05/31/23: Per the daughter in the room and a daughter on the phone the patient is a never smoker. She was exposed to secondhand smoke from her stepfather but no secondhand smoker since then. 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 She does not choke on her food. She was at rehab and she used no oxygen during the day but did use oxygen at night. She had a hip fracture 3 years ago and recovered and was w
[2023-05-31 12:41] LABS: NT Pro B Type Natriuretic Pept 10700 pg/mL (19.9-100)
[2023-05-31] MEDS: CEFEPIME 2 GM/NS 50 ML 2 GM/50 ML BAG IVPB ×2 (13:27→20:23)
[2023-05-31] MEDS: levoFLOXacin 750 MG/D5W 150 ML 750 MG/150 ML BAG 100 MG IVPB (15:24)
[2023-05-31 15:33] LABS: Procalcitonin 0.2 ng/mL
[2023-05-31] MEDS: SENNA/DOCUSATE SODIUM TABLET 2 TAB PO (16:50)
[2023-05-31] MEDS: IPRATROPIUM BR 0.02% INH SOLN 0.5 MG/2.5 ML VIAL INHALATION (23:15)
[2023-05-31] MEDS: ALBUTEROL SULFATE NEB 2.5 MG/3 ML INH INHALATION (23:15)
[2023-06-01] VITALS (21 sets, daily range): BP systolic 104–116; BP diastolic 51–62; PULSE 54–117; RESP 12–20; TEMP 36.3–36.7; O2SAT 90–100; BMI 33.2; BMI 10.0
[2023-06-01] MEDS: HYDROcodone/acetaminophen (*CRX) 5-325 MG TABLET 1 TAB PO (02:17)
[2023-06-01] MEDS: ALBUTEROL SULFATE NEB 2.5 MG/3 ML INH INHALATION ×4 (03:32→19:39)
[2023-06-01] MEDS: IPRATROPIUM BR 0.02% INH SOLN 0.5 MG/2.5 ML VIAL INHALATION ×4 (03:33→19:39)
[2023-06-01 05:20] LABS: Basophils Percent Auto 0.2 % (0.2-1.2); Eosinophils Percent Auto 0.2 % (0-4.4); Hematocrit 23.6 % (37.0-47.0); Hemoglobin 7.3 g/dL (12.0-15.0); Immature Granulocyte Absolute 0.44 K/mm3 (0.00-0.031); Immature Granulocyte Percent A 2.6 % (0-0.5); Lymphocytes Absolute Auto 2.95 K/mm3 (0.9-3.2); Lymphocytes Percent Auto 17.7 % (18.3-44.2); Mean Corpuscular HGB Conc 30.9 g/dl (32-36); Mean Corpuscular Hemoglobin 32.4 pg (26-34); Mean Corpuscular Volume 104.9 fl (80-100); Mean Platelet Volume 9.9 fl (7.4-10.4); Monocytes Absolute Auto 1.1 K/mm3 (0.1-0.6); Monocytes Percent Auto 6.8 % (2.6-8.5); Neutrophils Absolute Auto 12.1 K/mm3 (1.3-6.7); Neutrophils Percent Auto 72.5 % (45.5-73.1); Nucleated Red Blood Cells Absolute Auto 0.2 K/mm3 (0.0-0.012); Nucleated Red Blood Cells Perc 1.4 % (0.0-0.2); Platelet Count Result 250 k/mm3 (150-375); Red Blood Count 2.25 M/mm3 (4.2-5.4); Red Cell Distribution Width 14.6 % (11.5-14.5); White Blood Count 16.7 K/mm3 (4.5-10.0)
--- NOTE | 2023-06-01 08:22 | PM.IMPN ---
Progress Note: A&P Assessment and Plan (1) HCAP (healthcare-associated pneumonia): Code(s): J18.9 - Pneumonia, unspecified organism Status: Acute (2) Elevated troponin: Code(s): R79.89 - Other specified abnormal findings of blood chemistry Status: Acute (3) Acute hypoxemic respiratory failure: Code(s): J96.01 - Acute respiratory failure with hypoxia Status: Acute (4) Septic shock: Code(s): A41.9 - Sepsis, unspecified organism; R65.21 - Severe sepsis with septic shock Status: Acute Assessment and Plan: 88F presents with shortness of breath and confusion. There is associated cough. eR course revealed pneumonia and with subsequent blood pressure low also with septic shock. Admitted on 05/25/[address] head neg for acute event. Possible due to polypharmacy and and opiate narcotic medications The patient is alert oriented, but patient is lethargic dislocation of the prosthesis Recent displaced right femur neck fracture status post hemiarthroplasty with bipolar prosthesis 05/01/2023 discharge to [facility] for rehab x-ray hip with dislocation of the prosthesis. s/p REVISION OF RIGHT HIP HEMIARTHROPLASTY 05/30/23 Orthopedic consulted MULTIFOCAL PNEUMONIA CT chest revealing b/l pneumonia and pulmonary edema. BNP is 4360. Received fluid resuscitation. WBC 14.1 acute hypoxic respiratory failure needing oxygen supplementation via nasal cannula troponin mildly elevated 0.047 BNP of 4360 UA positive for infection influenza RSV COVID negative subsequent troponin level elevated at 1.020. VBG 7.48/32/56/24. To for healthcare related pneumonia. Sputum culture blood culture urine antigens ordered. Started on vancomycin and cefepime. Received doxycycline for atypical coverage. Sputum culture growth to date. Blood culture no growth to date. MRSA nares negative. Stopped vancomycin. Recheck chest x-ray with moderate interstitial edema increasing diffuse ground-glass opacities increasing bibasilar opacities which may represent atelectasis or infection 05/28/23 Moderate left and small right pleural effusion. Added bronchodilators. Dose of Lasix given 05/28/2023. Recheck chest x-ray in a.m. Speech eval, need to rule out aspiration pneumonia CX05/30/23 radiologist's report Worsened airspace opacities in left mid and lower lung zones, consistent with pneumonia. Worsened small left pleural effusion. The impression of worsened airspace opacity is possible possible fluid overload and rotation of the chest x-ray, transition from ceftriaxone to cefazolin IV improved orthopedic surgeon 05/30/23, 05/31/23 CT 1. Airspace opacities in left lower lobe, likely a combination of pneumonia and atelectasis. 2. Scattered groundglass opacities in the lungs, consistent with pulmonary edema versus pneumonia. 3. 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 Grade 1 diastolic dysfunction. Start Lasix 40 mg b.i.d. IV push BNP 15349 Negative input output 240 ml Non STEMI with troponin elevation from 0 point 047-1.020 -1.730. Coronary artery disease hx Likely due to underlying sepsis and hypotension. History of coronary artery disease received rectal aspirin in the ER. No aggressive intervention wanted by family. Continue aspirin Plavix No active chest pain. Echo with mild hypokinesis EF EF 40-45% hypokinesis of the anterior lateral wall and inferior septum. Grade 1 diastolic dysfunction. Medical management. On aspirin and Plavix UTI: Urine culture growing Proteus. abx see above Mild chronic anemia History of CVA Recurrent falls Osteoarthritis Hyperlipidemia GERD
[2023-06-01 08:49] LABS: Anion Gap 7 mmol/L (8-16); Blood Urea Nitrogen 36 mg/dL (7-17); Carbon Dioxide 26 mmol/L (22-30); Chloride 105 mmol/L (98-107); Estimated CRCL calculation 26 ml/min; Estimated Glomerular Filt Rate 33; Glucose 102 mg/dL (65-110); Potassium 3.8 mmol/L (3.4-5.0); Sodium 138 mmol/L (137-145)
[2023-06-01] MEDS: METOPROLOL TARTRATE 50 MG TAB PO ×2 (09:57→20:38)
[2023-06-01] MEDS: SACCHAROMYCES BOULARDII 250 MG CAPSULE PO ×2 (09:57→18:54)
[2023-06-01] MEDS: ISOSORBIDE MONONITRATE 60 MG TAB.ER.24H 120 MG PO (09:57)
[2023-06-01] MEDS: ASPIRIN 81 MG ENTERIC TABLET PO (09:57)
[2023-06-01] MEDS: DULoxetine HCL 30 MG CAPSULE.DR 60 MG PO (09:57)
[2023-06-01] MEDS: SENNA/DOCUSATE SODIUM TABLET 2 TAB PO (09:57)
[2023-06-01] MEDS: guaiFENesin 12 HR 600 MG TABCR PO ×2 (10:05→20:38)
[2023-06-01] MEDS: FUROSEMIDE INJ 40 MG/4 ML VIAL IV PUSH ×2 (10:05→18:54)
[2023-06-01] MEDS: PANTOPRAZOLE 40 MG TABLET PO (10:06)
[2023-06-01] MEDS: LOSARTAN POTASSIUM 50 MG TABLET PO (10:07)
--- NOTE | 2023-06-01 10:08 | PM.PNORT ---
Progress Note: A&P Assessment and Plan (1) Fracture of femoral neck, right, closed: Qualifiers: Encounter type: initial encounter Qualified Code(s): S72.001A - Fracture of unspecified part of neck of right femur, initial encounter for closed fracture Code(s): S72.001A - Fracture of unspecified part of neck of right femur, initial encounter for closed fracture Status: Acute Assessment and Plan: POD #2: Revision right hip hemiarthroplasty Continue PT/OT. WBAT. Walker. HIGH FALL RISK. Continue pain control. Ice hip. Protect skin. DVT prophylaxis on HOLD currently by medicine team due to ecchymosis. She is receiving aspirin. Resume as soon as agreeable from medicine standpoint. SCDs. IC. Pulmonology following. Treatment for PNA. Monitor Dressing. Dressing removed today. Significant drainage likely due to volume overload and diuresis as dressing was c/d/i yesterday on exam. New dressing place. Saturated within 1.5 hours. Transitioned to gauze/ABD. Continue to monitor. Bowel Regimen. Dispo: SNF pending progress with PT/OT and medical stability. (2) Hip dislocation, right: Qualifiers: Encounter type: initial encounter Qualified Code(s): S73.004A - Unspecified dislocation of right hip, initial encounter Code(s): S73.004A - Unspecified dislocation of right hip, initial encounter Status: Acute Plan Reviewed history, exam, postoperative radiographs and current labs with attending MD and covering surgeon, Dr. Chowdary, who agrees with current plan as indicated above. No further recommendations from Dr. Chowdary at this time. Subjective Subjective Date/Time Seen: 06/01/23 10:08 Post Op day: 2 Interval history: POD #2: Revision Right Hip Hemiarthroplasty Patient awake/alert. Concerned with drainage of the right hip and RUE. Awaiting PT/OT. Review of Systems Review of Systems: All systems reviewed & are unremarkable except as noted in HPI and below Exam Const: General: comfortable and no acute distress Skin: General skin exam: normal color Other: Incision right with moderate serosanguineous drainage. Dressing removed. Incision well approximated. No signs of dehiscence. Surrounding tissue without redness/warmth. Mild swelling consistent with recent surgery. No drainage. Extrem: Right lower extremity: normal to inspection, normal capillary refill, hip/thigh Details: tenderness Location: of the hip (Thigh soft ) Location: laterally and anteriorly, swelling Location: at the hip, abnormal ROM (limited consistent with recent surgery ) Details: pain with active ROM during and pain with passive ROM during and other (Incision c/d/i. ); no deformity and no unusual warmth, knee Details: normal to inspection; no tenderness and no swelling, lower leg (Negative Sabrina's Sign ) Details: normal to inspection and no edema; no tenderness, ankle (+ankle dorsiflexion/plantarflexion) Details: normal to inspection and no edema; no tenderness, no swelling and no ecchymosis and foot Details: normal capillary refill, toes with normal ROM, vascular exam Details: dorsalis pedis pulse present and motor-sensory exam Details: light-touch normal; no tenderness Objective Data Vital Signs Vital Signs: Vital Signs - 24 hr 05/31/23 11:16 05/31/23 12:04 05/31/23 16:00 Temperature Pulse Rate 91 95 Respiratory Rate Blood Pressure Pulse Oximetry Oxygen Delivery Nasal Cannula Oxygen Flow Rate 2 05/31/23 12:22 05/31/23 16:00 05/31/23 20:23 Temperature 36.3 C L 36.4 C L Pulse Rate 100 103 H 107 H Respiratory Rate 20 20 Blood Pressure 121/66 124/74 Pulse Oximetry 97 96 Oxygen Delivery Oxygen Flow Rate 05/31/23 20:00 05/31/23 20:25 05/31/23 20:00 Temperature 37.0 C Pulse Rate 108 H 108 H Respiratory Rate 17 Blood Pressure 98/54 L Pulse Oximetry 96 Oxygen Delivery Room Air Oxygen Flow Rate 05/31/23 23:17 05/31/23 23:17 06/01/23 00:00 Temper
--- NOTE | 2023-06-01 11:37 | PM.PNPUL ---
Progress Note: A&P Assessment and Plan (1) HCAP (healthcare-associated pneumonia): Code(s): J18.9 - Pneumonia, unspecified organism Status: Acute Assessment and Plan: Patient presented to the hospital on 1228 with hypoxemia, fever, leukocytosis and bibasilar infiltrates left greater than the right. She was treated for healthcare associated pneumonia with Cefepime 05/25 to 05/28, Vancomycin 05/25, 05/27 (MRSA nasal swab negative on 05/25), doxycycline 05/25 to 05/30, ceftriaxone 05/29 and 05/30 and Ancef 05/30 - 05/31 (post op Hip). Chest x-ray worsened on 05/30 with what looked like atelectasis and mucus plugging with shift of the mediastinum to the left that has improved on chest x-ray this morning. She still has a left pleural effusion. Plan: I will check a procalcitonin. I will check a CT scan of the chest to assess for pulmonary infiltrates and assess the size of her left pleural effusion. It appeared she initially responded to cefepime and I will restart cefepime and will start Levaquin at this time. Ancef will discontinue today. Agree with Lasix 40 IV b.i.d.. Weight is 90.5 with an admission weight of 98.5, she is +3 point 0 L since admission. I will check a BNP. Will continue albuterol and ipratropium nebulizers Q 6 and guaifenesin 600 q.12. Patient has swelling right upper extremity greater than left and will order upper and lower extremity Dopplers to exclude DVT. Discussed with patient, 1 daughter in the room and 1 daughter on speaker phone. Later in the day upper and lower extremities were negative for DVT. CT scan of the chest showed small bilateral pleural effusions. Opacities in the lower lobes in the dependent areas and scratch heard ground-glass infiltrates. 06/01/23: Patient is awake but sleepy, she says she is breathing normally. Minimal cough and phlegm production. Room air saturations are 90%. White blood cell count is 16.7. Patient's weight is 90.6. Cumulative she is 2.7 L positive since admission. Chest x-ray today is unchanged with small to moderate left pleural effusion and lower lobe atelectasis and a minimal right pleural effusion. Plan: Continue cefepime and Levaquin, both day 2. Would continue treatment for another 3 days and reassess. This will be a total of 11 days antibiotics. Patient should get out of bed, she should use the incentive spirometry to 8 in deep breathing and sputum expectoration. She is on guaifenesin 600 p.o. b.i.d.. She is on albuterol and ipratropium q.6 hours and she has no history of airway reactivity. I will continue these to try to help mobilize secretions. Agree with diuresis as tolerated by the patient and manage per hospitalist. Discussed with daughter at the bedside, discussed with Dr Alexis, will sign off, call with questions Subjective Date/time seen: 06/01/23 11:37 Interval history: 05/31/2023: This is a new pulmonary consult for pneumonia 88-year-old with a history of hypertension, coronary artery disease status post MD in 2016, hyperlipidemia, GERD, osteoarthritis, recent falls with a displaced right femoral neck fracture status post basil arthroplasty. Patient presented to [place] emergency department on 05/25/2023 with shortness of breath.? She had vomited earlier in the day and was more short of breath and EMS was called.? Family states over the last few days she had increased cough.? She was confused.? She was a never smoker.? Blood pressure was 161/100, temperature was 102.7?, saturations on 2 L nasal cannula was 93%.? White blood cell count was 14.1, eosinophils 0.1%, creatinine was 0.7.? BNP was 4360, CRP was 4.5, troponin was 0.047.? COVID, RSV and influenza RT PCR studies negative.? Troponin was 1.02.? Venous blood gas was 7.49/33/[address] of the head was negative.? CT of the chest revealed pulmonary edema and bilateral pneumonia.? She was treated for healthcare associated pneumonia with cefepime and vancomycin she is DNR.? Patient had a non ST elev
[2023-06-01] MEDS: TOLNAFTATE 1% POWDER 45 GM BTL 1 APPLIC TOPICAL ×2 (17:00→20:41)
[2023-06-01] MEDS: CEFEPIME 2 GM/NS 50 ML 2 GM/50 ML BAG IVPB (20:37)
[2023-06-02] VITALS (23 sets, daily range): BP systolic 109–160; BP diastolic 42–92; PULSE 70–99; RESP 14–18; TEMP 35.8–36.6; O2SAT 90–100
[2023-06-02] MEDS: ALBUTEROL SULFATE NEB 2.5 MG/3 ML INH INHALATION ×4 (01:58→20:18)
[2023-06-02] MEDS: IPRATROPIUM BR 0.02% INH SOLN 0.5 MG/2.5 ML VIAL INHALATION ×4 (01:59→20:18)
[2023-06-02 05:45] LABS: Anion Gap 10 mmol/L (8-16); Blood Urea Nitrogen 41 mg/dL (7-17); Calcium 7.8 mg/dL (8.4-10.2); Carbon Dioxide 25 mmol/L (22-30); Chloride 103 mmol/L (98-107); Estimated CRCL calculation 24 ml/min; Estimated Glomerular Filt Rate 30; Glucose 98 mg/dL (65-110); Potassium 3.6 mmol/L (3.4-5.0); Sodium 138 mmol/L (137-145)
[2023-06-02] MEDS: TOLNAFTATE 1% POWDER 45 GM BTL 1 APPLIC TOPICAL ×2 (08:00→21:12)
--- NOTE | 2023-06-02 09:15 | PCOTNOTE ---
Attempted to see pt for occupational therapy treatment this AM. Per pt's daughter and nursing, pt had a rough night/morning and pt's daughter request to attempt therapy treatment later today.
[2023-06-02] MEDS: ISOSORBIDE MONONITRATE 60 MG TAB.ER.24H 120 MG PO (09:26)
[2023-06-02] MEDS: PANTOPRAZOLE 40 MG TABLET PO (09:26)
[2023-06-02] MEDS: SACCHAROMYCES BOULARDII 250 MG CAPSULE PO ×2 (09:26→17:42)
[2023-06-02] MEDS: ENOXAPARIN 40 MG/0.4 ML SYRINGE SUB-Q (09:27)
[2023-06-02] MEDS: METOPROLOL TARTRATE 50 MG TAB PO ×2 (09:27→21:12)
[2023-06-02] MEDS: LOSARTAN POTASSIUM 50 MG TABLET PO (09:27)
[2023-06-02] MEDS: FUROSEMIDE INJ 40 MG/4 ML VIAL IV PUSH (09:27)
[2023-06-02] MEDS: guaiFENesin 12 HR 600 MG TABCR PO ×2 (09:28→21:12)
[2023-06-02] MEDS: ASPIRIN 81 MG ENTERIC TABLET PO (09:28)
[2023-06-02] MEDS: DULoxetine HCL 30 MG CAPSULE.DR 60 MG PO (09:28)
[2023-06-02] MEDS: CLOPIDOGREL BISULFATE 75 MG TABLET PO (09:29)
[2023-06-02] MEDS: CEFEPIME 2 GM/NS 50 ML 2 GM/50 ML BAG IVPB ×2 (09:29→21:09)
[2023-06-02] MEDS: levoFLOXacin 750 MG/D5W 150 ML 750 MG/150 ML BAG 100 MG IVPB (10:08)
[2023-06-02] MEDS: ACETAMINOPHEN 325 MG TABLET 650 MG PO (10:50)
--- NOTE | 2023-06-02 13:32 | PM.PNORT ---
Progress Note: A&P Assessment and Plan (1) Fracture of femoral neck, right, closed: Qualifiers: Encounter type: initial encounter Qualified Code(s): S72.001A - Fracture of unspecified part of neck of right femur, initial encounter for closed fracture Code(s): S72.001A - Fracture of unspecified part of neck of right femur, initial encounter for closed fracture Status: Acute Assessment and Plan: POD #3: Revision right hip hemiarthroplasty Continue PT/OT. WBAT. Walker. HIGH FALL RISK. Continue pain control. Will try to limit narcotics and benzodiazepines. Switch pain medicine to tramadol as she was on this at home. Ice hip. Protect skin. DVT prophylaxis on HOLD Due to drainage. SCDs. IC. Pulmonology following. Treatment for PNA. Wound VAC dressing Dispo: SNF pending progress with PT/OT and medical stability. (2) Hip dislocation, right: Qualifiers: Encounter type: initial encounter Qualified Code(s): S73.004A - Unspecified dislocation of right hip, initial encounter Code(s): S73.004A - Unspecified dislocation of right hip, initial encounter Status: Acute Plan Subjective Subjective Date/Time Seen: 06/02/23 13:32 Post Op day: 3 Principal diagnosis: Right hip fracture dislocation Interval history: POD #3: Revision Right Hip Hemiarthroplasty Patient awake/alert. up to chair. Concerned with drainage of the right hip and RUE. Wound VAC started yesterday for the right hip Exam Const: General: comfortable and no acute distress Skin: General skin exam: normal color Extrem: Right lower extremity: normal to inspection, normal capillary refill, hip/thigh Details: tenderness Location: of the hip (Thigh soft ) Location: laterally and anteriorly, swelling Location: at the hip, abnormal ROM (limited consistent with recent surgery ) Details: pain with active ROM during and pain with passive ROM during and other (Incision c/d/i. ); no deformity and no unusual warmth, knee Details: normal to inspection; no tenderness and no swelling, lower leg (Negative Sabrina's Sign ) Details: normal to inspection and no edema; no tenderness, ankle (+ankle dorsiflexion/plantarflexion) Details: normal to inspection and no edema; no tenderness, no swelling and no ecchymosis and foot Details: normal capillary refill, toes with normal ROM, vascular exam Details: dorsalis pedis pulse present and motor-sensory exam Details: light-touch normal; no tenderness Other: right hip wound VAC dressing in place. Able to move toes. Good sensation to touch and good capillary refill. Objective Data Vital Signs Vital Signs: Vital Signs - 24 hr 06/01/23 16:00 06/01/23 16:35 06/01/23 19:41 Temperature 97.6 F Pulse Rate 94 94 94 Respiratory Rate 12 16 Blood Pressure 110/56 L Pulse Oximetry 97 Oxygen Delivery 06/01/23 19:50 06/01/23 19:52 06/01/23 20:38 Temperature Pulse Rate 90 96 110 H Respiratory Rate 18 18 Blood Pressure Pulse Oximetry 100 Oxygen Delivery Room Air 06/01/23 20:00 06/01/23 20:00 06/02/23 00:00 Temperature 97.3 F L Pulse Rate 95 95 99 Respiratory Rate 15 Blood Pressure 116/52 L Pulse Oximetry 100 Oxygen Delivery 06/02/23 00:00 06/02/23 02:00 06/02/23 04:00 Temperature 97.2 F L Pulse Rate 70 92 95 Respiratory Rate 16 18 Blood Pressure 110/49 L Pulse Oximetry 96 Oxygen Delivery 06/02/23 04:00 06/02/23 07:45 06/02/23 09:20 Temperature 97.3 F L 97.0 F L Pulse Rate 96 95 75 Respiratory Rate 15 16 16 Blood Pressure 114/60 160/68 H Pulse Oximetry 90 96 Oxygen Delivery 06/02/23 09:23 06/02/23 09:27 06/02/23 09:38 Temperature Pulse Rate 92 83 Respiratory Rate 16 Blood Pressure Pulse Oximetry 92 Oxygen Delivery Room Air 06/02/23 12:30 Temperature 97.9 F Pulse Rate 88 Respiratory Rate 16 Blood Pressure 125/56 L Pulse Oximetry 92 Oxygen Delivery Intake/Output Intake/Ou
--- NOTE | 2023-06-02 14:10 | PM.IMPN ---
Progress Note: A&P Assessment and Plan (1) HCAP (healthcare-associated pneumonia): Code(s): J18.9 - Pneumonia, unspecified organism Status: Acute (2) Elevated troponin: Code(s): R79.89 - Other specified abnormal findings of blood chemistry Status: Acute (3) Acute hypoxemic respiratory failure: Code(s): J96.01 - Acute respiratory failure with hypoxia Status: Acute (4) Septic shock: Code(s): A41.9 - Sepsis, unspecified organism; R65.21 - Severe sepsis with septic shock Status: Acute (5) Acute on chronic anemia: Code(s): D64.9 - Anemia, unspecified Status: Acute Plan For Hcap we will continue antibiotics. Today she has a serum creatinine bump and has been aggressively diuresed. She has no lower extremity edema but still with crackles on the lungs. Today she is on room air. And appears to be breathing well. All considered we will DC the diuretics and trend the renal function tomorrow. She is lethargic and A&Ox1. The family does not want MRI as she could not lay flat. She has been declining mentally since her 1st right hip surgery about a month ago. Evaluation and examination conducted with 1 daughter present and the other on speaker phone. In line with the conversation on admission when I 1st evaluated the patient, the family does not want aggressive therapies and they are aware she has a decline which may not be reversible. The plan is to drain remain DNR and try to have the patient participate with PT OT and hopefully return to [facility] with rehab. Her prognosis is poor. The other intervention we will administer today is 1 unit of packed red blood cells. Her hemoglobin is 7.3 she does have a history of CAD and increasing her hemoglobin may improve her lethargy and mental status. There was some drainage at the right hip and Orthopedics have initiated wound VAC. She also has ecchymosis of the right hand after a peripheral IV infiltration. Decision has been made to continue aspirin and Lovenox for DVT prophylaxis but Plavix is on a 4 times per week schedule. There has been concern for adverse medication effects. Her [place] has been DC. Acetaminophen does not seem to help the pain so the family agreed on trying tramadol. Otherwise would avoid sedatives and narcotics as much as possible. Subjective Date/time seen: 06/02/23 14:10 Interval history: Examination is conducted with 1 daughter at bedside and another on speaker phone. The patient cannot elicit complaints other than she has pain on her buttocks. She appears very lethargic and often does not answers questions and stares into space. Review of Systems Review of Systems: ROS unobtainable: Yes unobtainable due to mental status Exam Const: General: comfortable and no acute distress Eyes: Pupils: Equal, round and reactive pupils present Resp: Effort & Inspection: normal respiratory effort Auscultation: crackles Cardio: Rate: regular rate Rhythm: regular rhythm Heart sounds: no gallops, no murmurs and no rubs GI: GI Palp: Yes Soft to palpation and No Tenderness to palpation present (GI) Extrem: General: edema (Right upper extremity distal to the elbow. Ecchymosis present. ) Other: Status post peripheral IV infiltration Objective Data Vital Signs Vital Signs: Vital Signs - 24 hr 06/01/23 16:00 06/01/23 16:35 06/01/23 19:41 Temperature 97.6 F Pulse Rate 94 94 94 Respiratory Rate 12 16 Blood Pressure 110/56 L Pulse Oximetry 97 Oxygen Delivery 06/01/23 19:50 06/01/23 19:52 06/01/23 20:38 Temperature Pulse Rate 90 96 110 H Respiratory Rate 18 18 Blood Pressure Pulse Oximetry 100 Oxygen Delivery Room Air 06/01/23 20:00 06/01/23 20:00 06/02/23 00:00 Temperature 97.3 F L Pulse Rate 95 95 99 Respiratory Rate 15 Blood Pressure 116/52 L Pulse Oximetry 100 Oxygen Delivery 06/02/23 00:00 06/02/23 02:00 06/02/23 04:00 Jess
[2023-06-02] MEDS: SALINE LOCK FLUSH 10 ML IV PUSH ×2 (17:30→22:00)
[2023-06-02] MEDS: SODIUM CHLORIDE 0.9% IV 250 ML 30 ML IV CONT (17:35)
[2023-06-03] VITALS (20 sets, daily range): BP systolic 94–130; BP diastolic 33–65; PULSE 82–95; RESP 14–18; TEMP 36–36.6; O2SAT 94–100
[2023-06-03] MEDS: ALBUTEROL SULFATE NEB 2.5 MG/3 ML INH INHALATION ×4 (02:19→20:58)
[2023-06-03] MEDS: IPRATROPIUM BR 0.02% INH SOLN 0.5 MG/2.5 ML VIAL INHALATION ×4 (02:20→20:58)
[2023-06-03 05:41] LABS: Basophils Percent Auto 0.3 % (0.2-1.2); Eosinophils Absolute Auto 0.1 K/mm3 (0-0.3); Eosinophils Percent Auto 0.8 % (0-4.4); Hematocrit 27.5 % (37.0-47.0); Hemoglobin 8.4 g/dL (12.0-15.0); Immature Granulocyte Absolute 0.25 K/mm3 (0.00-0.031); Immature Granulocyte Percent A 2.1 % (0-0.5); Lymphocytes Absolute Auto 2.04 K/mm3 (0.9-3.2); Lymphocytes Percent Auto 17.3 % (18.3-44.2); Mean Corpuscular HGB Conc 30.5 g/dl (32-36); Mean Corpuscular Hemoglobin 31.6 pg (26-34); Mean Corpuscular Volume 103.4 fl (80-100); Mean Platelet Volume 9.6 fl (7.4-10.4); Monocytes Absolute Auto 0.8 K/mm3 (0.1-0.6); Monocytes Percent Auto 6.4 % (2.6-8.5); Neutrophils Absolute Auto 8.6 K/mm3 (1.3-6.7); Neutrophils Percent Auto 73.1 % (45.5-73.1); Nucleated Red Blood Cells Absolute Auto 0.1 K/mm3 (0.0-0.012); Nucleated Red Blood Cells Perc 0.6 % (0.0-0.2); Platelet Count Result 211 k/mm3 (150-375); Red Blood Count 2.66 M/mm3 (4.2-5.4); Red Cell Distribution Width 18.3 % (11.5-14.5); White Blood Count 11.8 K/mm3 (4.5-10.0)
[2023-06-03 05:51] LABS: Anion Gap 6 mmol/L (8-16); Blood Urea Nitrogen 38 mg/dL (7-17); Calcium 7.6 mg/dL (8.4-10.2); Carbon Dioxide 29 mmol/L (22-30); Chloride 104 mmol/L (98-107); Estimated CRCL calculation 29 ml/min; Estimated Glomerular Filt Rate 39; Glucose 99 mg/dL (65-110); Magnesium 1.9 mg/dL (1.6-2.3); Potassium 3.4 mmol/L (3.4-5.0); Sodium 139 mmol/L (137-145)
[2023-06-03 06:33] LABS: Procalcitonin 0.3 ng/mL
[2023-06-03] MEDS: TOLNAFTATE 1% POWDER 45 GM BTL 1 APPLIC TOPICAL ×2 (07:50→20:48)
[2023-06-03] MEDS: SACCHAROMYCES BOULARDII 250 MG CAPSULE PO ×2 (09:19→17:22)
[2023-06-03] MEDS: PANTOPRAZOLE 40 MG TABLET PO (09:20)
[2023-06-03] MEDS: guaiFENesin 12 HR 600 MG TABCR PO ×2 (09:20→20:48)
[2023-06-03] MEDS: METOPROLOL TARTRATE 50 MG TAB PO ×2 (09:20→20:48)
[2023-06-03] MEDS: CEFEPIME 2 GM/NS 50 ML 2 GM/50 ML BAG IVPB ×2 (09:21→20:55)
--- NOTE | 2023-06-03 09:24 | PM.PNORT ---
Progress Note: A&P Assessment and Plan (1) Fracture of femoral neck, right, closed: Qualifiers: Encounter type: initial encounter Qualified Code(s): S72.001A - Fracture of unspecified part of neck of right femur, initial encounter for closed fracture Code(s): S72.001A - Fracture of unspecified part of neck of right femur, initial encounter for closed fracture Status: Acute Assessment and Plan: POD #4: Revision right hip hemiarthroplasty Continue PT/OT. WBAT. Walker. HIGH FALL RISK. Continue pain control. Will try to limit narcotics and benzodiazepines. Switch pain medicine to tramadol as she was on this at home. - Pain control improved today. Ice hip. Protect skin. Overall swelling improved. DVT prophylaxis on HOLD Due to drainage. SCDs. IC. Pulmonology following. Treatment for PNA. Wound VAC dressing Labs reviewed, improved. Dispo: SNF pending progress with PT/OT and medical stability. (2) Hip dislocation, right: Qualifiers: Encounter type: initial encounter Qualified Code(s): S73.004A - Unspecified dislocation of right hip, initial encounter Code(s): S73.004A - Unspecified dislocation of right hip, initial encounter Status: Acute Plan Subjective Subjective Date/Time Seen: 06/03/23 09:24 Post Op day: 4 Principal diagnosis: Right hip fracture dislocation Interval history: POD #4: Revision Right Hip Hemiarthroplasty Patient awake/alert. Pain improved today. Drainage of the right hip and RUE -improved. Wound VAC for the right hip Exam Const: General: comfortable and no acute distress Skin: General skin exam: normal color Extrem: Right lower extremity: normal to inspection, normal capillary refill, hip/thigh Details: tenderness Location: of the hip (Thigh soft ) Location: laterally and anteriorly, swelling Location: at the hip, abnormal ROM (limited consistent with recent surgery ) Details: pain with active ROM during and pain with passive ROM during and other (Incision c/d/i. ); no deformity and no unusual warmth, knee Details: normal to inspection; no tenderness and no swelling, lower leg (Negative Sabrina's Sign ) Details: normal to inspection and no edema; no tenderness, ankle (+ankle dorsiflexion/plantarflexion) Details: normal to inspection and no edema; no tenderness, no swelling and no ecchymosis and foot Details: normal capillary refill, toes with normal ROM, vascular exam Details: dorsalis pedis pulse present and motor-sensory exam Details: light-touch normal; no tenderness Other: right hip wound VAC dressing in place. Able to move toes. Good sensation to touch and good capillary refill. bilateral upper and bilateral lower extremity swelling improved today. Better color and skin turgor. Less drainage right arm. Objective Data Vital Signs Vital Signs: Vital Signs - 24 hr 06/02/23 09:27 06/02/23 09:38 06/02/23 12:30 Temperature 97.9 F Pulse Rate 92 83 88 Respiratory Rate 16 16 Blood Pressure 125/56 L Pulse Oximetry 92 Oxygen Delivery Oxygen Flow Rate Fraction of Inspired Oxygen 06/02/23 14:21 06/02/23 14:37 06/02/23 16:00 Temperature 97.2 F L Pulse Rate 89 78 89 Respiratory Rate 16 16 16 Blood Pressure 116/56 L Pulse Oximetry 92 Oxygen Delivery Oxygen Flow Rate Fraction of Inspired Oxygen 06/02/23 17:39 06/02/23 17:55 06/02/23 12:04 Temperature 97.4 F L 97.9 F Pulse Rate 89 95 88 Respiratory Rate 16 18 Blood Pressure 116/42 L 118/58 L Pulse Oximetry 92 90 Oxygen Delivery Oxygen Flow Rate Fraction of Inspired Oxygen 06/02/23 16:01 06/02/23 18:39 06/02/23 19:00 Temperature 96.5 F L 96.8 F L Pulse Rate 88 96 97 Respiratory Rate 16 14 Blood Pressure 116/46 L 110/92 H Pulse Oximetry 99 97 Oxygen Delivery Oxygen Flow Rate Fraction of Inspired Oxygen 06/02/23 20:20 06/02/23 20:20 06/02/23 20:00 Temperature 96.8 F L Pulse Rate 97 97
[2023-06-03] MEDS: ENOXAPARIN 40 MG/0.4 ML SYRINGE SUB-Q (10:37)
[2023-06-03] MEDS: ISOSORBIDE MONONITRATE 60 MG TAB.ER.24H 120 MG PO (10:37)
[2023-06-03] MEDS: LOSARTAN POTASSIUM 50 MG TABLET PO (10:37)
[2023-06-03] MEDS: DULoxetine HCL 30 MG CAPSULE.DR 60 MG PO (11:11)
[2023-06-03] MEDS: ASPIRIN 81 MG ENTERIC TABLET PO (11:11)
[2023-06-03] MEDS: ACETAMINOPHEN 325 MG TABLET 650 MG PO (12:51)
[2023-06-03] MEDS: SALINE LOCK FLUSH 10 ML IV PUSH ×2 (14:24→20:49)
--- NOTE | 2023-06-03 15:07 | PM.IMPN ---
Progress Note: A&P Assessment and Plan (1) Hip dislocation, right: Qualifiers: Encounter type: initial encounter Qualified Code(s): S73.004A - Unspecified dislocation of right hip, initial encounter Code(s): S73.004A - Unspecified dislocation of right hip, initial encounter Status: Acute (2) Acute on chronic anemia: Code(s): D64.9 - Anemia, unspecified Status: Acute (3) Septic shock: Code(s): A41.9 - Sepsis, unspecified organism; R65.21 - Severe sepsis with septic shock Status: Acute (4) HCAP (healthcare-associated pneumonia): Code(s): J18.9 - Pneumonia, unspecified organism Status: Acute (5) Acute hypoxemic respiratory failure: Code(s): J96.01 - Acute respiratory failure with hypoxia Status: Acute Plan 88F w/ PMH frequent UTIs, recurrent falls, CVA, HTN, CAD, OA, HLD, GERD, recent displaced right femoral neck fx s/p hemiarthroplasty with bipolar prosthesis then sent to acute rehab at [facility] (prior living at [facility]) returned with shortness of breath and confusion. On admission to ER she was found to have HCAP and sepsis. Admitted on 05/25/30 Echo 05/26/23 ?1. Left ventricular chamber dimension is normal. ? 2. Left ventricular systolic function is mildly reduced, estimated at 40-45%. ? 3. There is hypokinesis of the anterolateral wall and the inferoseptum. ? 4. The left ventricular diastolic function is grade I diastolic dysfunction. ? 5. Right ventricular systolic function is normal. ? 6. Left atrial chamber dimension is moderately enlarged. ? 7. There is mild mitral valve regurgitation. ? 8. There is mild tricuspid valve regurgitation. For the 1st time today the patient is closer to her baseline of alert and oriented. The daughters have been very concerned since her right hip surgery 1 month ago that she has had a progressive cognitive decline. It is apparent now that sepsis was the main culprit for her prolonged confusion over weeks. Stressed to the daughters that although this is greatly improved the patient may wax and wane on going. Goals now are to have patient participate with therapy as she is extremely weak. I believe the reason for the patient's greatly improved states today is adequately treated Hcap and a 1 unit PRBC transfusion yesterday. Continue to monitor hemoglobin. She has active bloody drainage in the wound VAC on her right hip. There was also blood streaked sputum today which is pending culture. I have discontinued aspirin Plavix and Lovenox. Explained to the daughter that this places the patient at risk for stroke propagation and further cardiac issues to which they understand and agree to. The patient did have an NSTEMI on admission to which the daughters did not want to act on and continue to be decided on that. Currently she is receiving cefepime and levofloxacin and guaifenesin and schedule nebulizers. Prior consultation with pulmonology appreciated. She is now on room air and her leukocytosis is improving so if she continues to improve we can discontinue some if not all of those therapies. She appears euvolemic so we will continue to hold off on diuresis. The patient complains of right foot pain there is no obvious abnormality but considering her recurrent falls we will obtain a three view x-ray of the right foot. She has dependent edema bilaterally on the feet distal to the lateral malleolus however it is slightly more pronounced on the right foot. Continue physical therapy and occupational therapy. Wound VAC, wound care, therapy orders will defer to Orthopedic surgery. Goal is to discharge to acute rehab once stable in regards to the issues above. Patient is DNR. Saline lock IV. SCDs for DVT prophylaxis. Subjective Date/time seen: 06/03/23 15:07 Interval history: No acute overnight events. Daughter present in room. For the 1st time today the patient is alert and oriented x3 and able to converse
[2023-06-04] VITALS (20 sets, daily range): BP systolic 92–125; BP diastolic 43–56; PULSE 85–96; RESP 16–18; TEMP 36.2–37; O2SAT 92–99; BMI 10.0
[2023-06-04] MEDS: ALBUTEROL SULFATE NEB 2.5 MG/3 ML INH INHALATION ×4 (01:52→20:27)
[2023-06-04] MEDS: IPRATROPIUM BR 0.02% INH SOLN 0.5 MG/2.5 ML VIAL INHALATION ×4 (01:52→20:27)
[2023-06-04] MEDS: SALINE LOCK FLUSH 10 ML IV PUSH ×3 (06:03→21:49)
--- NOTE | 2023-06-04 06:18 | PC.NURSE ---
This RN attempted to take picture of wound after noticing no picture has been documented. camera not working will pass on to the next shift.
[2023-06-04] MEDS: SACCHAROMYCES BOULARDII 250 MG CAPSULE PO ×2 (09:03→18:09)
[2023-06-04] MEDS: ISOSORBIDE MONONITRATE 60 MG TAB.ER.24H 120 MG PO (09:03)
[2023-06-04] MEDS: DULoxetine HCL 30 MG CAPSULE.DR 60 MG PO (09:03)
[2023-06-04] MEDS: guaiFENesin 12 HR 600 MG TABCR PO ×2 (09:04→21:48)
[2023-06-04] MEDS: LOSARTAN POTASSIUM 50 MG TABLET PO (09:04)
[2023-06-04] MEDS: METOPROLOL TARTRATE 50 MG TAB PO ×2 (09:04→21:50)
[2023-06-04] MEDS: PANTOPRAZOLE 40 MG TABLET PO (09:04)
[2023-06-04] MEDS: levoFLOXacin 750 MG/D5W 150 ML 750 MG/150 ML BAG 100 MG IVPB (09:05)
[2023-06-04] MEDS: TOLNAFTATE 1% POWDER 45 GM BTL 1 APPLIC TOPICAL ×2 (09:05→21:47)
[2023-06-04] MEDS: ACETAMINOPHEN 325 MG TABLET 650 MG PO ×2 (09:07→18:12)
--- NOTE | 2023-06-04 09:25 | PM.PNORT ---
Subjective Subjective Date/Time Seen: 06/04/23 09:25 Objective Data Vital Signs Vital Signs: Vital Signs - 24 hr 06/03/23 09:44 06/03/23 09:44 06/03/23 09:56 Temperature Pulse Rate 89 89 Respiratory Rate 16 16 Blood Pressure Pulse Oximetry 94 Oxygen Delivery Room Air 06/03/23 12:00 06/03/23 14:47 06/03/23 15:02 Temperature 36.1 C L Pulse Rate 95 85 84 Respiratory Rate 16 16 16 Blood Pressure 94/55 L Pulse Oximetry 97 Oxygen Delivery 06/03/23 16:00 06/03/23 17:38 06/03/23 12:01 Temperature 36.2 C L Pulse Rate 82 95 Respiratory Rate 18 Blood Pressure 100/36 L 100/60 Pulse Oximetry 95 Oxygen Delivery 06/03/23 16:03 06/03/23 19:48 06/03/23 20:00 Temperature 36.5 C Pulse Rate 85 90 Respiratory Rate 17 Blood Pressure 107/39 L Pulse Oximetry 100 Oxygen Delivery Room Air 06/03/23 20:48 06/03/23 21:00 06/03/23 21:00 Temperature Pulse Rate 90 88 Respiratory Rate 16 Blood Pressure Pulse Oximetry 95 Oxygen Delivery Room Air 06/03/23 23:30 06/04/23 01:52 06/04/23 02:04 Temperature 36.6 C Pulse Rate 84 85 87 Respiratory Rate 18 18 18 Blood Pressure 102/33 L Pulse Oximetry 94 Oxygen Delivery 06/04/23 04:00 06/03/23 20:00 06/04/23 00:00 Temperature 36.8 C Pulse Rate 89 90 87 Respiratory Rate 18 Blood Pressure 125/53 L Pulse Oximetry 95 Oxygen Delivery 06/04/23 04:00 06/04/23 07:35 06/04/23 07:35 Temperature Pulse Rate 87 88 88 Respiratory Rate 18 18 Blood Pressure Pulse Oximetry 92 Oxygen Delivery Room Air 06/04/23 07:35 06/04/23 08:13 06/04/23 09:04 Temperature 36.7 C Pulse Rate 87 91 88 Respiratory Rate 18 16 Blood Pressure 117/51 L Pulse Oximetry 95 Oxygen Delivery Intake/Output Intake/Output: Intake & Output 06/01/23 06/02/23 06/03/23 06/04/23 23:59 23:59 23:59 23:59 Intake Total 218 646 4071 100 Output Total 550 1925 825 350 Balance 10 -203 682 -250 Meds/Results Medications: Active Medications Generic Name Dose Route Start Last Admin Trade Name Humphreyq PRN Reason Stop Dose Admin Acetaminophen 650 mg 05/30/23 18:37 06/04/23 09:07 Acetaminophen 325 Mg Tablet PO 650 mg Q6H PRN Administration Mild Pain (1-3) or Fever Albuterol 2.5 mg 05/28/23 20:00 06/04/23 07:30 Albuterol Sulfate Neb 2.5 Mg/3 Ml Inh INHALATION 2.5 mg Q6HRT MURRAY Administration Calcium Citrate 1 tablet 05/26/23 17:00 06/04/23 09:03 Calcium Citrate 315 Mg/Vitamin D 250 Units Tab PO 1 tablet BID MURRAY Administration Docusate Sodium 100 mg 05/26/23 12:38 Docusate Sodium 100 Mg Capsule PO DAILY PRN Constipation Duloxetine HCl 60 mg 05/31/23 09:00 06/04/23 09:03 Duloxetine Hcl 30 Mg Capsule.Dr PO 60 mg DAILY MURRAY Administration Guaifenesin 600 mg 05/28/23 21:00 06/04/23 09:04 Guaifenesin 12 Hr 600 Mg Tabcr PO 600 mg Q12HR MURRAY Administration Cefepime HCl 2 gm in 50 mls @ 100 mls/hr 05/31/23 12:50 06/03/23 21:25 Maxipime 2 Gm/Ns 50 Ml IVPB Infused Q12HR MURRAY Infusion Levofloxacin/Dextrose 750 mg in 150 mls @ 100 mls/hr 05/31/23 14:00 06/04/23 09:05 Levaquin 750 Mg/D5w 150 Ml IVPB 100 mls/hr Q48HR MURRAY Administration Ipratropium [place] 0.5 mg 05/28/23 20:00 06/04/23 07:30 Ipratropium Br 0.02% Inh Soln 0.5 Mg/2.5 Ml Vial INHALATION 0.5 mg Q6HRT MURRAY Administration Isosorbide Mononitrate 120 mg 05/31/23 09:00 06/04/23 09:03 Isosorbide Mononitrate 60 Mg Tab.Er.24h PO 120 mg DAILY MURRAY Administration Losartan Potassium 50 mg 05/31/23 09:00 06/04/23 09:04 Losartan Potassium 50 Mg Tablet PO 50 mg DAILY MURRAY Administration Metoprolol Tartrate 50 mg 05/26/23 21:00 06/04/23 09:04 Metoprolol Tartrate 50 Mg Tab PO 50 mg Q12HR MURRAY Administration Miconazole Nitrate 1 applic 05/28/23 21:00 06/04/23 09:05 Miconazole 2% Antifungal Ointment 56 Gm TOPICAL 1 ap
[2023-06-04] MEDS: CEFEPIME 2 GM/NS 50 ML 2 GM/50 ML BAG IVPB (10:47)
--- NOTE | 2023-06-04 12:06 | PM.PNORT ---
Progress Note: A&P Assessment and Plan (1) Fracture of femoral neck, right, closed: Qualifiers: Encounter type: initial encounter Qualified Code(s): S72.001A - Fracture of unspecified part of neck of right femur, initial encounter for closed fracture Code(s): S72.001A - Fracture of unspecified part of neck of right femur, initial encounter for closed fracture Status: Acute Assessment and Plan: POD #5: Revision right hip hemiarthroplasty Continue PT/OT. WBAT. Walker. HIGH FALL RISK. Continue pain control. Tramadol for pain relief. Ice hip. Protect skin. SCDs. IC. Pulmonology following. Treatment for PNA. DVT prophylaxis still being held by medicine team. 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 Plan to switch to prevena device prior to discharge which is at the bedside in original dressing packaging. Possibly transition back to normal dressing prior to discharge if slowed drainage. New chamber placed today. Dispo: SNF pending progress with PT/OT and medical stability. (2) Hip dislocation, right: Qualifiers: Encounter type: initial encounter Qualified Code(s): S73.004A - Unspecified dislocation of right hip, initial encounter Code(s): S73.004A - Unspecified dislocation of right hip, initial encounter Status: Acute Plan Reviewed history, exam, radiographs and current labs with attending MD and covering surgeon, Dr. Chowdary, who agrees with current plan as indicated above. No further recommendations from Dr. Chowdary at this time. Subjective Subjective Date/Time Seen: 06/04/23 12:06 Post Op day: 5 Principal diagnosis: Right hip fracture dislocation Interval history: POD #5: Revision Right Hip Hemiarthroplasty Patient awake/alert. Pain and mentation with continued improvement. Wound VAC in place right hip. No new concerns. Family at bedside. Review of Systems Review of Systems: All systems reviewed & are unremarkable except as noted in HPI and below Exam Const: General: comfortable and no acute distress Skin: General skin exam: normal color Extrem: Right lower extremity: normal to inspection, normal capillary refill, hip/thigh Details: tenderness Location: of the hip (Thigh soft ) Location: laterally and anteriorly, swelling Location: at the hip, abnormal ROM (limited consistent with recent surgery ) Details: pain with active ROM during and pain with passive ROM during and other (Incision c/d/i. ); no deformity and no unusual warmth, knee Details: normal to inspection; no tenderness and no swelling, lower leg (Negative Sabrina's Sign ) Details: normal to inspection and no edema; no tenderness, ankle (+ankle dorsiflexion/plantarflexion) Details: normal to inspection and no edema; no tenderness, no swelling and no ecchymosis and foot Details: normal capillary refill, toes with normal ROM, vascular exam Details: dorsalis pedis pulse present and motor-sensory exam Details: light-touch normal; no tenderness Other: Right hip Prevena Wound VAC dressing in place. 200ML of serosanguineous fluid output in chamber. Able to move toes. Good sensation to touch and good capillary refill. bilateral upper and bilateral lower extremity swelling improved. Better color and skin turgor. Minimal drainage right arm. Objective Data Vital Signs Vital Signs: Vital Signs - 24 hr 06/03/23 14:47 06/03/23 15:02 06/03/23 16:00 Temperature 36.2 C L Pulse Rate 85 84 82 Respiratory Rate 16 16 18 Blood Pressure 100/36 L Pulse Oximetry 95 Oxygen Delivery 06/03/23 17:38 06/03/23 16:03 06/03/23 19:48 Temperature 36.5 C Pulse Rate 85 90 Respiratory Rate 17 Blood Pressure 100/60 107/39 L Pulse Oximetry 100 Oxygen Delivery 06/03/23 20:00 06/03/23 20:48 06/03/23 21:00 Temperature Pulse Rate 90 88 Respiratory Rate 16 Blood Pressure Pulse Oximetry Oxygen Delivery Room Air 06/03/23 21:00 06/03/23
[2023-06-04] MEDS: ONDANSETRON INJ 4 MG/2 ML VIAL IV PUSH (13:21)
--- NOTE | 2023-06-04 18:50 | PM.IMPN ---
Progress Note: A&P Assessment and Plan (1) Hip dislocation, right: Qualifiers: Encounter type: initial encounter Qualified Code(s): S73.004A - Unspecified dislocation of right hip, initial encounter Code(s): S73.004A - Unspecified dislocation of right hip, initial encounter Status: Acute (2) Acute on chronic anemia: Code(s): D64.9 - Anemia, unspecified Status: Acute (3) Septic shock: Code(s): A41.9 - Sepsis, unspecified organism; R65.21 - Severe sepsis with septic shock Status: Acute (4) HCAP (healthcare-associated pneumonia): Code(s): J18.9 - Pneumonia, unspecified organism Status: Acute (5) Acute hypoxemic respiratory failure: Code(s): J96.01 - Acute respiratory failure with hypoxia Status: Acute Plan 88F w/ PMH frequent UTIs, recurrent falls, CVA, HTN, CAD, OA, HLD, GERD, combined CHF, recent displaced right femoral neck fx s/p hemiarthroplasty with bipolar prosthesis then sent to acute rehab at [facility] (prior living at [facility]) returned with shortness of breath and confusion. On admission to ER she was found to have HCAP and sepsis. Admitted on 05/25/30 Echo 05/26/23 ?1. Left ventricular chamber dimension is normal. ? 2. Left ventricular systolic function is mildly reduced, estimated at 40-45%. ? 3. There is hypokinesis of the anterolateral wall and the inferoseptum. ? 4. The left ventricular diastolic function is grade I diastolic dysfunction. ? 5. Right ventricular systolic function is normal. ? 6. Left atrial chamber dimension is moderately enlarged. ? 7. There is mild mitral valve regurgitation. ? 8. There is mild tricuspid valve regurgitation. 1. Altered mental status-this started after her 1st right hip surgery about a month ago. She probably has some underlying dementia but after treatment of severe anemia and Hcap she is A&O x3. The daughters are very happy with this but we have had discussions on the likely waxing and waning of her mental status given her chronic comorbidities and acute issues. 2. Recent displaced right femur neck fracture status post hemiarthroplasty and bipolar prosthesis May 01, 2023. She was discharged to [facility] for rehab and returned with altered mental status. She was then found to have a dislocation of the right prosthesis and underwent revision of right hip hemiarthroplasty on May 30, 2023. She still has bleeding from the wound VAC at the right wound but pain is well controlled. Therapy, mobility orders, and pain control per orthopedic surgery team. 3. Multifocal pneumonia -she was treated with vancomycin and cefepime. Pulmonology was eventually consulted and they requested cefepime and Levaquin be restarted for a total of an extra 5 days. That course is complete and she is on room air. No further indications for antibiotics. 4. Acute hypoxic respiratory failure. Resolved. 5. 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 Echo demonstrating mild hypokinesis with EF of 40-45% and diastolic dysfunction grade 1. This is resolved and diuretics have been stopped. 6. LYNDSAY. Improved. 7. Severe anemia-suggested goal hemoglobin greater than 8 as she has coronary artery disease. She received 1 unit packed red blood cells for hemoglobin in the sevens and the day after his when her encephalopathy completely resolved. Would not hesitate to we administer packed red cells if her hemoglobin drops again. This is likely due to acute on chronic anemia mixed with multiple surgeries and bleeding from the right hip site. 8. NSTEMI-present on admission. This was likely due to the acute issues and demand ischemia. She never had active chest pain. She is on aspirin and Plavix but that is on hold. The family did not want any aggressive invasive measures cardiac-moses. 9. UTI treated with antibiotics 10. History of CVA with recurrent falls-PT OT Continue physical the
[2023-06-04 20:32] LABS: Glucose Point of Care 113 mg/dl (65-105)
[2023-06-05] VITALS (14 sets, daily range): BP systolic 110–126; BP diastolic 50–60; PULSE 80–95; RESP 16–18; TEMP 36.2–36.7; O2SAT 91–94
[2023-06-05] MEDS: SALINE LOCK FLUSH 10 ML IV PUSH ×3 (05:16→20:51)
[2023-06-05 06:08] LABS: Basophils Absolute Auto 0.1 K/mm3 (0.0-0.1); Basophils Percent Auto 0.6 % (0.2-1.2); Eosinophils Absolute Auto 0.3 K/mm3 (0-0.3); Eosinophils Percent Auto 3.1 % (0-4.4); Hematocrit 27.2 % (37.0-47.0); Hemoglobin 8.4 g/dL (12.0-15.0); Immature Granulocyte Absolute 0.28 K/mm3 (0.00-0.031); Immature Granulocyte Percent A 2.7 % (0-0.5); Lymphocytes Absolute Auto 2.32 K/mm3 (0.9-3.2); Lymphocytes Percent Auto 22.1 % (18.3-44.2); Mean Corpuscular HGB Conc 30.9 g/dl (32-36); Mean Corpuscular Hemoglobin 31.9 pg (26-34); Mean Corpuscular Volume 103.4 fl (80-100); Mean Platelet Volume 9.4 fl (7.4-10.4); Monocytes Absolute Auto 0.8 K/mm3 (0.1-0.6); Monocytes Percent Auto 7.3 % (2.6-8.5); Neutrophils Absolute Auto 6.7 K/mm3 (1.3-6.7); Neutrophils Percent Auto 64.2 % (45.5-73.1); Platelet Count Result 210 k/mm3 (150-375); Red Blood Count 2.63 M/mm3 (4.2-5.4); Red Cell Distribution Width 17.2 % (11.5-14.5); White Blood Count 10.5 K/mm3 (4.5-10.0)
[2023-06-05 06:17] LABS: Anion Gap 2 mmol/L (8-16); Blood Urea Nitrogen 20 mg/dL (7-17); Calcium 7.4 mg/dL (8.4-10.2); Carbon Dioxide 30 mmol/L (22-30); Chloride 104 mmol/L (98-107); Estimated CRCL calculation 41 ml/min; Estimated Glomerular Filt Rate 59; Glucose 91 mg/dL (65-110); Magnesium 1.7 mg/dL (1.6-2.3); Potassium 3.9 mmol/L (3.4-5.0); Sodium 136 mmol/L (137-145)
[2023-06-05] MEDS: IPRATROPIUM BR 0.02% INH SOLN 0.5 MG/2.5 ML VIAL INHALATION ×3 (07:57→19:41)
[2023-06-05] MEDS: ALBUTEROL SULFATE NEB 2.5 MG/3 ML INH INHALATION ×3 (07:57→19:41)
--- NOTE | 2023-06-05 09:23 | PM.PNORT ---
Progress Note: A&P Assessment and Plan (1) Fracture of femoral neck, right, closed: Qualifiers: Encounter type: initial encounter Qualified Code(s): S72.001A - Fracture of unspecified part of neck of right femur, initial encounter for closed fracture Code(s): S72.001A - Fracture of unspecified part of neck of right femur, initial encounter for closed fracture Status: Acute Assessment and Plan: POD #6: Revision right hip hemiarthroplasty Continue PT/OT. WBAT. Walker. HIGH FALL RISK. Transition from hip abduction brace to knee immobilizer. Continue pain control. Tramadol for pain relief. Ice hip. Protect skin. SCDs. IC. Pulmonology following. Treatment for PNA. DVT prophylaxis still being held by medicine team. 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 Plan to switch to Prevena device prior to discharge which is at the bedside in original dressing packaging. Possibly transition back to normal dressing prior to discharge if slowed drainage. Dispo: SNF pending progress with PT/OT and medical stability. (2) Hip dislocation, right: Qualifiers: Encounter type: initial encounter Qualified Code(s): S73.004A - Unspecified dislocation of right hip, initial encounter Code(s): S73.004A - Unspecified dislocation of right hip, initial encounter Status: Acute Plan Reviewed history, exam, radiographs and current labs with attending MD and covering surgeon, Dr. Chowdary, who agrees with current plan as indicated above. No further recommendations from Dr. Chowdary at this time. Subjective Subjective Date/Time Seen: 06/05/23 09:23 Post Op day: 6 Principal diagnosis: Right hip fracture dislocation Interval history: POD #6: Revision Right Hip Hemiarthroplasty Patient awake/alert. Pain and mentation with continued improvement. Wound VAC in place right hip. No new concerns. Family at bedside assisting with meals. Review of Systems Review of Systems: All systems reviewed & are unremarkable except as noted in HPI and below (Subjective) Exam Const: General: comfortable and no acute distress Skin: General skin exam: normal color Extrem: Right lower extremity: normal to inspection, normal capillary refill, hip/thigh Details: tenderness Location: of the hip (Thigh soft ) Location: laterally and anteriorly, swelling Location: at the hip, abnormal ROM (limited consistent with recent surgery ) Details: pain with active ROM during and pain with passive ROM during and other (Incision c/d/i. ); no deformity and no unusual warmth, knee Details: normal to inspection; no tenderness and no swelling, lower leg (Negative Sabrina's Sign ) Details: normal to inspection and no edema; no tenderness, ankle (+ankle dorsiflexion/plantarflexion) Details: normal to inspection and no edema; no tenderness, no swelling and no ecchymosis and foot Details: normal capillary refill, toes with normal ROM, vascular exam Details: dorsalis pedis pulse present and motor-sensory exam Details: light-touch normal; no tenderness Other: Right hip Prevena Wound VAC dressing in place. New canister in place. 50mL of serosanguineous fluid output in chamber. Able to move toes. Good sensation to touch and good capillary refill. Bilateral upper and bilateral lower extremity swelling improved. Better color and skin turgor. Minimal drainage right arm. Objective Data Vital Signs Vital Signs: Vital Signs - 24 hr 06/04/23 12:00 06/04/23 14:42 06/04/23 18:23 Temperature 37.0 C 36.4 C Pulse Rate 95 96 87 Respiratory Rate 16 16 Blood Pressure 115/48 L 107/56 L Pulse Oximetry 99 99 Oxygen Delivery 06/04/23 16:00 06/04/23 20:28 06/04/23 20:31 Temperature Pulse Rate 88 89 89 Respiratory Rate 18 Blood Pressure Pulse Oximetry 93 Oxygen Delivery Room Air 06/04/23 20:40 06/04/23 19:15 06/04/23 20:00 Temperature 36.2 C L Pulse Rate 89 90 Respiratory Rate 18
[2023-06-05] MEDS: SENNA/DOCUSATE SODIUM TABLET 2 TAB PO ×2 (09:42→16:51)
[2023-06-05] MEDS: guaiFENesin 12 HR 600 MG TABCR PO ×2 (09:42→20:50)
[2023-06-05] MEDS: PANTOPRAZOLE 40 MG TABLET PO (09:43)
[2023-06-05] MEDS: ISOSORBIDE MONONITRATE 60 MG TAB.ER.24H 120 MG PO (09:43)
[2023-06-05] MEDS: METOPROLOL TARTRATE 50 MG TAB PO ×2 (09:43→20:50)
[2023-06-05] MEDS: SACCHAROMYCES BOULARDII 250 MG CAPSULE PO ×2 (09:43→16:51)
[2023-06-05] MEDS: DULoxetine HCL 30 MG CAPSULE.DR 60 MG PO (09:43)
[2023-06-05] MEDS: LOSARTAN POTASSIUM 50 MG TABLET PO (09:43)
[2023-06-05] MEDS: TOLNAFTATE 1% POWDER 45 GM BTL 1 APPLIC TOPICAL ×2 (09:45→20:51)
--- NOTE | 2023-06-05 12:47 | IVDEFINITY ---
Prior to administration of IV Definity the patient was educated on the risks and benefits of the imaging enhancing agent including potential adverse side effects. The patient verbalized understanding. Allergies were verified. No exclusion criteria were identified and at least one of the following inclusion criteria were met: 1) physician request, 2) patient technically difficult to image (per the [place] [employer] guidelines of two or more segments not discernable within the apical view), or 3) questionable left ventricular function. ?
--- NOTE | 2023-06-05 13:01 | PM.IMPN ---
Progress Note: A&P Assessment and Plan (1) Hip dislocation, right: Qualifiers: Encounter type: initial encounter Qualified Code(s): S73.004A - Unspecified dislocation of right hip, initial encounter Code(s): S73.004A - Unspecified dislocation of right hip, initial encounter Status: Acute (2) Acute on chronic anemia: Code(s): D64.9 - Anemia, unspecified Status: Acute (3) Septic shock: Code(s): A41.9 - Sepsis, unspecified organism; R65.21 - Severe sepsis with septic shock Status: Acute (4) HCAP (healthcare-associated pneumonia): Code(s): J18.9 - Pneumonia, unspecified organism Status: Acute (5) Acute hypoxemic respiratory failure: Code(s): J96.01 - Acute respiratory failure with hypoxia Status: Acute Plan 88F w/ PMH frequent UTIs, recurrent falls, CVA, HTN, CAD, OA, HLD, GERD, combined CHF, recent displaced right femoral neck fx s/p hemiarthroplasty with bipolar prosthesis then sent to acute rehab at [facility] (prior living at [facility]) returned with shortness of breath and confusion. On admission to ER she was found to have HCAP and sepsis. Admitted on 05/25/30 Echo 05/26/23 ?1. Left ventricular chamber dimension is normal. ? 2. Left ventricular systolic function is mildly reduced, estimated at 40-45%. ? 3. There is hypokinesis of the anterolateral wall and the inferoseptum. ? 4. The left ventricular diastolic function is grade I diastolic dysfunction. ? 5. Right ventricular systolic function is normal. ? 6. Left atrial chamber dimension is moderately enlarged. ? 7. There is mild mitral valve regurgitation. ? 8. There is mild tricuspid valve regurgitation. 1. Altered mental status-this started after her 1st right hip surgery about a month ago. She probably has some underlying dementia but after treatment of severe anemia and Hcap she is A&O x3. Pt much improved today pt holding conversation 2. Recent displaced right femur neck fracture status post hemiarthroplasty and bipolar prosthesis May 01, 2023. She was discharged to [facility] for rehab and returned with altered mental status. She was then found to have a dislocation of the right prosthesis and underwent revision of right hip hemiarthroplasty on May 30, 2023. She still has bleeding from the wound VAC at the right wound but pain is well controlled. Therapy, mobility orders, and pain control per orthopedic surgery team. 3. Multifocal pneumonia -she was treated with vancomycin and cefepime. Pulmonology was eventually consulted and they requested cefepime and Levaquin be restarted for a total of an extra 5 days. That course is complete and she is on room air. No further indications for antibiotics. 4. Acute hypoxic respiratory failure. Resolved. 5. 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 Echo demonstrating mild hypokinesis with EF of 40-45% and diastolic dysfunction grade 1. This is resolved and diuretics have been stopped. 6. LYNDSAY. Improved. 7. Severe anemia-suggested goal hemoglobin greater than 8 as she has coronary artery disease. She received 1 unit packed red blood cells for hemoglobin in the sevens and the day after his when her encephalopathy completely resolved. Would not hesitate to we administer packed red cells if her hemoglobin drops again. This is likely due to acute on chronic anemia mixed with multiple surgeries and bleeding from the right hip site. 8. NSTEMI-present on admission. This was likely due to the acute issues and demand ischemia. She never had active chest pain. She is on aspirin and Plavix but that is on hold. The family did not want any aggressive invasive measures cardiac-moses. 9. UTI treated with antibiotics 10. History of CVA with recurrent falls-PT OT 06/06/2023 Pt is much the same difficulty with ambulation continue physical therapy and occupational therapy in hospital can only dc when pt is amb
[2023-06-05] MEDS: ACETAMINOPHEN 325 MG TABLET 650 MG PO ×2 (13:30→20:58)
[2023-06-06] VITALS (15 sets, daily range): BP systolic 111–141; BP diastolic 48–76; PULSE 79–98; RESP 16–18; TEMP 36.3–36.6; O2SAT 93–99
[2023-06-06] MEDS: SALINE LOCK FLUSH 10 ML IV PUSH ×3 (05:51→21:11)
[2023-06-06] MEDS: ALBUTEROL SULFATE NEB 2.5 MG/3 ML INH INHALATION ×3 (07:48→21:10)
[2023-06-06] MEDS: IPRATROPIUM BR 0.02% INH SOLN 0.5 MG/2.5 ML VIAL INHALATION ×3 (07:48→21:10)
[2023-06-06] MEDS: LOSARTAN POTASSIUM 50 MG TABLET PO (08:44)
[2023-06-06] MEDS: PANTOPRAZOLE 40 MG TABLET PO (08:44)
[2023-06-06] MEDS: SACCHAROMYCES BOULARDII 250 MG CAPSULE PO ×2 (08:44→17:15)
[2023-06-06] MEDS: METOPROLOL TARTRATE 50 MG TAB PO ×2 (08:44→21:09)
[2023-06-06] MEDS: ISOSORBIDE MONONITRATE 60 MG TAB.ER.24H 120 MG PO (08:44)
[2023-06-06] MEDS: guaiFENesin 12 HR 600 MG TABCR PO ×2 (08:44→21:10)
[2023-06-06] MEDS: SENNA/DOCUSATE SODIUM TABLET 2 TAB PO ×2 (08:44→17:15)
[2023-06-06] MEDS: TOLNAFTATE 1% POWDER 45 GM BTL 1 APPLIC TOPICAL ×2 (08:44→21:10)
[2023-06-06] MEDS: DULoxetine HCL 30 MG CAPSULE.DR 60 MG PO (08:44)
--- NOTE | 2023-06-06 11:40 | PCNFU ---
Nutrition Follow-Up Complete: Inadequate Oral Intake as related to confusion as evidenced by limited po intake. Adequate Intake of at least 75% of meals/supplements - Goal is being met Goal: Pt current nutrition is Heart healthy diet. Ensure Compact BID for additional 220 kcal and 9 g protein each. Nutrition recommendation: Continue current nutrition care plan and orders. Agree with orders Last recorded weight is 84.7 kg. Bowel Motility: Last BM +1 06/02/23 Labs Reviewed: Hgb 8.4, Hct 27.2, Na 136, BUN 20 Meds Noted: Senna, florastor, colacem Zofran, protonix Skin: Vound vac to hip Additional Notes: Intakes are good 90-100%. No new recommendations. Continue current orders. RD will monitor weight, labs, skin, oral intake, meds every 5 days.
--- NOTE | 2023-06-06 12:11 | P.PNIM_ITS ---
Progress Note: A&P Assessment and Plan (1) Hip dislocation, right: Qualifiers: Encounter type: initial encounter Qualified Code(s): S73.004A - Unspecified dislocation of right hip, initial encounter Code(s): S73.004A - Unspecified dislocation of right hip, initial encounter Status: Acute (2) Acute on chronic anemia: Code(s): D64.9 - Anemia, unspecified Status: Acute (3) Septic shock: Code(s): A41.9 - Sepsis, unspecified organism; R65.21 - Severe sepsis with septic shock Status: Acute (4) HCAP (healthcare-associated pneumonia): Code(s): J18.9 - Pneumonia, unspecified organism Status: Acute (5) Acute hypoxemic respiratory failure: Code(s): J96.01 - Acute respiratory failure with hypoxia Status: Acute Plan 88F w/ PMH frequent UTIs, recurrent falls, CVA, HTN, CAD, OA, HLD, GERD, combined CHF, recent displaced right femoral neck fx s/p hemiarthroplasty with bipolar prosthesis then sent to acute rehab at [facility] (prior living at [facility]) returned with shortness of breath and confusion. On admission to ER she was found to have HCAP and sepsis. Admitted on 05/25/30 Echo 05/26/23 ?1. Left ventricular chamber dimension is normal. ? 2. Left ventricular systolic function is mildly reduced, estimated at 40-45%. ? 3. There is hypokinesis of the anterolateral wall and the inferoseptum. ? 4. The left ventricular diastolic function is grade I diastolic dysfunction. ? 5. Right ventricular systolic function is normal. ? 6. Left atrial chamber dimension is moderately enlarged. ? 7. There is mild mitral valve regurgitation. ? 8. There is mild tricuspid valve regurgitation. 1. Altered mental status-this started after her 1st right hip surgery about a month ago. She probably has some underlying dementia but after treatment of sev ere anemia and Hcap she is A&O x3. Pt much improved today pt holding conversation 2. Recent displaced right femur neck fracture status post hemiarthroplasty and bipolar prosthesis May 01, 2023. She was discharged to [facility] for rehab and returned with altered mental status. She was then found to have a dislocation of the right prosthesis and underwent revision of right hip hemiarthroplasty on May 30, 2023. She still has bleeding from the wound VAC at the right wound but pain is well controlled. Therapy, mobility orders, and pain control per orthopedic surgery team. 3. Multifocal pneumonia -she was treated with vancomycin and cefepime. Pulmonology was eventually consulted and they requested cefepime and Levaquin be restarted for a total of an extra 5 days. That course is complete and she is on room air. No further indications for antibiotics. 4. Acute hypoxic respiratory failure. Resolved. 5. 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 Echo demonstrating mild hypokinesis with EF of 40-45% and diastolic dysfunction grade 1. This is resolved and diuretics have been stopped. 6. LYNDSAY. Improved. 7. Severe anemia-suggested goal hemoglobin greater than 8 as she has coronary artery disease. She received 1 unit packed red blood cells for hemoglobin in the sevens and the day after his when her encephalopathy completely resolved. Would not hesitate to we administer packed red cells if her hemoglobin drops again. This is likely due to acute on chronic anemia mixed with multiple surgeries and bleeding from the right hip site. 8. NSTEMI-present on admission. This was likely due to the acute issues and demand ischemia. She never had active chest pain. She is on aspirin and Plavix but that is on hold
--- NOTE | 2023-06-06 15:03 | PM.PNORT ---
Progress Note: A&P Assessment and Plan (1) Fracture of femoral neck, right, closed: Qualifiers: Encounter type: initial encounter Qualified Code(s): S72.001A - Fracture of unspecified part of neck of right femur, initial encounter for closed fracture Code(s): S72.001A - Fracture of unspecified part of neck of right femur, initial encounter for closed fracture Status: Acute Assessment and Plan: POD 7 REVISION BIPOLAR FOR RECURRENT FRACTURE WITH EXTENSION TO THE CALCAR. SHE IS IMPROVING. HER DRESSING IS DOING WELL. SHE HAS NO SIGN OF INFECTION. SHE IS HAVING A DIFFICULT TIME WALKING. SHE WILL NEED REHAB AT THE TIME OF DISCHARGE. SHE WILL CONTINUE PT AND WBAT. Subjective Subjective Date/Time Seen: 06/06/23 15:03 Interval history: POST OP 7 IMPROVING. HER PNEUMONIA IS IMPROVED. SHE IS HAVING SLOW PROGRESS WITH PT. NO CALF PAIN Exam Extrem: Other: VSS AFEBRILE DRESSING IS DRY AND PRAVENA IS WORKING WELL. THERE IS NO SATURATION. NV INTACT NEG HOMANS SIGN CALF AND THIGH SOFT NON TENDER Objective Data Vital Signs Vital Signs: Vital Signs - 24 hr 06/05/23 16:00 06/05/23 16:00 06/05/23 19:41 Temperature 36.4 C Pulse Rate 95 88 92 Respiratory Rate 17 18 Blood Pressure 120/60 Pulse Oximetry 93 93 Oxygen Delivery Room Air Fraction of Inspired Oxygen 06/05/23 19:41 06/05/23 19:51 06/05/23 19:59 Temperature Pulse Rate 92 89 Respiratory Rate 18 18 Blood Pressure Pulse Oximetry Oxygen Delivery Room Air Fraction of Inspired Oxygen 06/05/23 20:50 06/05/23 20:00 06/06/23 00:00 Temperature 36.2 C L 36.4 C L Pulse Rate 92 92 81 Respiratory Rate 16 18 Blood Pressure 110/50 L 122/53 L Pulse Oximetry 93 98 Oxygen Delivery Fraction of Inspired Oxygen 06/05/23 20:00 06/06/23 00:00 06/06/23 04:00 Temperature Pulse Rate 82 82 79 Respiratory Rate Blood Pressure Pulse Oximetry Oxygen Delivery Fraction of Inspired Oxygen 06/06/23 04:00 06/06/23 07:40 06/06/23 07:53 Temperature 36.3 C L Pulse Rate 79 80 82 Respiratory Rate 16 18 18 Blood Pressure 141/68 H Pulse Oximetry 94 Oxygen Delivery Fraction of Inspired Oxygen 06/06/23 08:00 06/06/23 08:00 06/06/23 13:20 Temperature Pulse Rate 81 81 84 Respiratory Rate 18 18 Blood Pressure Pulse Oximetry 94 Oxygen Delivery Room Air Fraction of Inspired Oxygen 28 06/06/23 13:28 06/06/23 14:21 Temperature 36.6 C Pulse Rate 83 97 Respiratory Rate 18 16 Blood Pressure 116/48 L Pulse Oximetry 99 Oxygen Delivery Fraction of Inspired Oxygen Intake/Output Intake/Output: Intake & Output 06/03/23 06/04/23 06/05/23 06/06/23 23:59 23:59 23:59 23:59 Intake Total 8136 888 6472 210 Output Total 755 680 6803 430 Balance 475 30 270 -220 Meds/Results Medications: Active Medications Generic Name Dose Route Start Last Admin Trade Name Freq PRN Reason Stop Dose Admin Acetaminophen 650 mg 05/30/23 18:37 06/05/23 20:58 Acetaminophen 325 Mg Tablet PO 650 mg Q6H PRN Administration Mild Pain (1-3) or Fever Albuterol 2.5 mg 05/28/23 20:00 06/06/23 13:16 Albuterol Sulfate Neb 2.5 Mg/3 Ml Inh INHALATION 2.5 mg Q6HRT [facility] Administration Calcium Citrate 1 tablet 05/26/23 17:00 06/06/23 08:44 Calcium Citrate 315 Mg/Vitamin D 250 Units Tab PO 1 tablet BID MURRAY Administration Docusate Sodium 100 mg 05/26/23 12:38 Docusate Sodium 100 Mg Capsule PO DAILY PRN Constipation Duloxetine HCl 60 mg 05/31/23 09:00 06/06/23 08:44 Duloxetine Hcl 30 Mg Capsule.Dr PO 60 mg DAILY MURRAY Administration Guaifenesin 600 mg 05/28/23 21:00 06/06/23 08:44 Guaifenesin 12 Hr 600 Mg Tabcr PO 600 mg Q12HR MURRAY Administration Ipratropium Gallitzin 0.5 mg 05/28/23 20:00 06/06/23 13:16 Ipratropium Br 0.02% Inh Soln 0.5 Mg/2.5 Ml Vial INHALATION 0.5 mg Q6HRT [facility] Administratio
[2023-06-06] MEDS: ACETAMINOPHEN 325 MG TABLET 650 MG PO (15:25)
[2023-06-07] VITALS (17 sets, daily range): BP systolic 121–146; BP diastolic 54–67; PULSE 89–102; RESP 16–20; TEMP 36.3–36.8; O2SAT 92–97
--- NOTE | 2023-06-07 02:36 | PCRCNOTE ---
Pt refused 0200 breathing tx, stating, i do not want a tx right now when RT woke her. Next administration is 0800 06/07/23.
[2023-06-07] MEDS: SALINE LOCK FLUSH 10 ML IV PUSH ×3 (06:20→22:01)
[2023-06-07] MEDS: ALBUTEROL SULFATE NEB 2.5 MG/3 ML INH INHALATION ×3 (07:15→21:24)
[2023-06-07] MEDS: IPRATROPIUM BR 0.02% INH SOLN 0.5 MG/2.5 ML VIAL INHALATION ×3 (07:15→21:24)
[2023-06-07 08:05] LABS: Glucose Point of Care 159 mg/dl (65-105)
[2023-06-07] MEDS: ISOSORBIDE MONONITRATE 60 MG TAB.ER.24H 120 MG PO (09:07)
[2023-06-07] MEDS: SENNA/DOCUSATE SODIUM TABLET 2 TAB PO ×2 (09:08→16:47)
[2023-06-07] MEDS: SACCHAROMYCES BOULARDII 250 MG CAPSULE PO ×2 (09:08→16:47)
[2023-06-07] MEDS: PANTOPRAZOLE 40 MG TABLET PO (09:09)
[2023-06-07] MEDS: LOSARTAN POTASSIUM 50 MG TABLET PO (09:09)
[2023-06-07] MEDS: guaiFENesin 12 HR 600 MG TABCR PO ×2 (09:09→20:14)
[2023-06-07] MEDS: METOPROLOL TARTRATE 50 MG TAB PO ×2 (09:09→20:14)
[2023-06-07] MEDS: DULoxetine HCL 30 MG CAPSULE.DR 60 MG PO (09:10)
[2023-06-07] MEDS: traMADol HCL (*CRX) 50 MG TABLET PO (09:10)
[2023-06-07] MEDS: TOLNAFTATE 1% POWDER 45 GM BTL 1 APPLIC TOPICAL ×2 (09:10→20:16)
--- NOTE | 2023-06-07 11:14 | PM.IMPN ---
Progress Note: A&P Assessment and Plan (1) Hip dislocation, right: Qualifiers: Encounter type: initial encounter Qualified Code(s): S73.004A - Unspecified dislocation of right hip, initial encounter Code(s): S73.004A - Unspecified dislocation of right hip, initial encounter Status: Acute (2) Acute on chronic anemia: Code(s): D64.9 - Anemia, unspecified Status: Acute (3) Septic shock: Code(s): A41.9 - Sepsis, unspecified organism; R65.21 - Severe sepsis with septic shock Status: Acute (4) HCAP (healthcare-associated pneumonia): Code(s): J18.9 - Pneumonia, unspecified organism Status: Acute (5) Acute hypoxemic respiratory failure: Code(s): J96.01 - Acute respiratory failure with hypoxia Status: Acute Plan 88F w/ PMH frequent UTIs, recurrent falls, CVA, HTN, CAD, OA, HLD, GERD, combined CHF, recent displaced right femoral neck fx s/p hemiarthroplasty with bipolar prosthesis then sent to acute rehab at [facility] (prior living at [facility]) returned with shortness of breath and confusion. On admission to ER she was found to have HCAP and sepsis. Admitted on 05/25/30. POD 8 REVISION BIPOLAR FOR RECURRENT FRACTURE WITH EXTENSION TO THE CALCAR 1. Altered mental status-this started after her 1st right hip surgery about a month ago. She probably has some underlying dementia but after treatment of severe anemia and Hcap she is A&O x3. Pt much improved today pt holding conversation 2. Recent displaced right femur neck fracture status post hemiarthroplasty and bipolar prosthesis May 01, 2023. She was discharged to [facility] for rehab and returned with altered mental status. She was then found to have a dislocation of the right prosthesis and underwent revision of right hip hemiarthroplasty on May 30, 2023. She still has bleeding from the wound VAC at the right wound but pain is well controlled. Therapy, mobility orders, and pain control per orthopedic surgery team. 3. Multifocal pneumonia -she was treated with vancomycin and cefepime. Pulmonology was eventually consulted and they requested cefepime and Levaquin be restarted for a total of an extra 5 days. That course is complete and she is on room air. No further indications for antibiotics. 4. Acute hypoxic respiratory failure. Resolved. 5. 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 Echo demonstrating mild hypokinesis with EF of 40-45% and diastolic dysfunction grade 1. This is resolved and diuretics have been stopped. 6. LYNDSAY. Improved. 7. Severe anemia-suggested goal hemoglobin greater than 8 as she has coronary artery disease. She received 1 unit packed red blood cells for hemoglobin in the sevens and the day after his when her encephalopathy completely resolved. Would not hesitate to we administer packed red cells if her hemoglobin drops again. This is likely due to acute on chronic anemia mixed with multiple surgeries and bleeding from the right hip site. 8. NSTEMI-present on admission. This was likely due to the acute issues and demand ischemia. She never had active chest pain. She is on aspirin and Plavix but that is on hold. The family did not want any aggressive invasive measures cardiac-moses. 9. UTI treated with antibiotics 10. History of CVA with recurrent falls-PT OT 11. POD 8 REVISION BIPOLAR FOR RECURRENT FRACTURE WITH EXTENSION TO THE CALCAR waiting placement 06/06/2023 Pt is much the same difficulty with ambulation continue physical therapy and occupational therapy in hospital can only dc when pt is ambulating greater than 150 feet, dc to rehab placement 06/07/2023 Slow to stand and ambulate can dc after she walks 150 feet, medically stable no cough or SOB today Subjective Date/time seen: 06/07/23 11:14 Interval history: 88year old female POD 8 REVISION BIPOLAR FOR RECURRENT FRACTURE WITH EXTENSION TO THE CALC
--- NOTE | 2023-06-07 13:39 | PCSTNOTE ---
Please refer to the Bedside Swallow Evaluation in the EMR. Please note, silent aspiration cannot be ruled out at bedside.
[2023-06-08] VITALS (17 sets, daily range): BP systolic 108–148; BP diastolic 46–64; PULSE 88–111; RESP 12–20; TEMP 36.2–36.9; O2SAT 92–100
[2023-06-08] MEDS: SALINE LOCK FLUSH 10 ML IV PUSH ×2 (05:59→13:00)
[2023-06-08 06:15] LABS: Hematocrit 31.4 % (37.0-47.0); Hemoglobin 9.2 g/dL (12.0-15.0); Mean Corpuscular HGB Conc 29.3 g/dl (32-36); Mean Corpuscular Hemoglobin 31.4 pg (26-34); Mean Corpuscular Volume 107.2 fl (80-100); Mean Platelet Volume 9.2 fl (7.4-10.4); Platelet Count Result 266 k/mm3 (150-375); Red Blood Count 2.93 M/mm3 (4.2-5.4); Red Cell Distribution Width 16.6 % (11.5-14.5); White Blood Count 9.7 K/mm3 (4.5-10.0)
[2023-06-08 06:31] LABS: Anion Gap 5 mmol/L (8-16); Blood Urea Nitrogen 17 mg/dL (7-17); Calcium 8.6 mg/dL (8.4-10.2); Carbon Dioxide 28 mmol/L (22-30); Chloride 103 mmol/L (98-107); Estimated CRCL calculation 52 ml/min; Estimated Glomerular Filt Rate > 60; Glucose 98 mg/dL (65-110); Potassium 3.9 mmol/L (3.4-5.0); Sodium 136 mmol/L (137-145)
[2023-06-08] MEDS: ISOSORBIDE MONONITRATE 60 MG TAB.ER.24H 120 MG PO (08:15)
[2023-06-08] MEDS: guaiFENesin 12 HR 600 MG TABCR PO ×2 (08:16→20:22)
[2023-06-08] MEDS: SENNA/DOCUSATE SODIUM TABLET 2 TAB PO ×2 (08:16→17:26)
[2023-06-08] MEDS: DULoxetine HCL 30 MG CAPSULE.DR 60 MG PO (08:16)
[2023-06-08] MEDS: METOPROLOL TARTRATE 50 MG TAB PO ×2 (08:16→20:22)
[2023-06-08] MEDS: SACCHAROMYCES BOULARDII 250 MG CAPSULE PO ×2 (08:16→17:26)
[2023-06-08] MEDS: TOLNAFTATE 1% POWDER 45 GM BTL 1 APPLIC TOPICAL (08:17)
[2023-06-08] MEDS: LOSARTAN POTASSIUM 50 MG TABLET PO (08:17)
[2023-06-08] MEDS: PANTOPRAZOLE 40 MG TABLET PO (08:17)
--- NOTE | 2023-06-08 09:41 | PM.PNORT ---
Progress Note: A&P Assessment and Plan (1) Fracture of femoral neck, right, closed: Qualifiers: Encounter type: initial encounter Qualified Code(s): S72.001A - Fracture of unspecified part of neck of right femur, initial encounter for closed fracture Code(s): S72.001A - Fracture of unspecified part of neck of right femur, initial encounter for closed fracture Status: Acute Assessment and Plan: POD #9: Revision right hip hemiarthroplasty Continue PT/OT. WBAT. Walker. HIGH FALL RISK. Slow progress. Difficulty bearing weight on the RLE. Family with concern. Will obtain new radiographs to ensure good position of prosthesis. Knee immobilizer in place. Continue pain control. Tramadol for pain relief. Ice hip. Protect skin. SCDs. IC. Pulmonology following. DVT prophylaxis on hold. Prevena wound VAC dressing in place with tradition wound VAC chamber equipment superintendent. Plan to switch to Prevena device prior to discharge which is at the bedside in original dressing packaging. Possibly transition back to normal dressing prior to discharge if slowed drainage. Dispo: SNF pending progress with PT/OT and medical stability. (2) Hip dislocation, right: Qualifiers: Encounter type: initial encounter Qualified Code(s): S73.004A - Unspecified dislocation of right hip, initial encounter Code(s): S73.004A - Unspecified dislocation of right hip, initial encounter Status: Acute Plan Reviewed history, exam, radiographs and current labs with attending MD and covering surgeon, Dr. Chowdary, who agrees with current plan as indicated above. No further recommendations from Dr. Chowdary at this time. Subjective Subjective Date/Time Seen: 06/08/23 09:41 Post Op day: 9 Principal diagnosis: Right hip fracture dislocation Interval history: POD #7: Revision Right Hip Hemiarthroplasty Patient awake/alert. Pain and mentation with continued improvement. Wound VAC in place right hip. Family concerned about slow progress with PT/OT and minimal ability to weight bear on the RLE. Exam Const: General: comfortable and no acute distress Skin: General skin exam: normal color Extrem: Right lower extremity: normal to inspection, normal capillary refill, hip/thigh Details: tenderness Location: of the hip (Thigh soft ) Location: laterally and anteriorly, swelling Location: at the hip, abnormal ROM (limited consistent with recent surgery ) Details: pain with active ROM during and pain with passive ROM during and other (Incision c/d/i. ); no deformity and no unusual warmth, knee Details: normal to inspection; no tenderness and no swelling, lower leg (Negative Sabrina's Sign ) Details: normal to inspection and no edema; no tenderness, ankle (+ankle dorsiflexion/plantarflexion) Details: normal to inspection and no edema; no tenderness, no swelling and no ecchymosis and foot Details: normal capillary refill, toes with normal ROM, vascular exam Details: dorsalis pedis pulse present and motor-sensory exam Details: light-touch normal; no tenderness Other: Right hip Prevena Wound VAC dressing in place. 250mL of serosanguineous fluid output in chamber. Able to move toes. Good sensation to touch and good capillary refill. Bilateral upper and bilateral lower extremity swelling improved. Better color and skin turgor. Objective Data Vital Signs Vital Signs: Vital Signs - 24 hr 06/07/23 13:00 06/07/23 12:00 06/07/23 14:04 Temperature 36.5 C Pulse Rate 96 99 94 Respiratory Rate 18 20 Blood Pressure 138/64 Pulse Oximetry 96 Oxygen Delivery 06/07/23 14:14 06/07/23 16:00 06/07/23 16:00 Temperature 36.4 C Pulse Rate 93 94 89 Respiratory Rate 20 17 Blood Pressure 130/62 Pulse Oximetry 96 Oxygen Delivery 06/07/23 20:14 06/07/23 21:00 06/07/23 21:25 Temperature 36.8 C Pulse Rate 99 96 92 Respiratory Rate 16 20 Blood Pressure 121/54 L Pulse Oximetry 95 Oxygen Delivery 06/07/23
[2023-06-08] MEDS: ALBUTEROL SULFATE NEB 2.5 MG/3 ML INH INHALATION ×2 (10:39→14:52)
[2023-06-08] MEDS: IPRATROPIUM BR 0.02% INH SOLN 0.5 MG/2.5 ML VIAL INHALATION ×2 (10:39→14:52)
--- NOTE | 2023-06-08 10:49 | PCOTNOTE ---
The patient treatment was not able to be completed patient was out of the room first now receiving a breathing treatment. Will plan to continue treatment per plan of care. Will follow up after lunch.
[2023-06-08] MEDS: traMADol HCL (*CRX) 50 MG TABLET PO (14:29)
--- NOTE | 2023-06-08 15:02 | PM.IMPN ---
Progress Note: A&P Assessment and Plan (1) Hip dislocation, right: Qualifiers: Encounter type: initial encounter Qualified Code(s): S73.004A - Unspecified dislocation of right hip, initial encounter Code(s): S73.004A - Unspecified dislocation of right hip, initial encounter Status: Acute (2) Acute on chronic anemia: Code(s): D64.9 - Anemia, unspecified Status: Acute (3) Septic shock: Code(s): A41.9 - Sepsis, unspecified organism; R65.21 - Severe sepsis with septic shock Status: Acute (4) HCAP (healthcare-associated pneumonia): Code(s): J18.9 - Pneumonia, unspecified organism Status: Acute (5) Acute hypoxemic respiratory failure: Code(s): J96.01 - Acute respiratory failure with hypoxia Status: Acute Plan 88F w/ PMH frequent UTIs, recurrent falls, CVA, HTN, CAD, OA, HLD, GERD, combined CHF, recent displaced right femoral neck fx s/p hemiarthroplasty with bipolar prosthesis then sent to acute rehab at [facility] (prior living at [facility]) returned with shortness of breath and confusion. On admission to ER she was found to have HCAP and sepsis. Admitted on 05/25/30. Status post rEVISION BIPOLAR FOR RECURRENT FRACTURE WITH EXTENSION TO THE CALCAR 1. Altered mental status-this started after her 1st right hip surgery about a month ago. She probably has some underlying dementia but after treatment of severe anemia and Hcap she is A&O x3. Pt much improved 2. Recent displaced right femur neck fracture status post hemiarthroplasty and bipolar prosthesis May 01, 2023. She was discharged to [facility] for rehab and returned with altered mental status. She was then found to have a dislocation of the right prosthesis and underwent revision of right hip hemiarthroplasty on May 30, 2023. She still has bleeding from the wound VAC at the right wound but pain is well controlled. Therapy, mobility orders, and pain control per orthopedic surgery team. 3. Multifocal pneumonia -she was treated with vancomycin and cefepime. Pulmonology was eventually consulted and they requested cefepime and Levaquin be restarted for a total of an extra 5 days. That course is complete and she is on room air. No further indications for antibiotics. 4. Acute hypoxic respiratory failure. Resolved. 5. 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 Echo demonstrating mild hypokinesis with EF of 40-45% and diastolic dysfunction grade 1. This is resolved and diuretics have been stopped. Will resume small dose of diuretic left pleural effusion is present on chest x-ray today 6. LYNDSAY. Improved. 7. Severe anemia-suggested goal hemoglobin greater than 8 as she has coronary artery disease. She received 1 unit packed red blood cells for hemoglobin in the sevens and the day after his when her encephalopathy completely resolved. Would not hesitate to we administer packed red cells if her hemoglobin drops again. This is likely due to acute on chronic anemia mixed with multiple surgeries and bleeding from the right hip site. 8. NSTEMI-present on admission. This was likely due to the acute issues and demand ischemia. She never had active chest pain. She is on aspirin and Plavix but that is on hold. The family did not want any aggressive invasive measures cardiac-moses. 9. UTI treated with antibiotics 10. History of CVA with recurrent falls-PT OT 11. POD 8 REVISION BIPOLAR FOR RECURRENT FRACTURE WITH EXTENSION TO THE CALCAR waiting placement Twelve. Disposition planned rehabilitation accepted at a facility Subjective Date/time seen: 06/08/23 15:02 Interval history: Feels weak. Still has intermittent cough and sputum production. Arms are getting puffy. No chest pain Review of Systems Review of Systems: All systems reviewed & are unremarkable except as noted in HPI and below (Subjective) Exam Narrative: GENERAL: Ill appe
--- NOTE | 2023-06-08 16:41 | PC.NURSE ---
Conversation initiated with Nicky from [facility] approximately 1200 on the discharge planning for room 247. I asked what the plan was and if [facility] was not wanting to accept the patient back. Nicky was informed that [facility] will accept the patient back today. She was going to let Dr. Harding aware of this information. At 1433 I called Nicky from [facility] to see if she heard anything back from Dr. Harding and she had not. At 1435 I called Krista at Dr. Bee' office to verify that she would be ok with the patient returning to [facility] today, she stated from orthopedic standpoint she is cleared to leave. At [address] Harding to let him know that [facility] is accepting the patient back and orthopedics cleared her to discharge as well. He said he would look through the chart and get back to me. Approximately 1610 I spoke with family about patient being discharged, the daughter in the room became very anxious about the timing of the discharge. I explained to her and also to the daughter Karina, over the phone, that we finally had all of the information from [facility] and the physicians in line for her to continue her therapy at [facility]. They were then concerned about the ambulance being late at night, also explained to them that even if we wait until the morning that I could not guarantee that she would not be transferred in the late afternoon again. Family continued to feel like the timing of the discharge was unreasonable, again tried to explain to them the reasonings behind afternoon discharges.
--- NOTE | 2023-06-08 16:45 | PM.DS ---
DS: Admitting Diagnosis Discharge Date 06/08/2023 Admitting Diagnosis Sepsis DS: Discharge Diagnosis Discharge Diagnosis (1) Hip dislocation, right: Qualifiers: Encounter type: initial encounter Qualified Code(s): S73.004A - Unspecified dislocation of right hip, initial encounter Code(s): S73.004A - Unspecified dislocation of right hip, initial encounter Status: Acute (2) Acute on chronic anemia: Code(s): D64.9 - Anemia, unspecified Status: Acute (3) Septic shock: Code(s): A41.9 - Sepsis, unspecified organism; R65.21 - Severe sepsis with septic shock Status: Acute (4) HCAP (healthcare-associated pneumonia): Code(s): J18.9 - Pneumonia, unspecified organism Status: Acute (5) Acute hypoxemic respiratory failure: Code(s): J96.01 - Acute respiratory failure with hypoxia Status: Acute DS: Summary Hospital Course Hospital Course: 88F w/ PMH frequent UTIs, recurrent falls, CVA, HTN, CAD, OA, HLD, GERD, combined CHF, recent displaced right femoral neck fx s/p hemiarthroplasty with bipolar prosthesis then sent to acute rehab at [facility] (prior living at [facility]) returned with shortness of breath and confusion. On admission to ER she was found to have HCAP and sepsis. Admitted on 05/25/30. Status post rEVISION BIPOLAR FOR RECURRENT FRACTURE WITH EXTENSION TO THE CALCAR 1. Altered mental status-this started after her 1st right hip surgery about a month ago. She probably has some underlying dementia but after treatment of severe anemia and Hcap she is A&O x3. Pt much improved 2. Recent displaced right femur neck fracture status post hemiarthroplasty and bipolar prosthesis May 01, 2023. She was discharged to [facility] for rehab and returned with altered mental status. She was then found to have a dislocation of the right prosthesis and underwent revision of right hip hemiarthroplasty on May 30, 2023. She still has bleeding from the wound VAC at the right wound but pain is well controlled. Therapy, mobility orders, and pain control per orthopedic surgery team. 3. Multifocal pneumonia -she was treated with vancomycin and cefepime. Pulmonology was eventually consulted and they requested cefepime and Levaquin be restarted for a total of an extra 5 days. That course is complete and she is on room air. Completed her antibiotic course during the hospital stay. 4. Acute hypoxic respiratory failure. Resolved. 5. 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 Echo demonstrating mild hypokinesis with EF of 40-45% and diastolic dysfunction grade 1. This is resolved and diuretics have been stopped. Will resume small dose of diuretic left pleural effusion is present on chest x-ray. 6. LYNDSAY. Improved. 7. Severe anemia-suggested goal hemoglobin greater than 8 as she has coronary artery disease. She received 1 unit packed red blood cells for hemoglobin in the sevens and the day after his when her encephalopathy completely resolved. Would not hesitate to we administer packed red cells if her hemoglobin drops again. This is likely due to acute on chronic anemia mixed with multiple surgeries and bleeding from the right hip site. 8. NSTEMI-present on admission. This was likely due to the acute issues and demand ischemia. She never had active chest pain. She is on aspirin and Plavix but that is on hold. The family did not want any aggressive invasive measures cardiac-moses. Will resume aspirin. Due to frequent ecchymosis and while on DVT prophylaxis with Lovenox Plavix on hold but will resume after Lovenox is completed 9. UTI treated with antibiotics 10. History of CVA with recurrent falls-PT OT 11. POD 8 REVISION BIPOLAR FOR RECURRENT FRACTURE WITH EXTENSION TO THE CALCAR waiting placement DC to rehab facility Time Spent with Patient Time attestation: Total time spent providing and/or coordinating dis
[2023-06-08] MEDS: FUROSEMIDE 40 MG TABLET PO (17:26)
[2023-06-08 18:05] LABS: SARS-CoV-2 RNA PCR Negative (Negative)
== END 2023-06-08 20:30 | DRG 466 ==
LOC: ANHED 20:52 → ANHIMU 22:33 → ANH2MED 05-31 05:49
PROVIDERS: Family Medicine; Hospitalist; Internal Medicine Pulmonary Disease; Orthopaedic Surgery; Admitting Provider General Practice; Emergency Provider Student in an Organized Health Care Education/Training Program; PCP Internal Medicine; Visit Provider Internal Medicine
PROC: 0SR90JZ Replacement of Right Hip Joint with Synthetic Substitute, Open Approach (ICD-10-PCS; CPT 27125; principal; 2023-05-30 16:00)
DX: T84.020A Dislocation of internal right hip prosthesis, initial encounter (principal); A41.9 Sepsis, unspecified organism; I21.A1 Myocardial infarction type 2; J18.9 Pneumonia, unspecified organism; J96.01 Acute respiratory failure with hypoxia; R65.21 Severe sepsis with septic shock; I50.43 Acute on chronic combined systolic (congestive) and diastolic (congestive) heart failure; N39.0 Urinary tract infection, site not specified; N17.9 Acute kidney failure, unspecified; D62 Acute posthemorrhagic anemia; M97.01XA Periprosthetic fracture around internal prosthetic right hip joint, initial encounter; B96.4 Proteus (mirabilis) (morganii) as the cause of diseases classified elsewhere; D64.9 Anemia, unspecified; E78.5 Hyperlipidemia, unspecified; G47.00 Insomnia, unspecified; I11.0 Hypertensive heart disease with heart failure; I25.2 Old myocardial infarction; I25.10 Atherosclerotic heart disease of native coronary artery without angina pectoris; K21.9 Gastro-esophageal reflux disease without esophagitis; M19.90 Unspecified osteoarthritis, unspecified site; M20.11 Hallux valgus (acquired), right foot; R29.6 Repeated falls; Y95 Nosocomial condition; Z66 Do not resuscitate; Z96.653 Presence of artificial knee joint, bilateral; Z96.643 Presence of artificial hip joint, bilateral; Z90.710 Acquired absence of both cervix and uterus; Z79.82 Long term (current) use of aspirin; Z79.02 Long term (current) use of antithrombotics/antiplatelets; Z79.01 Long term (current) use of anticoagulants; Z86.73 Personal history of transient ischemic attack (TIA), and cerebral infarction without residual deficits; Z90.49 Acquired absence of other specified parts of digestive tract
CPT/HCPCS: 36415; 36430; 36569; 36600; 70450; 71045; 71046; 71250; 73501; 73502; 73630; 80048; 80053; 81001; 82565; 82803; 82805; 82948; 83605; 83690; 83735; 83880; 84145; 84484; 85014; 85018; 85025; 85027; 85055; 85610; 85730; 86140; 86850; 86900; 86901; 86923; 87040; 87070; 87077; 87086; 87186; 87205; 87449; 87635; 87637; 87641; 87899; 92610; 93005; 93970; 94640; 96365; 97110; 97161; 97162; 97165; 97166; 97530; 97535; 99285; A9270; C1713; C1751; C1776; C8929; J0171; J0690; J0692; J0696; J1100; J1650; J1940; J1956; J2270; J2405; J2704; J2795; J3010; J3370; J3480; J7030; J7040; J7050; J7120; P9016; Q9957

== ENCOUNTER → 2024-07-21 11:16 | Outpatient (REF) | payer MEDICARE, SELFPAY ==
--- OUTSIDE RECORDS SUMMARY | 2024-07-21 13:10 | XMS_ITS | Encounter Summary ---
Author Organization [facility] Address [address] [place] [address] Care Team Providers Care Coremaker Apprentice Name Role Phone Unavailable Primary Care Provider Unavailabl e Encounter Details Date Type Department Care Team (Late st Contact Info) Description 10/09/2023 Lab Requisition [facility] Laboratory Services [address] [place] [address] [place] [address] [place] [address] Social History Tobacco Use Types Packs/Day Years Used Date Smoking Tobacco: Never Assessed Comments Unknown Sex and Gender Information Value Date Recorded Sex Assigned at Not on file Legal Sex Female 1:12 PM CDT Gender Identity Not on file Sexual Orientation Not on file documented as of this encounter Plan of Treatment Not on file documented as of this encounter Procedures Procedure Name Priority Date/Time Associated Diagnosis Comments CBC WITH DIFFERENTIAL Routine 10/09/2023 3:16 AM CDT BASIC METABOLIC PANEL Routine 10/09/2023 3:16 AM CDT documented in this encounter Results * (ABNORMAL) CBC WITH DIFFERENTIAL (10/09/2023 3:16 AM CDT) [facility] WBC 8.3 4.5 - 10.5 K/uL 10/09/2023 8:00 AM CDT [facility] - [facility] RBC 3.65(L) 3.90 - 4.90 M/uL 10/09/2023 8:00 AM CDT [facility] HEMOGLOBIN 11.9 11.8 - 14.8 g/dL 10/09/2023 8:00 AM CDT [facility] HEMATOCRIT 35.3(L) 35.5 - 44.0 % 10/09/2023 8:00 AM CDT [facility] MCV 96.7 82.0 - 99.0 fL 10/09/2023 8:00 AM CDT [facility] MCH 32.7 27.8 - 34.5 pg 10/09/2023 8:00 AM CDT [facility] MCHC 33.8 32.5 - 35.5 g/dL 10/09/2023 8:00 AM CDT [facility] RDW 15.3(H) 11.5 - 14.5 % 10/09/2023 8:00 AM CDT [facility] PLATELETS 339 160 - 420 K/uL 10/09/2023 8:00 AM CDT [facility] MPV 7.4(L) 8.7 - 12.7 fL 10/09/2023 8:00 AM CDT [facility] NEUTROPHILS 49 % 10/09/2023 8:00 AM CDT [facility] LYMPHOCYTES 37 % 10/09/2023 8:00 AM CDT [facility] MONOCYTES 8 % 10/09/2023 8:00 AM CDT [facility] EOSINOPHILS 6 % 10/09/2023 8:00 AM CDT [facility] BASOPHILS 1 % 10/09/2023 8:00 AM CDT [facility] NEUTROPHIL ABSOLUTE 4.10 1.90 - 7.00 K/uL 10/09/2023 8:00 AM CDT [facility] LYMPHOCYTE ABSOLUTE 3.00 0.70 - 4.50 K/uL 10/09/2023 8:00 AM CDT [facility] MONOCYTE ABSOLUTE 0.60 0.10 - 1.30 K/uL 10/09/2023 8:00 AM CDT [facility] EOSINOPHIL ABSOLUTE 0.50 0.00 - 0.70 K/uL 10/09/2023 8:00 AM CDT [facility] BASOPHILS ABSOLUTE 0.00 0.00 - 0.20 K/uL 10/09/2023 8:00 AM CDT [facility] Blood Collection / Unknown 10/09/2023 3:16 AM CDT 10/09/2023 7:34 AM CDT us Noni Mcpherson MD HEMATOLOGY ORDERABLES Final Resu lt [facility] CLIA# [id number] [place] [address] * (ABNORMAL) BASIC METABOLIC PANEL (10/09/2023 3:16 AM CDT) SODIUM 140 136 - 145 mmol/L 10/09/2023 8:46 AM CDT [facility] POTASSIUM 4.3 3.4 - 5.1 mmol/L 10/09/2023 8:46 AM T [facility] CHLORIDE 103 98 - 107 mmol/L 10/09/2023 8:46 AM CDT [facility] CO2 22 22 - 29 mmol/L 10/09/2023 8:46 AM T [facility] CALCIUM 9.6 8.6 - 10.4 mg/dL 10/09/2023 8:46 AM T [facility] BUN 26(H) 6 - 20 mg/dL 10/09/2023 8:46 AM T [facility] CREATININE 0.72 0.51 - 0.95 mg/dL 10/09/2023 8:46 AM T [facility] Comment:The GFR result is no t clinically significant on patients <18 or >70 years of age. GLUCOSE 70(L) 74 - 99 mg/dL 10/09/2023 8:46 AM CDT [facility] GFR >60 mL/min/1.7 3 sq meter 10/09/2023 8:46 AM T [facility] Comment:eGFR calculated with 2020 CKD-EPI equation. Vegetarian diet, extremely high or low muscle mass, and may affect results. Cystatin C with Glomerular Filtration Rate is a suitable alternative for these patients. ANION GAP 15 8 - 16 mmol/L 10/09/2023 8:46 AM CDT [facility] Blood Collection / Unknown 10/09/2023 3:16 AM CDT 10/09/2023 7:34 AM CDT Noni Mcpherson MD CHEMISTRY ORDERABLES Final Resul t [facility] CLIA# [id number] [place] [address] documented in this encounter Visit Diagnoses Not on filedocumented in this encounter
--- OUTSIDE RECORDS SUMMARY | 2024-07-21 13:10 | XMS_ITS | Encounter Summary ---
Author Organization [facility] Address [address] [place] [address] Care Team Providers Care System Sales Consultant Name Role Phone Unavailable Primary Care Provider Unavailabl e Encounter Details Date Type Department Care Team (Late st Contact Info) Description 09/21/2023 Lab Requisition [facility] Laboratory Services [address] [place] [address] [place] [address] [facility] [place] [address] Social History Tobacco Use Types [...] Associated Diagnosis Comments CBC WITH DIFFERENTIAL Routine 09/21/2023 3:45 AM CDT BASIC METABOLIC PANEL Routine 09/21/2023 3:45 AM CDT documented in this encounter Results * (ABNORMAL) CBC WITH DIFFERENTIAL (09/21/2023 3:45 AM CDT) [facility] WBC 9.3 4.5 - 10.5 K/uL 09/21/2023 7:19 AM CDT [facility] - [facility] RBC 3.84(L) 3.90 - 4.90 M/uL 09/21/2023 7:19 AM CDT [facility] HEMOGLOBIN 12.0 11.8 - 14.8 g/dL 09/21/2023 7:19 AM CDT [facility] HEMATOCRIT 37.6 35.5 - 44.0 % 09/21/2023 7:19 AM CDT [facility] MCV 98.0 82.0 - 99.0 fL 09/21/2023 7:19 AM CDT [facility] MCH 31.3 27.8 - 34.5 pg 09/21/2023 7:19 AM CDT [facility] MCHC 31.9(L) 32.5 - 35.5 g/dL 09/21/2023 7:19 AM CDT [facility] RDW 15.0(H) 11.5 - 14.5 % 09/21/2023 7:19 AM CDT [facility] PLATELETS 414 160 - 420 K/uL 09/21/2023 7:19 AM CDT [facility] MPV 7.2(L) 8.7 - 12.7 fL 09/21/2023 7:19 AM CDT [facility] NEUTROPHILS 46 % 09/21/2023 7:19 AM CDT [facility] LYMPHOCYTES 39 % 09/21/2023 7:19 AM CDT [facility] MONOCYTES 8 % 09/21/2023 7:19 AM CDT [facility] EOSINOPHILS 6 % 09/21/2023 7:19 AM CDT [facility] BASOPHILS 1 % 09/21/2023 7:19 AM CDT [facility] NEUTROPHIL ABSOLUTE 4.30 1.90 - 7.00 K/uL 09/21/2023 7:19 AM CDT [facility] LYMPHOCYTE ABSOLUTE 3.60 0.70 - 4.50 K/uL 09/21/2023 7:19 AM CDT [facility] MONOCYTE ABSOLUTE 0.80 0.10 - 1.30 K/uL 09/21/2023 7:19 AM CDT [facility] EOSINOPHIL ABSOLUTE 0.50 0.00 - 0.70 K/uL 09/21/2023 7:19 AM CDT [facility] BASOPHILS ABSOLUTE 0.10 0.00 - 0.20 K/uL 09/21/2023 7:19 AM CDT [facility] Blood Collection / Unknown 09/21/2023 3:45 AM CDT 09/21/2023 6:57 AM CDT us Noni Mcpherson MD HEMATOLOGY ORDERABLES Final Resu lt [facility] CLIA# [id number] [place] [address] * (ABNORMAL) BASIC METABOLIC PANEL (09/21/2023 3:45 AM CDT) SODIUM 141 136 - 145 mmol/L 09/21/2023 7:46 AM CDT [facility] POTASSIUM 4.1 3.4 - 5.1 mmol/L 09/21/2023 7:46 AM T [facility] CHLORIDE 103 98 - 107 mmol/L 09/21/2023 7:46 AM T [facility] CO2 26 22 - 29 mmol/L 09/21/2023 7:46 AM T [facility] CALCIUM 9.6 8.6 - 10.4 mg/dL 09/21/2023 7:46 AM T [facility] BUN 40(H) 6 - 20 mg/dL 09/21/2023 7:46 AM [facility] CREATININE 0.91 0.51 - 0.95 mg/dL 09/21/2023 7:46 AM T [facility] Comment:The GFR result is no t clinically significant on patients <18 or >70 years of age. GLUCOSE 96 74 - 99 mg/dL 09/21/2023 7:46 AM T [facility] GFR >60 mL/min/1.7 3 sq meter 09/21/2023 7:46 AM [facility] Comment:eGFR calculated with 2020 CKD-EPI equation. Vegetarian diet, extremely high or low muscle mass, and may affect results. Cystatin C with Glomerular Filtration Rate is a suitable alternative for these patients. ANION GAP 12 8 - 16 mmol/L 09/21/2023 7:46 AM CDT [facility] Blood Collection / Unknown 09/21/2023 3:45 AM CDT 09/21/2023 6:57 AM CDT us Noni Mcpherson MD CHEMISTRY ORDERABLES Final Resul t [facility] CLIA# [id number] [place] [address] documented in this encounter Visit Diagnoses Not on filedocumented in this encounter
--- OUTSIDE RECORDS SUMMARY | 2024-07-21 13:10 | XMS_ITS | Encounter Summary ---
Author Organization [facility] Address [address] [place] [address] Care Team Providers Care Air Bag Builder Name Role Phone Unavailable Primary Care Provider Unavailabl e Encounter Details Date Type Department Care Team (Late st Contact Info) Description 10/03/2023 Lab Requisition [facility] Laboratory Services [address] [place] [address] [place] [address] [place] [address] Social History Tobacco Use Types [...] Associated Diagnosis Comments CBC WITH DIFFERENTIAL Routine 10/03/2023 4:25 AM CDT BASIC METABOLIC PANEL Routine 10/03/2023 4:25 AM CDT documented in this encounter Results * (ABNORMAL) CBC WITH DIFFERENTIAL (10/03/2023 4:25 AM CDT) Pathologist [facility] WBC 9.5 4.5 - 10.5 K/uL 10/03/2023 7:19 AM CDT [facility] - [facility] RBC 3.72(L) 3.90 - 4.90 M/uL 10/03/2023 7:19 AM CDT [facility] HEMOGLOBIN 11.6(L) 11.8 - 14.8 g/dL 10/03/2023 7:19 AM CDT [facility] - [facility] HEMATOCRIT 36.5 35.5 - 44.0 % 10/03/2023 7:19 AM CDT [facility] MCV 98.3 82.0 - 99.0 fL 10/03/2023 7:19 AM CDT [facility] MCH 31.2 27.8 - 34.5 pg 10/03/2023 7:19 AM CDT [facility] MCHC 31.8(L) 32.5 - 35.5 g/dL 10/03/2023 7:19 AM CDT [facility] RDW 15.4(H) 11.5 - 14.5 % 10/03/2023 7:19 AM CDT [facility] PLATELETS 327 160 - 420 K/uL 10/03/2023 7:19 AM CDT [facility] MPV 7.5(L) 8.7 - 12.7 fL 10/03/2023 7:19 AM CDT [facility] NEUTROPHILS 51 % 10/03/2023 7:19 AM CDT [facility] LYMPHOCYTES 33 % 10/03/2023 7:19 AM CDT [facility] MONOCYTES 10 % 10/03/2023 7:19 AM CDT [facility] EOSINOPHILS 6 % 10/03/2023 7:19 AM CDT [facility] BASOPHILS 1 % 10/03/2023 7:19 AM CDT [facility] NEUTROPHIL ABSOLUTE 4.80 1.90 - 7.00 K/uL 10/03/2023 7:19 AM CDT [facility] LYMPHOCYTE ABSOLUTE 3.10 0.70 - 4.50 K/uL 10/03/2023 7:19 AM CDT [facility] MONOCYTE ABSOLUTE 0.90 0.10 - 1.30 K/uL 10/03/2023 7:19 AM CDT [facility] EOSINOPHIL ABSOLUTE 0.50 0.00 - 0.70 K/uL 10/03/2023 7:19 AM CDT [facility] BASOPHILS ABSOLUTE 0.10 0.00 - 0.20 K/uL 10/03/2023 7:19 AM CDT [facility] [employer] [facility] Blood 10/03/2023 4:25 AM CDT 10/03/2023 7:10 AM CDT us Noni Mcpherson MD HEMATOLOGY ORDERABLES Final Resu lt [facility] CLIA# [id number] [place] [address] * (ABNORMAL) BASIC METABOLIC PANEL (10/03/2023 4:25 AM CDT) SODIUM 141 136 - 145 mmol/L 10/03/2023 7:46 AM CDT [facility] POTASSIUM 4.0 3.4 - 5.1 mmol/L 10/03/2023 7:46 AM T [facility] CHLORIDE 104 98 - 107 mmol/L 10/03/2023 7:46 AM CDT [facility] CO2 26 22 - 29 mmol/L 10/03/2023 7:46 AM T [facility] CALCIUM 9.4 8.6 - 10.4 mg/dL 10/03/2023 7:46 AM T [facility] BUN 37(H) 6 - 20 mg/dL 10/03/2023 7:46 AM [facility] CREATININE 0.87 0.51 - 0.95 mg/dL 10/03/2023 7:46 AM T [facility] Comment:The GFR result is no t clinically significant on patients <18 or >70 years of age. GLUCOSE 97 74 - 99 mg/dL 10/03/2023 7:46 AM T [facility] GFR >60 mL/min/1.7 3 sq meter 10/03/2023 7:46 AM T [facility] Comment:eGFR calculated with 2020 CKD-EPI equation. Vegetarian diet, extremely high or low muscle mass, and may affect results. Cystatin C with Glomerular Filtration Rate is a suitable alternative for these patients. ANION GAP 11 8 - 16 mmol/L 10/03/2023 7:46 AM CDT [facility] Blood 10/03/2023 4:25 AM CDT 10/03/2023 7:10 AM CDT us Noni Mcpherson MD CHEMISTRY ORDERABLES Final Resul t [facility] CLIA# [id number] [place] [address] documented in this encounter Visit Diagnoses Not on filedocumented in this encounter
--- OUTSIDE RECORDS SUMMARY | 2024-07-21 13:10 | XMS_ITS | Encounter Summary ---
Author Organization [facility] Address [address] [place] [address] Care Team Providers Care Plumbing Inspector Name Role Phone Unavailable Primary Care Provider Unavailabl e Encounter Details Date Type Department Care Team (Late st Contact Info) Description 09/30/2023 Lab Requisition [facility] Services [address] [place] [address] [place] [address] [place] [address] Social History Tobacco Use Types [...] Associated Diagnosis Comments CBC WITH DIFFERENTIAL Routine 09/30/2023 3:55 AM CDT BASIC METABOLIC PANEL Routine 09/30/2023 3:55 AM CDT documented in this encounter Results * (ABNORMAL) CBC WITH DIFFERENTIAL (09/30/2023 3:55 AM CDT) Pathologist [facility] WBC 7.6 4.5 - 10.5 K/uL 09/30/2023 6:52 AM CDT [facility] - [facility] RBC 3.23(L) 3.90 - 4.90 M/uL 09/30/2023 6:52 AM CDT [facility] HEMOGLOBIN 10.5(L) 11.8 - 14.8 g/dL 09/30/2023 6:52 AM CDT [facility] HEMATOCRIT 30.9(L) 35.5 - 44.0 % 09/30/2023 6:52 AM CDT [facility] MCV 95.6 82.0 - 99.0 fL 09/30/2023 6:52 AM CDT [facility] MCH 32.4 27.8 - 34.5 pg 09/30/2023 6:52 AM CDT [facility] MCHC 33.9 32.5 - 35.5 g/dL 09/30/2023 6:52 AM CDT [facility] RDW 15.1(H) 11.5 - 14.5 % 09/30/2023 6:52 AM CDT [facility] PLATELETS 321 160 - 420 K/uL 09/30/2023 6:52 AM CDT [facility] MPV 7.4(L) 8.7 - 12.7 fL 09/30/2023 6:52 AM CDT [facility] NEUTROPHILS 42 % 09/30/2023 6:52 AM CDT [facility] LYMPHOCYTES 40 % 09/30/2023 6:52 AM CDT [facility] MONOCYTES 9 % 09/30/2023 6:52 AM CDT [facility] EOSINOPHILS 8 % 09/30/2023 6:52 AM CDT [facility] BASOPHILS 1 % 09/30/2023 6:52 AM CDT [facility] NEUTROPHIL ABSOLUTE 3.20 1.90 - 7.00 K/uL 09/30/2023 6:52 AM CDT [facility] LYMPHOCYTE ABSOLUTE 3.10 0.70 - 4.50 K/uL 09/30/2023 6:52 AM CDT [facility] MONOCYTE ABSOLUTE 0.70 0.10 - 1.30 K/uL 09/30/2023 6:52 AM CDT [facility] EOSINOPHIL ABSOLUTE 0.60 0.00 - 0.70 K/uL 09/30/2023 6:52 AM CDT [facility] BASOPHILS ABSOLUTE 0.10 0.00 - 0.20 K/uL 09/30/2023 6:52 AM CDT [facility] [employer] [facility] Blood Collection / Unknown 09/30/2023 3:55 AM CDT 09/30/2023 6:04 AM CDT Noni Mcpherson MD HEMATOLOGY ORDERABLES Final Resu lt [facility] CLIA# [id number] [place] [address] * (ABNORMAL) BASIC METABOLIC PANEL (09/30/2023 3:55 AM CDT) SODIUM 140 136 - 145 mmol/L 09/30/2023 6:50 AM T [facility] POTASSIUM 4.3 3.4 - 5.1 mmol/L 09/30/2023 6:50 AM T [facility] CHLORIDE 104 98 - 107 mmol/L 09/30/2023 6:50 AM T [facility] CO2 24 22 - 29 mmol/L 09/30/2023 6:50 AM T [facility] CALCIUM 9.5 8.6 - 10.4 mg/dL 09/30/2023 6:50 AM T [facility] BUN 31(H) 6 - 20 mg/dL 09/30/2023 6:50 AM T [facility] CREATININE 0.80 0.51 - 0.95 mg/dL 09/30/2023 6:50 AM T [facility] Comment:The GFR result is no t clinically significant on patients <18 or >70 years of age. GLUCOSE 84 74 - 99 mg/dL 09/30/2023 6:50 AM T [facility] GFR >60 mL/min/1.7 3 sq meter 09/30/2023 6:50 AM T [facility] Comment:eGFR calculated with 2020 CKD-EPI equation. Vegetarian diet, extremely high or low muscle mass, and may affect results. Cystatin C with Glomerular Filtration Rate is a suitable alternative for these patients. ANION GAP 12 8 - 16 mmol/L 09/30/2023 6:50 AM CDT [facility] Blood Collection / Unknown 09/30/2023 3:55 AM CDT 09/30/2023 6:04 AM CDT Noni Mcpherson MD CHEMISTRY ORDERABLES Final Resul t [facility] CLIA# [id number] [place] [address] documented in this encounter Visit Diagnoses Not on filedocumented in this encounter
--- OUTSIDE RECORDS SUMMARY | 2024-07-21 13:10 | XMS_ITS | Referral Summary ---
Author Organization [facility] Address [address] [address] Care Team Providers Care Credit Interviewer Name Role Phone Melecio Stack DO Primary Care Provider [phone] Rubens Frank MD Unavailable [phone] Allergies No known active allergies Medications aspirin 81 mg enteric coated tabletIndication s:Myocardial Reinfarction Prevention Take 1 tablet (81 mg total) by mouth 3 (three) times a week Sunday, Sunday and Active clopidogreL (PLAVIX) 75 mg tabletIndication s:Myocardial Reinfarction Prevention Take 1 tablet (75 mg total) by mouth 4 (four) times a week Sunday, Sunday, Sunday and Sunday Active DULoxetine DR (CYMBALTA) 30 mg capsule Take 1 capsule (30 mg total) by mouth daily Active isosorbide mononitrate ER (IMDUR) 120 mg 24 hr tabletIndication s:prevention of anginal pain in coronary artery disease Take 1 tablet (120 mg total) by mouth daily Active loratadine (CLARITIN) 10 mg tablet Take 1 tablet (10 mg total) by mouth daily Active losartan (COZAAR) 100 mg tablet Take 1 tablet (100 mg total) by mouth daily Active pantoprazole DR (PROTONIX) 40 mg EC tablet Take 1 tablet (40 mg total) by mouth daily Active tolterodine LA (DETROL LA) 2 mg 24 hr capsule Take 1 capsule (2 mg total) by mouth daily Active metoprolol tartrate (LOPRESSOR) 50 mg immediate release tablet Take 1 tablet (50 mg total) by mouth every 12 (twelve) hours Active acetaminophen (TYLENOL) 500 mg tabletIndication s:Pain Take 1 tablet (500 mg total) by mouth 3 (three) times a day Active calcium carbonate (TUMS) 500 mg (200 mg elemental calcium) chewable tablet Take 2 tablet/chew tab (1,000 mg total) by mouth daily as needed for indigestion or heartburn Active docusate sodium (COLACE) 100 mg capsuleIndicatio ns:constipation Take 1 capsule (100 mg total) by mouth daily as needed for constipation Active ibuprofen 200 mg tab/cap Take 2 tablet/capsule (400 mg total) by mouth daily as needed for pain Active loperamide (IMODIUM) 2 mg capsule Take 1 capsule (2 mg total) by mouth daily as needed for diarrhea Active prochlorperazine (COMPAZINE) 10 mg tablet Take 1 tablet (10 mg total) by mouth every 6 (six) hours as needed for nausea or vomiting Active traMADoL (ULTRAM) 50 mg tablet Take 1 tablet (50 mg total) by mouth every 6 (six) hours as needed for pain for up to 5 days 20 tablet 4 Active zolpidem (AMBIEN) 5 mg tabletIndication s:Sleep-Onset Insomnia Take 1 tablet (5 mg total) by mouth nightly as needed for sleep 30 tablet 4 Active Active Problems Problem Noted Date Diagnosed Date Primary hypertension 08/27/2023 Sacral decubitus ulcer, stage IV 08/23/2023 Deep vein thrombosis (DVT) ([facility]) 11/07/2016 Social History Tobacco Use Types Packs/Day Years Used Date Smoking Tobacco: Never Alcohol Use Standard Drinks/Week Comments Not Currently 0 (1 standard drink = 0.6 oz pur e alcohol) [facility] Utilities Answer Date Recorded In the past 12 months has e [employer], [employer], oil, or water [employer] threatened to shut off services in your home? No 08/27/2023 Social Connection and Isolat ion Panel [NHANES] Answer Date Recorded In a typical week, how many times do you talk on the phone with family, friends, or neighbors? More than three times a week 08/27/2023 How often do you get togethe r with friends or relatives? Three times a week 08/27/2023 Attends L[employer] Day Services Not on file 08/26 Active Member of Clubs or Organizations Not on f ile 08/27/2023 Attends Club or Organization Meetings Not on stephy e 08/27/2023 Are you , , di vorced, , never , or living with a partner? 08/27/2023 AUDIT-C Answer Date Recorded Q1: How often do you have a drink containing alc ohol? Monthly or less 08/24/2023 Q2: How many drinks containi ng alcohol do you have on a typical day when you are drinking? 1 or 2 08/24/2023 Q3: How often do you have si x or more drinks on one occasion? Never 08/24/2023 Overall Financial Resource Strain (CARDIA) Answe r Date Recorded How hard is it for you to pa y for the very basics like food, housing, medical care, and heating? Not very hard 08/27/2023 Hunger Vital Sign Answer Date Recorded Within the past 12 months, y ou worried that your food would run out before you got the money to buy more. Never true 08/27/19 24 Within the past 12 months, t he food you bought just didn't last and you didn't have money to get more. Never true 08/27/2023 PRAPARE - Transportation Answer Date Re corded In the past 12 months, has l ack of transportation kept you from medical appointments or from getting medications? No 05/2023 In the past 12 months, has l ack of transportation kept you from meetings, work, or from getting things needed for daily living? No 08/27/2023 Housing Stability Vital Sign Answer James e Recorded In the last 12 months, was t here a time when you were not able to pay the mortgage or rent on time? No 08/27/2023 In the last 12 months, how many places have you lived? 2 08/27/2023 In the last 12 months, was t here a time when you did not have a steady place to sleep or slept in a fci (including now)? No 08/27/2023 Personal Safety Answer Date Recorded Have you ever been in or are you currently in a harmful physical or emotional relationship or is someone making you feel afraid or unsafe? 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 Gender Identity Not on file Sexual Orientation Not on file Last Filed Vital Signs Vital Sign Reading Time Taken Comments Blood Pressure 122/76 08/31/2023 7:40 PM CDT Pulse 97 08/31/2023 7:40 PM CDT Temperature 36.9 C (98.5 F) 08/31/2023 7:40 PM CDT Respiratory Rate 18 08/31/2023 7:40 PM CDT Oxygen Saturation 96% 08/31/2023 7:40 PM CDT Inhaled Oxygen Concentration - - Weight 84.1 kg (185 lb 6.5 oz) 08/24/2023 12:46 PM CDT Height 165.1 cm (5' 5 ) 08/24/2023 12:46 PM CDT Body Mass Index 30.85 08/24/2023 12:46 PM CDT Plan of Treatment Not on file [place] [address] [facility] Advance Directives For more information, please contact: [phone] Documents on File Type Date Recorded Patient Biofuels Technology Manager Expl anation ADVANCE DIRECTIVE 09/03/2023 11:52 AM Power of Jet Pilot-Financial/Medical * Full Code (Latest Code Status on File) Date Activated Date Inactivated Comments 08/23/2023 10:43 PM 09/01/2023 12:39 AM Healthcare Agents on File Name Relationship Healthcare Agent Relationshi p Communication Karina Leroy Daughter First Alternate Health Ca re Agent Melecio Stack Son First Alternate Health Care Agent Care Teams Credit Interviewer Relationship Specialty Start Date End Date Melecio Stack DO [address] [place] [address] PCP - General Family Medicine 08/23/23 Rubens Frank MD [address] [place] [address] Consulting Physician Infectious Diseases 08/30/23
--- OUTSIDE RECORDS SUMMARY | 2024-07-21 13:10 | XMS_ITS | Clinical Summary ---
Author Organization [facility] Address [address] [address] Care Team Providers Care Chief Risk Officer Name Role Phone Melecio Stack DO Primary Care Provider [phone] Rubens Frank MD Unavailable [phone] Allergies No known active allergies Medications aspirin [...] stage IV 08/23/2023 Deep vein thrombosis (DVT) ([facility]) 11/07/2016 Surgical History Surgery Date Site/Laterality Comments CHOLECYSTECTOMY HYSTERECTOMY TOTAL HIP ARTHROPLASTY Bilateral Medical History Medical History Date Comments OK (myocardial infarction) ([facility]) HTN (hypertension) Virk catheter in place Family History Medical History Relation Name Comments Heart disease Brother Family history of cardiac disorder - (Added by TW Conv) Hypertension Daughter Family history of hypertension - (Added by TW Conv) Diabetes Father Family history of diabetes mellitus - (Added by TW Conv) Heart disease Father Family history of cardiac disorder - (Added by TW Conv) Leukemia Mother Family history of leukemia - (Added by TW Conv) Heart disease Sister Family history of cardiac disorder - (Added by TW Conv) Relation Name Status Comments Brother Daughter Father Mother Sister Social History Tobacco Use Types Packs/Day Years Used Date Smoking Tobacco: Never Alcohol Use Standard Drinks/Week Comments Not Currently 0 (1 standard drink = 0.6 oz pur e alcohol) [facility] Utilities Answer Date Recorded In the past 12 months has th e electric, gas, oil, or water company threatened to shut off services in your home? No 08/27/2023 Social Connection and Isolat ion Panel [NHANES] Answer Date Recorded In a typical week, how many times do you talk on the phone with family, friends, or neighbors? More than three times a week 08/27/2023 How often do you get togethe r with friends or relatives? Three times a week 08/27/2023 Attends Taoism Services Not on file 08/26 Active Member [...] place to sleep or slept in a alf (including now)? No 08/27/2023 Personal Safety Answer Date Recorded Have you ever been in or are you currently in a harmful physical or emotional relationship or is someone making you feel afraid or unsafe? 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 Gender Identity Not on file Sexual Orientation Not on file Obstetrics History Last Filed Vital Signs Vital Sign Reading [...] 08/24/2023 12:46 PM CDT Plan of Treatment Health Maintenance Due Date Last Done Comments Depression Screening 1935 Hepatitis B Screening 1953 Well Visit 65+ 02/09/2000 Pneumococcal vaccine 65+ (2 of 2 - PPSV23) 07/12/2016 07/12/2015 DTaP/Tdap/Td Vaccine (2 - Td or Tdap) 11/26/2021 11/27/2011, 02/11/2010 Covid-19 Vaccine (2023-2 5 season) 2024 04/06/2023, 2022, 12/19/2021, Additional history exists Influenza Vaccine (#1) 2024 , 03/04/2021, 02/26/2020, Additional history exists Fall Risk Assessment 08/30/2024 08/31/2023 Zoster Vaccine Completed 06/15/2020, 02/26/2020 Insurance MEDICARE [facility] MEDIC[facility] Advance Directives For more information, please contact: [phone] Documents on File Type Date Recorded Patient Icu Clerk Expl anation ADVANCE DIRECTIVE 09/03/2023 11:52 AM Power of Certified Financial Planner-Financial/Medical * Full Code (Latest Code Status on File) Date Activated Date Inactivated Comments 08/23/2023 10:43 PM 09/01/2023 12:39 AM Healthcare Agents on File Name Relationship Healthcare Agent Relationshi p Communication Karina Leroy Daughter First Alternate Health Ca re Agent Melecio Stack Son First Alternate Health Care Agent Care Teams Chief Risk Officer Relationship Specialty Start Date End Date Melecio Stack DO [address] [place] [address] PCP - General Family Medicine 08/23/23 Rubens Frank MD [address] [place] [address] Consulting Physician Infectious Diseases 08/30/23
--- OUTSIDE RECORDS SUMMARY | 2024-07-21 13:10 | XMS_ITS | Encounter Summary ---
Author Organization [facility] Address [address] [place] [address] Care Team Providers Care Line Crewman Name Role Phone Unavailable Primary Care Provider Unavailabl e Encounter Details Date Type Department Care Team (Late st Contact Info) Description 09/01/2023 Lab Requisition [facility] Laboratory Services [address] [place] [address] [place] [address] [place] [address] Social History Tobacco Use Types [...] Associated Diagnosis Comments CBC WITH DIFFERENTIAL Routine 09/01/2023 5:11 AM CDT PTT Routine 09/01/2023 5:11 AM CDT PROTIME-INR Routine 09/01/2023 5:11 AM CDT COMPREHENSIVE METABOLIC PANEL Routine 09/01/2023 5:11 AM CDT documented in this encounter Results * (ABNORMAL) PTT (09/01/2023 5:11 AM CDT) PTT 37.5(H) 23.1 - 37.1 seconds 09/01/2023 1:31 PM CDT [facility] Blood Collection / Unknown 09/01/2023 5:11 AM CDT 09/01/2023 1:22 PM CDT Noni Mcpherson MD HEMATOLOGY ORDERABLES Final Resu lt [facility] CLIA# [id number] [place] [address] * PROTIME-INR (09/01/2023 5:11 AM CDT) Pathologist [facility] PROTIME 14.7 11.5 - 14.7 Seconds 09/01/2023 1:31 PM CDT [facility] Encore Alert [facility] INR 1.1 0.9 - 1.1 09/01/2023 1:31 PM CDT [facility] [employer] [facility] Blood Collection / Unknown 09/01/2023 5:11 AM CDT 09/01/2023 1:22 PM CDT Noni Mcpherson MD HEMATOLOGY ORDERABLES Final Resu lt [facility] [employer] [facility] CLIA# [id number] [place] [address] * (ABNORMAL) CBC WITH DIFFERENTIAL (09/01/2023 5:11 AM CDT) WBC 9.9 4.5 - 10.5 K/uL 09/01/2023 1:26 PM CDT [facility] [employer] [facility] RBC 3.48(L) 3.90 - 4.90 M/uL 09/01/2023 1:26 PM CDT [facility] [employer] [facility] HEMOGLOBIN 10.8(L) 11.8 - 14.8 g/dL 09/01/2023 1:26 PM CDT [facility] [employer] [facility] HEMATOCRIT 34.2(L) 35.5 - 44.0 % 09/01/2023 1:26 PM CDT [facility] MCV 98.2 82.0 - 99.0 fL 09/01/2023 1:26 PM CDT [facility] [employer] [facility] MCH 31.0 27.8 - 34.5 pg 09/01/2023 1:26 PM CDT [facility] MCHC 31.6(L) 32.5 - 35.5 g/dL 09/01/2023 1:26 PM CDT [facility] RDW 15.9(H) 11.5 - 14.5 % 09/01/2023 1:26 PM CDT [facility] PLATELETS 470(H) 160 - 420 K/uL 09/01/2023 1:26 PM CDT [facility] MPV 6.9(L) 8.7 - 12.7 fL 09/01/2023 1:26 PM CDT [facility] NEUTROPHILS 62 % 09/01/2023 1:26 PM CDT [facility] LYMPHOCYTES 25 % 09/01/2023 1:26 PM CDT [facility] MONOCYTES 9 % 09/01/2023 1:26 PM CDT [facility] EOSINOPHILS 4 % 09/01/2023 1:26 PM CDT [facility] BASOPHILS 1 % 09/01/2023 1:26 PM CDT [facility] NEUTROPHIL ABSOLUTE 6.10 1.90 - 7.00 K/uL 09/01/2023 1:26 PM CDT [facility] LYMPHOCYTE ABSOLUTE 2.40 0.70 - 4.50 K/uL 09/01/2023 1:26 PM CDT [facility] MONOCYTE ABSOLUTE 0.90 0.10 - 1.30 K/uL 09/01/2023 1:26 PM CDT [facility] EOSINOPHIL ABSOLUTE 0.40 0.00 - 0.70 K/uL 09/01/2023 1:26 PM CDT [facility] BASOPHILS ABSOLUTE 0.10 0.00 - 0.20 K/uL 09/01/2023 1:26 PM CDT [facility] Blood Collection / Unknown 09/01/2023 5:11 AM CDT 09/01/2023 1:22 PM CDT us Noni Mcpherson MD HEMATOLOGY ORDERABLES Final Resu lt [facility] EVELIO# [id number] [place] [address] * (ABNORMAL) COMPREHENSIVE METABOLIC PANEL (09/01/2023 5:11 AM CDT) SODIUM 137 136 - 145 mmol/L 09/01/2023 1:42 PM CDT [facility] POTASSIUM 3.9 3.4 - 5.1 mmol/L 09/01/2023 1:42 PM CDT [facility] CHLORIDE 100 98 - 107 mmol/L 09/01/2023 1:42 PM CDT [facility] CO2 25 22 - 29 mmol/L 09/01/2023 1:42 PM CDT [facility] CALCIUM 8.7 8.6 - 10.4 mg/dL 09/01/2023 1:42 PM CDT [facility] BUN 18 6 - 20 mg/dL 09/01/2023 1:42 PM CDT [facility] CREATININE 0.72 0.51 - 0.95 mg/dL 09/01/2023 1:42 PM CDT [facility] Comment:The GFR result is no t clinically significant on patients <18 or >70 years of age. GLUCOSE 73(L) 74 - 99 mg/dL 09/01/2023 1:42 PM CDT [facility] TOTAL PROTEIN 6.4 6.3 - 8.7 g/dL 09/01/2023 1:42 PM CDT [facility] ALBUMIN 2.6(L) 3.5 - 5.2 g/dL 09/01/2023 1:42 PM CDT [facility] BILIRUBIN TOTAL <0.2(L) 0.2 - 1.1 mg/dL 09/01/2023 1:42 PM CDT [facility] ALKALINE PHOSPHATASE 76 40 - 150 U/L 09/01/2023 1:42 PM CDT [facility] AST 22 0 - 33 U/L 09/01/2023 1:42 PM CDT [facility] ALT 8 0 - 33 U/L 09/01/2023 1:42 PM CDT [facility] GFR >60 mL/min/1.7 3 sq meter 09/01/2023 1:42 PM CDT [facility] Comment:eGFR calculated with 2020 CKD-EPI equation. Vegetarian diet, extremely high or low muscle mass, and may affect results. Cystatin C with Glomerular Filtration Rate is a suitable alternative for these patients. ANION GAP 12 8 - 16 mmol/L 09/01/2023 1:42 PM CDT [facility] Blood Collection / Unknown 09/01/2023 5:11 AM CDT 09/01/2023 1:22 PM CDT Noni Mcpherson MD CHEMISTRY ORDERABLES Final Resul t [facility] CLIA# [id number] [place] [address] documented in this encounter Visit Diagnoses Not on filedocumented in this encounter
--- OUTSIDE RECORDS SUMMARY | 2024-07-21 13:10 | XMS_ITS | Encounter Summary ---
Author Organization [facility] Address [address] [place] [address] Care Team Providers Care Anthropologist Physical Name Role Phone Unavailable Primary Care Provider Unavailabl e Encounter Details Date Type Department Care Team (Late st Contact Info) Description 09/04/2023 Lab Requisition [facility] Services [address] [place] [address] [place] [address] [place] [address] Social History Tobacco Use Types [...] Associated Diagnosis Comments CBC WITH DIFFERENTIAL Routine 09/04/2023 3:30 AM CDT BASIC METABOLIC PANEL Routine 09/04/2023 3:30 AM CDT documented in this encounter Results * (ABNORMAL) CBC WITH DIFFERENTIAL (09/04/2023 3:30 AM CDT) [facility] WBC 9.1 4.5 - 10.5 K/uL 09/04/2023 8:14 AM CDT [facility] - [facility] RBC 3.39(L) 3.90 - 4.90 M/uL 09/04/2023 8:14 AM CDT [facility] HEMOGLOBIN 10.7(L) 11.8 - 14.8 g/dL 09/04/2023 8:14 AM CDT [facility] HEMATOCRIT 33.0(L) 35.5 - 44.0 % 09/04/2023 8:14 AM CDT [facility] MCV 97.4 82.0 - 99.0 fL 09/04/2023 8:14 AM CDT [facility] MCH 31.6 27.8 - 34.5 pg 09/04/2023 8:14 AM CDT [facility] MCHC 32.4(L) 32.5 - 35.5 g/dL 09/04/2023 8:14 AM CDT [facility] RDW 15.2(H) 11.5 - 14.5 % 09/04/2023 8:14 AM CDT [facility] PLATELETS 431(H) 160 - 420 K/uL 09/04/2023 8:14 AM CDT [facility] MPV 6.8(L) 8.7 - 12.7 fL 09/04/2023 8:14 AM CDT [facility] NEUTROPHILS 51 % 09/04/2023 8:14 AM CDT [facility] LYMPHOCYTES 36 % 09/04/2023 8:14 AM CDT [facility] MONOCYTES 8 % 09/04/2023 8:14 AM CDT [facility] EOSINOPHILS 3 % 09/04/2023 8:14 AM CDT [facility] BASOPHILS 1 % 09/04/2023 8:14 AM CDT [facility] NEUTROPHIL ABSOLUTE 4.70 1.90 - 7.00 K/uL 09/04/2023 8:14 AM CDT [facility] LYMPHOCYTE ABSOLUTE 3.30 0.70 - 4.50 K/uL 09/04/2023 8:14 AM CDT [facility] MONOCYTE ABSOLUTE 0.70 0.10 - 1.30 K/uL 09/04/2023 8:14 AM CDT [facility] EOSINOPHIL ABSOLUTE 0.30 0.00 - 0.70 K/uL 09/04/2023 8:14 AM CDT [facility] BASOPHILS ABSOLUTE 0.10 0.00 - 0.20 K/uL 09/04/2023 8:14 AM CDT [facility] Blood 09/04/2023 3:30 AM CDT 09/04/2023 7:44 AM CDT us Noni Mcpherson MD HEMATOLOGY ORDERABLES Final Resu lt [facility] CLIA# [id number] [address] [place] [address] * BASIC METABOLIC PANEL (09/04/2023 3:30 AM CDT) SODIUM 138 136 - 145 mmol/L 09/04/2023 8:31 AM CDT [facility] POTASSIUM 4.2 3.4 - 5.1 mmol/L 09/04/2023 8:31 AM CDT [facility] CHLORIDE 102 98 - 107 mmol/L 09/04/2023 8:31 AM CDT [facility] CO2 26 22 - 29 mmol/L 09/04/2023 8:31 AM CDT [facility] CALCIUM 8.6 8.6 - 10.4 mg/dL 09/04/2023 8:31 AM CDT [facility] BUN 17 6 - 20 mg/dL 09/04/2023 8:31 AM T [facility] CREATININE 0.80 0.51 - 0.95 mg/dL 09/04/2023 8:31 AM T [facility] Comment:The GFR result is no t clinically significant on patients <18 or >70 years of age. GLUCOSE 80 74 - 99 mg/dL 09/04/2023 8:31 AM CDT [facility] GFR >60 mL/min/1.7 3 sq meter 09/04/2023 8:31 AM T [facility] Comment:eGFR calculated with 2020 CKD-EPI equation. Vegetarian diet, extremely high or low muscle mass, and may affect results. Cystatin C with Glomerular Filtration Rate is a suitable alternative for these patients. ANION GAP 10 8 - 16 mmol/L 09/04/2023 8:31 AM CDT [facility] Blood 09/04/2023 3:30 AM CDT 09/04/2023 7:44 AM CDT us Noni Mcpherson MD CHEMISTRY ORDERABLES Final Resul t [facility] CLIA# [id number] [address] [place] [address] documented in this encounter Visit Diagnoses Not on filedocumented in this encounter
--- OUTSIDE RECORDS SUMMARY | 2024-07-21 13:10 | XMS_ITS | Encounter Summary ---
Author Organization [facility] Address [address] [place] [address] Care Team Providers Care Blood Bank Coordinator Name Role Phone Unavailable Primary Care Provider Unavailabl e Encounter Details Date Type Department Care Team (Late st Contact Info) Description 09/24/2023 Lab Requisition [facility] Laboratory Services [address] [place] [address] [place] [address] [place] [address] Social History Tobacco Use Types [...] Associated Diagnosis Comments CBC WITH DIFFERENTIAL Routine 09/24/2023 3:20 AM CDT BASIC METABOLIC PANEL Routine 09/24/2023 3:20 AM CDT documented in this encounter Results * (ABNORMAL) CBC WITH DIFFERENTIAL (09/24/2023 3:20 AM CDT) Pathologist [facility] WBC 9.3 4.5 - 10.5 K/uL 09/24/2023 8:10 AM CDT [facility] - [facility] RBC 3.60(L) 3.90 - 4.90 M/uL 09/24/2023 8:10 AM CDT [facility] HEMOGLOBIN 11.2(L) 11.8 - 14.8 g/dL 09/24/2023 8:10 AM CDT [facility] - [facility] HEMATOCRIT 35.5 35.5 - 44.0 % 09/24/2023 8:10 AM CDT [facility] SERVICES [facility] MCV 98.5 82.0 - 99.0 fL 09/24/2023 8:10 AM CDT [facility] SERVICES [facility] MCH 31.2 27.8 - 34.5 pg 09/24/2023 8:10 AM CDT [facility] SERVICES [facility] MCHC 31.7(L) 32.5 - 35.5 g/dL 09/24/2023 8:10 AM CDT [facility] SERVICES [facility] RDW 15.0(H) 11.5 - 14.5 % 09/24/2023 8:10 AM CDT [facility] SERVICES [facility] PLATELETS 375 160 - 420 K/uL 09/24/2023 8:10 AM CDT [facility] SERVICES [facility] MPV 7.4(L) 8.7 - 12.7 fL 09/24/2023 8:10 AM CDT [facility] SERVICES [facility] NEUTROPHILS 49 % 09/24/2023 8:10 AM CDT [facility] SERVICES [facility] LYMPHOCYTES 37 % 09/24/2023 8:10 AM CDT [facility] SERVICES [facility] MONOCYTES 8 % 09/24/2023 8:10 AM CDT [facility] EOSINOPHILS 5 % 09/24/2023 8:10 AM CDT [facility] BASOPHILS 1 % 09/24/2023 8:10 AM CDT [facility] SERVICES [facility] NEUTROPHIL ABSOLUTE 4.60 1.90 - 7.00 K/uL 09/24/2023 8:10 AM CDT [facility] SERVICES [facility] LYMPHOCYTE ABSOLUTE 3.50 0.70 - 4.50 K/uL 09/24/2023 8:10 AM CDT [facility] SERVICES [facility] MONOCYTE ABSOLUTE 0.70 0.10 - 1.30 K/uL 09/24/2023 8:10 AM CDT [facility] SERVICES [facility] EOSINOPHIL ABSOLUTE 0.50 0.00 - 0.70 K/uL 09/24/2023 8:10 AM CDT [facility] SERVICES [facility] BASOPHILS ABSOLUTE 0.10 0.00 - 0.20 K/uL 09/24/2023 8:10 AM CDT [facility] Blood 09/24/2023 3:20 AM CDT 09/24/2023 7:30 AM CDT us Noni Mcpherson MD HEMATOLOGY ORDERABLES Final Resu lt [facility] CLIA# [id number] [address] [place] [address] * (ABNORMAL) BASIC METABOLIC PANEL (09/24/2023 3:20 AM CDT) SODIUM 141 136 - 145 mmol/L 09/24/2023 8:37 AM CDT [facility] POTASSIUM 5.2(H) 3.4 - 5.1 mmol/L 09/24/2023 8:37 AM CDT [facility] CHLORIDE 105 98 - 107 mmol/L 09/24/2023 8:37 AM CDT [facility] CO2 24 22 - 29 mmol/L 09/24/2023 8:37 AM CDT [facility] CALCIUM 9.2 8.6 - 10.4 mg/dL 09/24/2023 8:37 AM CDT [facility] BUN 47(H) 6 - 20 mg/dL 09/24/2023 8:37 AM CDT [facility] CREATININE 0.86 0.51 - 0.95 mg/dL 09/24/2023 8:37 AM CDT [facility] Comment:The GFR result is no t clinically significant on patients <18 or >70 years of age. GLUCOSE 83 74 - 99 mg/dL 09/24/2023 8:37 AM CDT [facility] GFR >60 mL/min/1.7 3 sq meter 09/24/2023 8:37 AM T [facility] Comment:eGFR calculated with 2020 CKD-EPI equation. Vegetarian diet, extremely high or low muscle mass, and may affect results. Cystatin C with Glomerular Filtration Rate is a suitable alternative for these patients. ANION GAP 12 8 - 16 mmol/L 09/24/2023 8:37 AM CDT [facility] Blood 09/24/2023 3:20 AM CDT 09/24/2023 7:30 AM CDT Noni Mcpherson MD CHEMISTRY ORDERABLES Final Resul t [facility] CLIA# [id number] [address] [place] [address] documented in this encounter Visit Diagnoses Not on filedocumented in this encounter
--- OUTSIDE RECORDS SUMMARY | 2024-07-21 13:10 | XMS_ITS | Encounter Summary ---
Author Organization [facility] Address [address] [place] [address] Care Team Providers Care Puttying And Calking Supervisor Name Role Phone Unavailable Primary Care Provider Unavailabl e Encounter Details Date Type Department Care Team (Late st Contact Info) Description 09/13/2023 Lab Requisition [facility] Laboratory Services [address] [place] [address] [place] [address] [place] [address] Social History Tobacco Use Types [...] Associated Diagnosis Comments CBC WITH DIFFERENTIAL Routine 09/13/2023 4:00 AM CDT BASIC METABOLIC PANEL Routine 09/13/2023 4:00 AM CDT documented in this encounter Results * (ABNORMAL) CBC WITH DIFFERENTIAL (09/13/2023 4:00 AM CDT) Pathologist [facility] WBC 7.1 4.5 - 10.5 K/uL 09/13/2023 8:35 AM CDT [facility] [place] RBC 3.25(L) 3.90 - 4.90 M/uL 09/13/2023 8:35 AM CDT [facility] HEMOGLOBIN 10.5(L) 11.8 - 14.8 g/dL 09/13/2023 8:35 AM CDT [facility] - [facility] [place] HEMATOCRIT 31.6(L) 35.5 - 44.0 % 09/13/2023 8:35 AM CDT [facility] MCV 97.5 82.0 - 99.0 fL 09/13/2023 8:35 AM CDT [facility] MCH 32.2 27.8 - 34.5 pg 09/13/2023 8:35 AM CDT [facility] MCHC 33.0 32.5 - 35.5 g/dL 09/13/2023 8:35 AM CDT [facility] RDW 15.1(H) 11.5 - 14.5 % 09/13/2023 8:35 AM CDT [facility] PLATELETS 360 160 - 420 K/uL 09/13/2023 8:35 AM CDT [facility] MPV 7.2(L) 8.7 - 12.7 fL 09/13/2023 8:35 AM CDT [facility] NEUTROPHILS 46 % 09/13/2023 8:35 AM CDT [facility] LYMPHOCYTES 39 % 09/13/2023 8:35 AM CDT [facility] MONOCYTES 9 % 09/13/2023 8:35 AM CDT [facility] EOSINOPHILS 5 % 09/13/2023 8:35 AM CDT [facility] BASOPHILS 1 % 09/13/2023 8:35 AM CDT [facility] NEUTROPHIL ABSOLUTE 3.20 1.90 - 7.00 K/uL 09/13/2023 8:35 AM CDT [facility] LYMPHOCYTE ABSOLUTE 2.80 0.70 - 4.50 K/uL 09/13/2023 8:35 AM CDT [facility] MONOCYTE ABSOLUTE 0.70 0.10 - 1.30 K/uL 09/13/2023 8:35 AM CDT [facility] EOSINOPHIL ABSOLUTE 0.40 0.00 - 0.70 K/uL 09/13/2023 8:35 AM CDT [facility] BASOPHILS ABSOLUTE 0.00 0.00 - 0.20 K/uL 09/13/2023 8:35 AM CDT [facility] Blood 09/13/2023 4:00 AM CDT 09/13/2023 7:50 AM CDT us Noni Mcpherson MD HEMATOLOGY ORDERABLES Final Resu lt [facility] CLIA# [id number] [address] [place] [address] * (ABNORMAL) BASIC METABOLIC PANEL (09/13/2023 4:00 AM CDT) SODIUM 140 136 - 145 mmol/L 09/13/2023 8:35 AM CDT [facility] POTASSIUM 4.1 3.4 - 5.1 mmol/L 09/13/2023 8:35 AM CDT [facility] CHLORIDE 104 98 - 107 mmol/L 09/13/2023 8:35 AM CDT [facility] CO2 26 22 - 29 mmol/L 09/13/2023 8:35 AM CDT [facility] CALCIUM 8.8 8.6 - 10.4 mg/dL 09/13/2023 8:35 AM CDT [facility] BUN 25(H) 6 - 20 mg/dL 09/13/2023 8:35 AM CDT [facility] CREATININE 0.78 0.51 - 0.95 mg/dL 09/13/2023 8:35 AM CDT [facility] Comment:The GFR result is no t clinically significant on patients <18 or >70 years of age. GLUCOSE 89 74 - 99 mg/dL 09/13/2023 8:35 AM CDT [facility] GFR >60 mL/min/1.7 3 sq meter 09/13/2023 8:35 AM T [facility] Comment:eGFR calculated with 2020 CKD-EPI equation. Vegetarian diet, extremely high or low muscle mass, and may affect results. Cystatin C with Glomerular Filtration Rate is a suitable alternative for these patients. ANION GAP 10 8 - 16 mmol/L 09/13/2023 8:35 AM CDT [facility] Blood 09/13/2023 4:00 AM CDT 09/13/2023 7:50 AM CDT us Noni Mcpherson MD CHEMISTRY ORDERABLES Final Resul t [facility] CLIA# [id number] [place] [address] documented in this encounter Visit Diagnoses Not on filedocumented in this encounter
--- OUTSIDE RECORDS SUMMARY | 2024-07-21 13:10 | XMS_ITS | Encounter Summary ---
Author Organization [facility] Address [address] [place] [address] Care Team Providers Care Fuel Assembler Name Role Phone Unavailable Primary Care Provider Unavailabl e Encounter Details Date Type Department Care Team (Late st Contact Info) Description 09/25/2023 Lab Requisition [facility] Laboratory Services [address] [place] [address] [place] [address] [facility] [place] [address] Social History Tobacco Use Types [...] Procedure Name Priority Date/Time Associated Diagnosis Comments BASIC METABOLIC PANEL Routine 09/25/2023 3:40 AM CDT documented in this encounter Results * (ABNORMAL) BASIC METABOLIC PANEL (09/25/2023 3:40 AM CDT) SODIUM 138 136 - 145 mmol/L 09/25/2023 8:07 AM CDT [facility] - [facility] POTASSIUM 4.3 3.4 - 5.1 mmol/L 09/25/2023 8:07 AM CDT [facility] - [facility] CHLORIDE 101 98 - 107 mmol/L 09/25/2023 8:07 AM CDT [facility] - [facility] CO2 29 22 - 29 mmol/L 09/25/2023 8:07 AM CDT [facility] - [facility] CALCIUM 9.2 8.6 - 10.4 mg/dL 09/25/2023 8:07 AM CDT [facility] BUN 38(H) 6 - 20 mg/dL 09/25/2023 8:07 AM CDT [facility] CREATININE 0.87 0.51 - 0.95 mg/dL 09/25/2023 8:07 AM T [facility] Comment:The GFR result is no t clinically significant on patients <18 or >70 years of age. GLUCOSE 93 74 - 99 mg/dL 09/25/2023 8:07 AM CDT [facility] GFR >60 mL/min/1.7 3 sq meter 09/25/2023 8:07 AM T [facility] Comment:eGFR calculated with 2020 CKD-EPI equation. Vegetarian diet, extremely high or low muscle mass, and may affect results. Cystatin C with Glomerular Filtration Rate is a suitable alternative for these patients. ANION GAP 8 8 - 16 mmol/L 09/25/2023 8:07 AM CDT [facility] Blood 09/25/2023 3:40 AM CDT 09/25/2023 7:24 AM CDT us Noni Mcpherson MD CHEMISTRY ORDERABLES Final Resul t [facility] CLIA# [id number] [address] [place] [address] documented in this encounter Visit Diagnoses Not on filedocumented in this encounter
--- OUTSIDE RECORDS SUMMARY | 2024-07-21 13:10 | XMS_ITS | Continuity of Care Document ---
Author Organization [facility] Address [address] [place] [address] Phone Care Team Providers Care Circulation Tender Name Role Phone Andrea Vazquez Unavailable Unavailable Procedures Procedure Date Eye Exam & Treatment Refraction Progressive Lens, Polycarb Frames Deluxe Tint Photochromatic, Polycarb 9 Tax - Medical Office/outpatient Visit, Est Optic Nerve Head Eval No Script Eye Exam & Treatment Progressive Lens, Plastic Frames Deluxe Tint Photochromatic, Plastic Office/outpatient Visit, Est Progressive Lens, Plastic Frames Deluxe Tint Photochromatic, Plastic Tax - Medical Advance Directives Directive Yes / No Effective Date File Name No Information Encounters Encounter Description Practice Location Reason(s) For Visit Diagnoses Date Provider Providers Copied on Encounter [facility], [address], [place], [place], [id number], [place] tel:[phone] [facility] No Information 201 0 Taylor Mendez. [address] [facility] , [address], [place], [address], [place]. tel:[phone] [facility], [address], [place], [place], [id number], [place] tel:[phone] [facility] No Information 9-200 9 [facility] [employer] . [address] [facility], [address], [place], [place], [id number], . tel:[phone] Referring Provider: Andrea Reyes, [address] [place] [address] [address], [place], [address]. tel:[phone] sulting Provider: Zachary Hazel, [facility], [place], [address]. tel:[phone] Office/outpat ient Visit, [facility] Eye [facility], [address] [place] [address] [address], [place], [place], [id number], [place] tel:[phone] [facility] No Information 3-200 9 Taylor Mendez. [address] [place] [address] , [address], [place], [place], [facility], [place]. tel:[phone] Referring Provider: Andrea Reyes [address] [place] [address] [address], [place], [address]. tel:[phone] [facility], [id number] [place] [address] [address], [place], [place], [id number], [place] tel:[phone] [facility] No Information 0 [phone] 8 Taylor Mendez. [address] [place] [address] , [address], [place], [place], [facility], [place]. tel:[phone] [facility], [address] [place] [address] [address], [place], [place], [id number], [place] tel:[phone] [facility] No Information 8-200 7 [facility] [employer] . [address] [facility], [address], [place], [place], [id number], . tel:[phone] Referring Provider: Andrea Reyes [address] [place] [address] [address], [place], [address]. tel:[phone] sulting Provider: Zachary Hazel [address] [facility], [place], [address]. tel:[phone] Office/outpat ient Visit, [facility], [address], [place], [place], [address], [place] tel:[phone] [facility] No Information 7 Taylor Mendez. [address] [place] [address] Dr, [address], [place], [address], [place]. tel:[phone] [facility], [address], [place], [place], [address], [place] tel:[phone] [facility] No Information 7 [facility] . [address] [facility], [address], [place], [place], [id number], [place]. tel:[phone] Referring Provider: Andrea Reyes, [address] [place] [address] [address], [place], [address]. tel:[phone] Pablo lazo Provider: Zachary Hazel [facility], [place], [address]. tel:[phone] Family History Family Member Type Diagnosis Age At Onset No Information Payers Payer name Insurance type Covered green party ID Authoriza tion(s) Medicare [facility] [id number] BCBS [place] Commercial [id number] Social History Type Description Quantity Date Captured Comments Sex Female Smoking Status No Information Chief Complaint And Reason For Visit No Information Reason For Referral Reason For Referral No Information History Of Present Illness Encounter Date Complaint History Of Prese nt Illness No Information Functional Status Date Functional Assessmen t No Information Instructions Date Instruction Additional Infor mation No Information Assessments Type Assessment Date No Information Patient Care Teams Name Effective Dates (start - stop) Status Members No Information
--- OUTSIDE RECORDS SUMMARY | 2024-07-21 13:10 | XMS_ITS | Encounter Summary ---
Author Organization [facility] Address [address] [place] [address] Care Team Providers Care Director Card Name Role Phone Unavailable Primary Care Provider Unavailabl e Encounter Details Date Type Department Care Team (Late st Contact Info) Description 09/18/2023 Lab Requisition [facility] Laboratory Services [address] [place] [address] [place] [address] [place] [address] Social History Tobacco Use Types [...] Associated Diagnosis Comments CBC WITH DIFFERENTIAL Routine 09/18/2023 3:16 AM CDT BASIC METABOLIC PANEL Routine 09/18/2023 3:16 AM CDT documented in this encounter Results * (ABNORMAL) CBC WITH DIFFERENTIAL (09/18/2023 3:16 AM CDT) Pathologist [facility] WBC 8.1 4.5 - 10.5 K/uL 09/18/2023 6:[address] [facility] RBC 3.38(L) 3.90 - 4.90 M/uL 09/18/2023 6:[address] [facility] HEMOGLOBIN 10.6(L) 11.8 - 14.8 g/dL 09/18/2023 6:[address] [facility] HEMATOCRIT 32.9(L) 35.5 - 44.0 % 09/18/2023 6:[address] [facility] MCV 97.5 82.0 - 99.0 fL 09/18/2023 6:[address] [facility] MCH 31.3 27.8 - 34.5 pg 09/18/2023 6:[address] [facility] MCHC 32.1(L) 32.5 - 35.5 g/dL 09/18/2023 6:[address] [facility] RDW 14.9(H) 11.5 - 14.5 % 09/18/2023 6:[address] [facility] PLATELETS 389 160 - 420 K/uL 09/18/2023 6:[address] [facility] MPV 7.3(L) 8.7 - 12.7 fL 09/18/2023 6:[address] [facility] NEUTROPHILS 46 % 09/18/2023 6:[address] [facility] LYMPHOCYTES 37 % 09/18/2023 6:[address] [facility] MONOCYTES 10 % 09/18/2023 6:[address] [facility] EOSINOPHILS 7 % 09/18/2023 6:[address] [facility] BASOPHILS 1 % 09/18/2023 6:[address] [facility] NEUTROPHIL ABSOLUTE 3.80 1.90 - 7.00 K/uL 09/18/2023 6:[address] [facility] LYMPHOCYTE ABSOLUTE 3.00 0.70 - 4.50 K/uL 09/18/2023 6:[address] [facility] MONOCYTE ABSOLUTE 0.80 0.10 - 1.30 K/uL 09/18/2023 6:[address] [facility] EOSINOPHIL ABSOLUTE 0.60 0.00 - 0.70 K/uL 09/18/2023 6:[address] [facility] BASOPHILS ABSOLUTE 0.00 0.00 - 0.20 K/uL 09/18/2023 6:13 AM CDT [facility] Blood Collection / Unknown 09/18/2023 3:16 AM CDT 09/18/2023 5:51 AM CDT us Noni Mcpherson MD HEMATOLOGY ORDERABLES Final Resu lt [facility] CLIA# [id number] [place] [address] * (ABNORMAL) BASIC METABOLIC PANEL (09/18/2023 3:16 AM CDT) SODIUM 139 136 - 145 mmol/L 09/18/2023 6:32 AM CDT [facility] POTASSIUM 4.3 3.4 - 5.1 mmol/L 09/18/2023 6:32 AM T [facility] CHLORIDE 102 98 - 107 mmol/L 09/18/2023 6:32 AM T [facility] CO2 27 22 - 29 mmol/L 09/18/2023 6:32 AM T [facility] CALCIUM 9.2 8.6 - 10.4 mg/dL 09/18/2023 6:32 AM T [facility] BUN 39(H) 6 - 20 mg/dL 09/18/2023 6:32 AM T [facility] CREATININE 0.88 0.51 - 0.95 mg/dL 09/18/2023 6:32 AM T [facility] Comment:The GFR result is no t clinically significant on patients <18 or >70 years of age. GLUCOSE 100(H) 74 - 99 mg/dL 09/18/2023 6:32 AM T [facility] GFR >60 mL/min/1.7 3 sq meter 09/18/2023 6:32 AM T [facility] Comment:eGFR calculated with 2020 CKD-EPI equation. Vegetarian diet, extremely high or low muscle mass, and may affect results. Cystatin C with Glomerular Filtration Rate is a suitable alternative for these patients. ANION GAP 10 8 - 16 mmol/L 09/18/2023 6:[address] [facility] Blood Collection / Unknown 09/18/2023 3:16 AM CDT 09/18/2023 5:51 AM CDT Noni Mcpherson MD CHEMISTRY ORDERABLES Final Resul t [facility] CLIA# [id number] [place] [address] documented in this encounter Visit Diagnoses Not on filedocumented in this encounter
--- OUTSIDE RECORDS SUMMARY | 2024-07-21 13:10 | XMS_ITS | Clinical Summary ---
Author Organization [facility] Address [address] [place] [address] Care Team Providers Care Oracle Apex Developer Name Role Phone None, Provider MD Primary Care Provider Unavaila ble Allergies No known active allergies Medications DULoxetine 30 MG capsule Take 90 mg by mouth daily. Active isosorbide mononitrate ER 120 MG TABLET SR 24 HR 24 hr tablet Take 1 tablet by mouth every morning. Active metoprolol tartrate 50 MG tablet Take 50 mg by mouth 2 (two) times daily. Active pantoprazole EC 40 MG tablet Take 40 mg by mouth every morning. Active aspirin EC (ASPIRIN EC) 81 MG tablet Take 81 mg by mouth daily. Active clopidogrel 75 MG tabletIndication s:, Sun, Sunday, Sunday Take 75 mg by mouth 4 (four) times a week. Indications: , Sun, Sunday, Sunday Active loratadine 10 MG tablet Take 10 mg by mouth daily. Active losartan 100 MG tablet Take 100 mg by mouth daily. Active mirabegron ER 50 MG 24 hr tablet Take 50 mg by mouth nightly at bedtime. Active calcium citrate-vitamin D 200-250 MG-UNIT Tab Take 1 tablet by mouth 2 (two) times daily. Active vitamin D2, ergocalciferol, 92944 UNITS capsuleIndicatio ns:Sunday Take 50,000 Units by mouth every 7 days. Indications: Sunday Active oxyCODONE immediate release 5 MG immediate release tabletIndication s:Acute Pain < 7 Day Supply Take 0.5 tablets (2.5 mg total) by mouth every 4 (four) hours as needed for Pain. Indications: Acute Pain < 7 Day Supply 14 tablet 0 Active ondansetron 4 MG tablet Take 4 mg by mouth every 6 (six) hours as needed for Nausea. Active calcium carbonate 500 MG chewable tablet Chew 1 tablet by mouth every 4 (four) hours as needed for Heartburn. Active folic acid 1 MG tabletIndication s:Folate deficiency Take 1 tablet (1 mg total) by mouth daily. 30 tablet 1 0 Active benzocaine 10 % mucosal gel Use as directed in the mouth or throat as needed for Pain. 0 Active menthol (BIOFREEZE) 4 % topical gelIndications:L eft leg pain Apply topically as needed for Mild pain (Scale 1 - 3). 237 mL 1 0 Active acetaminophen 500 MG tablet Take 1,000 mg by mouth 2 (two) times a day. Active zolpidem 10 MG tabletIndication s:Insomnia Take 1 tablet (10 mg total) by mouth nightly at bedtime. 30 tablet 0 Active bisacodyl EC 5 MG Tab EC tablet Take 1 tablet by mouth as needed. at bedtime. 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 12/03/2019 Old myocardial infarction 12/03/2019 Cerebral infarction ([facility]) 12/03/2019 Gastroesophageal reflux disease without esophagi tis 12/03/2019 Left hip pain 12/03/2019 Urinary tract infection, site not specified 12/2019 Dysuria 12/03/2019 Unspecified urinary incontinence 12/03/2019 Amnesia 12/03/2019 CVA (cerebral vascular accident) ([facility]/ C) 12/03/2019 CAD (coronary artery disease) 12/03/2019 Weakness 12/03/2019 NSTEMI (non-ST elevated myoc ardial infarction) ([facility]) 12/03/2019 Family History Medical History Relation Comments Cancer Son Relation Status Comments Son Social History Tobacco Use Types Packs/Day Years Used Date Smoking Tobacco: Never Smokeless Tobacco: Never Alcohol Use Standard Drinks/Week Comments Yes 0 (1 standard drink = 0.6 oz pur e alcohol) Comments Unknown Sex and Gender Information Value Date Recorded Sex Assigned at Not on file Legal Sex Female 12:12 PM CDT Gender Identity Not on file Sexual Orientation Not on file Last Filed Vital Signs Vital Sign Reading Time Taken Comments Blood Pressure 130/84 01/08/2020 9:12 AM CDT Pulse 80 01/08/2020 9:12 AM CDT Temperature 36.6 C (97.8 F) 01/08/2020 9:12 AM CDT Respiratory Rate 16 01/08/2020 9:12 AM CDT Oxygen Saturation - - Inhaled Oxygen Concentration - - Weight 96.9 kg (213 lb 9.6 oz) 12/18/2019 10:45 AM CDT Height - - Body Mass Index - - Plan of Treatment Health Maintenance Due Date Last Done Comments ASCVD LDL 1935 ASCVD Statin 1935 DTaP, Tdap and Td Vaccines ( 1 - Tdap) 1954 Zoster Vaccines (1 of 2) 1985 Annual Medicare Wellness Visit 02/09/2000 RSV Immunization or 60+ Years (1 - 1-dose 75+ series) 2010 Pneumococcal Vaccine: 65+ Years (2 of 2 - PPSV23 or PCV20) 09/06/2015 07/12/2015 COVID-19 Vaccine (2023-2 5 season) 2024 Influenza Adult (#1) 2024 03/08/2016, 03/06/2015, 03/03/2014 Meningococcal B Vaccine Aged Out No l onger eligible based on patient's age to complete this topic Meningococcal Vaccine Aged Out No saira amador eligible based on patient's age to complete this topic RSV Immunizations Under 20 Months Aged Out No longer eligible b ased on patient's age to complete this topic Insurance MEDICARE [facility] Advance Directives Documents on File Type Date Recorded Patient Stock Broker Supervisor Expl anation Advance Directive (Activated) 12/05/2019 POLST form 12/05/19 Care Teams Oracle Apex Developer Relationship Specialty Start Date End Date None, Provider, PCP - General 12/04/19
--- OUTSIDE RECORDS SUMMARY | 2024-07-21 13:10 | XMS_ITS | Encounter Summary ---
Author Organization [facility] Address [address] [place] [address] Care Team Providers Care Converter Skimmer Name Role Phone Unavailable Primary Care Provider Unavailabl e Encounter Details Date Type Department Care Team (Late st Contact Info) Description 10/06/2023 Lab Requisition [facility] Laboratory Services [address] [place] [address] [place] [address] [place] [address] Social History Tobacco Use Types [...] Associated Diagnosis Comments CBC WITH DIFFERENTIAL Routine 10/06/2023 3:35 AM CDT BASIC METABOLIC PANEL Routine 10/06/2023 3:35 AM CDT documented in this encounter Results * (ABNORMAL) BASIC METABOLIC PANEL (10/06/2023 3:35 AM CDT) SODIUM 142 136 - 145 mmol/L 10/06/2023 8:30 AM CDT [facility] POTASSIUM 4.5 3.4 - 5.1 mmol/L 10/06/2023 8:30 AM CDT [facility] CHLORIDE 103 98 - 107 mmol/L 10/06/2023 8:30 AM CDT [facility] CO2 26 22 - 29 mmol/L 10/06/2023 8:30 AM CDT [facility] CALCIUM 9.4 8.6 - 10.4 mg/dL 10/06/2023 8:30 AM CDT [facility] BUN 50(H) 6 - 20 mg/dL 10/06/2023 8:30 AM CDT [facility] CREATININE 0.87 0.51 - 0.95 mg/dL 10/06/2023 8:30 AM T [facility] Comment:The GFR result is no t clinically significant on patients <18 or >70 years of age. GLUCOSE 79 74 - 99 mg/dL 10/06/2023 8:30 AM T [facility] GFR >60 mL/min/1.7 3 sq meter 10/06/2023 8:30 AM T [facility] Comment:eGFR calculated with 2020 CKD-EPI equation. Vegetarian diet, extremely high or low muscle mass, and may affect results. Cystatin C with Glomerular Filtration Rate is a suitable alternative for these patients. ANION GAP 13 8 - 16 mmol/L 10/06/2023 8:30 AM T [facility] Blood Collection / Unknown 10/06/2023 3:35 AM CDT 10/06/2023 7:26 AM CDT Noni Mcpherson MD CHEMISTRY ORDERABLES Final Resul t [facility] CLIA# [id number] [place] [address] * (ABNORMAL) CBC WITH DIFFERENTIAL (10/06/2023 3:35 AM CDT) WBC 7.7 4.5 - 10.5 K/uL 10/06/2023 8:09 AM CDT [facility] RBC 3.66(L) 3.90 - 4.90 M/uL 10/06/2023 8:09 AM T [facility] HEMOGLOBIN 11.9 11.8 - 14.8 g/dL 10/06/2023 8:09 AM CDT [facility] HEMATOCRIT 35.4(L) 35.5 - 44.0 % 10/06/2023 8:09 AM CDT [facility] MCV 96.8 82.0 - 99.0 fL 10/06/2023 8:09 AM CDT [facility] MCH 32.4 27.8 - 34.5 pg 10/06/2023 8:09 AM CDT [facility] MCHC 33.5 32.5 - 35.5 g/dL 10/06/2023 8:09 AM CDT [facility] RDW 15.0(H) 11.5 - 14.5 % 10/06/2023 8:09 AM CDT [facility] PLATELETS 353 160 - 420 K/uL 10/06/2023 8:09 AM CDT [facility] MPV 7.6(L) 8.7 - 12.7 fL 10/06/2023 8:09 AM CDT [facility] NEUTROPHILS 45 % 10/06/2023 8:09 AM CDT [facility] LYMPHOCYTES 37 % 10/06/2023 8:09 AM CDT [facility] MONOCYTES 8 % 10/06/2023 8:09 AM CDT [facility] EOSINOPHILS 9 % 10/06/2023 8:09 AM CDT [facility] BASOPHILS 1 % 10/06/2023 8:09 AM CDT [facility] NEUTROPHIL ABSOLUTE 3.50 1.90 - 7.00 K/uL 10/06/2023 8:09 AM CDT [facility] LYMPHOCYTE ABSOLUTE 2.90 0.70 - 4.50 K/uL 10/06/2023 8:09 AM CDT [facility] MONOCYTE ABSOLUTE 0.60 0.10 - 1.30 K/uL 10/06/2023 8:09 AM CDT [facility] EOSINOPHIL ABSOLUTE 0.60 0.00 - 0.70 K/uL 10/06/2023 8:09 AM CDT [facility] BASOPHILS ABSOLUTE 0.10 0.00 - 0.20 K/uL 10/06/2023 8:09 AM CDT [facility] Blood Collection / Unknown 10/06/2023 3:35 AM CDT 10/06/2023 7:26 AM CDT us Noni Mcpherson MD HEMATOLOGY ORDERABLES Final Resu lt [facility] CLIA# [id number] [address] [place] [address] documented in this encounter Visit Diagnoses Not on filedocumented in this encounter
--- OUTSIDE RECORDS SUMMARY | 2024-07-21 13:11 | XMS_ITS | Encounter Summary ---
Author Organization [facility] Address [address] [place] [address] Care Team Providers Care Inspector Precision Assembly Name Role Phone Unavailable Primary Care Provider Unavailabl e Encounter Details Date Type Department Care Team (Late st Contact Info) Description 09/02/2023 Lab Requisition [facility] Laboratory Services [address] [place] [address] [place] [address] [place] [address] Social History Tobacco Use Types [...] Procedure Name Priority Date/Time Associated Diagnosis Comments PREALBUMIN Routine 09/02/2023 3:20 AM CDT documented in this encounter Results * (ABNORMAL) PREALBUMIN (09/02/2023 3:20 AM CDT) PREALBUMIN 15(L) 20 - 40 mg/dL 09/02/2023 12:12 PM CDT [facility] Blood Collection / Unknown 09/02/2023 3:20 AM CDT 09/02/2023 6:55 AM CDT us Noni Mcpherson MD CHEMISTRY ORDERABLES Final Resul t [place] [employer] [facility] CLIA# [id number] [address] [place] [address] documented in this encounter Visit Diagnoses Not on filedocumented in this encounter
--- OUTSIDE RECORDS SUMMARY | 2024-07-21 13:11 | XMS_ITS | Patient Health Summary ---
Author Organization [facility] Address [address] [place] [address] Care Team Providers Care Pellet Press Operator Name Role Phone Unavailable Primary Care Provider Unavailabl e Note from [facility] [place],non-owned Affiliates and Associated Physician Practices is amultiple site organization consisting of ambulatory clinics and hospital sitesin [place], [place], [place] and [place]. This disclosure is being madepursuant to the Care Everywhere program and may not contain all information available regarding this patient. Last updated 18.[facility] [place] Social History Tobacco Use Types Packs/Day Years Used Date Smoking Tobacco: Never Assessed Sex and Gender Information Value Date Recorded Sex Assigned at Not on file Gender Identity Not on file Sexual Orientation Not on file Procedures * DERMATOPATHOLOGY(Performed 06/04/2024) * DERMATOPATHOLOGY(Performed 05/07/2024) Results * DERMATOPATHOLOGY (06/04/2024 3:33 AM [facility] REGULATOR) Only the most recent of2 resultswithin the time period is included. Case Report Dermatopathology Report Case: [id number] Authorizing Provider: Marbin Scales MD Collected: 06/04/2024 03:33 AM Ordering Location: [facility] - Received: 06/05/2024 02:53 PM DermPath Lab Pathologist: Dianelys Nagel MD Specimen: Skin, mid forehead 1:05 PM [facility] DERMATOPATHOLOGY LABORATORY Final Diagnosis Specimen A. SKIN, mid forehead: SQUAMOUS CELL CARCINOMA, WELL DIFFERENTIATED (C44.329) 1:05 PM [facility] DERMATOPATHOLOGY LABORATORY Clinical History SCC 1:05 PM [facility] DERMATOPATH[facility]ORATORY Gross Description Specimen A: Received is one formalin filled container labeled with the patient's name and designated mid forehead. The specimen consists of a curettage and desiccation biopsy measuring 10x9x3 mm. Jar 0. 5 1:05 PM [facility] DERMATOPATHOLOGY LABORATORY Microscopic Description Specimen A. SKIN, mid forehead: Arising in the epidermis and extending into the dermis there are irregularly shaped aggregates of keratinocytes showing evidence of premature cornification. 5 1:05 PM [facility] DERMATOPATHOLOGY LABORATORY Disclaimer An external and internal positive and negative controls are appropriate for the histochemical, immunohistochemical and immunofluorescence stain(s) in this case (if any), except where stated explicitly. The performance characteristics of the stain(s) cited in this report were developed and its performance characteristic determined by the Dermatopathology Laboratory at [facility], directed by Dr. Ravi Marino. These tests need not be, and therefore are not, approved by the [place] Food and Drug Administration. The tests are used for clinical purposes. Billing Codes Specimen Charges Stain Charges 30875 1 5 1:05 PM [facility] DERMATOPATHOLOGY LABORATORY Embedded Images 1:05 PM [facility] DERMATOPATHOLOGY [facility]ORATORY Pathology/Cytolo gy TISSUE SPECIMEN FROM SKIN / Unknown 06/04/2024 3:33 AM [facility]O REGULATOR 06/05/2024 2:53 PM [facility]O REGULATOR Marbin Scales MD LAB - PATHOLOGY/CYTO LOGY ORDERABLES DERMATOPATHOLOGY LABORATORY [facility] - Department of Dermatology [address], [address] [phone]
--- OUTSIDE RECORDS SUMMARY | 2024-07-21 13:11 | XMS_ITS | Clinical Summary ---
Author Organization [facility] Address [address] [place] [address] Phone Care Team Providers Care Manager Assurance Name Role Phone Unavailable Primary Care Provider Unavailabl e Encounters Date Type Department Care Team Description 07/16/2024 External Device Data [facility] ABSTRACTION Provider, Abstract 06/25/2024 External Device Data [facility] ABSTRACTION Provider, Abstract 06/19/2024 External Device Data [facility] ABSTRACTION Provider, Abstract from Last 3 Months Social History Tobacco Use Types Packs/Day Years Used Date Smoking Tobacco: Never Assessed Comments Unknown Sex and Gender Information Value Date Recorded Sex Assigned at Not on file Legal Sex Female 1:12 PM CDT Gender Identity Not on file Sexual Orientation Not on file Plan of Treatment Health Maintenance Due Date Last Done Comments DTAP/TDAP/TD VACCINES (1 - Tdap) 1954 PNEUMOCOCCAL VACCINE 65+ YEARS (1 of 1 - PCV) 02/08/19 85 ZOSTER VACCINE (1 of 2) 1985 OSTEOPOROSIS SCREENING 02/09/2000 RSV VACCINE (60+ or ) (1 - 1-dose 75+ series) 2010 INFLUENZA VACCINE (#1) 2023 Insurance [address] [address] [facility] [place] [address] [address] [place] [address] [address] [place] [address] [address] [place] [address]
--- OUTSIDE RECORDS SUMMARY | 2024-07-21 13:11 | XMS_ITS | Encounter Summary ---
Author Organization [facility] Address [address] [place] [address] Care Team Providers Care Import/Export Agent Name Role Phone Unavailable Primary Care Provider Unavailabl e Encounter Details Date Type Department Care Team (Late st Contact Info) Description 10/15/2023 Lab Requisition [facility] Laboratory Services [address] [place] [address] [place] [address] [place] [address] Social History Tobacco Use Types [...] Associated Diagnosis Comments CBC WITH DIFFERENTIAL Routine 10/15/2023 5:30 AM CDT LIPID PANEL Routine 10/15/2023 5:30 AM CDT BASIC METABOLIC PANEL Routine 10/15/2023 5:30 AM CDT documented in this encounter Results * (ABNORMAL) CBC WITH DIFFERENTIAL (10/15/2023 5:30 AM CDT) WBC 7.8 4.5 - 10.5 K/uL 10/15/2023 10:11 AM CDT [facility] LABORATORY SERVICES [facility] RBC 3.52(L) 3.90 - 4.90 M/uL 10/15/2023 10:11 AM CDT [facility] LABORATORY [facility] HEMOGLOBIN 11.5(L) 11.8 - 14.8 g/dL 10/15/2023 10:11 AM CDT [facility] LABORATORY SERVICES - [facility] HEMATOCRIT 34.6(L) 35.5 - 44.0 % 10/15/2023 10:11 AM CDT [facility] LABORATORY SERVICES - [facility] MCV 98.3 82.0 - 99.0 fL 10/15/2023 10:11 AM CDT [facility] LABORATORY SERVICES - [facility] MCH 32.7 27.8 - 34.5 pg 10/15/2023 10:11 AM CDT [facility] LABORATORY SERVICES - [facility] MCHC 33.3 32.5 - 35.5 g/dL 10/15/2023 10:11 AM CDT [facility] LABORATORY SERVICES [facility] RDW 15.0(H) 11.5 - 14.5 % 10/15/2023 10:11 AM CDT [facility] LABORATORY SERVICES [facility] PLATELETS 327 160 - 420 K/uL 10/15/2023 10:11 AM CDT [facility] LABORATORY SERVICES [facility] MPV 7.6(L) 8.7 - 12.7 fL 10/15/2023 10:11 AM CDT [facility] LABORATORY SERVICES [facility] NEUTROPHILS 45 % 10/15/2023 10:11 AM CDT [facility] LABORATORY SERVICES [facility] LYMPHOCYTES 38 % 10/15/2023 10:11 AM CDT [facility] LABORATORY SERVICES [facility] MONOCYTES 8 % 10/15/2023 10:11 AM CDT [facility] LABORATORY SERVICES [facility] EOSINOPHILS 9 % 10/15/2023 10:11 AM CDT [facility] LABORATORY SERVICES [facility] BASOPHILS 1 % 10/15/2023 10:11 AM CDT [facility] LABORATORY SERVICES [facility] NEUTROPHIL ABSOLUTE 3.50 1.90 - 7.00 K/uL 10/15/2023 10:11 AM CDT [facility] LABORATORY SERVICES [facility] LYMPHOCYTE ABSOLUTE 3.00 0.70 - 4.50 K/uL 10/15/2023 10:11 AM CDT [facility] LABORATORY SERVICES [facility] MONOCYTE ABSOLUTE 0.60 0.10 - 1.30 K/uL 10/15/2023 10:11 AM CDT [facility] LABORATORY SERVICES [facility] EOSINOPHIL ABSOLUTE 0.70 0.00 - 0.70 K/uL 10/15/2023 10:11 AM CDT [facility] BASOPHILS ABSOLUTE 0.00 0.00 - 0.20 K/uL 10/15/2023 10:11 AM CDT [facility] Blood Collection / Unknown 10/15/2023 5:30 AM CDT 10/15/2023 9:00 AM CDT Noni Mcpherson MD HEMATOLOGY ORDERABLES Final Resu lt [facility] CLIA# [id number] [place] [address] * (ABNORMAL) LIPID PANEL (10/15/2023 5:30 AM CDT) CHOLESTEROL 160 <200 mg/dL 10/15/2023 10:34 AM CDT [facility] TRIGLYCERIDE 161(H) <150 mg/dL 10/15/2023 10:34 AM CDT [facility] HDL 34(L) 40 - 59 mg/dL 10/15/2023 10:34 AM CDT [facility] LDL CALCULATED 94 <100 mg/dL 10/15/2023 10:34 AM CDT [facility] NON-HDL CHOLESTEROL 126 <130 mg/dL 10/15/2023 10:34 AM CDT [facility] Blood Collection / Unknown 10/15/2023 5:30 AM CDT 10/15/2023 9:00 AM CDT Narrative [facility] Retellity [facility] - 10/15/2023 10:34 AM CDT TOTAL CHOLESTEROL mg/dL Desirable <200 Borderline high 200-239 High >=240 TRIGLYCERIDES mg/dL Normal <150 Borderline high 150-199 High 200-499 Very high >=500 HDL CHOLESTEROL mg/dL Low <40 Normal 40-59 Desirable >=60 NON HDL CHOLESTEROL mg/dL Optimal <130 Near Optimal 130-159 Borderline High 160-189 Very High >=190 CALCULATED LDL mg/dL LDL <70, OPTIMAL if have Atherosclerotic cardiovascular disease (ASCVD) or intermediate or higher (>7.5%) 10 year risk of ASCVD including most adults with diabetes. LDL <100, Optimal in adult patients with low (<7.5%) 10 year ASCVD risk LDL 100-160, Suboptimal LDL >160, High LDL >190, Very high ATPIII Guidelines Reference Ranges for Lipid Panels (NCEP/AMA) . Noni Mcpherson MD CHEMISTRY ORDERABLES Final Resul t [facility] CLIA# [id number] [place] [address] * (ABNORMAL) BASIC METABOLIC PANEL (10/15/2023 5:30 AM CDT) SODIUM 140 136 - 145 mmol/L 10/15/2023 10:34 AM CDT [facility] POTASSIUM 4.2 3.4 - 5.1 mmol/L 10/15/2023 10:34 AM CDT [facility] CHLORIDE 103 98 - 107 mmol/L 10/15/2023 10:34 AM CDT [facility] CO2 27 22 - 29 mmol/L 10/15/2023 10:34 AM CDT [facility] CALCIUM 9.5 8.6 - 10.4 mg/dL 10/15/2023 10:34 AM CDT [facility] BUN 37(H) 6 - 20 mg/dL 10/15/2023 10:34 AM CDT [facility] CREATININE 0.88 0.51 - 0.95 mg/dL 10/15/2023 10:34 AM T [facility] Comment:The GFR result is no t clinically significant on patients <18 or >70 years of age. GLUCOSE 83 74 - 99 mg/dL 10/15/2023 10:34 AM CDT [facility] GFR >60 mL/min/1.7 3 sq meter 10/15/2023 10:34 AM T [facility] Comment:eGFR calculated with 2020 CKD-EPI equation. Vegetarian diet, extremely high or low muscle mass, and may affect results. Cystatin C with Glomerular Filtration Rate is a suitable alternative for these patients. ANION GAP 10 8 - 16 mmol/L 10/15/2023 10:34 AM CDT [facility] LABORATORY [facility] Blood Collection / Unknown 10/15/2023 5:30 AM CDT 10/15/2023 9:00 AM CDT us Noni Mcpherson MD CHEMISTRY ORDERABLES Final Resul t [facility] LABORATORY [facility] CLIA# [id number] [place] [address] documented in this encounter Visit Diagnoses Not on filedocumented in this encounter
--- OUTSIDE RECORDS SUMMARY | 2024-07-21 13:11 | XMS_ITS | Encounter Summary ---
Author Organization [facility] Address [address] [place] [address] Care Team Providers Care Patent Law Specialist Name Role Phone Unavailable Primary Care Provider Unavailabl e Encounter Details Date Type Department Care Team (Late st Contact Info) Description 06/05/2024 Lab Requisition [facility] - DermPath Lab [address] [facility] [place] [id number] Marbin Scales MD [facility] [place] [address] Social History Tobacco Use Types Packs/Day Years Used Date Smoking Tobacco: Never Assessed Sex and Gender Information Value Date Recorded Sex Assigned at Not on file Gender Identity Not on file Sexual Orientation Not on file documented as of this encounter Plan of Treatment Not on file documented as of this encounter Visit Diagnoses Not on filedocumented in this encounter
--- OUTSIDE RECORDS SUMMARY | 2024-07-21 13:11 | XMS_ITS | Referral Summary ---
Author Organization [facility] Address [address] [place] [address] Care Team Providers Care Music Theory Teacher Name Role Phone Unavailable Primary Care Provider Unavailabl e Source Comments [facility],non-owned Affiliates and Associated Physician Practices is amultiple site organization consisting of ambulatory clinics and hospital sitesin [place], [place], [place] and [place]. This disclosure is being madepursuant to the Care Everywhere program and may not contain all information available regarding this patient. Last updated 18.[facility] Encounters Date Type Department Care Team Description 06/05/2024 Lab Requisition [facility] - [facility] Lab [address] [place] [address], [place] [address] Marbin Scales MD 06/05/2024 Lab Requisition [facility] Lab [address] [place] [address] Marbin Scales MD 05/08/2024 Lab Requisition [facility] Lab [address] [place] [phone] Marbin Scales MD from Last 3 Months Social History Tobacco Use Types Packs/Day Years Used Date Smoking Tobacco: Never Assessed Sex and Gender Information Value Date Recorded Sex Assigned at Not on file Gender Identity Not on file Sexual Orientation Not on file Plan of Treatment Not on file Procedures Procedure Name Priority Date/Time Associated Diagnosis Comments DERMATOPATHOLOGY Routine 06/04/2024 3:33 AM SENIOR MARKETING ANALYST DERMATOPATHOLOGY Routine 05/07/2024 12:0 0 AM SENIOR MARKETING ANALYST from Last 3 Months Results * DERMATOPATHOLOGY (06/04/2024 3:33 AM SENIOR MARKETING ANALYST) Only the most recent of2 resultswithin the time period is included. Case Report Dermatopathology Report Case: [id number] Authorizing Provider: Marbin Scales MD Collected: 06/04/2024 03:33 AM Ordering Location: [facility] - Received: 06/05/2024 02:53 PM DermPath Lab Pathologist: Dianelys Nagel MD Specimen: Skin, mid forehead 1:05 PM [facility] Final Diagnosis Specimen A. SKIN, mid forehead: SQUAMOUS CELL CARCINOMA, WELL DIFFERENTIATED (C44.329) 1:05 PM [facility]ORY Clinical History SCC 1:05 PM [facility]ORY Gross Description Specimen A: Received is one formalin filled container labeled with the patient's name and designated mid forehead. The specimen consists of a curettage and desiccation biopsy measuring 10x9x3 mm. Jar 0. 1:05 PM [facility] D[facility]ORY Microscopic Description Specimen A. SKIN, mid forehead: Arising in the epidermis and extending into the dermis there are irregularly shaped aggregates of keratinocytes showing evidence of premature cornification. 1:05 PM [facility] DER[facility] LAB[facility]ATORY Disclaimer An external and internal positive and negative controls are appropriate for the histochemical, immunohistochemical and immunofluorescence stain(s) in this case (if any), except where stated explicitly. The performance characteristics of the stain(s) cited in this report were developed and its performance characteristic determined by the Dermatopathology Laboratory at [facility], directed by Dr. Ravi Marino. These tests need not be, and therefore are not, approved by the [place] Food and Drug Administration. The tests are used for clinical purposes. Billing Codes Specimen Charges Stain Charges 76825 1 1:05 PM [facility] DERMAT[facility] LAB[facility]ATORY Embedded Images 1:05 PM [facility] D[facility]ORY Pathology/Cytolo gy TISSUE SPECIMEN FROM SKIN / Unknown 06/04/2024 3:33 AM SENIOR MARKETING ANALYST 06/05/2024 2:53 PM SENIOR MARKETING ANALYST Marbin Scales MD LAB - PATHOLOGY/CYTO LOGY ORDERABLES DERMATOPATHOLOGY LABORATORY [facility] - Department of Dermatology [address], [address] [phone] from Last 3 Months
--- OUTSIDE RECORDS SUMMARY | 2024-07-21 13:11 | XMS_ITS | Encounter Summary ---
Author Organization [facility] Address [address] [place] [address] Care Team Providers Care Wellness Manager Name Role Phone Unavailable Primary Care Provider Unavailabl e Encounter Details Date Type Department Care Team (Late st Contact Info) Description 10/12/[address] [facility] Laboratory Services [address] [place] [address] [place] [address] [place] [address] Social History Tobacco Use Types [...] Associated Diagnosis Comments CBC WITH DIFFERENTIAL Routine 10/12/2023 3:00 AM CDT BASIC METABOLIC PANEL Routine 10/12/2023 3:00 AM CDT documented in this encounter Results * (ABNORMAL) BASIC METABOLIC PANEL (10/12/2023 3:00 AM CDT) SODIUM 138 136 - 145 mmol/L 10/12/2023 8:48 AM CDT [facility] LABORATORY SERVICES - [facility] POTASSIUM 4.6 3.4 - 5.1 mmol/L 10/12/2023 8:48 AM CDT [facility] LABORATORY SERVICES - [facility] CHLORIDE 102 98 - 107 mmol/L 10/12/2023 8:48 AM CDT [facility] LABORATORY SERVICES - [facility] CO2 25 22 - 29 mmol/L 10/12/2023 8:48 AM CDT [facility] CALCIUM 9.5 8.6 - 10.4 mg/dL 10/12/2023 8:48 AM CDT [facility] BUN 46(H) 6 - 20 mg/dL 10/12/2023 8:48 AM CDT [facility] CREATININE 1.04(H) 0.51 - 0.95 mg/dL 10/12/2023 8:48 AM T [facility] Comment:The GFR result is no t clinically significant on patients <18 or >70 years of age. GLUCOSE 84 74 - 99 mg/dL 10/12/2023 8:48 AM CDT [facility] GFR 52 mL/min/1.7 3 sq meter 10/12/2023 8:48 AM T [facility] Comment:eGFR calculated with 2020 CKD-EPI equation. Vegetarian diet, extremely high or low muscle mass, and may affect results. Cystatin C with Glomerular Filtration Rate is a suitable alternative for these patients. ANION GAP 11 8 - 16 mmol/L 10/12/2023 8:48 AM T [facility] Blood Collection / Unknown 10/12/2023 3:00 AM CDT 10/12/2023 7:51 AM CDT us Noni Mcpherson MD CHEMISTRY ORDERABLES Final Resul t [facility] CLIA# [id number] [place] [address] * (ABNORMAL) CBC WITH DIFFERENTIAL (10/12/2023 3:00 AM CDT) WBC 8.2 4.5 - 10.5 K/uL 10/12/2023 8:20 AM CDT [facility] RBC 3.60(L) 3.90 - 4.90 M/uL 10/12/2023 8:20 AM T [facility] HEMOGLOBIN 11.5(L) 11.8 - 14.8 g/dL 10/12/2023 8:20 AM CDT [facility] - [facility] HEMATOCRIT 35.5 35.5 - 44.0 % 10/12/2023 8:20 AM CDT [facility] LABORATORY SERVICES - [facility] MCV 98.4 82.0 - 99.0 fL 10/12/2023 8:20 AM CDT [facility] LABORATORY SERVICES [facility] MCH 31.9 27.8 - 34.5 pg 10/12/2023 8:20 AM CDT [facility] LABORATORY SERVICES [facility] MCHC 32.5 32.5 - 35.5 g/dL 10/12/2023 8:20 AM CDT [facility] LABORATORY SERVICES [facility] RDW 15.1(H) 11.5 - 14.5 % 10/12/2023 8:20 AM CDT [facility] LABORATORY SERVICES [facility] PLATELETS 341 160 - 420 K/uL 10/12/2023 8:20 AM CDT [facility] LABORATORY SERVICES [facility] MPV 7.5(L) 8.7 - 12.7 fL 10/12/2023 8:20 AM CDT [facility] LABORATORY SERVICES [facility] NEUTROPHILS 46 % 10/12/2023 8:20 AM CDT [facility] LABORATORY SERVICES [facility] LYMPHOCYTES 37 % 10/12/2023 8:20 AM CDT [facility] LABORATORY SERVICES [facility] MONOCYTES 8 % 10/12/2023 8:20 AM CDT [facility] LABORATORY SERVICES [facility] EOSINOPHILS 9 % 10/12/2023 8:20 AM CDT [facility] LABORATORY SERVICES [facility] BASOPHILS 1 % 10/12/2023 8:20 AM CDT [facility] LABORATORY SERVICES [facility] NEUTROPHIL ABSOLUTE 3.80 1.90 - 7.00 K/uL 10/12/2023 8:20 AM CDT [facility] LABORATORY SERVICES [facility] LYMPHOCYTE ABSOLUTE 3.00 0.70 - 4.50 K/uL 10/12/2023 8:20 AM CDT [facility] LABORATORY SERVICES [facility] MONOCYTE ABSOLUTE 0.70 0.10 - 1.30 K/uL 10/12/2023 8:20 AM CDT [facility] LABORATORY SERVICES [facility] EOSINOPHIL ABSOLUTE 0.70 0.00 - 0.70 K/uL 10/12/2023 8:20 AM CDT [facility] LABORATORY SERVICES [facility] BASOPHILS ABSOLUTE 0.10 0.00 - 0.20 K/uL 10/12/2023 8:20 AM CDT [facility] LABORATORY SERVICES [facility] Blood Collection / Unknown 10/12/2023 3:00 AM CDT 10/12/2023 7:51 AM CDT us Noni Mcpherson MD HEMATOLOGY ORDERABLES Final Resu lt [facility] LABORATORY SERVICES [facility] CLIA# [id number] [place] [address] documented in this encounter Visit Diagnoses Not on filedocumented in this encounter
--- OUTSIDE RECORDS SUMMARY | 2024-07-21 13:11 | XMS_ITS | Encounter Summary ---
Author Organization [facility] Address [address] [place] [address] Care Team Providers Care Graphite Mill Operator Name Role Phone Unavailable Primary Care Provider Unavailabl e Encounter Details Date Type Department Care Team (Late st Contact Info) Description 09/10/2023 Lab Requisition [facility] Laboratory Services [address] [place] [address] [place] [address] [place] [address] Social History Tobacco Use Types [...] Associated Diagnosis Comments CBC WITH DIFFERENTIAL Routine 09/10/2023 4:20 AM CDT BASIC METABOLIC PANEL Routine 09/10/2023 4:20 AM CDT documented in this encounter Results * (ABNORMAL) CBC WITH DIFFERENTIAL (09/10/2023 4:20 AM CDT) Pathologist [facility] WBC 10.3 4.5 - 10.5 K/uL 09/10/2023 8:25 AM CDT [facility] LABORATORY SERVICES - [facility] RBC 3.42(L) 3.90 - 4.90 M/uL 09/10/2023 8:25 AM CDT [facility] LABORATORY [facility] HEMOGLOBIN 10.9(L) 11.8 - 14.8 g/dL 09/10/2023 8:25 AM CDT [facility] LABORATORY [facility] HEMATOCRIT 33.5(L) 35.5 - 44.0 % 09/10/2023 8:25 AM CDT [facility] LABORATORY SERVICES [facility] MCV 98.1 82.0 - 99.0 fL 09/10/2023 8:25 AM CDT [facility] LABORATORY SERVICES [facility] MCH 31.9 27.8 - 34.5 pg 09/10/2023 8:25 AM CDT [facility] LABORATORY SERVICES [facility] MCHC 32.5 32.5 - 35.5 g/dL 09/10/2023 8:25 AM CDT [facility] LABORATORY SERVICES [facility] RDW 15.1(H) 11.5 - 14.5 % 09/10/2023 8:25 AM CDT [facility] LABORATORY SERVICES [facility] PLATELETS 385 160 - 420 K/uL 09/10/2023 8:25 AM CDT [facility] LABORATORY SERVICES [facility] MPV 7.3(L) 8.7 - 12.7 fL 09/10/2023 8:25 AM CDT [facility] LABORATORY SERVICES [facility] NEUTROPHILS 56 % 09/10/2023 8:25 AM CDT [facility] LABORATORY SERVICES [facility] LYMPHOCYTES 33 % 09/10/2023 8:25 AM CDT [facility] LABORATORY SERVICES [facility] MONOCYTES 9 % 09/10/2023 8:25 AM CDT [facility] LABORATORY SERVICES [facility] EOSINOPHILS 2 % 09/10/2023 8:25 AM CDT [facility] LABORATORY SERVICES [facility] BASOPHILS 1 % 09/10/2023 8:25 AM CDT [facility] LABORATORY SERVICES [facility] NEUTROPHIL ABSOLUTE 5.70 1.90 - 7.00 K/uL 09/10/2023 8:25 AM CDT [facility] LABORATORY SERVICES [facility] LYMPHOCYTE ABSOLUTE 3.40 0.70 - 4.50 K/uL 09/10/2023 8:25 AM CDT [facility] LABORATORY SERVICES [facility] MONOCYTE ABSOLUTE 1.00 0.10 - 1.30 K/uL 09/10/2023 8:25 AM CDT [facility] LABORATORY SERVICES [facility] EOSINOPHIL ABSOLUTE 0.20 0.00 - 0.70 K/uL 09/10/2023 8:25 AM CDT [facility] LABORATORY SERVICES [facility] BASOPHILS ABSOLUTE 0.10 0.00 - 0.20 K/uL 09/10/2023 8:25 AM CDT [facility] [employer] [facility] Blood Collection / Unknown 09/10/2023 4:20 AM CDT 09/10/2023 8:10 AM CDT Noni Mcpherson MD HEMATOLOGY ORDERABLES Final Resu lt [facility] CLIA# [id number] [place] [address] * BASIC METABOLIC PANEL (09/10/2023 4:20 AM CDT) SODIUM 139 136 - 145 mmol/L 09/10/2023 8:53 AM CDT [facility] POTASSIUM 4.2 3.4 - 5.1 mmol/L 09/10/2023 8:53 AM CDT [facility] CHLORIDE 99 98 - 107 mmol/L 09/10/2023 8:53 AM CDT [facility] CO2 25 22 - 29 mmol/L 09/10/2023 8:53 AM CDT [facility] CALCIUM 9.0 8.6 - 10.4 mg/dL 09/10/2023 8:53 AM CDT [facility] BUN 17 6 - 20 mg/dL 09/10/2023 8:53 AM T [facility] CREATININE 0.73 0.51 - 0.95 mg/dL 09/10/2023 8:53 AM CDT [facility] Comment:The GFR result is no t clinically significant on patients <18 or >70 years of age. GLUCOSE 77 74 - 99 mg/dL 09/10/2023 8:53 AM CDT [facility] GFR >60 mL/min/1.7 3 sq meter 09/10/2023 8:53 AM T [facility] Comment:eGFR calculated with 2020 CKD-EPI equation. Vegetarian diet, extremely high or low muscle mass, and may affect results. Cystatin C with Glomerular Filtration Rate is a suitable alternative for these patients. ANION GAP 15 8 - 16 mmol/L 09/10/2023 8:53 AM CDT [facility] LABORATORY [facility] Blood Collection / Unknown 09/10/2023 4:20 AM CDT 09/10/2023 8:10 AM CDT us Noni Mcpherson MD CHEMISTRY ORDERABLES Final Resul t [facility] LABORATORY [facility] CLIA# [id number] [place] [address] documented in this encounter Visit Diagnoses Not on filedocumented in this encounter
--- OUTSIDE RECORDS SUMMARY | 2024-07-21 13:11 | XMS_ITS | CONTINUITY OF CARE DOCUMENT ---
Author Name kamla cason Address Unknown Organization [facility] Address [address] [place] [address] Phone [phone] Care Team Providers Care Senior Paralegal Name Role Phone Collin LEAHY, Tona Haile Unavailable Dheeraj Bolanos MD Unavailable [phone] Dheeraj Bolanos MD Unavailable PROBLEMS Condition Status Date Provider Notes Other symptoms involving cardiovascular system completed - Tona Polanco MD Hypertension, benign essential, controlled active Tona Polanco MD Angina, stable active Tona Polanco MD Hypercholesterolemia, mixed active Tona Polanco MD Myocardial infarction, acute , lateral wall active Tona Polanco MD Hypoxia active Tona Polanco MD Preop cardiovasc. examination active Baljeet Polanco MD Ecchymosis active Tona Polanco MD Osteoporosis active Tona Polanco MD SARS-associated coronavirus active Tona Polanco MD Fall risk active Tona Polanco MD ENCOUNTERS Date Type Provider Location Encounter Diag nosis - In-person encounter Office Visit Tona Polanco MD [place] [facility] - In-person encounter Office Visit Tona Polanco MD [facility] [place] [facility] - In-person encounter Office Visit Tona Polanco MD [facility] Fall risk - In-person encounter Office Visit Tona Polanco MD [place] [facility] - In-person encounter Office Visit Tona Polanco MD [place] [facility] SARS-associated coronavirus - In-person encounter Office Visit Tona Polanco MD [facility] [place] [facility] - In-person encounter Office Visit Tona Polanco MD [facility] [place] [facility] Other symptoms involving cardiovascular systemOsteoporosis - In-person encounter Office Visit Tona Polanco MD [place] [facility] - In-person encounter Office Visit Tona Polanco MD [place] [facility] Ecchymosis - In-person encounter Office Visit Tona Polanco MD [facility] [place] [facility] - In-person encounter Office Visit Tona Polanco MD [place] [facility] - In-person encounter Office Visit Tona Polanco MD [place] [facility] - In-person encounter Office Visit Tona Polanco MD [place] [facility] - In-person encounter Office Visit Tona Polanco MD [facility] Preop cardiovasc. examination - In-person encounter Office Visit Tona Polanco MD [facility] [place] [facility] - In-person encounter Office Visit Tona Polanco MD [facility] [place] [facility] Hypertension, benign essential, controlledAngina, stableHypercholesterolemi a, mixedMyocardial infarction, acute, lateral wallHypoxia VITAL SIGNS Date Observation Value Provider Body Mass Index (Ratio) 31.61 kg/m2 Gume Polanco MD blood pressure, diastolic 60 mm[Hg] Jade [facility] blood pressure, systolic 108 mm[Hg] She rita Alma Rosa weight E&M 190 [lb_av] [facility] blood pressure, cuff size regular Jade [facility] oxygen saturation, oximetry 93 % [facility] St respiratory rate E&M 20 /min [facility] pulse rate 93 /min [facility] height E&M 65 [in_i] [facility] Body Mass Index (Ratio) 34.11 kg/m2 Gume Polanco MD blood pressure, cuff size large Ke rri Jermain blood pressure, diastolic 70 mm[Hg] Ke rri Jermain blood pressure, systolic 112 mm[Hg] Moustapha Aly oxygen saturation, oximetry 96 % Maci Aly respiratory rate E&M 16 /min Maci mendezenealberto pulse rate 83 /min Maci Bcuk lder weight E&M 205 [lb_av] Maci Jane lder height E&M 65 [in_i] Maci Jane lder Body Mass Index (Ratio) 33.11 kg/m2 Gume Polanco MD blood pressure, diastolic 66 mm[Hg] Amirah Corona blood pressure, systolic 126 mm[Hg] Fernando Corona oxygen saturation, oximetry 94 % Kelsey Corona respiratory rate E&M 18 /min Giovanna Corona pulse rate 82 /min Kelsey sheffield weight E&M 199 [lb_av] Kelsey sheffield blood pressure, cuff size regular Amirah Corona height E&M 65 [in_i] Kelsey sheffield Body Mass Index (Ratio) 34.28 kg/m2 Gume Polanco MD blood pressure, diastolic 100 mm[Hg] Li nkLogic blood pressure, systolic 180 mm[Hg] Silke kLogic blood pressure, cuff size large Tr mario Barkley blood pressure, diastolic 100 mm[Hg] Tr mario Filippo blood pressure, systolic 180 mm[Hg] Try mary Barkley oxygen saturation, oximetry 95 % Khushi Barkley respiratory rate E&M 20 /min Khushi Barkley pulse rate 102 /min Khushi Barkley weight E&M 206 [lb_av] Khushi Barkley height E&M 65 [in_i] Khushi Filippo Body Mass Index (Ratio) 35.44 kg/m2 Gume Polanco MD Body Mass Index (Ratio) 36.61 kg/m2 Gume Polanco MD blood pressure, diastolic 80 mm[Hg] Li nkLogic blood pressure, systolic 134 mm[Hg] Silke ogic blood pressure, diastolic 80 mm[Hg] Rh macy Rhonda blood pressure, systolic 134 mm[Hg] Rho nda Rhonda oxygen saturation, oximetry 95 % Kelsie Ellis pulse rate 98 /min Kelsieoumar Ellis respiratory rate E&M 16 /min Kelsieoumar Ellis blood pressure, resting Yes Emiln jerzy Ellis blood pressure, cuff size regular Rh onda Rhonda weight E&M 213 [lb_av] Kelsie Rhonda height E&M 65 [in_i] Kelsieoumar Ellis blood pressure, resting Yes Cosme Currie blood pressure, cuff size regular Kr isty Rosey pulse rate 86 /min Jess Blum oxygen saturation, oximetry 94 % Jess Blum blood pressure, diastolic 82 mm[Hg] Kr iscarrie Rosey blood pressure, systolic 133 mm[Hg] Kri sty Rosey respiratory rate E&M 18 /min Jess Blum weight E&M 220 [lb_av] Jess Blum height E&M 65 [in_i] Jess Rosey Body Mass Index (Ratio) 36.27 kg/m2 Gume Polanco MD respiratory rate E&M 16 /min [facility] Mohan blood pressure, diastolic 63 mm[Hg] To nsha Mohan blood pressure, systolic 132 mm[Hg] Ton [facility] oxygen saturation, oximetry 95 % [facility] Mohan pulse rate 91 /min Tons Mohan weight E&M 218 [lb_av] Tonsha Mohan height E&M 65 [in_i] [facility] Mohan Body Mass Index (Ratio) 37.44 kg/m2 Gume Polanco MD blood pressure, diastolic 89 mm[Hg] To ns Mohan blood pressure, systolic 145 mm[Hg] Ton [facility] oxygen saturation, oximetry 96 % [facility] Mohan respiratory rate E&M 16 /min Tons Mohan pulse rate 85 /min Tons Mohan weight E&M 225 [lb_av] [facility] Mohan blood pressure, resting Yes Tons perez Mohan height E&M 65 [in_i] Tonsha Mohan Body Mass Index (Ratio) 36.61 kg/m2 Gume Polanco MD blood pressure, cuff size regular Kr luiz Rosey blood pressure, diastolic 80 mm[Hg] Kr isty Rosey blood pressure, systolic 130 mm[Hg] Kri sty Rosey oxygen saturation, oximetry 94 % Jess Rosey pulse rate 96 /min Jess Blum respiratory rate E&M 18 /min Jess Rosey weight E&M 220 [lb_av] Jess Blum height E&M 65 [in_i] Jess Blum Body Mass Index (Ratio) 36.44 kg/m2 Gume Polanco MD oxygen saturation, oximetry 90 % Mary Jo Kashif pulse rate 83 /min Mary Jo Kashif blood pressure, diastolic 80 mm[Hg] Da kim Kashif blood pressure, systolic 122 mm[Hg] Dac ia Kashif respiratory rate E&M 18 /min Mary Jo V oss weight E&M 219 [lb_av] Mary Jo Kashif height E&M 65 [in_i] Mary Jo Kashif Body Mass Index (Ratio) 35.77 kg/m2 Sarath Plurad blood pressure, cuff size large Ke rri Gruenenfelder blood pressure, diastolic 70 mm[Hg] Ke rri Gruenenfelder blood pressure, systolic 120 mm[Hg] Moustapha Kiraner oxygen saturation, oximetry 96 % Maci Aly respiratory rate E&M 20 /min Maci alves pulse rate 75 /min Maci Shylae lder weight E&M 215 [lb_av] Maci Gruenenfe lder height E&M 65 [in_i] Mary Jo Kashif Body Mass Index (Ratio) 33.91 kg/m2 Gume Polanco MD blood pressure, diastolic 87 mm[Hg] Annika Moy blood pressure, systolic 160 mm[Hg] Kiersten Moy oxygen saturation, oximetry 95 % Alessandra Moy respiratory rate E&M 20 /min Osman Moy pulse rate 80 /min Alessandra purdy weight E&M 203.8 [lb_av] Alessandra wasserman height E&M 65 [in_i] Alessandra purdy Body Mass Index (Ratio) 34.81 kg/m2 Gume Polanco MD blood pressure, diastolic 95 mm[Hg] Annika blancSary Chinmay blood pressure, systolic 185 mm[Hg] Kiersten Moy oxygen saturation, oximetry 91 % Alessandra Chinmay respiratory rate E&M 18 /min Osman Moy pulse rate 81 /min Alessandra purdy weight E&M 209.2 [lb_av] Alessandra wasserman height E&M 65 [in_i] Alessandra purdy blood pressure, diastolic 80 mm[Hg] Annika vj O'Rob blood pressure, systolic 110 mm[Hg] Kiersten fuentes O'Rob pulse rate 87 /min Cami O'Rob oxygen saturation, oximetry 92 % Cami O'Rob respiratory rate E&M 16 /min Cami O'Rob Body Mass Index (Ratio) 34.78 kg/m2 [facility] O'Rob weight E&M 209 [lb_av] Cami O'Rob blood pressure, diastolic 91 mm[Hg] Annika Moy blood pressure, systolic 172 mm[Hg] Kiersten Moy pulse rate 71 /min Alessandra purdy oxygen saturation, oximetry 95 % Alessandra Scottenson respiratory rate E&M 18 /min LenkaKendra jeremías ScottMoy Body Mass Index (Ratio) 32.71 kg/m2 GeminiSary Moy weight E&M 196.6 [lb_av] Alessandra wasserman pulse rate #2 61 [place] blood pressure, cannon tolic, second observation 82 mm[Hg] Kay d blood pressure, syst olic, second observation 138 mm[Hg] [facility], [facility] 97 % Kay pulse rate 61 /min [place] d blood pressure, diastolic 82 mm[Hg] Vi ctoria Tebid blood pressure, systolic 138 mm[Hg] Cornelius clau Tebid pulse rate #2 74 [place] blood pressure, cannon tolic, second observation 88 mm[Hg] [facility] blood pressure, syst olic, second observation 148 mm[Hg] [facility] oxygen saturation, oximetry 97 % [place] pulse rate 74 /min [place] blood pressure, diastolic 88 mm[Hg] Vi ctoria Tebid blood pressure, systolic 148 mm[Hg] Cornelius clau Tebid pulse rate #2 66 [place] blood pressure, cannon tolic, second observation 88 mm[Hg] [facility] blood pressure, syst olic, second observation 133 mm[Hg] [facility], oximetry 97 % [place] d pulse rate 66 /min [place] d blood pressure, diastolic 88 mm[Hg] Vi ctoria Tebid blood pressure, systolic 133 mm[Hg] Cornelius clau Tebid pulse rate #2 63 [facility] blood pressure, cannon tolic, second observation 84 mm[Hg] [facility] blood [facility], syst olic, second observation 148 mm[Hg] [facility] oxygen saturation, oximetry 97 % [facility] pulse rate 63 /min [facility], diastolic 84 mm[Hg] Vi ctoria Tebid blood pressure, systolic 148 mm[Hg] Cornelius clau Tebid pulse rate #2 59 [place] d blood pressure, cannon tolic, second observation 88 mm[Hg] [facility] blood [facility], syst olic, second observation 107 mm[Hg] [facility] oxygen saturation, oximetry 97 % [place] d pulse rate 59 /min [place] d blood pressure, diastolic 88 mm[Hg] Vi ctoria Tebid blood pressure, systolic 107 mm[Hg] Cornelius clau Tebid pulse rate #2 72 [facility], cannon tolic, second observation 82 mm[Hg] [facility] blood [facility], syst olic, second observation 137 mm[Hg] [facility], oximetry 97 % [facility] pulse rate 72 /min [place] d blood pressure, diastolic 82 mm[Hg] Vi [facility] Tebid blood pressure, systolic 137 mm[Hg] Cornelius clau Tebid pulse rate #2 72 [facility] blood [facility], cannon tolic, second observation 84 mm[Hg] [facility] blood [facility], syst olic, second observation 143 mm[Hg] Kay Ted oxygen saturation, oximetry 97 % [facility] pulse [facility] 73 /min [facility], diastolic 86 mm[Hg] Vi ctoria Tebid blood pressure, systolic 144 mm[Hg] Cornelius clau Tebid pulse rate #2 65 [facility] blood [facility], cannon tolic, second observation 82 mm[Hg] [facility] blood [facility], syst olic, second observation 124 mm[Hg] [facility] oxygen saturation, oximetry 97 % Kay Tebid pulse rate 65 /min Kay Tebid blood pressure, diastolic 82 mm[Hg] Vi ctoria Tebid blood pressure, systolic 124 mm[Hg] Cornelius clau Tebid pulse rate #2 65 [place] Tebid blood pressure, cannon tolic, second observation 79 mm[Hg] Kay Tebid blood pressure, syst olic, second observation 135 mm[Hg] Kay Tebid oxygen saturation, oximetry 97 % Kay Tebid pulse rate 65 /min [place] Tebid blood pressure, diastolic 79 mm[Hg] Vi ctoria Tebid blood pressure, systolic 135 mm[Hg] Cornelius clau Tebid pulse rate #2 86 [place] Tebid blood pressure, cannon tolic, second observation 73 mm[Hg] Kay Tebid blood pressure, syst olic, second observation 138 mm[Hg] Kay Tebid oxygen saturation, oximetry 96 % [place] Tebid pulse rate 86 /min [place] Tebid blood pressure, diastolic 73 mm[Hg] Vi ctoria Tebid blood pressure, systolic 138 mm[Hg] Cornelius clau Tebid pulse rate #2 82 [place] Tebid blood pressure, cannon tolic, second observation 71 mm[Hg] Kay Tebid blood pressure, syst olic, second observation 123 mm[Hg] Kay Tebid oxygen saturation, oximetry 97 % Kay Tebid pulse rate 82 /min Kay Tebid blood pressure, diastolic 71 mm[Hg] Vi ctoria Tebid blood pressure, systolic 123 mm[Hg] Cornelius clau Tebid pulse rate #2 82 [place] Tebid blood pressure, cannon tolic, second observation 68 mm[Hg] Kay Tebid blood pressure, syst olic, second observation 114 mm[Hg] Kay Tebid oxygen saturation, oximetry 96 % Kay Tebid pulse rate 82 /min Kay Tebid blood pressure, diastolic 68 mm[Hg] Vi ctoria Tebid blood pressure, systolic 114 mm[Hg] Cornelius clau Tebid pulse rate #2 70 [place] Tebid blood pressure, cannon tolic, second observation 72 mm[Hg] Kay Tebid blood pressure, syst olic, second observation 122 mm[Hg] Kay Tebid oxygen saturation, oximetry 97 % [place] bid pulse rate 70 /min [place] bid blood pressure, diastolic 72 mm[Hg] Vi ctoria Tebid blood pressure, systolic 122 mm[Hg] Cornelius clau Tebid pulse rate #2 68 [place] Tebid blood pressure, cannon tolic, second observation 71 mm[Hg] Kay Tebid blood pressure, syst olic, second observation 127 mm[Hg] Kay Tebid oxygen saturation, oximetry 97 % [place] bid pulse rate 68 /min [place] Tebid blood pressure, diastolic 71 mm[Hg] Vi ctoria Tebid blood pressure, systolic 127 mm[Hg] Cornelius clau Tebid pulse rate #2 67 [place] Tebid blood pressure, cannon tolic, second observation 75 mm[Hg] Kay Tebid blood pressure, syst olic, second observation 144 mm[Hg] Kay Tebid oxygen saturation, oximetry 97 % Kay bid pulse rate 67 /min [place] Tebid blood pressure, diastolic 75 mm[Hg] Vi ctoria Tebid blood pressure, systolic 144 mm[Hg] Cornelius clau Tebid pulse rate #2 51 [place] Tebid blood pressure, cannon tolic, second observation 71 mm[Hg] Kay bid blood pressure, syst olic, second observation 111 mm[Hg] Kay bid oxygen saturation, oximetry 97 % Kay d pulse rate 51 /min [place] bid blood pressure, diastolic 71 mm[Hg] Vi ctoria Tebid blood pressure, systolic 111 mm[Hg] Cornelius clau Tebid pulse rate #2 73 [place] d blood pressure, cannon tolic, second observation 68 mm[Hg] [facility], syst olic, second observation 122 mm[Hg] [facility], oximetry 97 % [place] d pulse rate 73 /min [facility], diastolic 68 mm[Hg] Vi [facility] Tebid blood pressure, systolic 122 mm[Hg] [facility] T[facility] #2 72 [place] blood pressure, cannon tolic, second observation 75 mm[Hg] Kay d blood pressure, syst olic, second observation 109 mm[Hg] Kay d oxygen saturation, oximetry 98 % [place] pulse rate 68 /min [facility], diastolic 79 mm[Hg] Vi ctoria Tebid blood pressure, systolic 117 mm[Hg] Cornelius clau Tebid pulse rate #2 74 [place] d blood pressure, cannon tolic, second observation 65 mm[Hg] Kay bid blood pressure, syst olic, second observation 119 mm[Hg] Kay Ted oxygen saturation, oximetry 98 % [facility] 74 /min [facility], diastolic 65 mm[Hg] Vi ctoria Tebid blood pressure, systolic 119 mm[Hg] Cornelius olguin Tebid pulse rate #2 73 [facility] blood pressure, cannon tolic, second observation 71 mm[Hg] [facility] blood pressure, syst olic, second observation 119 mm[Hg] [facility] oxygen saturation, oximetry 98 % [facility] pulse rate 73 /min [facility] blood pressure, diastolic 71 mm[Hg] Lyn cisneros [facility] blood pressure, systolic 119 mm[Hg] Cornelius olguin Tebid blood pressure, diastolic 52 mm[Hg] Annika Moy blood pressure, systolic 111 mm[Hg] Kiersten Choi Moy pulse rate 74 /min Alessandra Cornelius rajwinder oxygen saturation, oximetry 93 % Alessandra Myo respiratory rate E&M 18 /min Osman veronica Moy Body Mass Index (Ratio) 33.74 kg/m2 Lenka Moy weight E&M 202.8 [lb_av] Alessandra Scott lux height E&M 65 [in_i] Alessandra Cornelius samyteresa ALLERGIES Allergy Name Onset Date Reaction Criticality Status ERYTHROMYCIN High Criticality active RESULTS Date Observation Value Provider Reference Range Interpretation Location free thyroxine index 1.9 [facility] 1.2-4.9 9 triiodothyronine resin uptake 30 % [facility] 24-39 9 thyroxine, serum, total 6.4 ug/dL [facility] 4.5-12.0 9 thyroid stimulating hormone, serum 1.280 u[IU]/mL [facility] 0.450-4.500 9 lipoprotein, beta, serum, point, quantitative, calculated 96 mg/dL [facility] 0-99 9 HDL cholesterol, serum 49 mg/dL [facility] >39 9 triglyceride, serum, random 165 mg/dL [facility] 0-149 High cholesterol, serum 174 mg/dL [facility] 993-197 6274/10/0 9 alanine aminotransferase (SGPT), serum 12 1/L [facility] 0-32 9 aspartate aminotransferase (SGOT), serum 13 1/L [facility] 0-40 9 alkaline phosphatase, serum 77 1/L [facility] 44-121 bilirubin, serum, total 0.3 mg/dL [facility] 0.0-1.2 albumin/globulin ratio, serum 1.4 [facility] 1.2-2.2 globulin, serum 2.8 [facility] 1.5-4.5 albumin, serum 3.8 g/dL [facility] 3.6-4.6 protein, total, serum 6.6 g/dL [facility] 6.0-8.5 9 calcium, serum 9.5 mg/dL [facility] 8.7-10.3 9 carbon dioxide, venous blood 24 mmol/L [facility] 20-29 9 chloride, serum 104 mmol/L [facility] 96-106 9 potassium, serum 4.5 mmol/L [facility] 3.5-5.2 9 sodium, serum 141 mmol/L [facility] 211-241 7560/10/0 9 urea nitrogen/creatinine ratio, serum 22 [facility] 12-28 9 eGFR if 64 mL/min/{1 .73_m2} [facility] >59 9 eGFR if not 55 mL/min/{1 .73_m2} [facility] >59 Low creatinine, serum 0.94 mg/dL [facility] 0.57-1.00 urea nitrogen, blood 21 mg/dL [facility] 8-27 9 blood glucose, random 136 mg/dL [facility] 65-99 High hemoglobin A1C, blood, as % of total hemoglobin 5.8 % [facility] 4.8-5.6 High 9 basophil count, absolute 0.1 x10E3/uL [facility] 0.0-0.2 9 Eosinophil Absolute Count 0.2 X10E3/UL [facility] 0.0-0.4 9 monocyte count, blood, automated 0.6 X10E3/UL [facility] 0.1-0.9 9 lymphocyte count, blood, automated 1.8 X10E3/UL [facility] 0.7-3.1 9 Absolute Neutrophils 6.5 X10E3/UL [facility] 1.4-7.0 9 basophils as percent of blood leukocytes 1 % [facility] Not Estab. 9 eosinophils as percent of blood leukocytes 2 % [facility] Not Estab. 9 monocytes as percent of blood leukocytes 7 % [facility] Not Estab. 9 lymphocytes as percent of blood leukocytes 19 % [facility] Not Estab. 9 neutrophils as percent of blood leukocytes 71 % [facility] Not Estab. 9 platelet count 283 X10E3/UL [facility] 227-235 5940/10/0 9 red blood cell distribution width 12.3 % [facility] 11.7-15.4 9 mean corpuscular hemoglobin concentration, RBC 32.8 G/DL [facility] 31.5-35.7 9 mean corpuscular hemoglobin, RBC 33.3 pg [facility] 26.6-33.0 High 9 mean corpuscular volume, RBC 101 fL [facility] 79-97 High 9 hematocrit, blood 40.5 % [facility] 34.0-46.6 9 hemoglobin, blood 13.3 g/dL [facility] 11.1-15.9 9 erythrocyte (RBC) count 4.00 X10E6/UL [facility] 3.77-5.28 9 leukocyte count, blood 9.2 X10E3/UL [facility] 3.4-10.8 5 very low density lipoproteins 22.4 mg/dL [facility] 5.0 - 40.0 5 LDL/HDL (low-density lipoprotein/high-den sity lipoprotein) ratio 1.1 RATIO [facility] - 5 lipoprotein, beta, serum, point, quantitative, calculated 65.6 (?) [facility] 0.0 - 100.0 5 HDL cholesterol, serum 61.0 mg/dL [facility] 45.0 - 65.0 5 cholesterol, serum 149.0 mg/dL [facility] 0.0 - 200.0 5 triglyceride, serum, fasting 112.0 mg/dL [facility] 0.0 - 150.0 3 very low density lipoproteins 23.6 mg/dL [facility] 5.0 - 40.0 3 LDL/HDL (low-density lipoprotein/high-den sity lipoprotein) ratio 2.0 RATIO [facility] - 3 lipoprotein, beta, serum, point, quantitative, calculated 111.4 (?) [facility] 0.0 - 100.0 High 3 HDL cholesterol, serum 55.0 mg/dL [facility] 45.0 - 65.0 3 cholesterol, serum 190.0 mg/dL [facility] 0.0 - 200.0 3 triglyceride, serum, fasting 118.0 mg/dL [facility] 0.0 - 150.0 HISTORY OF MEDICATION USE Medication Status Instructions Dates Provider Indications Com ments Lipitor 20 mg tablet active Take 1 tablet by mouth every evening 12/08 Tona Polanco MD bupropion HCl 100 mg tablet sustained-release 12 hr active Mabel BURCIAGA clopidogrel 75 mg tablet active 1 TAB BY MOUTH 4 TIMES A WEEK ON 11/15 Dianelys Knight losartan 100 mg tablet active TAKE 1 TABLET BY MOUTH DAILY Tom Mason duloxetine 30 mg capsule,delayed release(DR/EC) active Take 1 tablet by mouth once a day 07/26 Kelsey Vigil #270, 90 days supply, Filled 07/26/2020 isosorbide mononitrate 120 mg tablet extended release 24 hr active Take 1 tablet by mouth every morning 07/26 Jess Currie #90, 90 days supply, Prescribed by DHEERAJ BOLANOS, Filled 07/29/2020 prochlorperazine maleate 10 mg tablet active as needed 07/12 Jess Currie #90, 90 days supply, Filled 09/02/2020 aspirin 81 mg tablet,delayed release (DR/EC) active 1 tablet by mouth once a day 02/10 Tona Polanco MD VESICARE TABLET completed take one tablet daily 07/17 - 09/03 Jess Currie MULTIVITAMINS CAPS active 1 tablet once a day 01/23 Maci Aly Claritin 10 mg tablet active Take as needed 01/23 Maci Aly Myrbetriq 50 mg tablet extended release 24 hr active Take 1 once a day 01/23 Maci Aly losartan 100 mg tablet completed Take 1 tablet by mouth once a day 11/03 - Manuel Trinh ISOSORBIDE MONONITRATE ER 60 MG ORAL TABLET EXTENDED RELEASE 24 HOUR completed qday 06/28 - 09/03 Jess Currie LOSARTAN POTASSIUM 50 MG ORAL TABLET completed Take one tablet daily - 09/26 Lenka Garay RN TRAZODONE HCL 100 MG ORAL TABLET completed TWO TAB ONCE DAILY NEEDED - 09/03 Jess Currie ATORVASTATIN 20MG TABLETS completed TAKE 1 TABLET BY MOUTH DAILY 01/21 - 09/03 Jess Currie VITAMIN D TABLET completed ONCE DAILY - Maci Aly CITRACAL MAXIMUM TABLET completed ONCE DAILY - 0 Maci Aly tramadol 50 mg tablet active 2 tablet once a day as needed Cami O'Rob DETROL 1 MG ORAL TABLET completed ONE TAB. DAILY - Cami Jolley BRINTELLIX 10 MG ORAL TABLET completed once daily - Cami Jolley zolpidem 5 mg tablet active once a day Kelsey Corona Protonix [address] for susp in packet active once a day Tona Polanco MD Plavix 75 mg tablet completed 1 tablet every other day 08/07 - 11/15 Dianelys Knight ASPIRIN ADULT LOW DOSE 81 MG ORAL TABLET DELAYED RELEASE completed One Tab By Mouth Daily - 08/07 Tona Polanco MD LEVOFLOXACIN 500 MG ORAL TABLET completed once daily - Cami Jolley ENALAPRIL MALEATE 5 MG ORAL TABLET completed ONE TAB. TWICE DAILY - Cami Jolley ISOSORBIDE MONONITRATE ER 30 MG ORAL TABLET EXTENDED RELEASE 24 HOUR completed one tab. daily - Maci Aly metoprolol tartrate 50 mg tablet active 50 mg by mouth twice a day Tona Polanco MD SOCIAL HISTORY Date Observation Value Provider smoking status Never smoker Elizabeth Alma Rosa alcohol use, average drinks per day social Mabel Ventimiglia [facility] drug use no Mabel Ventimig joel [facility] alcohol use yes Ambel Ventimig joel [facility] smoking status Never smoker Mabel Espinalm iglia [facility] social history reviewed E&M revi ewed - no changes required Tona Polanco MD smoking status Never smoker Khushi coates social history E&M S moking History: Anastacio mak has never smoked. Tona Polanco MD social history reviewed E&M revi ewed - no changes required Tona Polanco MD smoking status Never smoker Kelsie Ellis social history E&M S moking History: Anastacio mak has never smoked. Tona Polanco MD social history reviewed E&M revi ewed - no changes required Tona Polanco MD smoking status Never smoker Jess Currie social history E&M S moking History: P aubree has never smoked. Tona Polanco MD social history reviewed E&M revi ewed - no changes required Tona Polanco MD smoking status Never smoker [facility] social history E&M Smoking Histo ry: P aubree has never smoked. Tona Polanco MD social history reviewed E&M revi ewed - no changes required Tona Polanco MD social history E&M S moking History: P aubree has never smoked. Tona Polanco MD social history reviewed E&M revi ewed - no changes required Tona Polanco MD smoking status Never smoker Jess Brunsonby social history reviewed E&M revi ewed - no changes required Tona Polanco MD social history E&M S moking History: P aubree has never smoked. Tona Polanco MD smoking status Never smoker Mary Jo Rowland social history reviewed E&M revi ewed - no changes required Tona Polanco MD social history E&M S moking History: Anastacio mak has never smoked. Tona Polanco MD smoking status Never smoker Maci ho social history E&M S moking History: P aubree has never smoked. Tona Polanco MD social history reviewed E&M revi ewed - no changes required Tona Polanco MD smoking status Never smoker Alessandra Cormier social history reviewed E&M revi ewed - no changes required Tona Polanco MD social history E&M S moking History: Anastacio mak has never smoked. Tona Polanco MD smoking status Never smoker Alessandra Augustinenettie social history reviewed E&M revi ewed - no changes required Tona Polanco MD number of grandchildren Tona Jolley smoking status Never smoker Cami Jolley social history reviewed E&M revi ewed - no changes required Tona Polanco MD smoking status Never smoker Alessandra Cormier smoking status Never smoker Alessandra Cormier FUNCTIONAL STATUS Date Observation Value Provider HRA, CV Assess/Plan, Angina (inactive) Management Plan continue current therapy Tona Polanco MD HRA, CV Assess/Plan, Angina (inactive) Management Plan continue current therapy Tona Polanco MD HRA, CV Assess/Plan, Angina (inactive) Management Plan continue current therapy Tona Polanco MD HRA, CV Assess/Plan, Angina (inactive) Management Plan continue current therapy Tona Polanco MD HRA, CV Assess/Plan, Angina (inactive) Management Plan continue current therapy Tona Polanco MD HRA, CV Assess/Plan, Angina (inactive) Management Plan continue current therapy Tona Polanco MD HRA, CV Assess/Plan, Angina (inactive) Management Plan continue current therapy Tona Polanco MD HRA, CV Assess/Plan, Angina (inactive) Management Plan continue current therapy Tona Polanco MD HRA, CV Assess/Plan, Angina (inactive) Management Plan continue current therapy Tona Polanco MD HRA, CV Assess/Plan, Angina (inactive) Management Plan continue current therapy Tona Polanco MD HRA, CV Assess/Plan, Angina (inactive) Management Plan continue current therapy Tona Polanco MD HRA, CV Assess/Plan, Angina (inactive) Management Plan continue current therapy Tona Polanco MD HRA, CV Assess/Plan, Angina (inactive) Management Plan continue current therapy Tona Polanco MD HRA, CV Assess/Plan, Angina (inactive) Management Plan continue current therapy, antianginal therapy Tona Polanco MD HRA, CV Assess/Plan, Angina (inactive) Management Plan continue current therapy, antianginal therapy Tona Polanco MD MENTAL STATUS Date Observation Value Provider energy level yes Kay Tebid energy level yes Kay Tebid energy level yes Kay Tebid energy level yes Kay Tebid energy level yes Kay Tebid energy level yes Kay Tebid energy level yes Kay Tebid energy level yes Kay Tebid energy level yes Kay Tebid energy level yes Kay Tebid energy level yes Kay Tebid energy level yes Kay Tebid energy level yes Kay Tebid energy level yes Kay Tebid energy level yes Kay Tebid energy level yes Kay Tebid energy level no Kay Tebid energy level no Kay Tebid energy level no Kay Tebid energy level no Kay Tebid FAMILY HISTORY Family Member Condition Full Brother Family History of Co ronary Artery Disease: Father Family History of Co ronary Artery Disease: INSURANCE PROVIDERS Payer name Policy type / Coverage type [place] [employer] green party ID [facility] [id number] [place] Medicare [id number] ADVANCE DIRECTIVES Name Date DISCUSSED - NO DECISION MADE TREATMENT PLAN Date Name Performer [id number],B, J anuary 2022 no new episodes December 08, 2022 n o new episodes of CP C ONCLUSIONS: 1 . Normal left ventricular systolic function. Normal left ventricular size. Normal left ventricular wall thickness. There is E to A w ave reversal consistent with impaired LV relaxation. Left ventricular ejection fraction is measured at 60 %. 2 . Mild enlargement of right ventricle. Normal right ventricular systolic function. 3 . No significant valvular abnormalities E lectronically signed by Tona Polanco MD on 06/14/2021 at 3:37 PM Tona Polanco MD [id number],S, R ecent studies from 2017' 1 . Normal LV systolic function with EF 60%. 2 . Stage 1 diastolic dysfunction. 3 . Mild LA chamber enlargement. 4 . Mild aortic regurgitation. 1. Normal myocardial perfusion imaging after vasodilator stress with Regadenoson. 2 . Normal left ventricular systolic function with a calculated ejection fraction of 53%. 3 . No obvious significant scintigraphic evidence of myocardial ischemia or scar. September 03, 2020 H ad echo 10/17/2019 EF 45%. Mild LVH. No significant valvular disease. R epeat echo, see if LVEF is really depressed or not, as she describes fatigue March 04, 2021 R echeck echo lvef was 60% wand had no sig valvular abn December 08, 2022\ w ill resume lipitor. remain on plavix Tona Polanco MD [id number],C, Off lipitor because of leg pains December 08, 2022 r eviewed with patient adn there is no firm improvement of leg issues. will restart liaptor 20 and get LFT and lipid panels in six months Tona Polanco MD [id number],C, H er updated medication list for this problem includes: Losartan 100 Mg Tablet (Losartan) ..... Take 1 tablet by mouth daily Metoprolol Tartrate 50 Mg Tablet (Metoprolol tartrate) ..... 50 mg by mouth twice a day Aspirin 81 Mg Tablet,delayed Release (dr/ec) (Aspirin) ..... 1 tablet by mouth once a day BP today: 112/70 P rior BP: 126/66 (10/07/2021) Labs Reviewed: C reat: 0.94 (03/05/2021) C hol: 174 (03/05/2021) HDL: 49 (03/05/2021) Mabel Allison [facility] [id number],C, R ecent studies from 2017' 1 . Normal LV systolic function with EF 60%. 2 . Stage 1 diastolic dysfunction. 3 . Mild LA chamber enlargement. 4 . Mild aortic regurgitation. 1. Normal myocardial perfusion imaging after vasodilator stress with Regadenoson. 2 . Normal left ventricular systolic function with a calculated ejection fraction of 53%. 3 . No obvious significant scintigraphic evidence of myocardial ischemia or scar. September 03, 2020 H ad echo 10/17/2019 EF 45%. Mild LVH. No significant valvular disease. R epeat echo, see if LVEF is really depressed or not, as she describes fatigue March 04, 2021 R echeck echo lvef was 60% wand had no sig valvular abn Mabel Blevinsmary kay [facility] [id number],C,J anuary 2022 no new episodes H er updated medication list for this problem includes: Isosorbide Mononitrate 120 Mg Tablet Extended Release 24 Hr (Isosorbide mononitrate) ..... Take 1 tablet by mouth every morning Metoprolol Tartrate 50 Mg Tablet (Metoprolol tartrate) ..... 50 mg by mouth twice a day Aspirin 81 Mg Tablet,delayed Release (dr/ec) (Aspirin) ..... 1 tablet by mouth once a day Plavix 75 Mg Tablet (Clopidogrel) ..... 1 tablet every other day Mabel Blevinsmahendramalini [facility] [id number],C, H ad covid 2020 V accinated with Deng Polanco MD [id number],C, B P upon re-check 102/65 H er updated medication list for this problem includes: Losartan 100 Mg Tablet (Losartan) ..... Take 1 tablet by mouth daily Metoprolol Tartrate 50 Mg Tablet (Metoprolol tartrate) ..... 50 mg by mouth twice a day Aspirin 81 Mg Tablet,delayed Release (dr/ec) (Aspirin) ..... 1 tablet by mouth once a day Tona Polanco MD [id number],C, R ecent studies from 2017' 1 . Normal LV systolic function with EF 60%. 2 . Stage 1 diastolic dysfunction. 3 . Mild LA chamber enlargement. 4 . Mild aortic regurgitation. 1. Normal myocardial perfusion imaging after vasodilator stress with Regadenoson. 2 . Normal left ventricular systolic function with a calculated ejection fraction of 53%. 3 . No obvious significant scintigraphic evidence of myocardial ischemia or scar. September 03, 2020 H ad echo 10/17/2019 EF 45%. Mild LVH. No significant valvular disease. R epeat echo, see if LVEF is really depressed or not, as she describes fatigue March 04, 2021 R echeck echo Tona Polanco MD [id number],C, Off lipitor because of leg pains Tona Polanco MD [id number],VíctorR ecently fell twice since returning home. On plavix MWF, asa other days. Will continue on med rx. Tele monitor for 1 week instead of 2 to eval for afib. Tona Polanco MD [id number],C, S he is already on palvix every other day. Can take aspirin every other day as well. Best to probably alternate. Tona Polanco MD [id number],C W ants to get yearly injectable for advanced osteoporosis. ERecent hip fracture. May not be a bad idea for her to proceed. Tona Polanco MD [id number],S,n o new episodes H er updated medication list for this problem includes: Isosorbide Mononitrate 120 Mg Tablet Extended Release 24 Hr (Isosorbide mononitrate) ..... Take 1 tablet by mouth every morning Metoprolol Tartrate 50 Mg Tablet (Metoprolol tartrate) ..... 50 mg by mouth twice a day Aspirin 81 Mg Tablet,delayed Release (dr/ec) (Aspirin) ..... 1 tablet by mouth once a day Plavix 75 Mg Tablet (Clopidogrel) ..... 1 tablet every other day Tona Polanco MD [id number],C, R ecent studies from 2017' 1 . Normal LV systolic function with EF 60%. 2 . Stage 1 diastolic dysfunction. 3 . Mild LA chamber enlargement. 4 . Mild aortic regurgitation. 1. Normal myocardial perfusion imaging after vasodilator stress with Regadenoson. 2 . Normal left ventricular systolic function with a calculated ejection fraction of 53%. 3 . No obvious significant scintigraphic evidence of myocardial ischemia or scar. September 03, 2020 H ad echo 10/17/2019 EF 45%. Mild LVH. No significant valvular disease. R epeat echo, see if LVEF is really depressed or not, as she describes fatigue March 04, 2021 R echeck echo Tona Polanco MD [id number],C,B P upon re-check 102/65 H er updated medication list for this problem includes: Losartan 100 Mg Tablet (Losartan) ..... Take 1 tablet by mouth daily Metoprolol Tartrate 50 Mg Tablet (Metoprolol tartrate) ..... 50 mg by mouth twice a day Aspirin 81 Mg Tablet,delayed Release (dr/ec) (Aspirin) ..... 1 tablet by mouth once a day Tona Polanco MD [id number],C,H ad covid 2020 V accinated with Modern[employer] Tona Polanco MD [id number],C,Check labs Sa desiree Polanco MD [id number],C, S he is already on palvix every other day. Can take aspirin every other day as well. Best to probably alternate. Tona Polanco MD [id number],C, R ecent studies from 2017' 1 . Normal LV systolic function with EF 60%. 2 . Stage 1 diastolic dysfunction. 3 . Mild LA chamber enlargement. 4 . Mild aortic regurgitation. 1. Normal myocardial perfusion imaging after vasodilator stress with Regadenoson. 2 . Normal left ventricular systolic function with a calculated ejection fraction of 53%. 3 . No obvious significant scintigraphic evidence of myocardial ischemia or scar. September 03, 2020 H ad echo 10/17/2019 EF 45%. Mild LVH. No significant valvular disease. R epeat echo, see if LVEF is really depressed or not, as she describes fatigue March 04, 2021 R echeck echo Tona Polanco MD [id number],S,S table on med rx, BP well controlled. H er updated medication list for this problem includes: Isosorbide Mononitrate 120 Mg Tablet Extended Release 24 Hr (Isosorbide mononitrate) ..... Take 1 tablet by mouth every morning Metoprolol Tartrate 50 Mg Tablet (Metoprolol tartrate) ..... 50 mg by mouth twice a day Aspirin 81 Mg Tablet,delayed Release (dr/ec) (Aspirin) ..... 1 tablet by mouth once a day Plavix 75 Mg Tablet (Clopidogrel) ..... 1 tablet every other day Tona Polanco MD [id number],C,Vaccinated [facility] Tona Polanco MD Cardiology: J anuary 2022 no new episodes December 08, 2022 n o new episodes of CP C ONCLUSIONS: 1 . Normal left ventricular systolic function. Normal left ventricular size. Normal left ventricular wall thickness. There is E to A w ave reversal consistent with impaired LV relaxation. Left ventricular ejection fraction is measured at 60 %. 2 . Mild enlargement of right ventricle. Normal right ventricular systolic function. 3 . No significant valvular abnormalities E lectronically signed by Tona Polanco MD on 06/14/2021 at 3:37 PM Tona Polanco MD Cardiology: R ecent studies from 2017' 1 . Normal LV systolic function with EF 60%. 2 . Stage 1 diastolic dysfunction. 3 . Mild LA chamber enlargement. 4 . Mild aortic regurgitation. 1. Normal myocardial perfusion imaging after vasodilator stress with Regadenoson. 2 . Normal left ventricular systolic function with a calculated ejection fraction of 53%. 3 . No obvious significant scintigraphic evidence of myocardial ischemia or scar. September 03, 2020 H ad echo 10/17/2019 EF 45%. Mild LVH. No significant valvular disease. R epeat echo, see if LVEF is really depressed or not, as she describes fatigue March 04, 2021 R echeck echo lvef was 60% wand had no sig valvular abn December 08, 2022\ w ill resume lipitor. remain on plavix Tona Polanco MD Cardiology: Off lipitor because of leg pains December 08, 2022 r annie with patient adn there is no firm improvement of leg issues. will restart liaptor 20 and get LFT and lipid panels in six months Tona Polanco MD Cardiology: H er updated medication list for this problem includes: Losartan 100 Mg Tablet (Losartan) ..... Take 1 tablet by mouth daily Metoprolol Tartrate 50 Mg Tablet (Metoprolol tartrate) ..... 50 mg by mouth twice a day Aspirin 81 Mg Tablet,delayed Release (dr/ec) (Aspirin) ..... 1 tablet by mouth once a day BP today: 112/70 P rior BP: 126/66 (10/07/2021) & #13;Labs Reviewed: C reat: 0.94 (03/05/2021) C hol: 174 (03/05/2021) HDL: 49 (03/05/2021) Mabel Allison [facility] Cardiology: R ecent studies from 2017' 1 . Normal LV systolic function with EF 60%. 2 . Stage 1 diastolic dysfunction. 3 . Mild LA chamber enlargement. 4 . Mild aortic regurgitation. 1. Normal myocardial perfusion imaging after vasodilator stress with Regadenoson. 2 . Normal left ventricular systolic function with a calculated ejection fraction of 53%. 3 . No obvious significant scintigraphic evidence of myocardial ischemia or scar. September 03, 2020 H ad echo 10/17/2019 EF 45%. Mild LVH. No significant valvular disease. R epeat echo, see if LVEF is really depressed or not, as she describes fatigue March 04, 2021 R echeck echo lvef was 60% wand had no sig valvular abn Mabel Allison [facility] Cardiology:May 282022 no new episodes H er updated medication list for this problem includes: Isosorbide Mononitrate 120 Mg Tablet Extended Release 24 Hr (Isosorbide mononitrate) ..... Take 1 tablet by mouth every morning Metoprolol Tartrate 50 Mg Tablet (Metoprolol tartrate) ..... 50 mg by mouth twice a day Aspirin 81 Mg Tablet,delayed Release (dr/ec) (Aspirin) ..... 1 tablet by mouth once a day Plavix 75 Mg Tablet (Clopidogrel) ..... 1 tablet every other day Mabel Allison [facility] Cardiology: H ad covid 2020 V accinated with Deng Polanco MD Cardiology: B P upon re-check 102/65 H er updated medication list for this problem includes: Losartan 100 Mg Tablet (Losartan) ..... Take 1 tablet by mouth daily Metoprolol Tartrate 50 Mg Tablet (Metoprolol tartrate) ..... 50 mg by mouth twice a day Aspirin 81 Mg Tablet,delayed Release (dr/ec) (Aspirin) ..... 1 tablet by mouth once a day Tona Polanco MD Cardiology: R ecent studies from 2017' 1 . Normal LV systolic function with EF 60%. 2 . Stage 1 diastolic dysfunction. 3 . Mild LA chamber enlargement. 4 . Mild aortic regurgitation. 1. Normal myocardial perfusion imaging after vasodilator stress with Regadenoson. 2 . Normal left ventricular systolic function with a calculated ejection fraction of 53%. 3 . No obvious significant scintigraphic evidence of myocardial ischemia or scar. September 03, 2020 H ad echo 10/17/2019 EF 45%. Mild LVH. No significant valvular disease. R epeat echo, see if LVEF is really depressed or not, as she describes fatigue March 04, 2021 R echeck echo Tona Polanco MD Cardiology: Off lipitor because of leg pains Tona Polanco MD Cardiology:Recently fell twice since returning home. On plavix MWF, asa other days. Will continue on med rx. Tele monitor for 1 week instead of 2 to eval for afib. Tona Polanco MD Cardiology: S he is already on palvix every other day. Can take aspirin every other day as well. Best to probably alternate. Tona Polanco MD Cardiology: W ants to get yearly injectable for advanced osteoporosis. ERecent hip fracture. May not be a bad idea for her to proceed. Tona Polanco MD Cardiology:no new ep isodes H er updated medication list for this problem includes: Isosorbide Mononitrate 120 Mg Tablet Extended Release 24 Hr (Isosorbide mononitrate) ..... Take 1 tablet by mouth every morning Metoprolol Tartrate 50 Mg Tablet (Metoprolol tartrate) ..... 50 mg by mouth twice a day Aspirin 81 Mg Tablet,delayed Release (dr/ec) (Aspirin) ..... 1 tablet by mouth once a day Plavix 75 Mg Tablet (Clopidogrel) ..... 1 tablet every other day Tona Polanco MD Cardiology: R ecent studies from 2017' 1 . Normal LV systolic function with EF 60%. 2 . Stage 1 diastolic dysfunction. 3 . Mild LA chamber enlargement. 4 . Mild aortic regurgitation. 1. Normal myocardial perfusion imaging after vasodilator stress with Regadenoson. 2 . Normal left ventricular systolic function with a calculated ejection fraction of 53%. 3 . No obvious significant scintigraphic evidence of myocardial ischemia or scar. September 03, 2020 H ad echo 10/17/2019 EF 45%. Mild LVH. No significant valvular disease. R epeat echo, see if LVEF is really depressed or not, as she describes fatigue March 04, 2021 R echeck echo Tona Polanco MD Cardiology:BP upon r e-check 102/65 H er updated medication list for this problem includes: Losartan 100 Mg Tablet (Losartan) ..... Take 1 tablet by mouth daily Metoprolol Tartrate 50 Mg Tablet (Metoprolol tartrate) ..... 50 mg by mouth twice a day Aspirin 81 Mg Tablet,delayed Release (dr/ec) (Aspirin) ..... 1 tablet by mouth once a day Tona Polanco MD Cardiology:Had covid 2020 V accinated with Deng Polanco MD Cardiology:Check labs Tona Polanco MD Cardiology: S he is already on palvix every other day. Can take aspirin every other day as well. Best to probably alternate. Tona Polanco MD Cardiology: R ecent studies from 2017' 1 . Normal LV systolic function with EF 60%. 2 . Stage 1 diastolic dysfunction. 3 . Mild LA chamber enlargement. 4 . Mild aortic regurgitation. 1. Normal myocardial perfusion imaging after vasodilator stress with Regadenoson. 2 . Normal left ventricular systolic function with a calculated ejection fraction of 53%. 3 . No obvious significant scintigraphic evidence of myocardial ischemia or scar. September 03, 2020 H ad echo 10/17/2019 EF 45%. Mild LVH. No significant valvular disease. R epeat echo, see if LVEF is really depressed or not, as she describes fatigue March 04, 2021 R echeck echo Tona Polanco MD Cardiology:Stable on med rx, BP well controlled. H er updated medication list for this problem includes: Isosorbide Mononitrate 120 Mg Tablet Extended Release 24 Hr (Isosorbide mononitrate) ..... Take 1 tablet by mouth every morning Metoprolol Tartrate 50 Mg Tablet (Metoprolol tartrate) ..... 50 mg by mouth twice a day Aspirin 81 Mg Tablet,delayed Release (dr/ec) (Aspirin) ..... 1 tablet by mouth once a day Plavix 75 Mg Tablet (Clopidogrel) ..... 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 No ischemia on recent stress trest. Tona Polanco MD Cardiology: H er updated medication list for this problem includes: Aspirin Adult Low Dose 81 Mg Oral Tablet Delayed Release (Aspirin) ..... One tab by mouth daily Losartan 100mg Tablets (Losartan potassium) ..... Take 1 tablet by mouth daily Metoprolol Tartrate 50 Mg Oral Tablet (Metoprolol tartrate) ..... 50 mg po bid BP today: 133/82 P rior BP: 132/63 (02/11/2020) L abs Reviewed: C hol: 149.0 (03/21/2016) HDL: 61.0 (03/21/2016) T.0 (03/21/2016) Tona Polanco MD Cardiology: H er updated medication list for this problem includes: Atorvastatin 20mg Tablets (Atorvastatin calcium) ..... Take 1 tablet by mouth daily September 03, 2020 C urrently not on lipitor as she was having stomach issues Tona Polanco MD Cardiology: R ecent studies from 2017' 1 . Normal LV systolic function with EF 60%. 2 . Stage 1 diastolic dysfunction. 3 . Mild LA chamber enlargement. 4 . Mild aortic regurgitation. 1. Normal myocardial perfusion imaging after vasodilator stress with Regadenoson. 2 . Normal left ventricular systolic function with a calculated ejection fraction of 53%. 3 . No obvious significant scintigraphic evidence of myocardial ischemia or scar. September 03, 2020 H ad echo 10/17/2019 EF 45%. Mild LVH. No significant valvular disease. R epeat echo, see if LVEF is really depressed or not, as she describes fatigue Tona Polanco MD Cardiology: S pOP2 95% Tona Polanco MD Cardiology:She is al ready on palvix every other day. Can take aspirin every other day as well. Best to probably alternate. Tona Polanco MD Cardiology:Wants to get yearly injectable for advanced osteoporosis. ERecent hip fracture. May not be a bad idea for her to proceed. Tona Polanco MD Cardiology: H er updated medication list for this problem includes: Atorvastatin 20mg Tablets (Atorvastatin calcium) ..... Take 1 tablet by mouth daily Tona Polanco MD Cardiology: R ecent studies from 2017' 1 . Normal LV systolic function with EF 60%. 2 . Stage 1 diastolic dysfunction. 3 . Mild LA chamber enlargement. 4 . Mild aortic regurgitation. 1. Normal myocardial perfusion imaging after vasodilator stress with Regadenoson. 2 . Normal left ventricular systolic function with a calculated ejection fraction of 53%. 3 . No obvious significant scintigraphic evidence of myocardial ischemia or scar. 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 No ischemia on recent stress trest. Tona Polanco MD Cardiology: B P today: 132/63 P rior BP: 145/89 (08/08/2019) Her updated medication list for this problem includes: Losartan 100mg Tablets (Losartan potassium) ..... Take 1 tablet by mouth daily Metoprolol Tartrate 50 Mg Oral Tablet (Metoprolol tartrate) ..... 50 mg po bid Tona Polanco MD Cardiology: P t noticing excess bruising. D/c ASA. Leave plavix qod alone. 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 No ischemia on recent stress trest. Tona Polanco MD Cardiology: B P today: 145/89 P rior BP: 130/80 (02/07/2019) Labs Reviewed: C hol: 149.0 (03/21/2016) HDL: 61.0 (03/21/2016) T.0 (03/21/2016) The following medications were removed from the medication list: Aspirin Adult Low Dose 81 Mg Oral Tablet Delayed Release (Aspirin) ..... One tab by mouth daily Her updated medication list for this problem includes: Losartan Potassium 100 Mg Oral Tablet (Losartan potassium) ..... 1 tab po daily Metoprolol Tartrate 50 Mg Oral Tablet (Metoprolol tartrate) ..... 50 mg po bid Tona Polanco MD Cardiology:Has not h ad any recent testing. R ecent studies from 2017' 1 . Normal LV systolic function with EF 60%. 2 . Stage 1 diastolic dysfunction. 3 . Mild LA chamber enlargement. 4 . Mild aortic regurgitation. 1. Normal myocardial perfusion imaging after vasodilator stress with Regadenoson. 2 . Normal left ventricular systolic function with a calculated ejection fraction of 53%. 3 . No obvious significant scintigraphic evidence of myocardial ischemia or scar. Tona Polanco MD Cardiology: H er updated medication list for this problem includes: Atorvastatin 20mg Tablets (Atorvastatin calcium) ..... Take 1 tablet by mouth daily Tona Polanco MD Cardiology:Pt notici ng excess bruising. D/c ASA. Leave plavix alone. if continue bruising change to every other day. 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 No ischemia on recent stress trest. Tona Polanco MD Cardiology: H er updated medication list for this problem includes: Losartan Potassium 100 Mg Oral Tablet (Losartan potassium) ..... 1 tab po daily Aspirin Adult Low Dose 81 Mg Oral Tablet Delayed Release (Aspirin) ..... One tab by mouth daily Metoprolol Tartrate 50 Mg Oral Tablet (Metoprolol tartrate) ..... 50 mg po bid Tona Polanco MD Cardiology follow up : D id well thru orthopedic surgery. Her updated medication list for this problem includes: Isosorbide Mononitrate Er 60 Mg Oral Tablet Extended Release 24 Hour (Isosorbide mononitrate) ..... Qday Plavix 75 Mg Oral Tablet (Clopidogrel bisulfate) ..... One tab. daily Aspirin Adult Low Dose 81 Mg Oral Tablet Delayed Release (Aspirin) ..... One tab by mouth daily Metoprolol Tartrate 50 Mg Oral Tablet (Metoprolol tartrate) ..... 50 mg po bid Tona Polanco MD Cardiology follow up : H er updated medication list for this problem includes: Lipitor 20 Mg Oral Tablet (Atorvastatin calcium) ..... One tab. daily Tona Polanco MD Cardiology follow up :Recent studies from 2017' 1 . Normal LV systolic function with EF 60%. 2 . Stage 1 diastolic dysfunction. 3 . Mild LA chamber enlargement. 4 . Mild aortic regurgitation. 1. Normal myocardial perfusion imaging after vasodilator stress with Regadenoson. 2 . Normal left ventricular systolic function with a calculated ejection fraction of 53%. 3 . No obvious significant scintigraphic evidence of myocardial ischemia or scar. 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 No ischemia on recent stress trest. Tona Polanco MD Cardiology follow up : H er updated medication list for this problem includes: Lipitor 20 Mg Oral Tablet (Atorvastatin calcium) ..... One tab. daily Sarath Plurad Cardiology follow up :Pt. would benefit from cardiac rehab. May help her improve her level of activity. Tona Polanco MD Cardiology follow up : T he following medications were removed from the medication list: Isosorbide Mononitrate Er 30 Mg Oral Tablet Extended Release 24 Hour (Isosorbide mononitrate) ..... One tab. daily Her updated medication list for this problem includes: Isosorbide Mononitrate Er 60 Mg Oral Tablet Extended Release 24 Hour (Isosorbide mononitrate) ..... Qday Plavix 75 Mg Oral Tablet (Clopidogrel bisulfate) ..... One tab. daily Aspirin Adult Low Dose 81 Mg Oral Tablet Delayed Release (Aspirin) ..... One tab by mouth daily Metoprolol Tartrate 50 Mg Oral Tablet (Metoprolol tartrate) ..... 50 mg po bid Tona Polanco MD Cardiology follow up :OK to proceed with 2D echo and Lexiscan stress test. Tona Polanco MD Cardiology: H er updated medication list for this problem includes: Lipitor 20 Mg Tabs (Atorvastatin calcium) ..... One tab. daily Tona Polanco MD Cardiology:Mildly el evated BP. On medRX. Continue current therapy. H er updated medication list for this problem includes: Losartan Potassium 100 Mg Oral Tabs (Losartan potassium) ..... 1 tab po daily Aspirin Adult Low Dose 81 Mg Oral Tbec (Aspirin) ..... One tab by mouth daily Metoprolol Tartrate 50 Mg Tabs (Metoprolol tartrate) ..... 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 Has been sta ble. Tona Polanco MD Cardiology:Maintained on med RX for occluded circ. Tona Polanco MD Cardiology:Did well thru orthope dic surgery. Tona Polanco MD Cardiology:Okay to c ome off of plavix for orthopedic surgery I ncreased risk of perioperative NH reviewed, due to nonrevascularizable CAD, with patient and family R ecommend to stay on blood pressure meidcations in the prioperative setting to reduce the risk of perioperative NH. 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 The following medications were removed from the medication list: Enalapril Maleate 5 Mg Tabs (Enalapril maleate) ..... One tab. twice daily Her updated medication list for this problem includes: Plavix 75 Mg Tabs (Clopidogrel bisulfate) ..... One tab. daily Aspirin Adult Low Dose 81 Mg Oral Tbec (Aspirin) ..... One tab by mouth daily Isosorbide Mononitrate Cr 30 Mg Tb24 (Isosorbide mononitrate) ..... One tab. daily Metoprolol Tartrate 50 Mg Tabs (Metoprolol tartrate) ..... 50 mg po bid Orders: 9 9215 HIGH Complex (CPT-94430) C omplete Echo (CPT-33183) S TR - Adenosine (CPT-53574) F VC - 95423 (62786) F RC - 50727 (22088) D LCO - 24964 (43794) Tona Polanco MD Cardiology Tona Polanco MD Cardiology:WILL GET BLOOD WORK D ONE Tona Polanco MD Cardiology: H er updated medication list for this problem includes: Plavix 75 Mg Tabs (Clopidogrel bisulfate) ..... One tab. daily Aspirin 325 Mg Tabs (Aspirin) ..... One tab daily Enalapril Maleate 5 Mg Tabs (Enalapril maleate) ..... One tab. twice daily Isosorbide Mononitrate Cr 30 Mg Tb24 (Isosorbide mononitrate) ..... One tab. daily Metoprolol Tartrate 50 Mg Tabs (Metoprolol tartrate) ..... 50 mg po bid Tona Polanco MD Cardiology:TAKES MED S SAYS HER SBP IN 120'S AT HOME AND UNUSUALLY HIGH TODAY H er updated medication list for this problem includes: Aspirin 325 Mg Tabs (Aspirin) ..... One tab daily Enalapril Maleate 5 Mg Tabs (Enalapril maleate) ..... One tab. twice daily Metoprolol Tartrate 50 Mg Tabs (Metoprolol tartrate) ..... 50 mg po bid Tona Polanco MD Cardiology Tona Polanco MD Cardiology Tona Polanco MD Cardiology: O rders: 9 9215 HIGH Complex (CPT-05578) E CP - Medicare (CPT-G0166) Tona Polanco MD Cardiology: H er updated medication list for this problem includes: Plavix 75 Mg Tabs (Clopidogrel bisulfate) ..... One tab. daily Aspirin 325 Mg Tabs (Aspirin) ..... One tab daily Enalapril Maleate 5 Mg Tabs (Enalapril maleate) ..... One tab. twice daily Isosorbide Mononitrate Cr 30 Mg Tb24 (Isosorbide mononitrate) ..... One tab. daily Metoprolol Tartrate 50 Mg Tabs (Metoprolol tartrate) ..... 50 mg po bid Orders: 9 9215 HIGH Complex (CPT-24432) E CP - Medicare (CPT-G0166) Tona Polanco MD Cardiology: H er updated medication list for this problem includes: Aspirin 325 Mg Tabs (Aspirin) ..... One tab daily Enalapril Maleate 5 Mg Tabs (Enalapril maleate) ..... One tab. twice daily Metoprolol Tartrate 50 Mg Tabs (Metoprolol tartrate) ..... 50 mg po bid Orders: 9 9215 HIGH Complex (CPT-91322) E CP - Medicare (CPT-G0166) Tona Polanco MD Date Name LIPID PANEL COMPREHENSIVE METABO LIC PANEL, W/EGFR LIPID PANEL COMPREHENSIVE METABO LIC PANEL, W/EGFR Monitor - Telemetry (Mobile Cardiac) Complete Echo TSH, free T4, total T3 CBC (INCLUDES DIFF/P LT) HEMOGLOBIN A1c LIPID PANEL COMPREHENSIVE METABO LIC PANEL, W/EGFR Carotid Duplex Bilat eral Complete Echo STR - Adenosine Complete Echo DLCO - 41147 FRC - 60346 FVC - 13433 STR - Adenosine Complete Echo LIPID PANEL Carotid Duplex Bilat eral LIPID PANEL Sleep Study Home LIPID PANEL [facility] - Medicare HISTORY OF PROCEDURES Procedure Date Procedure Name Provider Procedure Notes S tatus EKG Tona Polanco MD completed EKG Tona Polanco MD completed EKG Tona Polanco MD completed EKG Tona Polanco MD completed EKG Tona Polanco MD completed EKG Tona Polanco MD completed EKG Tona Polanco MD completed EKG Tona Polanco MD completed EKG Tona Polanco MD completed Regadenoson, 4 units Tona palomo MD completed Cardiolite, 2 units Tona silva MD completed SPECT Images Darlene Stewart MD complet ed Stress EKG Darlene Stewart MD completed EKG Tona Polanco MD completed EKG Tona Polanco MD completed SNOMED-CT: 241876875 329275 Current Medications Documented Tona Polanco MD completed EKG Tona Polanco MD completed SNOMED-CT: 923116301 418618 Current Medications Documented Tona Polanco MD completed Stress EKG Niels Padilla MD complet ed Regadenoson, 4 units Niels Padilla MD completed Cardiolite, 2 units Niels Padilla MD completed SPECT Images Niels Padilla MD compl eted BLOOD COUNT HEMOGLOBIN Tona Polanco MD completed FVC - 52952 Tona Polanco MD completed FRC - 76563 Tona Polanco MD completed DLCO - 86069 Tona Polanco MD completed EKG Tona Polanco MD completed SNOMED-CT: 031236149 787195 Current Medications Documented Tona Polanco MD completed EKG Tona Polanco MD completed SNOMED-CT: 093418484 092919 Current Medications Documented Tona Polanco MD completed EKG Tona Polanco MD completed SNOMED-CT: 926860419 280127 Current Medications Documented Tona Polanco MD completed
--- OUTSIDE RECORDS SUMMARY | 2024-07-21 13:11 | XMS_ITS | Encounter Summary ---
Author Organization [facility] Address [address] [place] [address] Care Team Providers Care Salvage Mechanic Name Role Phone Unavailable Primary Care Provider Unavailabl e Encounter Details Date Type Department Care Team (Late st Contact Info) Description 05/08/2024 Lab Requisition [facility] - DermPath Lab [address] [place] [id number] Marbin Scales MD [address] [place] [address] Social History Tobacco Use Types [...] Priority Date/Time Associated Diagnosis Comments DERMATOPATHOLOGY Routine 05/07/2024 12:0 0 AM MARINE TOWER OPERATOR documented in this encounter Results * DERMATOPATHOLOGY (05/07/2024 12:00 AM MARINE TOWER OPERATOR) Case Report Dermatopathology Report Case: [id number] Authorizing Provider: Marbin Scales MD Collected: 05/07/2024 12:00 AM Ordering Location: [facility] - Received: 05/08/2024 03:49 PM DermPath Lab Pathologist: Dianelys Nagel MD Specimen: Skin, mid forehead 4 11:12 AM MARINE TOWER OPERATOR DERMATOPATHOLOGY LABORATORY Final Diagnosis Specimen A. 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 The specimen consists of a shave biopsy measuring 10x9x4 mm. Jar 0. 4 11:12 AM [facility] DERMATOPATHOLOGY LABORATORY Microscopic Description Specimen A. SKIN, mid forehead: The epidermis shows parakeratosis, full thickness disorderly maturation of keratinocytes, mitoses at different levels, and dyskeratotic cells. The lesion extends to the base of the biopsy. There is a column of marked compact hyperkeratosis. COMMENT: An invasive squamous cell carcinoma cannot be ruled out. 11:12 AM [facility] DERMATOPATHOLOGY LABORATORY Disclaimer An external and internal positive and negative controls are appropriate for the histochemical, immunohistochemical and immunofluorescence stain(s) in this case (if any), except where stated explicitly. The performance characteristics of the stain(s) cited in this report were developed and its performance characteristic determined by the Dermatopathology Laboratory at [facility], directed by Dr. Ravi Marino. These tests need not be, and therefore are not, approved by the [place] Food and Drug Administration. The tests are used for clinical purposes. Billing Codes Specimen Charges Stain Charges 36815 1 4 11:12 AM [facility] DERMATOPATHOLOGY LABORATORY Embedded Images 4 11:12 AM [facility] DERMATOPATHOLOGY LABORATORY Pathology/Cytolog y TISSUE SPECIMEN FROM SKIN / Unknown 05/07/2024 05/08/2024 3:49 PM [facility] Marbin Scales MD LAB - PATHOLOGY/CYTO LOGY ORDERABLES DERMATOPATHOLOGY LABORATORY [facility] - Department of Dermatology [address], [address] [phone] documented in this encounter Visit Diagnoses Not on filedocumented in this encounter
--- OUTSIDE RECORDS SUMMARY | 2024-07-21 13:11 | XMS_ITS | Encounter Summary ---
Author Organization [facility] Address [address] [place] [address] Care Team Providers Care Clinical Quality Analyst Name Role Phone Unavailable Primary Care Provider Unavailabl e Encounter Details Date Type Department Care Team (Late st Contact Info) Description 06/05/2024 Lab Requisition [facility] - DermPath Lab [address] [place] [phone] Marbin Scales MD [address] [place] [address] Social History Tobacco Use Types [...] Date/Time Associated Diagnosis Comments DERMATOPATHOLOGY Routine 06/04/2024 3:3 3 AM HEAD OF BUSINESS DEVELOPMENT documented in this encounter Results * DERMATOPATHOLOGY (06/04/2024 3:33 AM HEAD OF BUSINESS DEVELOPMENT) Case Report Dermatopathology Report Case: [id number] Authorizing Provider: Marbin Scales MD Collected: 06/04/2024 03:33 AM Ordering Location: [facility] - Received: 06/05/2024 02:53 PM DermPath Lab Pathologist: Dianelys Nagel MD Specimen: Skin, mid forehead 1:05 PM [employer] OF BUSINESS DEVELOPMENT DERMATOPATHOLOGY LABORATORY Final Diagnosis Specimen A. 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 The specimen consists of a curettage and desiccation biopsy measuring 10x9x3 mm. Jar 0. 1:05 PM [facility] DERMATOPATHOLOGY LABORATORY Microscopic Description Specimen A. SKIN, mid forehead: Arising in the epidermis and extending into the dermis there are irregularly shaped aggregates of keratinocytes showing evidence of premature cornification. 1:05 PM [facility] DERMATOPATHOLOGY LABORATORY Disclaimer An external and internal positive and negative controls are appropriate for the histochemical, immunohistochemical and immunofluorescence stain(s) in this case (if any), except where stated explicitly. The performance characteristics of the stain(s) cited in this report were developed and its performance characteristic determined by the Dermatopathology Laboratory at [facility], directed by Dr. Ravi Marino. These tests need not be, and therefore are not, approved by the [place] Food and Drug Administration. The tests are used for clinical purposes. Billing Codes Specimen Charges Stain Charges 49434 1 1:05 PM [facility] DERMATOPATHOLOGY LABORATORY Embedded Images 1:05 PM [facility] DERMATOPATHOLOGY LABORATORY Pathology/Cytolo gy TISSUE SPECIMEN FROM SKIN / Unknown 06/04/2024 3:33 AM [employer] BUSINESS DEVELOPMENT 06/05/2024 2:53 PM HEAD OF BUSINESS DEVELOPMENT Marbin Scales MD LAB - PATHOLOGY/CYTO LOGY ORDERABLES DERMATOPATHOLOGY LABORATORY [facility] - Department of Dermatology [address] [phone] documented in this encounter Visit Diagnoses Not on filedocumented in this encounter
--- OUTSIDE RECORDS SUMMARY | 2024-07-21 13:11 | XMS_ITS | Data Portability ---
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 Lab None recorded. Referral orthopedic surgeon referral 2022 023 darren Bojorquez MD, [address] [place], [address], 3 09:42:14 Procedures None recorded. Surgeries None recorded. Imaging XR, chest, 2 view 2022 023 [facility] (Imaging), [address], [place], [address], 3 11:33:19 Medication Orders None recorded. Patient TargetsNo targets recorded. Patient Instructions Encounter Date Encounter Id Patient Instructions Last Modified By Organization Details Last Modified Time 08/10/2022 [id number] dementia rating scale-2* Not available 08/10/2022 13:29:21 multi-dimensiona l health assessment questionnaire* Not available 08/10/2022 13:29:21 care plan* MECHELLE Not available 08/10 13:34:00 advance directiv es: care instructions Not available 08/10/2022 13:29:21 advance care planning: care instructions Not available 08/10/2022 13:29:22 [place] Advance Directives Not available 08/10/2022 13:29:21 Personalized Hea lth Plan and Screening Recommendations Advance Directives - Do you have one? Yes I recommend consulting with an Sales Lead, family member, or friend to assist you. Advance Directives - Do we have your advance directive on file in your health record? No, please bring in a copy at your earliest convenience Primary Prevention/Interven tion (prevents or decreases the chance of common diseases from occurring) Smoking Risk: Non Smoker Alcohol Misuse Screening: Negative Weight: Appropriate Overwei ght continue your current weight loss efforts try to lose 5% of your body weight try to lose 10% of your body weight try to lose 15% of your body weight Physical activity: Need more exercise/physical activity minimum of 10-20 minutes of activity that causes mild breathlessness/day minimum of 20-30 minutes activity that causes mild breathlessness/day Nutrition: Good Refer to attached handout Heart-Healthy Diet: After Your Visit Fall Risk (screened today): High Refer to attached handout Preventing Falls: After your Visit Recommend regular use of cane or walker Vaccines Pneumococcal: Ordered Recommended today Recommended today, but you have declined No further needed Influenza: Your next one in the fall of this year Chronic Disease Risks Stroke: Low Risk Intermediate Risk I have no recommendations Act jeff diagnosis, Continue current treatment plan Heart Attack: Low risk Intermediate Risk I have no recommendations Act jeff diagnosis, Continue current treatment plan Clogging of the Arteries: Low risk Intermediate Risk I have no recommendations Act jeff diagnosis, Continue current treatment plan Diabetes: Low Risk I have no recommendations Secondary Prevention/Interven tion (detects treatable diseases before they may cause symptoms, disability, or ) Breast Cancer Screening with mammogram: No screening necessary Cervical/Uterine/Ov sofi Cancer Screening: No screening necessary Osteoporosis Screening: No screening necessary Date Screening Last Performed: Colon Cancer Screening: No screening necessary Date Screening Last Performed: Eye Disease Screening: Dementia Risk: Low Intermediate I have no recommendations Depression Screening: Negative Positive Active diagnosis, Continue current treatment plan [email or web address] Not available 08/10/2022 10:14:55 Reason for Referral Orthopedic Surgeon Referral for Pain of left shoulder joint Referring Physician: Ibrahima Bolanos, Internal Medicine, Encounter Date: 08/10/2022 Results Created Date Observation Date Name Description Value Unit Range Abnormal Flag Note LastModifiedBy Organization Detail LastModifiedTime 02/15/20 21 08/02/2015 MAMMO , scree gustavo, digit al, bilat eral No observ ation record ed. [id number] Not Available 07/26/2022 05:01:48 02/15/20 21 10/31/2004 colon oscop y proce dure (PROC ) No observ ation record ed. [id number] Not Available 07/26/2022 05:01:48 02/29/20 21 08/02/2015 MAMMO , scree gustavo, digit al, bilat eral No observ ation record ed. [id number] Not Available 07/26/2022 05:01:48 02/29/20 21 10/31/2004 colon oscop y proce dure (PROC ) No observ ation record ed. [id number] Not Available 07/26/2022 05:01:48 06/10/19 22 06/10/2021 , [facility] ardio gram No observ ation record ed. MIGRATION. [id number] [facility] [address], [place], [address], 07/26/2022 05:01:48 07/11/19 22 07/08/2021 XR, hand No observ ation record ed. [id number] [facility] [address], [place], [address], 07/26/2022 05:01:48 10/26/19 22 10/25/2021 XR, ribs, bilat eral No observ ation record ed. [id number], [place], [address], 07/26/2022 05:01:48 10/26/19 22 10/25/2021 XR, elbow No observ ation record ed. [id number], [place], [address], 07/26/2022 05:01:48 11/16/19 22 11/14/2021 travis r monit or No observ ation record ed. [id number] [facility] [address], [place], [address], 07/26/2022 05:01:48 11/16/19 22 11/14/2021 elect rocar diogr am No observ ation record ed. [id number] [facility] [address] [address], [place], [address], 07/26/2022 05:01:48 11/16/19 22 11/14/2021 travis r monit or No observ ation record ed. [id number] [facility] [address], [place], [address], 07/26/2022 05:01:48 06/30/19 23 06/30/2022 CT, pelvi s, w/o contr ast No observ ation record ed. [id number], [place], [address], 07/26/2022 05:01:48 08/11/19 23 08/10/2022 XR, chest , 2 view No observ ation record ed. [email or web address] [place] [address] [address], [place], [address], 08/10/2022 14:00:49 08/11/19 23 07/29/2022 XR, chest No observ ation record ed. BARCODE Not Available 2022 19:05:28 08/11/19 23 07/29/2022 elect rocar diogr am No observ ation record ed. BARCODE Not Available 2022 19:05:29 08/11/19 23 06/30/2022 CT, shoul magalys, w/o contr ast No observ ation record ed. BARCODE Not Available 2022 19:05:29 08/11/19 23 06/30/2022 CT, pelvi s, w/ contr ast No observ ation record ed. BARCODE Not Available 2022 19:05:29 08/11/19 23 07/26/2022 US, duple x, retro perit oneum , compl ete No observ ation record ed. BARCODE Not Available 2022 19:05:29 09/01/19 23 06/30/2022 imagi ng/di agnos tic resul t No observ ation record ed. Not Available 2022 13:50:10 03/17/20 23 03/17/2023 CT, abdom en + pelvi s, w/ contr ast No observ ation record ed. [email or web address], [place], [address], 04/29/2023 17:06:44 05/29/19 24 05/25/2023 XR, chest , 1 view No observ ation record ed. Not Available 2023 13:35:01 05/29/19 24 05/25/2023 CT, brain , w/o contr ast No observ ation record ed. Not Available 2023 13:35:02 05/30/19 24 05/25/2023 CT, head, w/o contr ast No observ ation record ed. Not Available 2023 13:35:02 05/31/19 24 05/30/2023 XR, chest , 1 view No observ ation record ed. Not Available 2023 09:02:38 06/01/19 24 05/31/2023 XR, chest No observ ation record ed. Not Available 2023 09:02:39 Result Notes None recorded. Problems Name Problem SNOMED Code Status Onset Date Resolution Date Notes Provider Name and Address Organization Details Recorded Time Pain of left shoulder joint 36690052443 [id number] Active 2022 Ibrahima Bolanos MD [address], [address], [place], [address] , [place] [facility] 3 09:32:12 Pleural effusion 74543339 Active 2022 Ibrahima Bolanos MD [address], [address], [place], [address] , [place] - [facility] 3 09:33:29 Altered mental status 129612200 Active 2022 Ibrahima Bolanos MD [address], [address], [place], [address] , [place] [facility] 3 16:33:03 Kidney disease 31141477 Active 2022 Ibrahima Bolanos MD [address], [address], [place], [address] , [place] [facility] 3 16:39:12 Acute bronchiti s [id number] Completed Not Available [facility] 3 04:49:38 Chronic obstructi ve pulmonary disease 04647888 Active Caren Stgeorginalegirisha n, RMA null, [place] - [facility] 3 09:16:48 History of transient ischemic attack 597314056 Active 2020 2019 Caren Stcandiea n, RMA null, [place] [facility] 3 09:17:20 Urinary incontine nce 028657857 Active Caren Stufflebea n, RMA null, [place] [facility] 3 09:17:04 Insomnia 871650995 Active Caren Stufflebea n, RMA null, [place] [facility] 3 09:16:55 Cerebrova scular accident 766836682 Active 2020 2020 Caren Denisea n RMA null, [place] [facility] 3 09:16:51 Gastroeso phageal reflux disease 563380714 Active Caren Blacklegirisha n, RMA null, [place] - [facility] 3 09:17:21 Poor short-ter m memory 243078322 Active 2021 Caren so, RMA null, [facility] 3 09:17:05 Adult health examinati on Active 2021 Caren so RMA null, [place] - [facility] 3 09:14:58 Recurrent falls 090456155 Active 2021 Caren so, RMA null[place] [facility] 3 09:17:30 Knee pain Active Caren Haddad n, RMA null, [facility] 3 09:16:53 Depressiv e disorder 53002998 Active 2020 Caren so, RMA null, [facility] 3 09:16:45 Inflammat ory disorder of extremity 918522688 Completed 08/10/2022 Caren Haddad n, RMA null, [facility] 3 09:16:56 Multiple bruising 141772651 Completed 202108/10/2022 Caren Haddad n, RMA null, [facility] 3 09:17:18 Enthesopa thy of knee 40651137 Active Caren Denisea n, RMA null, [facility] 3 09:17:25 Osteoarth ritis 864577544 Active Caren Beckhambea n, RMA null, [facility] 3 09:17:07 Clouded conscious ness 16965142 Completed Not Available [facility] 3 04:49:39 Obesity 217686255 Active Caren Denisea n, RMA null, [place] [facility] 3 09:17:09 Coronary atheroscl erosis 541715563 Active Caren so, RMA null, [facility] 3 09:16:46 Hyperlipi demia 20597828 Active Caren Haddad n, RMA null[place] [facility] 3 09:16:58 Essential hypertens ion 81853045 Active Caren Haddad n, RMA null, [facility] 3 09:17:23 Diarrhea 50616944 Active 2021 Caren Haddad n, RMA null, [facility] 3 09:17:28 Interstit ial pneumonia 72172257 Active Caren so, RMA null, [facility] 3 09:17:32 Urinary tract infectiou s disease 82055097 Completed Not Available [facility] 3 04:49:40 Urge incontine nce of urine 27646329 Completed Not Available [facility] 3 04:49:40 Problem Notes None recorded. Procedures Surgical History Date Name Laterality Status Provider Name and Address Organization Details Recorded Time 08/11/19 Medicare Wellness CPT Code, subsequent completed Anna Marquez RN [facility] 08/10/2022 09:47:14 11/01/19 05 Date of Last Colonoscopy completed Not Available [facility] 07/26/2022 04:41:43 TVH completed Not Available [facility] 07/26/2022 04:41:45 Carpal tunnel completed Not Available [facility] 07/26/2022 04:41:45 Hip surgery completed Not Available [facility] 07/26/2022 04:41:45 Cholecystectomy completed [facility] 07/26/2022 04:41:45 repair of rectocele completed Not [facility] 07/26/2022 04:41:45 Carpal tunnel completed Not [facility] 07/26/2022 04:41:45 Bladder completed Not [facility] 07/26/2022 04:41:45 Imaging Results Imaging Date Name Status LastModified by Organization Details LastModified Time 10/25/2021 XR, ribs, bilateral completed MIGRATIO N.[id number], [place], [address], 07/26/2022 05:01:48 10/25/2021 XR, elbow completed [id number], [place], [address], 07/26/2022 05:01:48 06/30/2022 CT, pelvis, w/o contrast completed [id number], [place], [address], 07/26/2022 05:01:48 08/02/2015 MAMMO, screening, digital, bilateral completed [id number] Information not available 07/26/2022 05:01:48 10/31/2004 colonoscopy procedure (PROC) completed [id number] Information not available 07/26/2022 05:01:48 08/02/2015 MAMMO, screening, digital, bilateral completed [id number] Information not available 07/26/2022 05:01:48 10/31/2004 colonoscopy procedure (PROC) completed [id number] Information not available 07/26/2022 05:01:48 06/10/2021 US, echocardiogram completed MIGRATION [id number] [facility] [address], [place], [address], 07/26/2022 05:01:48 07/08/2021 XR, hand completed [id number] [facility] [address], [place], [address], 07/26/2022 05:01:48 11/14/2021 holter monitor completed MIGRATION.[id number] [facility] [address], [place], [address], 07/26/2022 05:01:48 11/14/2021 electrocardiogram completed MIGRATION. [id number] [facility] [address], [place], [address], 07/26/2022 05:01:48 11/14/2021 holter monitor completed [id number] [facility] [address], [place], [address], 07/26/2022 05:01:48 08/10/2022 XR, chest, 2 view completed [address], [place], [address], 08/10/2022 14:00:49 07/29/2022 XR, chest completed BAR[facility] Information no t available 08/10/2022 19:05:28 07/29/2022 electrocardiogram completed [facility] Informa tion not available 08/10/2022 19:05:29 06/30/2022 CT, shoulder, w/o contrast completed [facility] Information not available 08/10/2022 19:05:29 06/30/2022 CT, pelvis, w/ contrast completed [facility] Information not available 08/10/2022 19:05:29 07/26/2022 US, duplex, retroperitoneum, complete completed [facility] Information not available 08/10/2022 19:05:29 06/30/2022 imaging/diagnostic result completed Information not available 09/01/2022 13:50:10 03/17/2023 CT, abdomen + pelvis, w/ contrast completed [address], [place], [address], 04/29/2023 17:06:44 05/25/2023 XR, chest, 1 view completed Informa tion not available 05/31/2023 13:35:01 05/25/2023 CT, brain, w/o contrast completed Information not available 05/31/2023 13:35:02 05/25/2023 CT, head, w/o contrast completed Information not available 05/31/2023 13:35:02 05/30/2023 XR, chest, 1 view completed Informa tion not available 06/06/2023 09:02:38 05/31/2023 XR, chest completed Information no t available 06/06/2023 09:02:39 Procedure Notes None recorded. Medical Equipment None Reported. Allergies Allergen ID Allergen Name Allergen Category Reaction Reaction Severity Criticality Documentation Date Start Date Code Code System Note Provider Name and Address Organization Details Recorded Time 7555 erythromy sana medicatio n nausea Not available Not available 07/26/2022 4053 RxNorm Not Available [facility] 3 05:01:21 Medications Name Sig Start Date Stop Date Status Note LastModified by Organization Details LastModified Time losartan 50 mg tablet TAKE 1 TABLET BY MOUTH DAILY 03/14 completed Not Available Not Available Not Available nifedipine ER 30 mg tablet,ext ended release 24 hr 1 TAB BY MOUTH DAILY (DO NOT CRUSH) active Not Available Not Available No t Available tolterodin e ER 2 mg capsule,ex tended release 24 hr TAKE ONE CAPSULE BY MOUTH EVERY DAY 10/04 completed Not Available Not Available Not Available amoxicilli n 500 mg capsule TAKE 1 CAPSULE BY MOUTH THREE TIMES DAILY 11/17 completed Not Available Not Available Not Available Colace 100 mg capsule Take 1 capsule every day by oral route. 2021 active Not Available Not Available Not Avai lable atorvastat in 20 mg tablet TK 1 T PO D active Has not been taking Not Available Not Available Not Available enalapril maleate 5 mg tablet TAKE 1 TABLET BY MOUTH EVERY DAY 08/02 completed Not Available Not Available Not Available azithromyc in 250 mg tablet active Not Available Not Available Not Available aspirin 325 mg tablet Take 1 tablet every day by oral route. 12/23 completed Not Available Not Available Not Available tolterodin e ER 4 mg capsule,ex tended release 24 hr 1 CAP BY MOUTH DAILY active Not Available Not Available No t Available cephalexin 250 mg capsule TAKE 1 CAPSULE BY MOUTH AT BEDTIME 11/17 completed Not Available Not Available Not Available Claritin 10 mg tablet Take 1 tablet every day by oral route. 2019 active Not Available Not Available Not Avai lable prochlorpe razine maleate 5 mg tablet TK 2 TS PO D active Not Available Not Available No t Available meloxicam 15 mg tablet active Not Available Not Available Not Available phenazopyr idine 200 mg tablet TK 1 T PO TID 04/26 completed Not Available Not Available Not Available ondansetro n HCl 4 mg tablet TK 1 T PO Q 12 HOURS 12/07 completed Not Available Not Available Not Available isosorbide mononitrat e ER 30 mg tablet,ext ended release 24 hr TAKE 1 TABLET BY MOUTH EVERY DAY 03/14 completed Not Available Not Available Not Available penicillin V potassium 500 mg tablet active Not Available Not Available Not Available Nexium 40 mg capsule,de layed release active Not Available Not Available Not Available meclizine 12.5 mg tablet 10/20 completed Not Available Not Available Not Available acetaminop hen 300 mg-codeine 30 mg tablet active Not Available Not Available Not Available clopidogre l 75 mg tablet 1 TAB BY MOUTH DAILY 2022 active Not Available Not Available Not Avai lable ciprofloxa sana 250 mg tablet TAKE 1 TABLET BY MOUTH TWICE DAILY FOR 7 DAYS. 11/17 completed Not Available Not Available Not Available levofloxac in 250 mg tablet Take 1 tablet every day by oral route. active Not Available Not Available No t Available prochlorpe razine maleate 10 mg tablet TAKE 1 TABLET BY MOUTH DAILY NEEDED active Not Available Not Available No t Available sulfametho xazole 800 mg-trimeth oprim 160 mg tablet TAKE 1 TABLET BY MOUTH TWICE DAILY active Not Available Not Available No t Available hydrocodon e 10 mg-acetami nophen 325 mg tablet TK 1 T PO Q 4 TO 6 H PRN 12/07 completed Not Available Not Available Not Available aspirin 81 mg tablet,del ayed release takes Sun, Tues, Thurs 1 tablet 2019 active Not Available Not Available Not Avai lable tramadol 50 mg tablet TAKE ONE TABLET BY MOUTH 4 TIMES A DAY FOR 30 DAYS active Not Available Not Available No t Available bupropion HCl SR 100 mg tablet,12 hr sustained- release Take 1 tablet twice a day by oral route. 11/17 completed Not Available Not Available Not Available isosorbide mononitrat e ER 120 mg tablet,ext ended release 24 hr 1 TAB BY MOUTH DAILY 2022 active Not Available Not Available Not Avai lable isosorbide mononitrat e ER 60 mg tablet,ext ended release 24 hr TAKE 1 TABLET BY MOUTH DAILY 02/03 completed Not Available Not Available Not Available trazodone 100 mg tablet TK 2 TS PO QHS 12/25 completed Not Available Not Available Not Available Kenalog 10 mg/mL suspension for injection In office injectio n administ ered by the provider 02/03 completed [facility]: [id number] 94-20 Not Available Not Available Not Available cephalexin 500 mg capsule 06/28 completed Not Available Not Available Not Available pantoprazo le 40 mg tablet,del ayed release 1 TAB BY MOUTH DAILY (DO NOT CRUSH) 2022 active Not Available Not Available Not Avai lable clotrimazo le-betamet hasone 1 %-0.05 % topical cream active Not Available Not Available Not Available metronidaz ole 0.75 % topical cream APPLY A THIN LAYER TO THE AFFECTED AREA(S) BY TOPICAL ROUTE 2 TIMES PER DAY IN THE MORNING AND EVENING active Not Available Not Available No t Available minocyclin e 50 mg capsule 08/26 completed Not Available Not Available Not Available metoprolol tartrate 50 mg tablet 1 TAB BY MOUTH TWICE DAILY 2022 active Not Available Not Available Not Avai lable amoxicilli n 250 mg capsule TAKE 1 CAPSULE BY MOUTH EVERY 8 HOURS UNTIL GONE 11/17 completed Not Available Not Available Not Available mupirocin 2 % topical ointment 11/08 completed Not Available Not Available Not Available zolpidem 5 mg tablet 1 TAB BY MOUTH AT BEDTIME (INSOMNI A) active Not Available Not Available No t Available nystatin 100,000 unit/gram topical powder APPLY EXTERNAL LY TO THE AFFECTED AREA THREE TIMES DAILY active Not Available Not Available No t Available levofloxac in 500 mg tablet TAKE 1 TABLET BY MOUTH DAILY FOR 10 DAYS 10/30 completed Not Available Not Available Not Available zolpidem 10 mg tablet TAKE 1 TABLET BY MOUTH EVERY DAY AT BEDTIME 10/04 completed Not Available Not Available Not Available methylpred nisolone 4 mg tablets in a dose pack 03/14 completed Not Available Not Available Not Available celecoxib 100 mg capsule 12/07 completed Not Available Not Available Not Available oxybutynin chloride 5 mg tablet TAKE 1 TABLET BY MOUTH THREE TIMES DAILY 10/04 completed Not Available Not Available Not Available losartan 100 mg tablet 1 TAB BY MOUTH DAILY 2022 active Not Available Not Available Not Avai lable amoxicilli n 875 mg-potassi um clavulanat e 125 mg tablet TAKE 1 TABLET BY MOUTH TWICE DAILY 11/17 completed Not Available Not Available Not Available amoxicilli n 500 mg-potassi um clavulanat e 125 mg tablet TAKE 1 TABLET BY MOUTH TWICE DAILY 11/17 completed Not Available Not Available Not Available Tylenol Extra Strength 500 mg tablet Take 2 tablets every 6 hours by oral route as needed. 2021 active Not Available Not Available Not Avai lable cholestyra mine (with sugar) 4 gram powder for susp in a packet Take 1 packet every day by oral route. 03/14 completed Not Available Not Available Not Available nitrofuran toin monohydrat e/macrocry stals 100 mg capsule TAKE 1 CAPSULE BY MOUTH TWICE DAILY 11/17 completed Not Available Not Available Not Available trospium 20 mg tablet 12/07 completed Not Available Not Available Not Available duloxetine 30 mg capsule,de layed release Take 2 capsules every day by oral route in the morning. 2022 active Not Available Not Available Not Avai lable duloxetine 60 mg capsule,de layed release active Not Available Not Available Not Available solifenaci n 10 mg tablet TAKE 1 TABLET BY MOUTH EVERY DAY 10/04 completed Not Available Not Available Not Available Vesicare 5 mg tablet TK 1 T PO D 02/03 completed Not Available Not Available Not Available zolpidem ER 12.5 mg tablet,ext ended release,mu ltiphase active Not Available Not Available Not Available folic acid 1 po QD 10/04 completed Not Available Not Available Not Available Advil 2 tab prn 04/10 completed Not Available Not Available Not Available ondansetro n as neded for nasuea 06/09 completed Not Available Not Available Not Available Antacid 1-2 tablets prn 2021 active Not Available Not Available Not Avai lable lidocaine (PF) 10 mg/mL (1 %) injection solution In office injectio n administ ered by the provider 02/03 completed [facility]: [phone] [id number] Not Available Not Available Not Available oxycodone- acetaminop hen 2.5 mg-300 mg tablet Take 1 tablet every 6 hours by oral route. 02/03 completed PRN Not Available Not Available Not Available Myrbetriq 50 mg tablet,ext ended release 1 TAB BY MOUTH DAILY (DO NOT CRUSH) active Not Available Not Available No t Available Brintellix 10 mg tablet active Not Available Not Available Not Available Fluzone High-Dose (PF) 180 mcg/0.5 mL intramuscu lar syringe active Not Available Not Available Not Available Fluzone High-Dose (PF) 180 mcg/0.5 mL intramuscu lar syringe ADM 0.5ML IM UTD active Not Available Not Available No t Available Imodium A-D 2 mg capsule Take by oral route. 2021 active Not Available Not Available Not Avai lable Shingrix (PF) 50 mcg/0.5 mL intramuscu lar suspension , kit PHARMACY ADMINIST ERED 06/09 completed Not Available Not Available Not Available Fluzone High-Dose Quad (PF) 240 mcg/0.7 mL IM syringe PHARMACY ADMINIST ERED 06/09 completed Not Available Not Available Not Available Vitals Date Recorded Body mass index (BMI) Body height Oxygen saturation Oxygen saturation in Arterial blood by Pulse oximetry Pain severity - 0-10 verbal numeric rating [Score] - Reported Heart rate Body weight Systolic blood pressure Diastolic blood pressure Provider Name and Address Organization Details Last Updated DateTime 2 37.7 kg/m2 160.02 cm 91 % 91 % 3 94 /min 54989.1 7 g 120 mm[Hg] 80 mm[Hg] Not Available [facility] 3 04:46:49 Date Recorded Body mass index (BMI) Body height Oxygen saturation Oxygen saturation in Arterial blood by Pulse oximetry Heart rate Body temperature Body weight Systolic blood pressure Diastolic blood pressure Provider Name and Address Organization Details Last Updated DateTime 2 35.8 kg/m2 160.02 cm 94 % 94 % 92 /min 97 [degF] 49930.6 6 g 140 mm[Hg] 80 mm[Hg] Not Available [facility] 3 04:46:49 Date Recorded Body height Provider Name an d Address Organization Details Last Updated DateTime 03/04/2021 160.02 cm Not Available [facility] 3 04:46:51 Date Recorded Body height Body temperature Heart rate Oxygen saturation Oxygen saturation in Arterial blood by Pulse oximetry Systolic blood pressure Diastolic blood pressure Provider Name and Address Organization Details Last Updated DateTime 3 160.02 cm 97.7 [degF] 82 /min 96 % 96 % 130 mm[Hg] 84 mm[Hg] Caren Camelia aysha MARY [facility] 3 09:13:39 Date Recorded Pain severity - 0-10 verbal numeric rating [Score] - Reported Provider Name and Address Organization Details Last Updated DateTime 08/10/2022 8 Anna Marquez RN [facility] [employer] 08/10/2022 09:47:36 Date Recorded Body height Body mass index (BMI) Body weight Body temperature Heart rate Oxygen saturation Oxygen saturation in Arterial blood by Pulse oximetry Systolic blood pressure Diastolic blood pressure Provider Name and Address Organization Details Last Updated DateTime 3 160.02 cm 32.4 kg/m2 88548.4 g 96.9 [degF] 90 /min 94 % 94 % 106 mm[Hg] 68 mm[Hg] Carenoumar Denise aysha Oumar [facility] 3 15:59:34 Social History Question Answer Notes LastModified by Organization Details LastModified Time Tobacco Smoking Status Never Smoker Not Available [facility] 07/26/2022 04:31:06 Do You Have An Advance Directive? Yes MIGRATION.030 [id number] Information not available 07/26/2022 What Is Your Level Of Alcohol Consumption? None MIGRATION.030 [id number] Information not available 07/26/2022 Are You Blind Or Do You Have Difficulty Seeing? No MIGRATION.0301 [id number] Information not available 07/26/2022 What Is Your Level Of Caffeine Consumption? Moderate MIGRATION.030 [id number] Information not available 07/26/2022 In The 14 Days Before Symptom Onset, Have You Had Close Contact With A Laboratory-confi rmed COVID-19 While That Case Was Ill? No MIGRATION.030 [id number] Information not available 07/26/2022 In The 14 Days Before Symptom Onset, Have You Had Close Contact With A Person Who Is Under Investigation For COVID-19 While That Person Was Ill? No MIGRATION.030 921013 Information not available 07/26/2022 Are You Deaf Or Do You Have Serious Difficulty Hearing? No MIGRATION.030 635666 Information not available 07/26/2022 What Type Of Diet Are You Following? REGULAR MIGRATION.030 210871 Information not available 07/26/2022 What Is The Highest Grade Or Level Of School You Have Completed Or The Highest Degree You Have Received? [id number] MIGRATION.030 [id number] Information not available 07/26/2022 What Is Your Occupation? Retired MIGRATION.030 [id number] Information not available 07/26/2022 Have There Been Any Changes To Your Family Or Social Situation? No MIGRATION.030 566309 Information not available 07/26/2022 What Is The Fluoride Status Of Your Home? Unknown MIGRATION.030 603449 Information not available 07/26/2022 Are There Any Guns Present In Your Home? No MIGRATION.030 024155 Information not available 07/26/2022 Do You Use Insect Repellent Routinely? No MIGRATION.030 675174 Information not available 07/26/2022 Where Do You Live? SingleLevelHouse MIGRATION.030 550470 Information not available 07/26/2022 Advance Directive- Providers Has Reviewed Directive And Consents To Follow Them (insert Provider Name With Any Objectives In Notes Field) Yes Information not available 08/10/2022 Presence Of Domestic Violence No [email or web address] Information not available 08/10/2022 Guns Present In The Home? No Information not available 08/10/2022 Are You Able To Care For Yourself? No [email or web address] Information not available 08/10/2022 Are You Blind Or Do Yo Have Difficulty Seeing? No [email or web address] Information not available 08/10/2022 Are You Deaf Or Do You Have Serious Difficulty Hearing? Yes Information not available 08/10/2022 General Stress Level? Low Information not available 08/10/2022 Live Alone Of With Others? Alone Assisted Living [email or web address] Information not available 08/10/2022 Do You Have A Medical Power Of Sales Lead? Yes MIGRATION.030 [id number] Information not available 07/26/2022 What Was The Date Of Your Most Recent Tobacco Screening? 08/10/2022 [email or web address] Information not available 08/10/2022 Do You Have Any Pets? No MIGRATION.0301 [id number] Information not available 07/26/2022 What Is Your Relationship Status? MIGRATION.0301 [id number] Information not available 07/26/2022 Do You Use Your Seat Belt Or Car Seat Routinely? Yes MIGRATION.0301 607672 Information not available 07/26/2022 Do You Have Smoke And Carbon Monoxide Detectors In Your Home? Yes MIGRATION.0301 519329 Information not available 07/26/2022 Are You Passively Exposed To Smoke? No MIGRATION.0301 [id number] Information not available 07/26/2022 Are There Any Smokers In Your House? No MIGRATION.0301 399138 Information not available 07/26/2022 Do You Feel Stressed (tense, Restless, Nervous, Or Anxious, Or Unable To Sleep At Night)? [id number] MIGRATION.0301 [id number] Information not available 07/26/2022 Do You Use Any Illicit Or Recreational Drugs? No MIGRATION.0301 572813 Information not available 07/26/2022 Do You Use Sunscreen Routinely? Yes MIGRATION.0301 [id number] Information not available 07/26/2022 Has Tobacco Cessation Counseling Been Provided? No MIGRATION.0301 352910 Information not available 07/26/2022 Have You Recently Traveled Abroad? No MIGRATION.0301 022503 Information not available 07/26/2022 Do You Have Any Dietary Restrictions? No MIGRATION.0301 840755 Information not available 07/26/2022 Do You Or Have You Ever Used Any Other Forms Of Tobacco Or Nicotine? No MIGRATION.0301 [id number] Information not available 07/26/2022 Sex: Unknown Functional Status Question Answer Note LastModified by Organizat ion Details LastModified Time Do you have difficulty walking or climbing stairs? Yes MIGRATION.6811006 026 Information not available 07/26/2022 Do you have transportation difficulties? Yes MIGRATION.5885445 026 Information not available 07/26/2022 Are you able to walk? YESASSIST MIGRATION.4166206 026 Information not available 07/26/2022 Do you have difficulty doing errands alone? Yes MIGRATION.2119605 026 Information not available 07/26/2022 Are you able to care for yourself? Yes MIGRATION.0315333 026 Information not available 07/26/2022 Do you have difficulty dressing or bathing? Yes MIGRATION.1460077 026 Information not available 07/26/2022 What is your exercise level? None MIGRATION.5233192 026 Information not available 07/26/2022 Mental Status Question Answer Note LastModified by Organizat ion Details LastModified Time Do you have difficulty concentrating, remembering or making decisions? Yes MIGRATION.[id number] 6 Information not available 07/26/2022 Family History Relationship Description Onset Age of this Age Resolved Age Notes LastModified by Organization Details LastModified Time Mother Leukemia MIGRATION.326 [id number] Not available 07/26/2022 04:41:50 Father Diabetes mellitus MIGRATION.026 [id number] Not available 07/26/2022 04:41:50 Father Heart disease MIGRATION.160 [id number] Not available 07/26/2022 04:41:50 Father Myocardial infarction MIGRATION.160 [id number] Not available 07/26/2022 04:41:50 Brother Heart disease MIGRATION.732 [id number] Not available 07/26/2022 04:41:50 Sister Myocardial infarction MIGRATION.197 [id number] Not available 07/26/2022 04:41:50 Medical History No medical history recorded. Gynecological History Statement/Question Response Date of Last Mammogram 11/01/2015 Date of Last Colonoscopy 10/31/2004 Date of Last Mammogram Most Recent Bone Density Obstetrics History GPAL:G 0 P 0 0 0 0 Immunizations Vaccine Type Date Status Note Provider Nam e and Address Organization Details Recorded Time SARS-COV-2 (COVID-19) vaccine, UNSPECIFIED 3 completed MARY [place], [place] [facility] 04/10/2023 16:11:53 zoster recombinant 1 completed Not Available [facility] 07/26/2022 05:01:07 zoster, unspecified formulation 0 completed Not Available [facility] 07/26/2022 05:01:07 COVID-19, mRNA, LNP-S, PF, 100 mcg/0.5mL dose or 50 mcg/0.25mL dose 2 completed Not Available [facility] 07/26/2022 05:01:07 COVID-19, mRNA, LNP-S, PF, 100 mcg/0.5mL dose or 50 mcg/0.25mL dose 1 completed Not Available [facility] 07/26/2022 05:01:07 COVID-19, mRNA, LNP-S, PF, 100 mcg/0.5mL dose or 50 mcg/0.25mL dose 1 completed Not Available [facility] 07/26/2022 05:01:07 Influenza, split virus, quadrivalent, preservative 0 completed Not Available [facility] 07/26/2022 05:01:07 Influenza, high-dose, trivalent, PF 5 completed Not Available [facility] 07/26/2022 05:01:08 Influenza, high-dose, trivalent, PF 4 completed Not Available [facility] 07/26/2022 05:01:08 Influenza, high-dose, quadrivalent, PF 1 completed Not Available [facility] 07/26/2022 05:01:08 Influenza, high-dose, trivalent, PF 8 completed Not Available [facility] 07/26/2022 05:01:08 Influenza, high-dose, trivalent, PF 7 completed Not Available [facility] 07/26/2022 05:01:08 Influenza, high-dose, trivalent, PF 6 completed Not Available [facility] 07/26/2022 05:01:08 Pneumococcal conjugate PCV 13 6 completed Not Available [facility] 07/26/2022 05:01:08 Past Encounters Encounter ID Performer Location Encounter Start Date Encounter Closed Date Diagnosis/Indication Diagnosis SNOMED-CT Code Diagnosis ICD10 Code Diagnosis Note [id number] [facility] [address] [place] [address] 10/06/2020 00:00:00 10/06/2020 12:45:34 [id number] [facility] [address] [place] [address] 12/23/2020 00:00:00 12/23/2020 14:37:10 [id number] [facility] [address] [place] [address] 02/17/2021 00:00:00 02/17/2021 14:50:24 [id number] [facility] [address] [place] [address] 03/04/2021 00:00:00 03/04/2021 15:33:38 [id number] [facility] [address] [place] [address] 06/28/2021 00:00:00 06/28/2021 14:35:10 [id number] [facility] [address] [place] [address] 10/04/2021 00:00:00 10/04/2021 10:35:33 [id number] Ibrahima Bolanos MD [facility] Med [address] [place] [address] 08/10/2022 09:03:55 08/10/2022 09:41:44 Pain of left shoulder joint 6456906580 3304467 M25.512 she is Pleural effusion 5206483 8 J90 will get cxr today and then give recommenda tion Adult heal th examination 438215018 Z00.00 Screening for disorder 106594594 Z13.9 [id number] Ibrahima Bolanos MD [facility] Internal Med [address] [place] [address] 04/10/2023 15:49:36 04/10/2023 16:41:13 Altered mental status 367442106 R41.82 improved, no reason found, drink more water Recurrent falls 24715798 2 R29.6 going to start PT ordered by her doctor son Kidney disease 62674831 N08 avoid NSAIDS, drin more water, GFR 42 Health Concerns Section Related Observation LastModified by Organization Detai ls LastModified Time None Recorded Concern Status LastModified by Organization Details LastModified Time None Recorded Advance Directives Directive Y: Payers Encounter Date Sequence Insurance Name Policy Number Policy Panda Covered Member ID Panda Member ID Guarantor Name 08/10/2022 1 [place] Mary Rose [id number] Mary Rose 08/10/2022 2 [facility] [place] [id number] Mary Rose [id number] Mary Rose 04/10/2023 1 [place] Mary Rose [id number] Mary Rose 04/10/2023 2 [facility] [id number] Mary Rose [id number] Mary Rose Notes Date Note Type Note Provider Name and Address Organization Details Recorded Time 08/10/2022 text/html She is here to y for Urgent care follow up. Records never came.C/o Left arm pain- shoulder to elbow Has been using bio-gel. Has been doing PT and using heat pads but doesn't help muchRight side pain. Had CXR at urgent care, had some effusionTakes tramadol TID and not helping muchHas been falling more than usual, She uses a walker to walk. cxr showed possible heart enlargemnt and effusion but no complete report available she denies any chest pain, has baseline sob on walking. no fever Ibrahima Bolanos MD [address], [place], [address], [place]o 08/10/2022 13:29:27 04/10/2023 text/html She is here to y for a hospital follow up.She lives at [facility] (they were having a little libertarian) when her daughter stated that she went and sat by her mom and noticed that she was just starring off and not talking much. So they transported her via EMS to [place]. They did labs, Head CT and EKGshe is feeling betterShe has been falling at least twice a month from loosing her balance Ibrahima Bolanos MD [address], [place], [address], [place] 04/10/2023 16:40:42 OBGyn Episode No OBEpisode recorded.
--- OUTSIDE RECORDS SUMMARY | 2024-07-21 13:11 | XMS_ITS | Clinical Summary ---
Author Organization [facility] Address [address] [place] [address] Care Team Providers Care Disease Intervention Specialist Name Role Phone Unavailable Primary Care Provider Unavailabl e Source Comments [facility],non-owned Affiliates and Associated Physician Practices is amultiple site organization consisting of ambulatory clinics and hospital sitesin [place], [place], [place] and [place]. This disclosure is being madepursuant to the Care Everywhere program and may not contain all information available regarding this patient. Last updated 18.[facility] Encounters Date Type Department Care Team Description 06/05/2024 Lab Requisition [facility] [address] [place] [phone] Marbin Scales MD 06/05/2024 Lab Requisition [facility] [place] [address] Marbin Scales MD 05/08/2024 Lab Requisition [facility] [address] [place] [phone] Marbin Scales MD from Last 3 Months Social History Tobacco Use Types Packs/Day Years Used Date Smoking Tobacco: Never Assessed Sex and Gender Information Value Date Recorded Sex Assigned at Not on file Gender Identity Not on file Sexual Orientation Not on file Plan of Treatment Health Maintenance Due Date Last Done Comments BONE DENSITY TESTING 1935 MEDICARE AWV 12 MONTHS 1935 DTAP/TDAP/TD VACCINES (1 - Tdap) 1954 PNEUMOCOCCAL VACCINE 50+ (1 of 1 - PCV) 1985 ZOSTER VACCINE (1 of 2) 1985 Respiratory Syncytial Virus (RSV) Vaccine Pt: or over 60 yrs (1 - 1-dose 75+ series) 2010 COVID-19 VACCINE (2023-2 5 season) 2024 INFLUENZA VACCINE (#1) 2024 DEPRESSION SCREENING 05/28/2024 HEPATITIS B VACCINE Aged Out No longe r eligible based on patient's age to complete this topic HIB VACCINE Aged Out No longer eligi ble based on patient's age to complete this topic HPV VACCINE Aged Out No longer eligi ble based on patient's age to complete this topic MENINGOCOCCAL (Group B) VACCINE Aged Out No longer eligible based on patient's age to complete this topic MENINGOCOCCAL VACCINE Aged Out No saira amador eligible based on patient's age to complete this topic Procedures Procedure Name Priority Date/Time Associated Diagnosis Comments DERMATOPATHOLOGY Routine 06/04/2024 3:33 AM [facility] DERMATOPATHOLOGY Routine 05/07/2024 12:0 0 AM [facility] from Last 3 Months Results * DERMATOPATHOLOGY (06/04/2024 3:33 AM [facility]) Only the most recent of2 resultswithin the time period is included. Case Report Dermatopathology Report Case: [id number] Authorizing Provider: Marbin Scales MD Collected: 06/04/2024 03:33 AM Ordering Location: [facility] - Received: 06/05/2024 02:53 PM DermPath Lab Pathologist: Dianelys Nagel MD Specimen: Skin, mid forehead 1:05 PM [facility] DERMATOPATHOLOGY LABORATORY Final Diagnosis Specimen A. SKIN, mid forehead: SQUAMOUS CELL CARCINOMA, WELL DIFFERENTIATED (C44.329) 1:05 PM [facility]ERMAT[facility]ORY Clinical History SCC 1:05 PM [facility] DERMATOPATH[facility]ORATORY Gross Description Specimen A: Received is one formalin filled container labeled with the patient's name and designated mid forehead. The specimen consists of a curettage and desiccation biopsy measuring 10x9x3 mm. Jar 0. 1:05 PM [facility]ERMAT[facility]ATH[facility] Microscopic Description Specimen A. SKIN, mid forehead: Arising in the epidermis and extending into the dermis there are irregularly shaped aggregates of keratinocytes showing evidence of premature cornification. 5 1:05 PM [facility] DERMATOPATHOLOGY LABORATORY Disclaimer An external and internal positive and negative controls are appropriate for the histochemical, immunohistochemical and immunofluorescence stain(s) in this case (if any), except where stated explicitly. The performance characteristics of the stain(s) cited in this report were developed and its performance characteristic determined by the Dermatopathology Laboratory at [facility], directed by Dr. Ravi Marino. These tests need not be, and therefore are not, approved by the [place] Food and Drug Administration. The tests are used for clinical purposes. Billing Codes Specimen Charges Stain Charges 46465 1 5 1:05 PM [facility]ERMAT[facility]ORY Embedded Images 5 1:05 PM [facility] DERMATOPATHOLOGY LABORATORY Pathology/Cytolo gy TISSUE SPECIMEN FROM SKIN / Unknown 06/04/2024 3:33 AM [facility] 06/05/2024 2:53 PM [facility] Marbin Scales MD LAB - PATHOLOGY/CYTO LOGY ORDERABLES DERMATOPATHOLOGY LABORATORY [facility] - Department of Dermatology [facility] Medicine [address] [place] [address], [address] [phone] from Last 3 Months
--- OUTSIDE RECORDS SUMMARY | 2024-07-21 13:11 | XMS_ITS | Encounter Summary ---
Author Organization [facility] Address [address] [place] [address] Care Team Providers Care Furniture Shampooer Name Role Phone Unavailable Primary Care Provider Unavailabl e Encounter Details Date Type Department Care Team (Late st Contact Info) Description 09/07/2023 Lab Requisition [facility] Laboratory Services [id number] [place] [address] [place] [id number] [place] [address] Social History Tobacco Use Types [...] Associated Diagnosis Comments CBC WITH DIFFERENTIAL Routine 09/07/2023 3:30 AM CDT BASIC METABOLIC PANEL Routine 09/07/2023 3:30 AM CDT documented in this encounter Results * (ABNORMAL) CBC WITH DIFFERENTIAL (09/07/2023 3:30 AM CDT) WBC 10.3 4.5 - 10.5 K/uL 09/07/2023 8:10 AM CDT [facility] RBC 3.64(L) 3.90 - 4.90 M/uL 09/07/2023 8:10 AM CDT [facility] HEMOGLOBIN 11.5(L) 11.8 - 14.8 g/dL 09/07/2023 8:10 AM CDT [facility] HEMATOCRIT 35.5 35.5 - 44.0 % 09/07/2023 8:10 AM CDT [facility] MCV 97.3 82.0 - 99.0 fL 09/07/2023 8:10 AM CDT [facility] MCH 31.5 27.8 - 34.5 pg 09/07/2023 8:10 AM CDT [facility] MCHC 32.4(L) 32.5 - 35.5 g/dL 09/07/2023 8:10 AM CDT [facility] RDW 15.0(H) 11.5 - 14.5 % 09/07/2023 8:10 AM CDT [facility] PLATELETS 423(H) 160 - 420 K/uL 09/07/2023 8:10 AM CDT [facility] MPV 7.1(L) 8.7 - 12.7 fL 09/07/2023 8:10 AM CDT [facility] NEUTROPHILS 56 % 09/07/2023 8:10 AM CDT [facility] LYMPHOCYTES 33 % 09/07/2023 8:10 AM CDT [facility] MONOCYTES 7 % 09/07/2023 8:10 AM CDT [facility] EOSINOPHILS 3 % 09/07/2023 8:10 AM CDT [facility] BASOPHILS 1 % 09/07/2023 8:10 AM CDT [facility] NEUTROPHIL ABSOLUTE 5.80 1.90 - 7.00 K/uL 09/07/2023 8:10 AM CDT [facility] LYMPHOCYTE ABSOLUTE 3.40 0.70 - 4.50 K/uL 09/07/2023 8:10 AM CDT [facility] MONOCYTE ABSOLUTE 0.80 0.10 - 1.30 K/uL 09/07/2023 8:10 AM CDT [facility] EOSINOPHIL ABSOLUTE 0.30 0.00 - 0.70 K/uL 09/07/2023 8:10 AM CDT [facility] BASOPHILS ABSOLUTE 0.10 0.00 - 0.20 K/uL 09/07/2023 8:10 AM CDT [facility] Blood 09/07/2023 3:30 AM CDT 09/07/2023 7:55 AM CDT Noni Mcpherson MD HEMATOLOGY ORDERABLES Final Resu lt [facility] CLIA# [id number] [place] [address] * (ABNORMAL) BASIC METABOLIC PANEL (09/07/2023 3:30 AM CDT) SODIUM 140 136 - 145 mmol/L 09/07/2023 8:35 AM CDT [facility] POTASSIUM 4.1 3.4 - 5.1 mmol/L 09/07/2023 8:35 AM CDT [facility] CHLORIDE 103 98 - 107 mmol/L 09/07/2023 8:35 AM CDT [facility] CO2 25 22 - 29 mmol/L 09/07/2023 8:35 AM CDT [facility] CALCIUM 9.0 8.6 - 10.4 mg/dL 09/07/2023 8:35 AM CDT [facility] BUN 22(H) 6 - 20 mg/dL 09/07/2023 8:35 AM CDT [facility] CREATININE 0.90 0.51 - 0.95 mg/dL 09/07/2023 8:35 AM CDT [facility] Comment:The GFR result is no t clinically significant on patients <18 or >70 years of age. GLUCOSE 78 74 - 99 mg/dL 09/07/2023 8:35 AM CDT [facility] GFR >60 mL/min/1.7 3 sq meter 09/07/2023 8:35 AM T [facility] Comment:eGFR calculated with 2020 CKD-EPI equation. Vegetarian diet, extremely high or low muscle mass, and may affect results. Cystatin C with Glomerular Filtration Rate is a suitable alternative for these patients. ANION GAP 12 8 - 16 mmol/L 09/07/2023 8:35 AM CDT [facility] Blood 09/07/2023 3:30 AM CDT 09/07/2023 7:55 AM CDT Noni Mcpherson MD CHEMISTRY ORDERABLES Final Resul t [facility] CLIA# [id number] [place] [address] documented in this encounter Visit Diagnoses Not on filedocumented in this encounter
== END ==
LOC: ANHLAB 11:16
PROVIDERS: Visit Provider Plastic Surgery
DX: D04.9 Carcinoma in situ of skin, unspecified (principal)
CPT/HCPCS: 88305